=== PATIENT | male | born 1940 | race Caucasian/White ===

== ENCOUNTER 2019-04-12 13:45 | Inpatient (IN) | payer MEDICARE, OTHER ==
[~2019-04-12] VITALS: Ht 167.6 cm; Wt 105.4 kg
[2019-04-12] MEDS ORDERED: NACL 0.9% 3 ML SYG IV SCH (14:00)
[2019-04-12] MEDS ORDERED: ONDANSETRON 4 MG INJ IV PRN (14:00)
[2019-04-12] MEDS ORDERED: ZOLPIDEM 5 MG TAB PO PRN (14:00)
[2019-04-12] MEDS ORDERED: IOHEXOL 14.3 MG(I)/ML (ADULT) BTL PO ONE (14:00)
[2019-04-12] MEDS ORDERED: MAGNESIUM HYDROXIDE 30ML CUP PO PRN (14:00)
[2019-04-12] MEDS ORDERED: ACETAMINOPHEN 325 MG TAB PO PRN (14:00)
[2019-04-12 14:10] VITALS: BP 140/83; PULSE 87; RESP 16
--- NOTE | 2019-04-12 14:55 | HP ---
DATE OF ADMISSION: 04/12/2019 REASON FOR ADMISSION: Abdominal pain, liver lesions, rule out metastatic disease. HISTORY OF PRESENT ILLNESS: The patient is an unfortunate 78-year-old obese male with hist ory of hypertension, dyslipidemia, diabetes mellitus on metformin, ASCVD, atrial fibrillation, CVA 10 years ago with no residual deficits, who has been experiencing abdominal pain for more than a month, progressively worse as an abdominal ultrasound at the outpatient setting showed unfortunately multip le liver lesions suggestive of metastatic disease Because of his ongoing pain and above findings, we decided to admit the patient for further evaluation. The patient states that his abdominal pain is located in the left lower quadrant. He denies constipation. He reports actually frequent bowel move ments 2 to 3 a day, but denies hematochezia or black stools. He denies any weight loss. The patient does have arthritis of the knees and has difficulty ambulating because of it. He denies chest pain or shortness of breath. Denies any headaches. No change in vision. The patient has been admitted f or further care. PAST MEDICAL HISTORY: Includes hypertension, dyslipidemia, polycythemia, diabetes mellitus, ASCVD, A Fib, CVA, obese state. ALLERGIES: NO KNOWN DRUG ALLERGIES. SOCIAL HISTORY: No history of tobacco, IV drug use. Alcohol in the past. He was a heavy drinker, b ut has stopped. No history of hepatitis or HIV. The patient never had a colonoscopy or any EGD. The patient is . He has 1 son who lives in [place]. 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 PAST SURGICAL HISTORY: Left wrist surgery. MEDICATIONS: 1. Amlodipine 5 mg daily. 2. Metformin 500 mg daily. 3. Atorvastatin 20 mg at bedtime. 4. Metoprolol 25 b.i.d. He is supposed to take aspirin, but he is not taking it. FAMILY HISTORY: Both parents are and both unknown. He did not know about cancer in the [facility]. REVIEW OF SYSTEMS: Complaining of mostly left lower quadrant pain ongoing constant for months. PHYSICAL EXAMINATION: GENERAL: The patient is obese. HEENT: Normocephalic, atraumatic. Flushed at the face. No lymphadenopathy. CARDIOVASCULAR: S1, S2, irregular. LUNGS: Clear. ABDOMEN: Soft, distended, slight tenderness on palpation in the left lower quadrant. EXTREMITIES: There is no clubbing, cyanosis or edema. LABORATORY DATA: Pending. DIAGNOSTIC DATA: Ultrasound and CT scan was ordered and is pending. EKG in my office in the past sh owed AFib. We will follow up with current EKG. ASSESSMENT AND PLAN: This is an unfortunate 78-year-old obese male with multiple medical p roblems including hypertension, dyslipidemia, atrial fibrillation, diabetes mellitus, cerebrovascular accident, who presents with ongoing left lower quadrant abdominal pain, was found to have lesions in the liver concerning for metastatic disease. 1. Abdominal pain. This may be due to some intraabdominal process. I am concerned about possible c olon cancer with metastasis to the liver. We will consult GI and proceed with an abdominal ultrasoun d and CT scan of his chest, abdomen and pelvis with outpatient imaging tests to suggest possible live r metastasis. We will check CEA, PSA and CA 19-9. GI consultation was obtained. Pain control will be obtained as well. Check stool for blood and we will follow. 2. The patient will be placed on Protonix for gastrointestinal prophylaxis and Lovenox for deep veno us thrombosis prophylaxis. 3. History of atrial fibrillation. Continue metoprolol. He would definitely benefit from anticoagu lation. Follow up EKG results and consult cardiology. 4. Obese state. Weight loss is advised. 5. Diabetes mellitus. Accu-Chek before every meal will be provided with insulin coverage. We will check hemoglobin A1c. Again, weight loss is a must. 6. Polycythemia. Follow up H and H. May consider oncology and hematology for evaluation. We will follow. Dictated By: NIDHI PEREZ/RUIZ Conf#: [id number] DID#: [id number] CC: LEOPOLDO FORD MD;*End*
[2019-04-12 15:21] VITALS: Ht 167.6 cm; Wt 105.4 kg
[2019-04-12] MEDS ORDERED: GLUCOSE GEL 15 GRAM TUBE BUCCAL PRN (16:00)
[2019-04-12] MEDS ORDERED: GLUCAGON 1 MG INJ IM PRN (16:00)
[2019-04-12] MEDS ORDERED: DEXTROSE 50% 50 ML SYRINGE IV PRN ×2 (16:00)
[2019-04-12] MEDS ORDERED: GLUCOSE GEL 15 GRAM TUBE PO PRN ×2 (16:00)
[2019-04-12] MEDS: SOD CHLORIDE 0.9% 1,000 ML IV SCH (16:03)
[2019-04-12] MEDS ORDERED: IOHEXOL 300MG/ML 150 ML BTL ONE (17:06)
[2019-04-12] MEDS ORDERED: SOD CHLORIDE 0.9% 100 ML ONE (17:06)
[2019-04-12] MEDS: INSULIN ASPART [NOVOLOG] 3 ML PEN SC SCH ×2 (17:43→20:40)
[2019-04-12] MEDS ORDERED: ATOR40TA68 PO (18:27)
[2019-04-12] MEDS ORDERED: METF500T24 PO (18:28)
[2019-04-12] MEDS ORDERED: AMLO2.5T78 PO (18:29)
[2019-04-12] MEDS ORDERED: METO-448 PO (18:30)
--- NOTE | 2019-04-12 19:50 | CONS ---
DATE OF ADMISSION: 04/12/2019 DATE OF CONSULTATION: 04/12/2019 HISTORY OF PRESENT ILLNESS: An 78-year-old male with history of hypertension, dyslipidemia , diabetes mellitus on metformin, atrial fibrillation, CVA 10 years ago, comes to the hospital compla ining of abdominal pain for more than 1 month. The patient had ultrasound done which showed multiple mets in the liver. He never had a colonoscopy, no weight loss and is gaining weight. No chest pain , no shortness of breath, no or [employer] problem. PAST MEDICAL HISTORY: As described. PAST SURGICAL HISTORY: History of left wrist surgery. MEDICATIONS: 1. Amlodipine. 2. Metformin. 3. Statin 4. Metoprolol. ALLERGIES: NONE. FAMILY HISTORY: Both parents are . REVIEW OF SYSTEMS: Left lower quadrant pain. PHYSICAL EXAMINATION: GENERAL: Alert, awake, not in distress. VITAL SIGNS: Stable. HEENT: Unremarkable. NECK: Supple, no thyromegaly, no lymphadenopathy. CARDIOVASCULAR: No murmur, gallop, or click. LUNGS: Clear. ABDOMEN: Benign. EXTREMITIES: No edema. CENTRAL NERVOUS SYSTEM: Grossly within normal limits. IMPRESSION: 1. Multiple mets in the liver with elevated CA 19-9 and CEA, more in favor of a pancreatic lesion. 2. Diabetes mellitus. 3. Atrial fibrillation. 4. Obesity. 5. Polycythemia. PLAN: At this point is to get a CAT scan of the abdomen and pelvis to look for the pancreatic mass. If there are multiple mets in the liver, we will straight proceed with a biopsy of the liver to clin ch the diagnosis. In the interim, continue present care. Dictated By: LEOPOLDO WELCH/NTS Conf#: [id number] DID#: [id number] CC: NIDHI VILLEDA MD;*EndCC*
[2019-04-12] MEDS: METOPROLOL 25 MG TAB PO SCH (20:40)
[2019-04-12 20:42] VITALS: BP 129/80; PULSE 81; RESP 18
[2019-04-13] MEDS: ACCU-CHEK XX SCH (01:54)
[2019-04-13 02:00] VITALS: BP 166/93; PULSE 80; RESP 18
[2019-04-13] MEDS: SOD CHLORIDE 0.9% 1,000 ML IV SCH ×2 (03:58→17:02)
[2019-04-13] MEDS: PANTOPRAZOLE (EC) 40 MG TAB PO SCH (05:24)
--- NOTE | 2019-04-13 06:57 | CONS ---
Assessment/Plan Assessment/Plan Hospital Course (Demo Recall) 78 yo male 1. Multiple mets in the liver with elevated CA 19-9 and CEA, more in favor of a pancreatic lesion. -CT scan will show if pancreatic mass or liver masses alone, may need liver mass biopsies 2. Diabetes mellitus. 3. Atrial fibrillation. 4. Obesity. 5. Polycythemia. 6. Dyspnea on exertion -CXR shows low lung volume secondary to compression 7. Wall thickening with surrounding fat stranding in sigmoid colon seen in CT -Colitis vs diverticulitis (does c/o LLQ/L groin pain, wbc wnl, afebrile, no abx so less likely diverticulitis) vs neoplasm 8. Elevated CEA and CA 19-9 9. Fatty liver 10. Cardiomyopathy noted on CT 11. Enlarged prostate gland CT abd 04/12: 1. Approximately 7 cm loop of sigmoid colon demonstrates wall thickening with surrounding fat stranding. While this is suspicious for infectious/inflammatory process such as colitis versus less likely diverticulitis, neoplasm not entirely excluded. Please consider follow-up sigmoidoscopy/colonoscopy for further e valuation. 2. Diffuse fatty changes of the liver, with prominence of the caudate lobe and left lateral segments and apparent mild atrophy of hepatic segment 4, correlate for potential steatohepatitis/early changes of cirrhosis. 3. Previously noted hepatic lesions on recent ultrasound are not clearly visualized on the single run contrast examination. Please consider a dedicated CT or MRI abdomen liver protocol with multiple postcontrast phases of enhancement for further evaluation of lesion seen on recent ultrasound. 4. The heart is enlarged, including particularly the right atrium. 5. Ascending thoracic aorta measures 4.9 cm in diameter. 6. Mildly enlarged prostate gland. Please consider correlation with PSA. PLAN: STAT cbc and cmp Colonoscopy tomorrow if patient agrees. WBC wnl. Afebrile. Bowel prep to start at 1700. NPO p MN. Hold anti coagulants for procedure. Pt examined and plan of care discussed with Dr. Decker Consultation Date/Type/Reason Admit Date/Time April 12, 2019 at 13:45 Initial Consult Date Date/Time of Note DATE: 04/13/19 TIME: 06:57 24 HR Interval Summary Free Text/Dictation C/O SOB with exertion. Left groin pain. Exam/Review of Systems Exam Vitals Vital Signs Date Temp Pulse Resp B/P (MAP) Pulse Ox O2 O2 Flow FiO2 Time Delivery Rate 04/13/19 98.0 80 18 166/93 98 02:00 (117) 04/12/19 21 17:34 04/12/19 Room Air 14:10 Intake and Output 04/12/19 04/12/19 04/13/19 1515:00 23:00 07:00 IntakeIntake Total 100 ml 1180 ml BalanceBalance 100 ml 1180 ml Constitutional: alert, oriented Psych: no complaints Head: normocephalic Eyes: PERRL Respiratory: diminished breath sounds (diminished breath sounds at bases) Cardiovascular: regular rate and rhythm Gastrointestinal: soft, non-tender, other (obese) Neurological: nl mental status Results Result Diagram: 04/12/19 1526 04/12/19 1526 Results 24hrs Laboratory Tests Test 04/12/19 15:26 04/12/19 17:41 04/12/19 20:37 White Blood Count 6.0 Red Blood Count 6.23 H Hemoglobin 18.4 H Hematocrit 55.4 H Mean Corpuscular Volume 88.9 Mean Corpuscular Hemoglobin 29.5 Mean Corpuscular Hemoglobin Concent 33.2 Red Cell Distribution Width 13.3 Platelet Count 186 Mean Platelet Volume 10.5 H Immature Granulocytes % 0.200 Neutrophils % 53.2 Lymphocytes % 32.4 Monocytes % 11.0 Eosinophils % 2.5 Basophils % 0.7 Nucleated Red Blood Cells % 0.0 Immature Granulocytes # 0.010 Neutrophils # 3.2 Lymphocytes # 2.0 Monocytes # 0.7 Eosinophils # 0.2 Basophils # 0.0 Nucleated Red Blood Cells # 0.0 Prothrombin Time 13.2 Prothrombin Time Ratio 1.0 INR International Normalized Ratio 0.99 Sodium Level 143 Potassium Level 4.7 Chloride Level 105 Carbon Dioxide Level 32 H Anion Gap 6 Blood Urea Nitrogen 16 Creatinine 0.98 Est Glomerular Filtrat Rate mL/min Glucose Level 126 Hemoglobin A1c 7.0 H Uric Acid 7.5 Calcium Level 9.1 Ferritin 69.4 Total Bilirubin 1.0 Direct Bilirubin 0.00 Indirect Bilirubin 1.0 Aspartate Amino Transf (AST/SGOT) 33 Alanine Aminotransferase (ALT/SGPT) 28 Alkaline Phosphatase 69 Total Protein 7.2 Albumin 4.0 Globulin 3.20 Albumin/Globulin Ratio 1.25 Carcinoembryonic Antigen 19.7 H CA 19-9 Antigen 369.0 H Prostate Specific Antigen 1.1 Thyroid Stimulating Hormone (TSH) 1.490 Bedside Glucose 109 151 Medications Medication Current Medications IV Flush (NS 3 ml) 3 ml PER PROTOCOL IV ; Start 04/12/19 at 14:00 Acetaminophen (Tylenol Tab) 650 mg Q6H PRN PO .PAIN 1-3 OR TEMP; Start 04/12/19 at 14:00 Acetaminophen/ Hydrocodone Bitart ([place] (5/325)) 1 tab Q6H PRN PO .MOD PAIN 4- 6; Start 04/12/19 at 14:00 Docusate Sodium (Colace) 100 mg Q12H PRN PO .CONSTIPATION; Start 04/12/19 at 14:00 Magnesium Hydroxide (Milk Of Mag) 30 ml DAILY PRN PO .CONSTIPATION; Start 04/12/19 at 14:00 Zolpidem Tartrate (Ambien) 5 mg QHS PRN PO .INSOMNIA; Start 04/12/19 at 14:00 Pantoprazole (Protonix Tab) 40 mg DAILY@06 PO Last administered on 04/13/19at 05:24; Admin Dose 40 MG; Start 04/13/19 at 06:00 Diagnostic Test (Pha) (Accu-Chek) 1 ea 02 XX ; Start 04/13/19 at 02:00 Insulin Aspart (Novolog Insulin Pen) NOVOLOG *MODERATE* ALGORITHM WITH MEALS BEDTIME SC ; Start 04/12/19 at 18:05 Sodium Chloride 1,000 ml @ 80 mls/hr [id number] IV Last administered on 04/13/19at 03:58; Admin Dose 80 MLS/HR; Start 04/12/19 at 14:30 Metoprolol Tartrate (Lopressor) 25 mg BID PO Last administered on 04/12/19at 20:40; Admin Dose 25 MG; Start 04/12/19 at 21:00 Amlodipine Besylate (Norvasc) 5 mg DAILY PO ; Start 04/13/19 at 09:00 Enoxaparin Sodium (Lovenox) 40 mg DAILY SC ; Start 04/13/19 at 09:00 Ondansetron HCl (Zofran Inj) 4 mg Q6H PRN IV NAUSEA AND/OR VOMITING; Start 04/12/19 at 14:30 Miscellaneous Information 1 ea NOTE XX ; Start 04/12/19 at 16:00 Glucose (Glutose) 15 gm Q15M PRN PO DECREASED GLUCOSE; Start 04/12/19 at 16:00 Glucose (Glutose) 22.5 gm Q15M PRN PO DECREASED GLUCOSE; Start 04/12/19 at 16:00 Dextrose (D50w Syringe) 25 ml Q15M PRN IV DECREASED GLUCOSE; Start 04/12/19 at 16:00 Dextrose (D50w Syringe) 50 ml Q15M PRN IV DECREASED GLUCOSE; Start 04/12/19 at 16:00 Glucagon (Glucagen) 1 mg Q15M PRN IM DECREASED GLUCOSE; Start 04/12/19 at 16:00 Glucose (Glutose) 15 gm Q15M PRN BUCCAL DECREASED GLUCOSE; Start 04/12/19 at 16:00 SEEMA MENDOZA April 13, 2019 06:57
[2019-04-13 07:50] VITALS: BP 186/114; PULSE 69; RESP 18
[2019-04-13] MEDS: METOPROLOL 25 MG TAB PO SCH (08:08)
[2019-04-13] MEDS: INSULIN ASPART [NOVOLOG] 3 ML PEN SC SCH ×4 (08:12→21:00)
[2019-04-13] MEDS ORDERED: ENOXAPARIN 40 MG/0.4 ML SYG SC SCH (09:00)
[2019-04-13] MEDS ORDERED: AMLODIPINE 5 MG TAB PO SCH (09:00)
--- NOTE | 2019-04-13 09:49 | RADRPT ---
Echocardiogram Report Patient Name: JORDANA PEREZPatient ID: [id number] : 8 (78y 5m)Study Date: 04/13/2019 7:26:01 AM Gender: MAccession #: [id number] Tech: Linette Sorto [facility] Location: 223 Ref.Physician: RODRICK HAQ Height(Cm): BSA: Weight(Kg): Quality: AdequateAccount #: Procedures: Echocardiographic Report: Transthoracic echocardiogram with complete 2D, M-Mode, and doppler examination. Indications: Atrial Fibrillation. Measurements: 2D/M Mode Doppler Measurement Value Normal Range Measurement Value Normal Range LVIDd 2D 4.3 [ 4.2 - 5.8 ] cm AV Peak Uri 1.1 [ 100.0 - 170.0 ] cm/sec LVIDs 2D 2.4 [ 2.5 - 4.0 ] cm AV Peak PG 5.0 [ 2.0 - 9.0 ] mmHg LVPWd 2D 1.4 [ 0.6 - 1.0 ] cm LVOT Peak Uri 0.9 [ 70.0 - 110.0 ] cm/sec IVSd 2D 1.5 [ 0.6 - 1.0 ] cm LVOT Peak PG 4.0 [ 2.0 - 6.0 ] mmHg AoR Diam 2D 3.2 [ 2.6 - 3.4 ] cm MV E Peak Uri 0.9 [ 60.0 - 130.0 ] cm/sec EDV 2D 81.3 [ 62.0 - 150.0 ] ml MV Decel Time 222 [ 104 - 258 ] msec ESV 2D 19.7 [ 21.0 - 61.0 ] ml Lat E` Uri 0.1 [ 10.0 - 15.0 ] cm/sec EF 2D 75.8 [ 52.0 - 72.0 ] percent Lateral E/E` 7.6 [ 1.0 - 2.0 ] ratio LA Dimen 2D 4.4 [ 3.0 - 4.0 ] cm Findings: Left Ventricle: Normal left ventricular systolic function. Normal left ventricular cavity size. Moderate concentric left ventricular hypertrophy. Ejection fraction is visually estimated at 65 %. Tissue Doppler/Mitral Doppler indices are indeterminate in this study due to the presence of atrial fibrillation. Right Ventricle: Normal right ventricular size. Normal right ventricular systolic function. Left Atrium: There is mild enlargement of left atrium. Right Atrium: The right atrium is normal in size. Mitral Valve: Normal appearance and function of the mitral valve with trace physiologic regurgitation. Aortic Valve: No hemodynamically significant aortic stenosis by doppler. Aortic cusps appear mildly calcified. Trace to mild aortic valve regurgitation. Tricuspid Valve: Normal appearance of the tricuspid valve. Unable to obtain RVSP due to minimal presence of tricuspid regurgitation. Pulmonic Valve: Pulmonic valve not well visualized. Pericardium: Normal pericardium with no significant pericardial effusion. Aorta: Normal aortic root. IVC: Normal size and normal respiratory collapse consistent with normal right atrial pressure. Conclusions: There is mild enlargement of left atrium. Normal left ventricular systolic function. Normal left ventricular cavity size. Moderate concentric left ventricular hypertrophy. Ejection fraction is visually estimated at 65 %. Tissue Doppler/Mitral Doppler indices are indeterminate in this study due to the presence of atrial fibrillation. Normal appearance and function of the mitral valve with trace physiologic regurgitation. No hemodynamically significant aortic stenosis by doppler. Aortic cusps appear mildly calcified. Trace to mild aortic valve regurgitation. Normal appearance of the tricuspid valve. Unable to obtain RVSP due to minimal presence of tricuspid regurgitation. Normal size and normal respiratory collapse consistent with normal right atrial pressure. Electronically Signed By: Rodrick Haq 2019-04-13 09:48:29 PDT
--- NOTE | 2019-04-13 11:04 | CONS ---
Assessment/Plan Assessment/Plan Hospital Course (Demo Recall) 1. Atrial fibrillation: Appears to be chronically heart rate controlled. Patient would benefit from chronic anticoagulation however currently due to the multiple procedures at this plan is off of anticoagulation 2. Hypertension currently poorly controlled 3. Ascending aortic aneurysm at 4.9 cm: We will continue to monitor and control the blood pressure better 4. Likely metastatic cancer work-up is pending by GI 5. Diabetes 6. History of CVA 7. Dyslipidemia Recommendations: I will switch the metoprolol to carvedilol for better blood pressure control. SHAWNA inhibitor will be added Diabetic management as per Dr. Villeda associated GI work-up is pending. Colonoscopy is planned for tomorrow apparently. Heart is clinically remained stable we will continue to monitor. Thank you for his referral. We will continue to follow along with you RODRICK STEWART MD [facility] Consultation Date/Type/Reason Admit Date/Time April 12, 2019 at 13:45 Date of Consultation: April 13, 2019 Type of Consult Cardiology Reason for Consultation afib. Requesting Provider: NIDHI VILLEDA MD Date/Time of Note DATE: 04/13/19 TIME: 10:57 Hx of Present Illness Interventional cardiology consultation note Chief complaint: Lower abdominal pain Reason for consult: Atrial fibrillation, hypertension, dilated aortic aneurysm History of present illness: Thank you for this referral. History was obtained from the patient discussion with Dr. Villeda discussion with the staff and physicians. Chart was reviewed. This is a pleasant 78-year-old obese male with history of hypertension, dyslipidemia, diabetes mellitus on metformin, atrial fibrillation, CVA 10 years ago with no residual deficits, who was admitted for work-up of his abdominal pain. Patient apparently has had abdominal pain which is limited to become severe left lower quadrant sharp over the past month. He could not explain exacerbating factor to it. Work-up has been concerned about possibility of metastatic cancer has been admitted for further work-up. Patient has a history of atrial fibrillation which appears to be chronic but he is not anticoagulated chronically I am not sure why though. pt Could not explain to me reason has not been anticoagulated limiting anything except aspirin. Patient denies any active bleeding to me. His blood pressure this a.m. has been also severely elevated. CT of the abdomen has also shown 4.9 cm ascending aorta PAST MEDICAL HISTORY: Includes hypertension, dyslipidemia, polycythemia, di abetes mellitus, AFib, CVA, obese state. ALLERGIES: NO KNOWN DRUG ALLERGIES. SOCIAL HISTORY: No history of tobacco, IV drug use. Alcohol in the past. PAST SURGICAL HISTORY: Left wrist surgery. MEDICATIONS at home include 1. Amlodipine 5 mg daily. 2. Metformin 500 mg daily. 3. Atorvastatin 20 mg at bedtime. 4. Metoprolol 25 b.i.d. He is supposed to take aspirin, but he is not taking it. FAMILY HISTORY: Both parents are and both unknown. He did not know about cancer in the family. He is not aware of any history of early coronary artery disease in the family no known drug allergies Allergies: Review of system: Patient denies all others except for above-mentioned Past Medical History Home Meds Reported Medications Metoprolol Tartrate* (Lopressor*) 25 Mg Tab, 25 MG PO BID, #60 TAB 04/12/19 Amlodipine Besylate* (Amlodipine Besylate*) 2.5 Mg Tablet, 2.5 MG PO DAILY, #30 TAB 04/12/19 Metformin Hcl* (Metformin Hcl*) 500 Mg Tablet, 500 MG PO WITH MEALS, #90 TAB 04/12/19 Atorvastatin* (Atorvastatin*) 40 Mg Tablet, 40 MG PO QHS, #30 TAB 04/12/19 Medications Current Medications IV Flush (NS 3 ml) 3 ml PER PROTOCOL IV ; Start 04/12/19 at 14:00 Acetaminophen (Tylenol Tab) 650 mg Q6H PRN PO .PAIN 1-3 OR TEMP; Start 04/12/19 at 14:00 Acetaminophen/ Hydrocodone Bitart ([place] (5/325)) 1 tab Q6H PRN PO .MOD PAIN 4- 6; Start 04/12/19 at 14:00 Docusate Sodium (Colace) 100 mg Q12H PRN PO .CONSTIPATION; Start 04/12/19 at 14 :00 Magnesium Hydroxide (Milk Of Mag) 30 ml DAILY PRN PO .CONSTIPATION; Start 04/12/19 at 14:00 Zolpidem Tartrate (Ambien) 5 mg QHS PRN PO .INSOMNIA; Start 04/12/19 at 14:00 Pantoprazole (Protonix Tab) 40 mg DAILY@06 PO Last administered on 04/13/19at 05:24; Admin Dose 40 MG; Start 04/13/19 at 06:00 Diagnostic Test (Pha) (Accu-Chek) 1 ea 02 XX ; Start 04/13/19 at 02:00 Insulin Aspart (Novolog Insulin Pen) NOVOLOG *MODERATE* ALGORITHM WITH MEALS BEDTIME SC Last administered on 04/13/19at 08:12; Admin Dose 2 UNIT; Start 04/12/19 at 18:05 Sodium Chloride 1,000 ml @ 80 mls/hr [id number] IV Last administered on 04/13/19at 03:58; Admin Dose 80 MLS/HR; Start 04/12/19 at 14:30 Enoxaparin Sodium (Lovenox) 40 mg DAILY SC Last administered on 04/13/19at 08:10; Admin Dose 40 MG; Start 04/13/19 at 09:00; Status Hold Ondansetron HCl (Zofran Inj) 4 mg Q6H PRN IV NAUSEA AND/OR VOMITING; Start 04/12/19 at 14:30 Miscellaneous Information 1 ea NOTE XX ; Start 04/12/19 at 16:00 Glucose (Glutose) 15 gm Q15M PRN PO DECREASED GLUCOSE; Start 04/12/19 at 16:00 Glucose (Glutose) 22.5 gm Q15M PRN PO DECREASED GLUCOSE; Start 04/12/19 at 16:00 Dextrose (D50w Syringe) 25 ml Q15M PRN IV DECREASED GLUCOSE; Start 04/12/19 at 16:00 Dextrose (D50w Syringe) 50 ml Q15M PRN IV DECREASED GLUCOSE; Start 04/12/19 at 16:00 Glucagon (Glucagen) 1 mg Q15M PRN IM DECREASED GLUCOSE; Start 04/12/19 at 16:00 Glucose (Glutose) 15 gm Q15M PRN BUCCAL DECREASED GLUCOSE; Start 04/12/19 at 16:00 Bisacodyl (Dulcolax) 10 mg ONCE ONCE PO ; Start 04/13/19 at 17:00; Stop 04/13/19 at 17:01 Polyethylene Glycol/ Electrolytes (Golytely) 2,000 ml ONCE ONCE PO ; Start 04/13/19 at 17:00; Stop 04/13/19 at 17:01 Polyethylene Glycol/ Electrolytes (Golytely) 2,000 ml 2nd Dose (GI Prep) ONCE PO ; Start 04/13/19 at 20:00; Stop 04/13/19 at 20:01 Bisacodyl (Dulcolax) 10 mg 2nd Dose (GI Prep) ONCE PO ; Start 04/13/19 at 20:00; Stop 04/13/19 at 20:01 Hydralazine HCl (Apresoline) 25 mg TID PO ; Start 04/13/19 at 13:00 Amlodipine Besylate (Norvasc) 10 mg DAILY PO ; Start 04/14/19 at 09:00; Status UNV Metoprolol Tartrate (Lopressor) 50 mg BID PO ; Start 04/13/19 at 21:00; Status UNV Allergies: Coded Allergies: No Known Allergies (Verified Allergy, Unknown, 04/12/19) Social History Smoking Status: Never smoker Exam/Review of Systems Vital Signs Vitals Vital Signs Date Temp Pulse Resp B/P (MAP) Pulse Ox O2 O2 Flow FiO2 Time Delivery Rate 04/13/19 98.1 69 18 186/114 98 Room Air 07:50 (138) 04/12/19 21 17:34 Intake and Output 04/12/19 04/12/19 04/13/19 1515:00 23:00 07:00 IntakeIntake Total 100 ml 1180 ml BalanceBalance 100 ml 1180 ml Exam Exam General: Obese gentleman in no acute distress HEENT: NC/AT. pupils are equal. round. NECK: NO JVD. no stridor. CV: Regular irregular. systolic murmur; no gallop or rubs. PULM: no wheezing or rhonchi. GI: SOFT, NT, ND, no rebound or guarding Extremity: trace B/L LE edema. no clubbing. neuro: awake and alert, OX3. Psych: calm and pleasant rectal: deferred EEG was personally reviewed which showed atrial fibrillation. Cannot rule out anteroseptal infarct. Echocardiogram was personally reviewed which shows: There is mild enlargement of left atrium. Normal left ventricular systolic function. Normal left ventricular cavity size. Moderate concentric left ventricular hypertrophy. Ejection fraction is visually estimated at 65 %. Tissue Doppler/Mitral Doppler indices are indeterminate in this study due to the presence of atrial fibrilla tion. Normal appearance and function of the mitral valve with trace physiologic regurgitation. No hemodynamically significant aortic stenosis by doppler. Aortic cusps appear mildly calcified. Trace to mild aortic valve regurgitation. Normal appearance of the tricuspid valve. Unable to obtain RVSP due to minimal presence of tricuspid regurgitation. Normal size and normal respiratory collapse consistent with normal right atrial pressure. Labs Result Diagram: 04/13/19 1025 04/12/19 1526 Results 24hrs Laboratory Tests Test 04/12/19 15:26 04/12/19 17:41 04/12/19 20:37 04/13/19 08:01 White Blood Count 6.0 Red Blood Count 6.23 H Hemoglobin 18.4 H Hematocrit 55.4 H Mean Corpuscular 88.9 Volume Mean Corpuscular 29.5 Hemoglobin Mean Corpuscular 33.2 Hemoglobin Concent Red Cell 13.3 Distribution Width Platelet Count 186 Mean Platelet Volume 10.5 H Immature 0.200 Granulocytes % Neutrophils % 53.2 Lymphocytes % 32.4 Monocytes % 11.0 Eosinophils % 2.5 Basophils % 0.7 Nucleated Red Blood 0.0 Cells % Immature 0.010 Granulocytes # Neutrophils # 3.2 Lymphocytes # 2.0 Monocytes # 0.7 Eosinophils # 0.2 Basophils # 0.0 Nucleated Red Blood 0.0 Cells # Prothrombin Time 13.2 Prothrombin Time 1.0 Ratio INR International 0.99 Normalized Ratio Sodium Level 143 Potassium Level 4.7 Chloride Level 105 Carbon Dioxide Level 32 H Anion Gap 6 Blood Urea Nitrogen 16 Creatinine 0.98 Est Glomerular Filtrat Rate mL/min Glucose Level 126 Hemoglobin A1c 7.0 H Uric Acid 7.5 Calcium Level 9.1 Ferritin 69.4 Total Bilirubin 1.0 Direct Bilirubin 0.00 Indirect Bilirubin 1.0 Aspartate Amino 33 Transf (AST/SGOT) Alanine 28 Aminotransferase (AL T/SGPT) Alkaline Phosphatase 69 Total Protein 7.2 Albumin 4.0 Globulin 3.20 Albumin/Globulin 1.25 Ratio Carcinoembryonic 19.7 H Antigen CA 19-9 Antigen 369.0 H Prostate Specific 1.1 Antigen Thyroid Stimulating 1.490 Hormone (TSH) Bedside Glucose 109 151 160 Test 04/13/19 10:25 White Blood Count 5.7 Red Blood Count 6.01 Hemoglobin 17.5 Hematocrit 53.8 H Mean Corpuscular 89.5 Volume Mean Corpuscular 29.1 Hemoglobin Mean Corpuscular 32.5 Hemoglobin Concent Red Cell 13.2 Distribution Width Platelet Count 186 Mean Platelet Volume 10.4 Immature 0.400 Granulocytes % Neutrophils % 55.2 Lymphocytes % 31.0 Monocytes % 10.2 Eosinophils % 2.8 Basophils % 0.4 Nucleated Red Blood 0.0 Cells % Immature 0.020 Granulocytes # Neutrophils # 3.1 Lymphocytes # 1.8 Monocytes # 0.6 Eosinophils # 0.2 Basophils # 0.0 Nucleated Red Blood 0.0 Cells # Medications Medications Current Medications IV Flush (NS 3 ml) 3 ml PER PROTOCOL IV ; Start 04/12/19 at 14:00 Acetaminophen (Tylenol Tab) 650 mg Q6H PRN PO .PAIN 1-3 OR TEMP; Start 04/12/19 at 14:00 Acetaminophen/ Hydrocodone Bitart ([place] (5/325)) 1 tab Q6H PRN PO .MOD PAIN 4- 6; Start 04/12/19 at 14:00 Docusate Sodium (Colace) 100 mg Q12H PRN PO .CONSTIPATION; Start 04/12/19 at 14:00 Magnesium Hydroxide (Milk Of Mag) 30 ml DAILY PRN PO .CONSTIPATION; Start 04/12/19 at 14:00 Zolpidem Tartrate (Ambien) 5 mg QHS PRN PO .INSOMNIA; Start 04/12/19 at 14:00 Pantoprazole (Protonix Tab) 40 mg DAILY@06 PO Last administered on 04/13/19at 05 :24; Admin Dose 40 MG; Start 04/13/19 at 06:00 Diagnostic Test (Pha) (Accu-Chek) 1 ea 02 XX ; Start 04/13/19 at 02:00 Insulin Aspart (Novolog Insulin Pen) NOVOLOG *MODERATE* ALGORITHM WITH MEALS BEDTIME SC Last administered on 04/13/19at 08:12; Admin Dose 2 UNIT; Start 04/12/19 at 18:05 Sodium Chloride 1,000 ml @ 80 mls/hr [id number] IV Last administered on 04/13/19at 03:58; Admin Dose 80 MLS/HR; Start 04/12/19 at 14:30 Enoxaparin Sodium (Lovenox) 40 mg DAILY SC Last administered on 04/13/19at 08 :10; Admin Dose 40 MG; Start 04/13/19 at 09:00; Status Hold Ondansetron HCl (Zofran Inj) 4 mg Q6H PRN IV NAUSEA AND/OR VOMITING; Start 04/12/19 at 14:30 Miscellaneous Information 1 ea NOTE XX ; Start 04/12/19 at 16:00 Glucose (Glutose) 15 gm Q15M PRN PO DECREASED GLUCOSE; Start 04/12/19 at 16:00 Glucose (Glutose) 22.5 gm Q15M PRN PO DECREASED GLUCOSE; Start 04/12/19 at 16:00 Dextrose (D50w Syringe) 25 ml Q15M PRN IV DECREASED GLUCOSE; Start 04/12/19 at 16:00 Dextrose (D50w Syringe) 50 ml Q15M PRN IV DECREASED GLUCOSE; Start 04/12/19 at 16:00 Glucagon (Glucagen) 1 mg Q15M PRN IM DECREASED GLUCOSE; Start 04/12/19 at 16:00 Glucose (Glutose) 15 gm Q15M PRN BUCCAL DECREASED GLUCOSE; Start 04/12/19 at 16:00 Bisacodyl (Dulcolax) 10 mg ONCE ONCE PO ; Start 04/13/19 at 17:00; Stop 04/13/19 at 17:01 Polyethylene Glycol/ Electrolytes (Golytely) 2,000 ml ONCE ONCE PO ; Start 04/13/19 at 17:00; Stop 04/13/19 at 17:01 Polyethylene Glycol/ Electrolytes (Golytely) 2,000 ml 2nd Dose (GI Prep) ONCE PO ; Start 04/13/19 at 20:00; Stop 04/13/19 at 20:01 Bisacodyl (Dulcolax) 10 mg 2nd Dose (GI Prep) ONCE PO ; Start 04/13/19 at 20:00; Stop 04/13/19 at 20:01 Hydralazine HCl (Apresoline) 25 mg TID PO ; Start 04/13/19 at 13:00 Amlodipine Besylate (Norvasc) 10 mg DAILY PO ; Start 04/14/19 at 09:00; Status UNV Metoprolol Tartrate (Lopressor) 50 mg BID PO ; Start 04/13/19 at 21:00; Status UNV RODRICK STEWART MD April 13, 2019 11:04
[2019-04-13 13:00] VITALS: BP 144/82; PULSE 68; RESP 18
--- NOTE | 2019-04-13 13:28 | PN ---
DATE: 04/13/2019 SUBJECTIVE: The patient was seen and has intermittent left lower quadrant pain noted. Imaging from the CAT scan and case was discussed with Dr. Decker to proceed with a colonoscopy. Case was discusse d with Dr. Haq. PHYSICAL EXAMINATION: VITAL SIGNS: Temperature 98.1, pulse is 69, respirations 18, blood pressure 186/114, saturation is 9 8%. GENERAL: No acute distress. HEENT: Normocephalic, atraumatic. The patient is obese. CARDIOVASCULAR: S1 and S2. LUNGS: Clear. ABDOMEN: Soft. Palpation of left lower quadrant is not severe, just vague pain. EXTREMITIES: No clubbing, cyanosis or edema. LABORATORY DATA: No new labs today. Labs yesterday were reviewed which showed unfortunately elevate d CEA at 19.7 and CA 19-9 at 369. TSH is 1.49. DIAGNOSTIC DATA: Abdominal ultrasound shows diffuse hepatic steatosis, hypoechoic liver lesions coul d represent focal areas of fat sparing or focal liver lesions. Consider followup contrast and add MR I or CT liver protocol for further evaluation. No evidence of cholelithiasis or biliary ductal dilat ation. No evidence of hydronephrosis, splenomegaly. Bilateral renal cyst are seen. Chest x-ray giovanny ws low lung volume with compressive changes, mild cardiomegaly and aortic atherosclerosis. CT scan o f abdomen and pelvis shows approximately 7 cm loop of sigmoid colon demonstrates wall thickening with surrounding fat stranding. While this is suspicious for infectious inflammatory process such as col itis versus less likely diverticulitis, neoplasm is not entirely excluded. Please continue to follow up sigmoidoscopy, colonoscopy for further evaluation. There are diffuse fatty changes of the liver with prominence of the caudate lobe and left lateral segment and apparent mild atrophy of hepatic seg ment. Correlate for potential steatohepatitis and early changes of cirrhosis. There is previously n oted hepatic lesions on recent ultrasound not clearly visualized on the single noncontrast examinatio n. Please consider dedicated CT or MRI of the abdomen with liver protocol with multiple enhanc ement for further evaluation of lesion seen on recent ultrasound. The arteries are enlarged includin g particularly the right atrium and ascending thoracic aorta measuring 4.9 cm diameter and mildly enl arged prostate gland. Please consider correlation with PSA. Additional findings as detail. MEDICATIONS: 1. GoLYTELY to be given tonight. 2. Dulcolax as directed. 3. Hydralazine 25 t.i.d. 4. Norvasc 5 mg daily. 5. Protonix 40 mg daily. 6. Accu-Cheks as directed. 7. Lopressor 25 b.i.d. 8. Insulin aspart per sliding scale. 9. Tylenol. 10. [place]. 11. Colace. 12. Milk of Magnesia. 13. Ambien p.r.n. ASSESSMENT AND PLAN: This is an unfortunate 78-year-old obese male with multiple medical p roblems including hypertension, dyslipidemia, atrial fibrillation, diabetes mellitus, cerebrovascular accident, who presents with ongoing left lower quadrant abdominal pain, was found to have liver lesi ons. 1. Abdominal pain. CT scan of the abdomen does show sigmoid colon inflammation. The patient is to undergo colonoscopy in the a.m. Elevated CEA and CA 19-9 is quite concerning for either colon cancer or pancreatic cancer. We will proceed with an MRI of the abdomen with contrast see tomorrow's colon oscopy results. 2. Gastrointestinal: The patient is on Protonix for gastrointestinal prophylaxis. 3. Cardiovascular: The patient is with hypertension. Titrate medication up. Hold oral anticoagula tion due to plan of above procedures. Cardiology is following. Echocardiogram shows preserved eject ion fraction. 4. Diabetes mellitus. Continue insulin coverage while in-house. 5. Polycythemia likely due to obstructive sleep apnea. Definitely will benefit from a sleep study, CPAP and weight loss. We will follow. Dictated By: NIDHI PEREZ/RUIZ Conf#: [id number] DID#: [id number] CC: LEOPOLDO DECKER MD;*EndCC*
[2019-04-13 14:00] VITALS: BP 128/73; PULSE 52; RESP 16
[2019-04-13] MEDS ORDERED: BISACODYL (EC) 5 MG TAB PO ONE ×2 (17:00→20:00)
[2019-04-13] MEDS ORDERED: PEG/ELECTROLYTES 4L BTL PO ONE ×2 (17:00→20:00)
[2019-04-13 20:00] VITALS: BP 169/95; PULSE 69; RESP 19
--- NOTE | 2019-04-13 20:28 | RADRPT ---
Vent Rate: 91 bpm RR Interval: 662 msec ME Interval: [id number] msec QRS Duration: 89 msec QT Interval: 387 msec QTC Interval: 476 msec P-R-T [place]: [id number] - -50 - 55 degrees Atrial fibrillation...V-rate 77-106, irreg A-activity Consider left ventricular hypertrophy...(R aVL+S V3) >2.80mV Inferior infarct, old...Q >35mS, II III aVF Anterior Q waves, possibly due to LVH...Q >30mS in V2-V5 & LVH Electronically Signed By: Ever Whitlock
[2019-04-13] MEDS: HYDROCODONE/APAP (5/325) TAB PO PRN (21:03)
[2019-04-13] MEDS: METOPROLOL 50 MG TAB PO SCH (21:03)
[2019-04-13] MEDS ORDERED: IOHEXOL 14.3 MG(I)/ML (ADULT) BTL PO ONE (21:30)
[2019-04-14] VITALS (11 sets, daily range): BP systolic 138–187; BP diastolic 71–104; PULSE 54–77; RESP 16–23
[2019-04-14] MEDS: INSULIN ASPART [NOVOLOG] 3 ML PEN SC SCH ×5 (00:39→20:21)
[2019-04-14] MEDS: ACCU-CHEK XX SCH (01:24)
[2019-04-14] MEDS: SOD CHLORIDE 0.9% 1,000 ML IV SCH ×3 (04:00→20:26)
[2019-04-14] MEDS: PANTOPRAZOLE (EC) 40 MG TAB PO SCH (05:59)
[2019-04-14] MEDS: METOPROLOL 50 MG TAB PO SCH (09:00)
[2019-04-14] MEDS: AMLODIPINE 10 MG TAB PO SCH (09:00)
--- NOTE | 2019-04-14 10:40 | CONS ---
Consult Date/Type/Reason Admit Date/Time April 12, 2019 at 13:45 Initial Consult Date 04/13/19 Type of Consultation: cv Requesting Provider: NIDHI BAUTISTA MD Date/Time of Note DATE: 04/14/19 TIME: 10:38 Subjective Interventional cardiology follow-up progress note Subjective: Discussed with the staff. Patient with no chest pain or pressure. He still complains of abdominal pain which got worse with the prep for the colonoscopy No nausea vomiting Objective: General: Obese gentleman in no acute distress HEENT: NC/AT. pupils are equal. round. NECK: NO JVD. no stridor. CV: Irregularly irregular. systolic murmur; no gallop or rubs. PULM: no wheezing or rhonchi. GI: SOFT, NT, ND, no rebound or guarding Extremity: trace B/L LE edema. no clubbing. neuro: awake and alert, OX3. Psych: calm and pleasant rectal: deferred EEG was personally reviewed which showed atrial fibrillation. Cannot rule out anteroseptal infarct. Echocardiogram was personally reviewed which shows: There is mild enlargement of left atrium. Normal left ventricular systolic function. Normal left ventricular cavity size. Moderate concentric left ventricular hypertrophy. Ejection fraction is visually estimated at 65 %. Tissue Doppler/Mitral Doppler indices are indeterminate in this study due to the presence of atrial fibrillation. Normal appearance and function of the mitral valve with trace physiologic regurgitation. No hemodynamically significant aortic stenosis by doppler. Aortic cusps appear mildly calcified. Trace to mild aortic valve regurgitation. Normal appearance of the tricuspid valve. Unable to obtain RVSP due to minimal presence of tricuspid regurgitation. Normal size and normal respiratory collapse consistent with normal right atrial pressure. Objective Vitals Vital Signs Date Temp Pulse Resp B/P (MAP) Pulse Ox O2 O2 Flow FiO2 Time Delivery Rate 04/14/19 98.1 58 19 150/82 98 09:10 (104) 04/13/19 Room Air 14:00 04/12/19 21 17:34 Intake and Output 04/13/19 04/13/19 04/14/19 1515:00 23:00 07:00 IntakeIntake Total 600 ml 1820 ml 1000 ml BalanceBalance 600 ml 1820 ml 1000 ml Results/Medications Result Diagram: 04/14/19 0513 04/14/19 0513 Results 24 hrs Laboratory Tests Test 04/13/19 12:10 04/13/19 17:32 04/13/19 21:00 04/14/19 00:27 Bedside Glucose 123 125 146 157 Stool Occult Blood NEGATIVE Test 04/14/19 05:13 04/14/19 05:58 White Blood Count 7.6 # Red Blood Count 5.77 Hemoglobin 16.8 Hematocrit 51.4 Mean Corpuscular 89.1 Volume Mean Corpuscular 29.1 Hemoglobin Mean Corpuscular 32.7 Hemoglobin Concent Red Cell 13.1 Distribution Width Platelet Count 179 Mean Platelet Volume 10.8 H Immature 0.300 Granulocytes % Neutrophils % 64.9 Lymphocytes % 24.6 Monocytes % 9.5 Eosinophils % 0.4 Basophils % 0.3 Nucleated Red Blood 0.0 Cells % Immature 0.020 Granulocytes # Neutrophils # 4.9 Lymphocytes # 1.9 Monocytes # 0.7 Eosinophils # 0.0 Basophils # 0.0 Nucleated Red Blood 0.0 Cells # Prothrombin Time 12.9 Prothrombin Time 1.0 Ratio INR International 0.96 Normalized Ratio Activated 32.0 Partial Thromboplast Time Sodium Level 142 Potassium Level 4.1 Chloride Level 107 Carbon Dioxide Level 26 Anion Gap 9 Blood Urea Nitrogen 17 Creatinine 0.85 Est Glomerular Filtrat Rate mL/min Glucose Level 131 # Calcium Level 8.5 Total Bilirubin 0.8 Direct Bilirubin 0.00 Indirect Bilirubin 0.8 Aspartate Amino 40 Transf (AST/SGOT) Alanine 32 Aminotransferase (AL T/SGPT) Alkaline Phosphatase 55 Total Protein 6.3 Albumin 3.4 Globulin 2.90 Albumin/Globulin 1.17 Ratio Bedside Glucose 116 Home Meds Reported Medications Metoprolol Tartrate* (Lopressor*) 25 Mg Tab, 25 MG PO BID, #60 TAB 04/12/19 Amlodipine Besylate* (Amlodipine Besylate*) 2.5 Mg Tablet, 2.5 MG PO DAILY, #30 TAB 04/12/19 Metformin Hcl* (Metformin Hcl*) 500 Mg Tablet, 500 MG PO WITH MEALS, #90 TAB 04/12/19 Atorvastatin* (Atorvastatin*) 40 Mg Tablet, 40 MG PO QHS, #30 TAB 04/12/19 Medications Current Medications IV Flush (NS 3 ml) 3 ml PER PROTOCOL IV ; Start 04/12/19 at 14:00 Acetaminophen (Tylenol Tab) 650 mg Q6H PRN PO .PAIN 1-3 OR TEMP; Start 04/12/19 at 14:00 Acetaminophen/ Hydrocodone Bitart ([place] (5/325)) 1 tab Q6H PRN PO .MOD PAIN 4- 6 Last administered on 04/13/19at 21:03; Admin Dose 1 TAB; Start 04/12/19 at 14:00 Docusate Sodium (Colace) 100 mg Q12H PRN PO .CONSTIPATION; Start 04/12/19 at 14:00 Magnesium Hydroxide (Milk Of Mag) 30 ml DAILY PRN PO .CONSTIPATION; Start 04/12/19 at 14:00 Zolpidem Tartrate (Ambien) 5 mg QHS PRN PO .INSOMNIA; Start 04/12/19 at 14:00 Pantoprazole (Protonix Tab) 40 mg DAILY@06 PO Last administered on 04/13/19at 05:24; Admin Dose 40 MG; Start 04/13/19 at 06:00 Diagnostic Test (Pha) (Accu-Chek) 1 ea 02 XX ; Start 04/13/19 at 02:00 Sodium Chloride 1,000 ml @ 80 mls/hr [id number] IV Last administered on 04/14/19at 05:11; Admin Dose 80 MLS/HR; Start 04/12/19 at 14:30 Enoxaparin Sodium (Lovenox) 40 mg DAILY SC Last administered on 04/13/19at 08:10; Admin Dose 40 MG; Start 04/13/19 at 09:00; Status Hold Ondansetron HCl (Zofran Inj) 4 mg Q6H PRN IV NAUSEA AND/OR VOMITING; Start 04/12/19 at 14:30 Miscellaneous Information 1 ea NOTE XX ; Start 04/12/19 at 16:00 Glucose (Glutose) 15 gm Q15M PRN PO DECREASED GLUCOSE; Start 04/12/19 at 16:00 Glucose (Glutose) 22.5 gm Q15M PRN PO DECREASED GLUCOSE; Start 04/12/19 at 16:00 Dextrose (D50w Syringe) 25 ml Q15M PRN IV DECREASED GLUCOSE; Start 04/12/19 at 16:00 Dextrose (D50w Syringe) 50 ml Q15M PRN IV DECREASED GLUCOSE; Start 04/12/19 at 16:00 Glucagon (Glucagen) 1 mg Q15M PRN IM DECREASED GLUCOSE; Start 04/12/19 at 16:00 Glucose (Glutose) 15 gm Q15M PRN BUCCAL DECREASED GLUCOSE; Start 04/12/19 at 16:00 Hydralazine HCl (Apresoline) 25 mg TID PO Last administered on 04/13/19at 21:05; Admin Dose 25 MG; Start 04/13/19 at 13:00 Amlodipine Besylate (Norvasc) 10 mg DAILY PO ; Start 04/14/19 at 09:00 Metoprolol Tartrate (Lopressor) 50 mg BID PO Last administered on 04/13/19at 21:03; Admin Dose 50 MG; Start 04/13/19 at 21:00 Carvedilol (Coreg) 6.25 mg BID PO Last administered on 04/13/19at 21:05; Admin Dose 6.25 MG; Start 04/13/19 at 11:00 Captopril (Capoten) 25 mg TID PO Last administered on 04/13/19at 21:05; Admin Dose 25 MG; Start 04/13/19 at 13:00 Clonidine (Catapres) 0.1 mg Q4H PRN GTB SBP > 170; Start 04/13/19 at 11:00 Insulin Aspart (Novolog Insulin Pen) NOVOLOG *MODERATE* ALGORI... Q6 SC Last administered on 04/14/19at 00:39; Admin Dose 2 UNIT; Start 04/14/19 at 00:30 Assessment/Plan Hospital Course (Demo Recall) 1. Atrial fibrillation: Appears to be chronically heart rate controlled. Patient would benefit from chronic anticoagulation however currently due to the multiple procedures at this plan is off of anticoagulation 2. Hypertension currently poorly controlled 3. Ascending aortic aneurysm at 4.9 cm: We will continue to monitor and control the blood pressure better 4. Likely metastatic cancer work-up is pending by GI 5. Diabetes 6. History of CVA 7. Dyslipidemia Recommendations: I will stop the metoprolol . continue with carvedilol for better blood pressure control. SHAWNA inhibitor was already added Continue Norvasc as needed Diabetic management as per Dr. Bautista associated GI work-up is pending. Colonoscopy is planned for today Heart is clinically remained stable we will continue to monitor. Thank you for his referral. We will continue to follow along with you RODRICK STEWART MD [facility] RODRICK STEWART MD April 14, 2019 10:40
--- NOTE | 2019-04-14 12:25 | PREAC ---
Date/Time of Note Date/Time of Note DATE: 04/14/19 TIME: 12:23 Anesthesia Eval and Record Evaluation Time Pre-Procedure Interview DATE: 04/14/19 TIME: 12:23 Age 78 Sex male NPO: 8 hrs (COLON INFLAMMATION) Preoperative diagnosis COLON INFLAMMATION Planned procedure COLONOSCOPY Past Medical History Past Medical History: Includes Cardio: HTN, Dyslipidemia, Arrythmia Endo: Diabetes Neuro: CVA GI: Obesity Surgery & Anesthesia Issues No known issue Meds Anticoagulation: No Beta [place] within 24 hr: Yes Reported Medications Metoprolol Tartrate* (Lopressor*) 25 Mg Tab, 25 MG PO BID, #60 TAB 04/12/19 Amlodipine Besylate* (Amlodipine Besylate*) 2.5 Mg Tablet, 2.5 MG PO DAILY, #30 TAB 04/12/19 Metformin Hcl* (Metformin Hcl*) 500 Mg Tablet, 500 MG PO WITH MEALS, #90 TAB 04/12/19 Atorvastatin* (Atorvastatin*) 40 Mg Tablet, 40 MG PO QHS, #30 TAB 04/12/19 Current Medications IV Flush (NS 3 ml) 3 ml PER PROTOCOL IV ; Start 04/12/19 at 14:00 Acetaminophen (Tylenol Tab) 650 mg Q6H PRN PO .PAIN 1-3 OR TEMP; Start 04/12/19 at 14:00 Acetaminophen/ Hydrocodone Bitart ([place] (5/325)) 1 tab Q6H PRN PO .MOD PAIN 4- 6 Last administered on 04/13/19at 21:03; Admin Dose 1 TAB; Start 04/12/19 at 14:00 Docusate Sodium (Colace) 100 mg Q12H PRN PO .CONSTIPATION; Start 04/12/19 at 14:00 Magnesium Hydroxide (Milk Of Mag) 30 ml DAILY PRN PO .CONSTIPATION; Start 04/12/19 at 14:00 Zolpidem Tartrate (Ambien) 5 mg QHS PRN PO .INSOMNIA; Start 04/12/19 at 14:00 Pantoprazole (Protonix Tab) 40 mg DAILY@06 PO Last administered on 04/13/19at 05:24; Admin Dose 40 MG; Start 04/13/19 at 06:00 Diagnostic Test (Pha) (Accu-Chek) 1 ea 02 XX ; Start 04/13/19 at 02:00 Sodium Chloride 1,000 ml @ 80 mls/hr [id number] IV Last administered on 04/14/19at 05:11; Admin Dose 80 MLS/HR; Start 04/12/19 at 14:30 Enoxaparin Sodium (Lovenox) 40 mg DAILY SC Last administered on 04/13/19at 08:10; Admin Dose 40 MG; Start 04/13/19 at 09:00; Status Hold Ondansetron HCl (Zofran Inj) 4 mg Q6H PRN IV NAUSEA AND/OR VOMITING; Start 04/12/19 at 14:30 Miscellaneous Information 1 ea NOTE XX ; Start 04/12/19 at 16:00 Glucose (Glutose) 15 gm Q15M PRN PO DECREASED GLUCOSE; Start 04/12/19 at 16:00 Glucose (Glutose) 22.5 gm Q15M PRN PO DECREASED GLUCOSE; Start 04/12/19 at 16:00 Dextrose (D50w Syringe) 25 ml Q15M PRN IV DECREASED GLUCOSE; Start 04/12/19 at 16:00 Dextrose (D50w Syringe) 50 ml Q15M PRN IV DECREASED GLUCOSE; Start 04/12/19 at 16:00 Glucagon (Glucagen) 1 mg Q15M PRN IM DECREASED GLUCOSE; Start 04/12/19 at 16:00 Glucose (Glutose) 15 gm Q15M PRN BUCCAL DECREASED GLUCOSE; Start 04/12/19 at 16:00 Hydralazine HCl (Apresoline) 25 mg TID PO Last administered on 04/13/19at 21:05; Admin Dose 25 MG; Start 04/13/19 at 13:00 Amlodipine Besylate (Norvasc) 10 mg DAILY PO ; Start 04/14/19 at 09:00 Carvedilol (Coreg) 6.25 mg BID PO Last administered on 04/13/19at 21:05; Admin Dose 6.25 MG; Start 04/13/19 at 11:00 Captopril (Capoten) 25 mg TID PO Last administered on 04/13/19at 21:05; Admin Dose 25 MG; Start 04/13/19 at 13:00 Clonidine (Catapres) 0.1 mg Q4H PRN GTB SBP > 170; Start 04/13/19 at 11:00 Insulin Aspart (Novolog Insulin Pen) NOVOLOG *MODERATE* ALGORI... Q6 SC Last administered on 04/14/19at 00:39; Admin Dose 2 UNIT; Start 04/14/19 at 00:30 Meds reviewed: Yes Allergies Coded Allergies: No Known Allergies (Verified Allergy, Unknown, 04/12/19) Allergies Reviewed: Yes Labs/Studies Labs Reviewed: Reviewed by anesthesiologist Result Diagram: 04/14/19 0513 04/14/19 0513 Laboratory Tests 04/14/19 05:13 test: N/A Studies: ECG Pre-procedure Exam Last vitals Vital Signs Date Temp Pulse Resp B/P (MAP) Pulse Ox O2 O2 Flow FiO2 Time Delivery Rate 04/14/19 98.1 58 19 150/82 98 09:10 (104) 04/13/19 Room Air 14:00 04/12/19 21 17:34 Airway: Adequate mouth opening, Adequate thyromental dist Mallampati: Mallampati II Teeth: Normal Lung: Normal Heart: Normal ASA Physical Status ASA physical status: 3 Emergency: None Planned Anesthetic General/MAC: MAC Planned Pain Management Parenteral pain med Pre-operative Attestations Prior to commencing anesthesia and surgery, the patient was re-evaluated, there was verification of: *The patient's identity *The results of appropriate recent lab work and preoperative vital signs *The above evaluation not changing prior to induction *Anesthetic plan, risk benefits, alternative and complications discussed with patient/family; questions answered; patient/family understands, accepts and wishes to proceed. ABBEY MORALES April 14, 2019 12:25
[2019-04-14] MEDS ORDERED: PROPOFOL 60 ML ONE (12:26)
[2019-04-14] MEDS ORDERED: LIDOCAINE 2% (SDV) 5 ML INJ ONE (12:26)
[2019-04-14] MEDS ORDERED: MEPERIDINE 25 MG INJ IV PRN (12:30)
[2019-04-14] MEDS ORDERED: ONDANSETRON 4 MG INJ IV PRN (12:30)
[2019-04-14] MEDS ORDERED: EPHEDrine 25 MG/5 ML SYG IV PRN (12:30)
[2019-04-14] MEDS ORDERED: ALBUTEROL 0.083% (NEB) 2.5 MG/3 ML AMP HHN PRN (12:30)
[2019-04-14] MEDS ORDERED: DIPHENHYDRAMINE 50 MG INJ IV PRN (12:30)
[2019-04-14] MEDS ORDERED: hydrALAzine 20 MG INJ IV PRN (12:30)
[2019-04-14] MEDS ORDERED: LABETALOL HCL 20MG INJ IV PRN (12:30)
[2019-04-14] MEDS ORDERED: LABETALOL HCL 20MG INJ ONE (12:44)
--- NOTE | 2019-04-14 12:53 | PAC ---
Date/Time of Note Date/Time of Note DATE: 04/14/19 TIME: 12:53 Post-Anesthesia Notes Post-Anesthesia Note Last documented vital signs Vital Signs Date Temp Pulse Resp B/P (MAP) Pulse Ox O2 O2 Flow FiO2 Time Delivery Rate 04/14/19 98.1 58 19 150/82 98 12:10 (104) 04/13/19 Room Air 14:00 04/12/19 21 17:34 Activity: WNL Respiratory function: WNL Cardiovascular function: WNL Mental status: Baseline Pain reasonably controlled: Yes Hydration appropriate: Yes Nausea/Vomiting absent: Yes ABBEY MORALES April 14, 2019 12:53
[2019-04-14] MEDS: HYDROCODONE/APAP (5/325) TAB PO PRN (13:11)
[2019-04-14] MEDS: HYDROmorphONE 1 MG/ML SYG IV PRN ×2 (14:57→20:23)
[2019-04-14] MEDS ORDERED: HYDROmorphONE 0.5 MG/0.5 ML SYG IV PRN (15:00)
--- NOTE | 2019-04-14 15:20 | CONS ---
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 Pt may be a candidate for microwave ablation to the liver lesions. This can be done at [facility]. -This would then be followed by at least 6 months of 5fu based chemotherapy with a potential transition to maintenance Xeloda -continue management of HTN, HL, DM and Afib per primary team - Consultation Date/Type/Reason Admit Date/Time April 12, 2019 at 13:45 Date of Consultation: April 14, 2019 Type of Consult oncology Reason for Consultation colon cancer Requesting Provider: NIDHI VILLEDA MD Date/Time of Note DATE: 04/14/19 TIME: 15:10 Hx of Present Illness Mr Bazan is a pleasant 78-year-old male with multiple medical problems including hypertension, dyslipidemia, diabetes mellitus on metformin, ASCVD, atrial fibrillation, CVA 10 years ago with no residual deficits, who presented to [facility] on 04/12/19 with progressive abdominal pain. History reveal frequent bowel movements but no evidence of hematochezia or black stools. He denies any weight loss. 04/13/19 CT A/P revealed 1. 7 cm loop of sigmoid colon demonstrates wall t hickening with surrounding fat stranding. 2. Diffuse fatty changes of the liver, with prominence of the caudate lobe and left lateral segments and apparent mild atrophy of hepatic segment 04/13/19 MRI abdomen reveals 2.0 cm cyst at the junction of the right and left lobes, near the hepatic dome. There is a 1.8 cm lesion in the hepatic segment 5, with mild T2 hyperintensity and possible peripheral nodular enhancement. There is a 0.9 cm lesion in the hepatic segment 8, with mild T2 hyperintensity and possible hyperenhancement. There is a 1.3 cm intermediate T2 hyperintense lesion in the hepatic segment 4B, with possible delayed enhancement. Pt has since undergone a colonoscopy which revealed a colon mass. Biopsy is currently pending. Constitutional: no complaints, poor po Eyes: no complaints ENT: no complaints Respiratory: no complaints Cardiovascular: lightheadedness Gastrointestinal: pain, constipation, decreased appetite, nausea Genitourinary: no complaints Musculoskeletal: bone/joint pain Skin: no complaints Neurologic: no complaints Endocrine: no complaints Past Medical History hypertension, dyslipidemia, diabetes mellitus on metformin, ASCVD, atrial fibrillation, CVA 10 years ago with no residual deficits, Home Meds Reported Medications Metoprolol Tartrate* (Lopressor*) 25 Mg Tab, 25 MG PO BID, #60 TAB 04/12/19 Amlodipine Besylate* (Amlodipine Besylate*) 2.5 Mg Tablet, 2.5 MG PO DAILY, #30 TAB 04/12/19 Metformin Hcl* (Metformin Hcl*) 500 Mg Tablet, 500 MG PO WITH MEALS, #90 TAB 04/12/19 Atorvastatin* (Atorvastatin*) 40 Mg Tablet, 40 MG PO QHS, #30 TAB 04/12/19 Medications Current Medications IV Flush (NS 3 ml) 3 ml PER PROTOCOL IV ; Start 04/12/19 at 14:00 Acetaminophen (Tylenol Tab) 650 mg Q6H PRN PO .PAIN 1-3 OR TEMP; Start 04/12/19 at 14:00 Acetaminophen/ Hydrocodone Bitart ([place] (5/325)) 1 tab Q6H PRN PO .MOD PAIN 4- 6 Last administered on 04/14/19at 13:11; Admin Dose 1 TAB; Start 04/12/19 at 14:00 Docusate Sodium (Colace) 100 mg Q12H PRN PO .CONSTIPATION; Start 04/12/19 at 14:00 Magnesium Hydroxide (Milk Of Mag) 30 ml DAILY PRN PO .CONSTIPATION; Start 04/12/19 at 14:00 Zolpidem Tartrate (Ambien) 5 mg QHS PRN PO .INSOMNIA; Start 04/12/19 at 14:00 Pantoprazole (Protonix Tab) 40 mg DAILY@06 PO Last administered on 04/13/19at 05:24; Admin Dose 40 MG; Start 04/13/19 at 06:00 Diagnostic Test (Pha) (Accu-Chek) 1 ea 02 XX ; Start 04/13/19 at 02:00 Sodium Chloride 1,000 ml @ 80 mls/hr [id number] IV Last administered on 04/14/19at 05:11; Admin Dose 80 MLS/HR; Start 04/12/19 at 14:30 Enoxaparin Sodium (Lovenox) 40 mg DAILY SC Last administered on 04/13/19at 08: 10; Admin Dose 40 MG; Start 04/13/19 at 09:00; Status Hold Ondansetron HCl (Zofran Inj) 4 mg Q6H PRN IV NAUSEA AND/OR VOMITING; Start 04/12/19 at 14:30 Miscellaneous Information 1 ea NOTE XX ; Start 04/12/19 at 16:00 Glucose (Glutose) 15 gm Q15M PRN PO DECREASED GLUCOSE; Start 04/12/19 at 16:00 Glucose (Glutose) 22.5 gm Q15M PRN PO DECREASED GLUCOSE; Start 04/12/19 at 16:00 Dextrose (D50w Syringe) 25 ml Q15M PRN IV DECREASED GLUCOSE; Start 04/12/19 at 16:00 Dextrose (D50w Syringe) 50 ml Q15M PRN IV DECREASED GLUCOSE; Start 04/12/19 at 16:00 Glucagon (Glucagen) 1 mg Q15M PRN IM DECREASED GLUCOSE; Start 04/12/19 at 16:00 Glucose (Glutose) 15 gm Q15M PRN BUCCAL DECREASED GLUCOSE; Start 04/12/19 at 16:00 Hydralazine HCl (Apresoline) 25 mg TID PO Last administered on 04/13/19at 21:05; Admin Dose 25 MG; Start 04/13/19 at 13:00 Amlodipine Besylate (Norvasc) 10 mg DAILY PO ; Start 04/14/19 at 09:00 Carvedilol (Coreg) 6.25 mg BID PO Last administered on 04/13/19at 21:05; Admin Dose 6.25 MG; Start 04/13/19 at 11:00 Captopril (Capoten) 25 mg TID PO Last administered on 04/13/19at 21:05; Admin Dose 25 MG; Start 04/13/19 at 13:00 Clonidine (Catapres) 0.1 mg Q4H PRN GTB SBP > 170; Start 04/13/19 at 11:00 Insulin Aspart (Novolog Insulin Pen) NOVOLOG *MODERATE* ALGORI... Q6 SC Last administered on 04/14/19at 00:39; Admin Dose 2 UNIT; Start 04/14/19 at 00:30 Ondansetron HCl (Zofran Inj) 4 mg PACU ORDER PRN IV NAUSEA/VOMITING; Start 04/14/19 at 12:30; Stop 04/14/19 at 19:00 Labetalol HCl (Labetalol) 5 mg PACU ORDER PRN IV HIGH BLOOD PRESSURE; Start 04/14/19 at 12:30; Stop 04/14/19 at 19:00 Hydralazine HCl (Apresoline) 5 mg PACU ORDER PRN IV HIGH BLOOD PRESSURE Last administered on 04/14/19at 13:11; Admin Dose 5 MG; Start 04/14/19 at 12:30; Stop 04/14/19 at 19:00 Ephedrine Sulfate 5 mg PACU ORDER PRN IV BLOOD PRESSURE SUPPORT; Start 04/14/19 at 12:30; Stop 04/14/19 at 19:00 Albuterol (Proventil 0.083% (Neb)) 2.5 mg PACU ORDER PRN HHN .WHEEZING; Start 04/14/19 at 12:30; Stop 04/14/19 at 19:00 Meperidine HCl (Demerol) 25 mg PACU ORDER PRN IV .RIGORS Last administered on 04/14/19at 13:11; Admin Dose 25 MG; Start 04/14/19 at 12:30; Stop 04/14/19 at 19:00 Diphenhydramine HCl (Benadryl) 25 mg PACU ORDER PRN IV .PRURITUS; Start 04/14/19 at 12:30; Stop 04/14/19 at 19:00 Hydromorphone HCl (Dilaudid) 0.5 mg Q3H PRN IV MODERATE PAIN LEVEL 4-6; Start 04/14/19 at 15:00 Hydromorphone HCl (Dilaudid) 1 mg Q3H PRN IV SEVERE PAIN LEVEL 7-10 Last administered on 04/14/19at 14:57; Admin Dose 1 MG; Start 04/14/19 at 15:00 Allergies: Coded Allergies: No Known Allergies (Verified Allergy, Unknown, 04/12/19) Past Surgical History Past Surgical Hx: no surgical history Family History Significant Family History: no pertinent family hx Social History Alcohol Use: none Smoking Status: Never smoker Drug Use: none Exam/Review of Systems Exam Vitals Vital Signs Date Temp Pulse Resp B/P (MAP) Pulse Ox O2 O2 Flow FiO2 Time Delivery Rate 04/14/19 98.4 77 19 138/84 94 14:20 (102) 04/14/19 Nasal 2.0 13:50 Cannula 04/12/19 21 17:34 Intake and Output 04/13/19 04/13/19 04/14/19 1515:00 23:00 07:00 IntakeIntake Total 600 ml 1820 ml 1000 ml BalanceBalance 600 ml 1820 ml 1000 ml Constitutional: alert, oriented Psych: no complaints, anxiety, depression Head: normocephalic Eyes: nl conjunctiva ENMT: nl external ears & nose Neck: supple Respiratory: clear to auscultation Cardiovascular: regular rate and rhythm Gastrointestinal: soft Musculoskeletal: nl extremities to inspection Extremities: normal pulses 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 Results Result Diagram: 04/14/19 0513 04/14/19 0513 Results 24hrs Laboratory Tests Test 04/13/19 17:32 04/13/19 21:00 04/14/19 00:27 04/14/19 05:13 Bedside Glucose 125 146 157 Stool Occult Blood NEGATIVE White Blood Count 7.6 # Red Blood Count 5.77 Hemoglobin 16.8 Hematocrit 51.4 Mean Corpuscular 89.1 Volume Mean Corpuscular 29.1 Hemoglobin Mean Corpuscular 32.7 Hemoglobin Concent Red Cell 13.1 Distribution Width Platelet Count 179 Mean Platelet Volume 10.8 H Immature 0.300 Granulocytes % Neutrophils % 64.9 Lymphocytes % 24.6 Monocytes % 9.5 Eosinophils % 0.4 Basophils % 0.3 Nucleated Red Blood 0.0 Cells % Immature 0.020 Granulocytes # Neutrophils # 4.9 Lymphocytes # 1.9 Monocytes # 0.7 Eosinophils # 0.0 Basophils # 0.0 Nucleated Red Blood 0.0 Cells # Prothrombin Time 12.9 Prothrombin Time 1.0 Ratio INR International 0.96 Normalized Ratio Activated 32.0 Partial Thromboplast Time Sodium Level 142 Potassium Level 4.1 Chloride Level 107 Carbon Dioxide Level 26 Anion Gap 9 Blood Urea Nitrogen 17 Creatinine 0.85 Est Glomerular Filtrat Rate mL/min Glucose Level 131 # Calcium Level 8.5 Total Bilirubin 0.8 Direct Bilirubin 0.00 Indirect Bilirubin 0.8 Aspartate Amino 40 Transf (AST/SGOT) Alanine 32 Aminotransferase (AL T/SGPT) Alkaline Phosphatase 55 Total Protein 6.3 Albumin 3.4 Globulin 2.90 Albumin/Globulin 1.17 Ratio Test 04/14/19 05:58 04/14/19 11:27 Bedside Glucose 116 106 Medications Medication Current Medications IV Flush (NS 3 ml) 3 ml PER PROTOCOL IV ; Start 04/12/19 at 14:00 Acetaminophen (Tylenol Tab) 650 mg Q6H PRN PO .PAIN 1-3 OR TEMP; Start 04/12/19 at 14:00 Acetaminophen/ Hydrocodone Bitart ([place] (5/325)) 1 tab Q6H PRN PO .MOD PAIN 4- 6 Last administered on 04/14/19at 13:11; Admin Dose 1 TAB; Start 04/12/19 at 14:00 Docusate Sodium (Colace) 100 mg Q12H PRN PO .CONSTIPATION; Start 04/12/19 at 14:00 Magnesium Hydroxide (Milk Of Mag) 30 ml DAILY PRN PO .CONSTIPATION; Start 04/12/19 at 14:00 Zolpidem Tartrate (Ambien) 5 mg QHS PRN PO .INSOMNIA; Start 04/12/19 at 14:00 Pantoprazole (Protonix Tab) 40 mg DAILY@06 PO Last administered on 04/13/19at 05:24; Admin Dose 40 MG; Start 04/13/19 at 06:00 Diagnostic Test (Pha) (Accu-Chek) 1 ea 02 XX ; Start 04/13/19 at 02:00 Sodium Chloride 1,000 ml @ 80 mls/hr [id number] IV Last administered on 04/14/19at 05:11; Admin Dose 80 MLS/HR; Start 04/12/19 at 14:30 Enoxaparin Sodium (Lovenox) 40 mg DAILY SC Last administered on 04/13/19at 08:10; Admin Dose 40 MG; Start 04/13/19 at 09:00; Status Hold Ondansetron HCl (Zofran Inj) 4 mg Q6H PRN IV NAUSEA AND/OR VOMITING; Start 04/12/19 at 14:30 Miscellaneous Information 1 ea NOTE XX ; Start 04/12/19 at 16:00 Glucose (Glutose) 15 gm Q15M PRN PO DECREASED GLUCOSE; Start 04/12/19 at 16:00 Glucose (Glutose) 22.5 gm Q15M PRN PO DECREASED GLUCOSE; Start 04/12/19 at 16 :00 Dextrose (D50w Syringe) 25 ml Q15M PRN IV DECREASED GLUCOSE; Start 04/12/19 at 16:00 Dextrose (D50w Syringe) 50 ml Q15M PRN IV DECREASED GLUCOSE; Start 04/12/19 at 16:00 Glucagon (Glucagen) 1 mg Q15M PRN IM DECREASED GLUCOSE; Start 04/12/19 at 16:00 Glucose (Glutose) 15 gm Q15M PRN BUCCAL DECREASED GLUCOSE; Start 04/12/19 at 16:00 Hydralazine HCl (Apresoline) 25 mg TID PO Last administered on 04/13/19at 21:05; Admin Dose 25 MG; Start 04/13/19 at 13:00 Amlodipine Besylate (Norvasc) 10 mg DAILY PO ; Start 04/14/19 at 09:00 Carvedilol (Coreg) 6.25 mg BID PO Last administered on 04/13/19at 21:05; Admin Dose 6.25 MG; Start 04/13/19 at 11:00 Captopril (Capoten) 25 mg TID PO Last administered on 04/13/19at 21:05; Admin Dose 25 MG; Start 04/13/19 at 13:00 Clonidine (Catapres) 0.1 mg Q4H PRN GTB SBP > 170; Start 04/13/19 at 11:00 Insulin Aspart (Novolog Insulin Pen) NOVOLOG *MODERATE* ALGORI... Q6 SC Last administered on 04/14/19at 00:39; Admin Dose 2 UNIT; Start 04/14/19 at 00:30 Ondansetron HCl (Zofran Inj) 4 mg PACU ORDER PRN IV NAUSEA/VOMITING; Start 04/14/19 at 12:30; Stop 04/14/19 at 19:00 Labetalol HCl (Labetalol) 5 mg PACU ORDER PRN IV HIGH BLOOD PRESSURE; Start 04/14/19 at 12:30; Stop 04/14/19 at 19:00 Hydralazine HCl (Apresoline) 5 mg PACU ORDER PRN IV HIGH BLOOD PRESSURE Last administered on 04/14/19at 13:11; Admin Dose 5 MG; Start 04/14/19 at 12:30; Stop 04/14/19 at 19:00 Ephedrine Sulfate 5 mg PACU ORDER PRN IV BLOOD PRESSURE SUPPORT; Start 04/14/19 at 12:30; Stop 04/14/19 at 19:00 Albuterol (Proventil 0.083% (Neb)) 2.5 mg PACU ORDER PRN HHN .WHEEZING; Start 04/14/19 at 12:30; Stop 04/14/19 at 19:00 Meperidine HCl (Demerol) 25 mg PACU ORDER PRN IV .RIGORS Last administered on 04/14/19at 13:11; Admin Dose 25 MG; Start 04/14/19 at 12:30; Stop 04/14/19 at 19:00 Diphenhydramine HCl (Benadryl) 25 mg PACU ORDER PRN IV .PRURITUS; Start 04/14/19 at 12:30; Stop 04/14/19 at 19:00 Hydromorphone HCl (Dilaudid) 0.5 mg Q3H PRN IV MODERATE PAIN LEVEL 4-6; Start 04/14/19 at 15:00 Hydromorphone HCl (Dilaudid) 1 mg Q3H PRN IV SEVERE PAIN LEVEL 7-10 Last administered on 04/14/19at 14:57; Admin Dose 1 MG; Start 04/14/19 at 15:00 SHADI FUENTES M.D. April 14, 2019 15:20
--- NOTE | 2019-04-14 15:20 | PN ---
DATE: 04/14/2019 SUBJECTIVE: The patient was seen. I came to the GI suite and found the patient. The patient was un fortunately found to have a descending colon mass measuring up to 7 cm. Case was discussed with Dr. Decker. The patient was seen otherwise stable. PHYSICAL EXAMINATION: VITAL SIGNS: Temperature 98.1, pulse 68, respiration 19, blood pressure 150/82, saturation 98%. GENERAL: No acute distress. HEENT: Normocephalic, atraumatic. CARDIOVASCULAR: S1, S2. ABDOMEN: Soft, obese, distended. EXTREMITIES: No clubbing, cyanosis or edema. LABORATORY DATA: Today, white count 7.6, hemoglobin 16.8, hematocrit 51, platelets 179, normal diffe rential. Chemistry: Sodium 142, potassium 4.1, chloride , bicarbonate 26, BUN is 17, creatinin e of 0.85, glucose 131. DIAGNOSTIC DATA: Abdominal MRI was reviewed. MEDICATIONS: Include: 1. Zofran p.r.n. 2. Labetalol p.r.n. 3. Hydralazine p.r.n. 4. Albuterol p.r.n. 5. Demerol p.r.n. this is for the colonoscopy. 6. Norvasc 10 mg daily. 7. Insulin aspart per sliding scale. 8. Hydralazine 25 daily. 9. Captopril 25 t.i.d. 10. Coreg 6.25 b.i.d. 11. Clonidine p.r.n. 12. Protonix 20 mg daily. 13. Hypoglycemia protocol as directed. 14. Normal saline at 80 mL an hour. ASSESSMENT AND PLAN: This is an 78-year-old male with history of hypertension, dyslipidemi a, atrial fibrillation, diabetes mellitus, cerebrovascular accident, presented with left lower quadra nt pain, was found to have liver lesions concerning for metastases. Colonoscopy now confirms colon m ass consistent with colon cancer. 1. Colon mass likely metastasis to the liver. Area was marked. We will consult general surgery for possible resection. It is concerning this will cause an obstruction. 2. Diabetes mellitus. Continue diabetes treatment with insulin. 3. Continue Protonix for gastrointestinal prophylaxis. 4. Cardiovascular: The patient with atrial fibrillation, rate controlled. Continue above meds. Ca rdiology is following. 5. Polycythemia, likely due to obstructive sleep apnea. Weight loss and CPAP will be beneficial. We discussed about plan of care with the patient. We will follow. Consider oncology consultation. Dictated By: NIDHI PEREZ/RUIZ Conf#: [id number] DID#: [id number] CC: LEOPOLDO DECKER MD;*EndCC*
--- NOTE | 2019-04-14 21:34 | CONS ---
Assessment/Plan Assessment/Plan Hospital Course (Demo Recall) 1. Sigmoid mass on colonoscopy 2. Multiple liver lesions (insufficient MRI due to motion artifact however demonstrates1.8 cm lesion in the hepatic segment 5, 0.9 cm lesion in the hepatic segment 8, 1.3 cm intermediate T2 hyperintense lesion in the hepatic segment 4B) 3. Occasional abdominal pain -Concern is metastatic colon cancer. He does not have any active bleeding, obstruction, evidence of perforation. Options are to start chemotherapy due to stage IV cancer and then proceed with colon resection with possible liver met resections versus ablation. Other possible he is to proceed with colon resection and then adjuvant chemotherapy. My concern is delaying his chemotherapy at this time. I will discuss this with oncology. 4. BMI 37 with comorbidities, morbid obesity -Encourage nutritional optimization -Encourage exercise optimization 5. Hypertension, diabetes mellitus, dyslipidemia -Encourage nutrition and medication optimization -Encourage weight loss 6. Atrial fibrillation, rate controlled -Cardiac optimization -Electrolyte optimization 7. 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 -Medical and cardiac optimization and clearance Thank you very much for consulting me in this patient's care, Consultation Date/Type/Reason Admit Date/Time April 12, 2019 at 13:45 Date of Consultation: April 14, 2019 Type of Consult General surgical Reason for Consultation Sigmoid mass, possible adenocarcinoma Liver masses, possible metastasis BMI 37 Requesting Provider: NIDHI VILLEDA MD Date/Time of Note DATE: 04/14/19 TIME: 21:34 Hx of Present Illness Mr Bazan is a pleasant 78-year-old male with multiple medical problems who presented to [facility] on 04/12/19 with intermittent left lower quadrant abdominal p ain, crampy in nature without associated nausea, vomiting, fever, chills, change in bowel habits, dysuria, change in weight, new headache bone pain or lumps. No blood per mouth, stool, urine. Patient had multiple imaging as below. He had colonoscopy and biopsy identifying the lesion in the sigmoid colon. Surgical consult was obtained for further evaluation and treatment. 04/13/19 CT A/P revealed 1. 7 cm loop of sigmoid colon demonstrates wall thickening with surrounding fat stranding. 2. Diffuse fatty changes of the liver, with prominence of the caudate lobe and left lateral segments and apparent mild atrophy of hepatic segment 04/13/19 MRI abdomen reveals 2.0 cm cyst at the junction of the right and left lobes, near the hepatic dome. There is a 1.8 cm lesion in the hepatic segment 5, with mild T2 hyperintensity and possible peripheral nodular enhancement. There is a 0.9 cm lesion in the hepatic segment 8, with mild T2 hyperintensity and possible hyperenhancement. There is a 1.3 cm intermediate T2 hyperintense lesion in the hepatic segment 4B, with possible delayed enhancement. 12 point review of systems negative unless otherwise addressed in chart Past Medical History Hypertension Dyslipidemia Diabetes mellitus ASCVD Atrial fibrillation CVA 10 years ago with no residual deficits BMI 37 Colonic mass Liver masses Depression Hepatic steatosis Home Meds Reported Medications Metoprolol Tartrate* (Lopressor*) 25 Mg Tab, 25 MG PO BID, #60 TAB 04/12/19 Amlodipine Besylate* (Amlodipine Besylate*) 2.5 Mg Tablet, 2.5 MG PO DAILY, #30 TAB 04/12/19 Metformin Hcl* (Metformin Hcl*) 500 Mg Tablet, 500 MG PO WITH MEALS, #90 TAB 04/12/19 Atorvastatin* (Atorvastatin*) 40 Mg Tablet, 40 MG PO QHS, #30 TAB 04/12/19 Medications Current Medications IV Flush (NS 3 ml) 3 ml PER PROTOCOL IV ; Start 04/12/19 at 14:00 Acetaminophen (Tylenol Tab) 650 mg Q6H PRN PO .PAIN 1-3 OR TEMP; Start 04/12/19 at 14:00 Acetaminophen/ Hydrocodone Bitart ([place] (5/325)) 1 tab Q6H PRN PO .MOD PAIN 4- 6 Last administered on 04/14/19at 13:11; Admin Dose 1 TAB; Start 04/12/19 at 14:00 Docusate Sodium (Colace) 100 mg Q12H PRN PO .CONSTIPATION; Start 04/12/19 at 14:00 Magnesium Hydroxide (Milk Of Mag) 30 ml DAILY PRN PO .CONSTIPATION; Start 04/12/19 at 14:00 Zolpidem Tartrate (Ambien) 5 mg QHS PRN PO .INSOMNIA; Start 04/12/19 at 14:00 Pantoprazole (Protonix Tab) 40 mg DAILY@06 PO Last administered on 04/13/19at 05:24; Admin Dose 40 MG; Start 04/13/19 at 06:00 Diagnostic Test (Pha) (Accu-Chek) 1 ea 02 XX ; Start 04/13/19 at 02:00 Sodium Chloride 1,000 ml @ 80 mls/hr [id number] IV Last administered on 04/14/19at 20:26; Admin Dose 80 MLS/HR; Start 04/12/19 at 14:30 Enoxaparin Sodium (Lovenox) 40 mg DAILY SC Last administered on 04/13/19at 08:10; Admin Dose 40 MG; Start 04/13/19 at 09:00; Status Hold Ondansetron HCl (Zofran Inj) 4 mg Q6H PRN IV NAUSEA AND/OR VOMITING; Start 04/12/19 at 14:30 Miscellaneous Information 1 ea NOTE XX ; Start 04/12/19 at 16:00 Glucose (Glutose) 15 gm Q15M PRN PO DECREASED GLUCOSE; Start 04/12/19 at 16:00 Glucose (Glutose) 22.5 gm Q15M PRN PO DECREASED GLUCOSE; Start 04/12/19 at 16:00 Dextrose (D50w Syringe) 25 ml Q15M PRN IV DECREASED GLUCOSE; Start 04/12/19 at 16:00 Dextrose (D50w Syringe) 50 ml Q15M PRN IV DECREASED GLUCOSE; Start 04/12/19 at 16:00 Glucagon (Glucagen) 1 mg Q15M PRN IM DECREASED GLUCOSE; Start 04/12/19 at 16:00 Glucose (Glutose) 15 gm Q15M PRN BUCCAL DECREASED GLUCOSE; Start 04/12/19 at 16:00 Hydralazine HCl (Apresoline) 25 mg TID PO Last administered on 04/14/19at 20:18; Admin Dose 25 MG; Start 04/13/19 at 13:00 Amlodipine Besylate (Norvasc) 10 mg DAILY PO ; Start 04/14/19 at 09:00 Carvedilol (Coreg) 6.25 mg BID PO Last administered on 04/14/19at 20:18; Admin Dose 6.25 MG; Start 04/13/19 at 11:00 Captopril (Capoten) 25 mg TID PO Last administered on 04/14/19at 20:18; Admin Dose 25 MG; Start 04/13/19 at 13:00 Clonidine (Catapres) 0.1 mg Q4H PRN GTB SBP > 170; Start 04/13/19 at 11:00 Hydromorphone HCl (Dilaudid) 0.5 mg Q3H PRN IV MODERATE PAIN LEVEL 4-6; Start 04/14/19 at 15:00 Hydromorphone HCl (Dilaudid) 1 mg Q3H PRN IV SEVERE PAIN LEVEL 7-10 Last administered on 04/14/19at 20:23; Admin Dose 1 MG; Start 04/14/19 at 15:00 Insulin Aspart (Novolog Insulin Pen) NOVOLOG *MODERATE* ALGORITHM WITH MEALS BEDTIME SC ; Start 04/14/19 at 21:00 Allergies: Coded Allergies: No Known Allergies (Verified Allergy, Unknown, 04/12/19) Past Surgical History Left wrist surgery Family History Significant Family History: diabetes, hypertension Social History Alcohol Use: none Smoking Status: Never smoker Drug Use: none Exam/Review of Systems Exam Vitals Vital Signs Date Temp Pulse Resp B/P (MAP) Pulse Ox O2 O2 Flow FiO2 Time Delivery Rate 04/14/19 97.9 70 18 169/88 97 20:00 (115) 04/14/19 Nasal 2.0 13:50 Cannula 04/12/19 21 17:34 Intake and Output 04/13/19 04/13/19 04/14/19 1515:00 23:00 07:00 IntakeIntake Total 600 ml 1820 ml 1000 ml BalanceBalance 600 ml 1820 ml 1000 ml Constitutional: alert, oriented, obese; No distress Psych: nl mood/affect; No anxiety, No confusion Head: normocephalic, atraumatic Eyes: nl conjunctiva, EOMI, PERRL; No icteric ENMT: nl external ears & nose, mucosa pink and moist Neck: supple; No jvd Respiratory: normal air movement; No congested cough, No labored breathing, No wheezing Cardiovascular: edema; No regular rate and rhythm Gastrointestinal: soft, non-tender, other (Obese); No rebound or guarding Genitourinary - Male: nl penis, nl scrotum Musculoskeletal: nl extremities to inspection; No joint tenderness Extremities: normal pulses, edema; No calf tenderness Neurological: nl mental status, nl speech, nl strength Skin: nl turgor; No rash or lesions, No diaphoresis Lymph: nl lymph nodes Results Result Diagram: 04/14/19 0513 04/14/19 0513 Results 24hrs Laboratory Tests Test 04/14/19 00:27 04/14/19 05:13 04/14/19 05:58 04/14/19 11:27 Bedside Glucose 157 116 106 White Blood Count 7.6 # Red Blood Count 5.77 Hemoglobin 16.8 Hematocrit 51.4 Mean Corpuscular 89.1 Volume Mean Corpuscular 29.1 Hemoglobin Mean Corpuscular 32.7 Hemoglobin Concent Red Cell 13.1 Distribution Width Platelet Count 179 Mean Platelet Volume 10.8 H Immature 0.300 Granulocytes % Neutrophils % 64.9 Lymphocytes % 24.6 Monocytes % 9.5 Eosinophils % 0.4 Basophils % 0.3 Nucleated Red Blood 0.0 Cells % Immature 0.020 Granulocytes # Neutrophils # 4.9 Lymphocytes # 1.9 Monocytes # 0.7 Eosinophils # 0.0 Basophils # 0.0 Nucleated Red Blood 0.0 Cells # Prothrombin Time 12.9 Prothrombin Time 1.0 Ratio INR International 0.96 Normalized Ratio Activated 32.0 Partial Thromboplast Time Sodium Level 142 Potassium Level 4.1 Chloride Level 107 Carbon Dioxide Level 26 Anion Gap 9 Blood Urea Nitrogen 17 Creatinine 0.85 Est Glomerular Filtrat Rate mL/min Glucose Level 131 # Calcium Level 8.5 Total Bilirubin 0.8 Direct Bilirubin 0.00 Indirect Bilirubin 0.8 Aspartate Amino 40 Transf (AST/SGOT) Alanine 32 Aminotransferase (AL T/SGPT) Alkaline Phosphatase 55 Total Protein 6.3 Albumin 3.4 Globulin 2.90 Albumin/Globulin 1.17 Ratio Test 04/14/19 18:34 04/14/19 20:20 Bedside Glucose 138 117 Medications Medication Current Medications IV Flush (NS 3 ml) 3 ml PER PROTOCOL IV ; Start 04/12/19 at 14:00 Acetaminophen (Tylenol Tab) 650 mg Q6H PRN PO .PAIN 1-3 OR TEMP; Start 04/12/19 at 14:00 Acetaminophen/ Hydrocodone Bitart ([place] (5/325)) 1 tab Q6H PRN PO .MOD PAIN 4- 6 Last administered on 04/14/19at 13:11; Admin Dose 1 TAB; Start 04/12/19 at 14:00 Docusate Sodium (Colace) 100 mg Q12H PRN PO .CONSTIPATION; Start 04/12/19 at 14:00 Magnesium Hydroxide (Milk Of Mag) 30 ml DAILY PRN PO .CONSTIPATION; Start 04/12/19 at 14:00 Zolpidem Tartrate (Ambien) 5 mg QHS PRN PO .INSOMNIA; Start 04/12/19 at 14:00 Pantoprazole (Protonix Tab) 40 mg DAILY@06 PO Last administered on 04/13/19at 05:24; Admin Dose 40 MG; Start 04/13/19 at 06:00 Diagnostic Test (Pha) (Accu-Chek) 1 ea 02 XX ; Start 04/13/19 at 02:00 Sodium Chloride 1,000 ml @ 80 mls/hr [id number] IV Last administered on 04/14/19at 20:26; Admin Dose 80 MLS/HR; Start 04/12/19 at 14:30 Enoxaparin Sodium (Lovenox) 40 mg DAILY SC Last administered on 04/13/19at 08:10; Admin Dose 40 MG; Start 04/13/19 at 09:00; Status Hold Ondansetron HCl (Zofran Inj) 4 mg Q6H PRN IV NAUSEA AND/OR VOMITING; Start 04/12/19 at 14:30 Miscellaneous Information 1 ea NOTE XX ; Start 04/12/19 at 16:00 Glucose (Glutose) 15 gm Q15M PRN PO DECREASED GLUCOSE; Start 04/12/19 at 16:00 Glucose (Glutose) 22.5 gm Q15M PRN PO DECREASED GLUCOSE; Start 04/12/19 at 16:00 Dextrose (D50w Syringe) 25 ml Q15M PRN IV DECREASED GLUCOSE; Start 04/12/19 at 16:00 Dextrose (D50w Syringe) 50 ml Q15M PRN IV DECREASED GLUCOSE; Start 04/12/19 at 16:00 Glucagon (Glucagen) 1 mg Q15M PRN IM DECREASED GLUCOSE; Start 04/12/19 at 16:00 Glucose (Glutose) 15 gm Q15M PRN BUCCAL DECREASED GLUCOSE; Start 04/12/19 at 16:00 Hydralazine HCl (Apresoline) 25 mg TID PO Last administered on 04/14/19at 20:18; Admin Dose 25 MG; Start 04/13/19 at 13:00 Amlodipine Besylate (Norvasc) 10 mg DAILY PO ; Start 04/14/19 at 09:00 Carvedilol (Coreg) 6.25 mg BID PO Last administered on 04/14/19at 20:18; Admin Dose 6.25 MG; Start 04/13/19 at 11:00 Captopril (Capoten) 25 mg TID PO Last administered on 04/14/19at 20:18; Admin Dose 25 MG; Start 04/13/19 at 13:00 Clonidine (Catapres) 0.1 mg Q4H PRN GTB SBP > 170; Start 04/13/19 at 11:00 Hydromorphone HCl (Dilaudid) 0.5 mg Q3H PRN IV MODERATE PAIN LEVEL 4-6; Start 04/14/19 at 15:00 Hydromorphone HCl (Dilaudid) 1 mg Q3H PRN IV SEVERE PAIN LEVEL 7-10 Last administered on 04/14/19at 20:23; Admin Dose 1 MG; Start 04/14/19 at 15:00 Insulin Aspart (Novolog Insulin Pen) NOVOLOG *MODERATE* ALGORITHM WITH MEALS BEDTIME SC ; Start 04/14/19 at 21:00 VIRGINIE GUO MD April 14, 2019 21:34
[2019-04-15] MEDS: ACCU-CHEK XX SCH (01:36)
[2019-04-15 02:24] VITALS: BP 144/79; PULSE 72; RESP 18
[2019-04-15] MEDS: PANTOPRAZOLE (EC) 40 MG TAB PO SCH (05:25)
[2019-04-15 08:00] VITALS: BP 157/78; PULSE 100; RESP 18
[2019-04-15] MEDS: INSULIN ASPART [NOVOLOG] 3 ML PEN SC SCH ×4 (08:00→20:27)
[2019-04-15] MEDS: SOD CHLORIDE 0.9% 1,000 ML IV SCH (08:56)
[2019-04-15] MEDS: AMLODIPINE 10 MG TAB PO SCH (08:57)
--- NOTE | 2019-04-15 09:56 | CONS ---
Consult Date/Type/Reason Admit Date/Time April 12, 2019 at 13:45 Initial Consult Date 04/13/19 Type of Consultation: cv Requesting Provider: NIDHI BAUTISTA MD Date/Time of Note DATE: 04/15/19 TIME: 09:55 Subjective Interventional cardiology follow-up progress note Subjective: Discussed with the staff. Patient with no chest pain or pressure. s/p colo 04/14/19 No nausea vomiting No chest pain or pressure. No palpitation. Patient is asking to go home Objective: General: Obese gentleman in no acute distress HEENT: NC/AT. pupils are equal. round. NECK: NO JVD. no stridor. CV: Irregularly irregular. systolic murmur; no gallop or rubs. PULM: no wheezing or rhonchi. GI: SOFT, NT, ND, no rebound or guarding Extremity: trace B/L LE edema. no clubbing. neuro: awake and alert, OX3. Psych: calm and pleasant rectal: deferred EEG was personally reviewed which showed atrial fibrillation. Cannot rule out anteroseptal infarct. Echocardiogram was personally reviewed which shows: There is mild enlargement of left atrium. Normal left ventricular systolic function. Normal left ventricular cavity size. Moderate concentric left ventricular hypertrophy. Ejection fraction is visually estimated at 65 %. Tissue Doppler/Mitral Doppler indices are indeterminate in this study due to the presence of atrial fibrillation. Normal appearance and function of the mitral valve with trace physiologic regurgitation. No hemodynamically significant aortic stenosis by doppler. Aortic cusps appear mildly calcified. Trace to mild aortic valve regurgitation. Normal appearance of the tricuspid valve. Unable to obtain RVSP due to minimal presence of tricuspid regurgitation. Normal size and normal respiratory collapse consistent with normal right atrial pressure. Objective Vitals Vital Signs Date Temp Pulse Resp B/P (MAP) Pulse Ox O2 O2 Flow FiO2 Time Delivery Rate 04/15/19 98.3 100 18 157/78 99 08:00 (104) 04/14/19 Nasal 2.0 13:50 Cannula 04/12/19 21 17:34 Intake and Output 04/14/19 04/14/19 04/15/19 1515:00 23:00 07:00 IntakeIntake Total 1240 ml 910 ml BalanceBalance 1240 ml 910 ml Results/Medications Result Diagram: 04/14/19 0513 04/14/19 0513 Results 24 hrs Laboratory Tests Test 04/14/19 11:27 04/14/19 18:34 04/14/19 20:20 04/15/19 08:24 Bedside Glucose 106 138 117 104 Home Meds Reported Medications Metoprolol Tartrate* (Lopressor*) 25 Mg Tab, 25 MG PO BID, #60 TAB 04/12/19 Amlodipine Besylate* (Amlodipine Besylate*) 2.5 Mg Tablet, 2.5 MG PO DAILY, #30 TAB 04/12/19 Metformin Hcl* (Metformin Hcl*) 500 Mg Tablet, 500 MG PO WITH MEALS, #90 TAB 04/12/19 Atorvastatin* (Atorvastatin*) 40 Mg Tablet, 40 MG PO QHS, #30 TAB 04/12/19 Medications Current Medications IV Flush (NS 3 ml) 3 ml PER PROTOCOL IV ; Start 04/12/19 at 14:00 Acetaminophen (Tylenol Tab) 650 mg Q6H PRN PO .PAIN 1-3 OR TEMP; Start 04/12/19 at 14:00 Acetaminophen/ Hydrocodone Bitart ([place] (5/325)) 1 tab Q6H PRN PO .MOD PAIN 4- 6 Last administered on 04/14/19at 13:11; Admin Dose 1 TAB; Start 04/12/19 at 14:00 Docusate Sodium (Colace) 100 mg Q12H PRN PO .CONSTIPATION; Start 04/12/19 at 14:00 Magnesium Hydroxide (Milk Of Mag) 30 ml DAILY PRN PO .CONSTIPATION; Start 04/12/19 at 14:00 Zolpidem Tartrate (Ambien) 5 mg QHS PRN PO .INSOMNIA; Start 04/12/19 at 14:00 Pantoprazole (Protonix Tab) 40 mg DAILY@06 PO Last administered on 04/15/19at 05:25; Admin Dose 40 MG; Start 04/13/19 at 06:00 Diagnostic Test (Pha) (Accu-Chek) 1 ea 02 XX ; Start 04/13/19 at 02:00 Sodium Chloride 1,000 ml @ 80 mls/hr [id number] IV Last administered on 04/15/19at 08:56; Admin Dose 80 MLS/HR; Start 04/12/19 at 14:30 Enoxaparin Sodium (Lovenox) 40 mg DAILY SC Last administered on 04/13/19at 08:10; Admin Dose 40 MG; Start 04/13/19 at 09:00; Status Hold Ondansetron HCl (Zofran Inj) 4 mg Q6H PRN IV NAUSEA AND/OR VOMITING; Start 04/12/19 at 14:30 Miscellaneous Information 1 ea NOTE XX ; Start 04/12/19 at 16:00 Glucose (Glutose) 15 gm Q15M PRN PO DECREASED GLUCOSE; Start 04/12/19 at 16:00 Glucose (Glutose) 22.5 gm Q15M PRN PO DECREASED GLUCOSE; Start 04/12/19 at 16 :00 Dextrose (D50w Syringe) 25 ml Q15M PRN IV DECREASED GLUCOSE; Start 04/12/19 at 16:00 Dextrose (D50w Syringe) 50 ml Q15M PRN IV DECREASED GLUCOSE; Start 04/12/19 at 16:00 Glucagon (Glucagen) 1 mg Q15M PRN IM DECREASED GLUCOSE; Start 04/12/19 at 16:00 Glucose (Glutose) 15 gm Q15M PRN BUCCAL DECREASED GLUCOSE; Start 04/12/19 at 16:00 Hydralazine HCl (Apresoline) 25 mg TID PO Last administered on 04/15/19at 08:58; Admin Dose 25 MG; Start 04/13/19 at 13:00 Amlodipine Besylate (Norvasc) 10 mg DAILY PO Last administered on 04/15/19at 08:57; Admin Dose 10 MG; Start 04/14/19 at 09:00 Carvedilol (Coreg) 6.25 mg BID PO Last administered on 04/15/19at 08:57; Admin Dose 6.25 MG; Start 04/13/19 at 11:00 Captopril (Capoten) 25 mg TID PO Last administered on 04/15/19at 08:58; Admin Dose 25 MG; Start 04/13/19 at 13:00 Clonidine (Catapres) 0.1 mg Q4H PRN GTB SBP > 170; Start 04/13/19 at 11:00 Hydromorphone HCl (Dilaudid) 0.5 mg Q3H PRN IV MODERATE PAIN LEVEL 4-6; Start 04/14/19 at 15:00 Hydromorphone HCl (Dilaudid) 1 mg Q3H PRN IV SEVERE PAIN LEVEL 7-10 Last administered on 04/14/19at 20:23; Admin Dose 1 MG; Start 04/14/19 at 15:00 Insulin Aspart (Novolog Insulin Pen) NOVOLOG *MODERATE* ALGORITHM WITH MEALS BEDTIME SC ; Start 04/14/19 at 21:00 Assessment/Plan Hospital Course (Demo Recall) 1. Atrial fibrillation: Appears to be chronically heart rate controlled. Patient would benefit from chronic anticoagulation however currently due to the multiple procedures at this plan is off of anticoagulation 2. Hypertension currently poorly controlled 3. Ascending aortic aneurysm at 4.9 cm: We will continue to monitor and control the blood pressure better 4. Likely metastatic colon cancer: work-up and treatment as per oncology and surgical team 5. Diabetes 6. History of CVA 7. Dyslipidemia Recommendations: continue with carvedilol for better blood pressure control. SHAWNA inhibitor was already added Continue Norvasc as well Diabetic management as per Dr. Bautista Heart rate is clinically remained stable we will continue to monitor. Thank you for his referral. We will continue to follow along with you RODRICK STEWART MD [facility] RODRICK STEWART MD April 15, 2019 09:56
--- NOTE | 2019-04-15 13:29 | CONS ---
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 Pt may be a candidate for microwave ablation to the liver lesions. This can be done at [facility]. -This would then be followed by at least 6 months of 5fu based chemotherapy with a potential transition to maintenance Xeloda -continue management of HTN, HL, DM and Afib per primary team - Consultation Date/Type/Reason Admit Date/Time April 12, 2019 at 13:45 Initial Consult Date 04/14/19 Type of Consult oncology Reason for Consultation colon cancer Requesting Provider: NIDHI VILLEDA MD Date/Time of Note DATE: 04/15/19 TIME: 13:27 24 HR Interval Summary Free Text/Dictation no acute overnight events Exam/Review of Systems Exam Vitals Vital Signs Date Temp Pulse Resp B/P (MAP) Pulse Ox O2 O2 Flow FiO2 Time Delivery Rate 04/15/19 98.3 100 18 157/78 99 08:00 (104) 04/14/19 Nasal 2.0 13:50 Cannula 04/12/19 21 17:34 Intake and Output 04/14/19 04/14/19 04/15/19 1515:00 23:00 07:00 IntakeIntake Total 1240 ml 910 ml BalanceBalance 1240 ml 910 ml Constitutional: alert, oriented Psych: no complaints Head: normocephalic Eyes: nl conjunctiva ENMT: nl external ears & nose Neck: supple Respiratory: clear to auscultation Cardiovascular: regular rate and rhythm Gastrointestinal: soft Musculoskeletal: nl extremities to inspection Results Result Diagram: 04/14/19 0513 04/14/19 0513 Results 24hrs Laboratory Tests Test 04/14/19 18:34 04/14/19 20:20 04/15/19 08:24 04/15/19 12:03 Bedside Glucose 138 117 104 180 Medications Medication Current Medications IV Flush (NS 3 ml) 3 ml PER PROTOCOL IV ; Start 04/12/19 at 14:00 Acetaminophen (Tylenol Tab) 650 mg Q6H PRN PO .PAIN 1-3 OR TEMP; Start 04/12/19 at 14:00 Acetaminophen/ Hydrocodone Bitart ([place] (5/325)) 1 tab Q6H PRN PO .MOD PAIN 4- 6 Last administered on 04/14/19at 13:11; Admin Dose 1 TAB; Start 04/12/19 at 14:00 Docusate Sodium (Colace) 100 mg Q12H PRN PO .CONSTIPATION; Start 04/12/19 at 14:00 Magnesium Hydroxide (Milk Of Mag) 30 ml DAILY PRN PO .CONSTIPATION; Start 04/12/19 at 14:00 Zolpidem Tartrate (Ambien) 5 mg QHS PRN PO .INSOMNIA; Start 04/12/19 at 14:00 Pantoprazole (Protonix Tab) 40 mg DAILY@06 PO Last administered on 04/15/19at 05:25; Admin Dose 40 MG; Start 04/13/19 at 06:00 Diagnostic Test (Pha) (Accu-Chek) 1 ea 02 XX ; Start 04/13/19 at 02:00 Sodium Chloride 1,000 ml @ 80 mls/hr [id number] IV Last administered on 04/15/19at 08:56; Admin Dose 80 MLS/HR; Start 04/12/19 at 14:30 Enoxaparin Sodium (Lovenox) 40 mg DAILY SC Last administered on 04/13/19at 08:10; Admin Dose 40 MG; Start 04/13/19 at 09:00; Status Hold Ondansetron HCl (Zofran Inj) 4 mg Q6H PRN IV NAUSEA AND/OR VOMITING; Start 04/12/19 at 14:30 Miscellaneous Information 1 ea NOTE XX ; Start 04/12/19 at 16:00 Glucose (Glutose) 15 gm Q15M PRN PO DECREASED GLUCOSE; Start 04/12/19 at 16:00 Glucose (Glutose) 22.5 gm Q15M PRN PO DECREASED GLUCOSE; Start 04/12/19 at 16:00 Dextrose (D50w Syringe) 25 ml Q15M PRN IV DECREASED GLUCOSE; Start 04/12/19 at 16:00 Dextrose (D50w Syringe) 50 ml Q15M PRN IV DECREASED GLUCOSE; Start 04/12/19 at 16:00 Glucagon (Glucagen) 1 mg Q15M PRN IM DECREASED GLUCOSE; Start 04/12/19 at 16:00 Glucose (Glutose) 15 gm Q15M PRN BUCCAL DECREASED GLUCOSE; Start 04/12/19 at 16:00 Hydralazine HCl (Apresoline) 25 mg TID PO Last administered on 04/15/19at 08:58; Admin Dose 25 MG; Start 04/13/19 at 13:00 Amlodipine Besylate (Norvasc) 10 mg DAILY PO Last administered on 04/15/19 08:57; Admin Dose 10 MG; Start 04/14/19 at 09:00 Carvedilol (Coreg) 6.25 mg BID PO Last administered on 04/15/19 08:57; Admin Dose 6.25 MG; Start 04/13/19 at 11:00 Captopril (Capoten) 25 mg TID PO Last administered on 04/15/19at 08:58; Admin Dose 25 MG; Start 04/13/19 at 13:00 Clonidine (Catapres) 0.1 mg Q4H PRN GTB SBP > 170; Start 04/13/19 at 11:00 Hydromorphone HCl (Dilaudid) 0.5 mg Q3H PRN IV MODERATE PAIN LEVEL 4-6; Start 04/14/19 at 15:00 Hydromorphone HCl (Dilaudid) 1 mg Q3H PRN IV SEVERE PAIN LEVEL 7-10 Last administered on 04/14/19at 20:23; Admin Dose 1 MG; Start 04/14/19 at 15:00 Insulin Aspart (Novolog Insulin Pen) NOVOLOG *MODERATE* ALGORITHM WITH MEALS BEDTIME SC Last administered on 04/15/19 12:06; Admin Dose 2 UNIT; Start 04/14/19 at 21:00 SHADI FUENTES M.D. April 15, 2019 13:29
[2019-04-15 14:00] VITALS: BP 141/78; PULSE 76; RESP 18
--- NOTE | 2019-04-15 14:14 | PREAC ---
Date/Time of Note Date/Time of Note DATE: 04/15/19 TIME: 14:13 Anesthesia Eval and Record Evaluation Time Pre-Procedure Interview DATE: 04/15/19 TIME: 14:13 Age 78 Sex male NPO: 8 hrs Preoperative diagnosis colon cancer Planned procedure LAPAROSCOPIC VS OPEN LEFT COLECTOMY Past Medical History Past Medical History: Includes Cardio: HTN, Dyslipidemia, Arrythmia (a-fib) Endo: Diabetes Neuro: CVA GI: Morbid obesity Surgery & Anesthesia Issues No known issue Meds Anticoagulation: No Beta [place] within 24 hr: Yes Reported Medications Metoprolol Tartrate* (Lopressor*) 25 Mg Tab, 25 MG PO BID, #60 TAB 04/12/19 Amlodipine Besylate* (Amlodipine Besylate*) 2.5 Mg Tablet, 2.5 MG PO DAILY, #30 TAB 04/12/19 Metformin Hcl* (Metformin Hcl*) 500 Mg Tablet, 500 MG PO WITH MEALS, #90 TAB 04/12/19 Atorvastatin* (Atorvastatin*) 40 Mg Tablet, 40 MG PO QHS, #30 TAB 04/12/19 Current Medications IV Flush (NS 3 ml) 3 ml PER PROTOCOL IV ; Start 04/12/19 at 14:00 Acetaminophen (Tylenol Tab) 650 mg Q6H PRN PO .PAIN 1-3 OR TEMP; Start 04/12/19 at 14:00 Acetaminophen/ Hydrocodone Bitart ([place] (5/325)) 1 tab Q6H PRN PO .MOD PAIN 4- 6 Last administered on 04/14/19at 13:11; Admin Dose 1 TAB; Start 04/12/19 at 14:00 Docusate Sodium (Colace) 100 mg Q12H PRN PO .CONSTIPATION; Start 04/12/19 at 14:00 Magnesium Hydroxide (Milk Of Mag) 30 ml DAILY PRN PO .CONSTIPATION; Start 04/12/19 at 14:00 Zolpidem Tartrate (Ambien) 5 mg QHS PRN PO .INSOMNIA; Start 04/12/19 at 14:00 Pantoprazole (Protonix Tab) 40 mg DAILY@06 PO Last administered on 04/15/19at 05:25; Admin Dose 40 MG; Start 04/13/19 at 06:00 Diagnostic Test (Pha) (Accu-Chek) 1 ea 02 XX ; Start 04/13/19 at 02:00 Sodium Chloride 1,000 ml @ 80 mls/hr [id number] IV Last administered on 04/15/19at 08:56; Admin Dose 80 MLS/HR; Start 04/12/19 at 14:30 Enoxaparin Sodium (Lovenox) 40 mg DAILY SC Last administered on 04/13/19at 08:10; Admin Dose 40 MG; Start 04/13/19 at 09:00; Status Hold Ondansetron HCl (Zofran Inj) 4 mg Q6H PRN IV NAUSEA AND/OR VOMITING; Start 04/12/19 at 14:30 Miscellaneous Information 1 ea NOTE XX ; Start 04/12/19 at 16:00 Glucose (Glutose) 15 gm Q15M PRN PO DECREASED GLUCOSE; Start 04/12/19 at 16:00 Glucose (Glutose) 22.5 gm Q15M PRN PO DECREASED GLUCOSE; Start 04/12/19 at 16:00 Dextrose (D50w Syringe) 25 ml Q15M PRN IV DECREASED GLUCOSE; Start 04/12/19 at 16:00 Dextrose (D50w Syringe) 50 ml Q15M PRN IV DECREASED GLUCOSE; Start 04/12/19 at 16:00 Glucagon (Glucagen) 1 mg Q15M PRN IM DECREASED GLUCOSE; Start 04/12/19 at 16:00 Glucose (Glutose) 15 gm Q15M PRN BUCCAL DECREASED GLUCOSE; Start 04/12/19 at 16:00 Hydralazine HCl (Apresoline) 25 mg TID PO Last administered on 04/15/19at 08:58; Admin Dose 25 MG; Start 04/13/19 at 13:00 Amlodipine Besylate (Norvasc) 10 mg DAILY PO Last administered on 04/15/19at 08:57; Admin Dose 10 MG; Start 04/14/19 at 09:00 Carvedilol (Coreg) 6.25 mg BID PO Last administered on 04/15/19at 08:57; Admin Dose 6.25 MG; Start 04/13/19 at 11:00 Captopril (Capoten) 25 mg TID PO Last administered on 04/15/19at 08:58; Admin Dose 25 MG; Start 04/13/19 at 13:00 Clonidine (Catapres) 0.1 mg Q4H PRN GTB SBP > 170; Start 04/13/19 at 11:00 Hydromorphone HCl (Dilaudid) 0.5 mg Q3H PRN IV MODERATE PAIN LEVEL 4-6; Start 04/14/19 at 15:00 Hydromorphone HCl (Dilaudid) 1 mg Q3H PRN IV SEVERE PAIN LEVEL 7-10 Last administered on 04/14/19at 20:23; Admin Dose 1 MG; Start 04/14/19 at 15:00 Insulin Aspart (Novolog Insulin Pen) NOVOLOG *MODERATE* ALGORITHM WITH MEALS BEDTIME SC Last administered on 04/15/19at 12:06; Admin Dose 2 UNIT; Start 04/14/19 at 21:00 Meds reviewed: Yes Allergies Coded Allergies: No Known Allergies (Verified Allergy, Unknown, 04/12/19) Allergies Reviewed: Yes Labs/Studies Labs Reviewed: Reviewed by anesthesiologist Result Diagram: 04/14/1951204/14/19512 test: N/A Studies: ECG (A-FIB), CXR (Lung volumes are low with compressive changes. No focal airspace opacity, pleural effusion or pneumothorax is seen. The cardiomediastinal silhouette is mildly enlarged. Calcifications are seen within the aortic arch. The osseous structures are unremarkable. ), 2D Echo (EF 65%) Pre-procedure Exam Last vitals Vital Signs Date Temp Pulse Resp B/P (MAP) Pulse Ox O2 O2 Flow FiO2 Time Delivery Rate 04/15/19 98.3 100 18 157/78 99 08:00 (104) 04/14/19 Nasal 2.0 13:50 Cannula 04/12/19 21 17:34 Airway: Adequate mouth opening Mallampati: Mallampati II Teeth: Normal Lung: Normal Heart: Normal ASA Physical Status ASA physical status: 3 Emergency: None Pre-operative Attestations Prior to commencing anesthesia and surgery, the patient was re-evaluated, there was verification of: *The patient's identity *The results of appropriate recent lab work and preoperative vital signs *The above evaluation not changing prior to induction *Anesthetic plan, risk benefits, alternative and complications discussed with patient/family; questions answered; patient/family understands, accepts and wishes to proceed. DANISH BEAVER April 15, 2019 14:14
--- NOTE | 2019-04-15 15:16 | PN ---
Date/Time of Note Date/Time of Note DATE: 04/15/19 TIME: 14:57 Assessment/Plan Lines/Catheters IV C[facility]ter Type (from [facility]): Peripheral IV Assessment/Plan Chief Complaint/Hosp Course 1. Sigmoid mass on colonoscopy 2. Multiple liver lesions (insufficient MRI due to motion artifact however demonstrates1.8 cm lesion in the hepatic segment 5, 0.9 cm lesion in the hepatic segment 8, 1.3 cm intermediate T2 hyperintense lesion in the hepatic segment 4B) 3. Occasional abdominal pain -Concern is metastatic colon cancer. He does not have any active bleeding, obstruction, evidence of perforation. Options are to start chemotherapy due to stage IV cancer and then proceed with colon resection with possible liver met resections versus ablation. Other possible he is to proceed with colon resection and then adjuvant chemotherapy. concern is delaying his chemotherapy at this time> discussed with oncology who recommends surgical intervention with chemotherapy following -Bowel prep -OR tomorrow 4. BMI 37 with comorbidities, morbid obesity -Encourage nutritional optimization -Encourage exercise optimization 5. Hypertension, diabetes mellitus, dyslipidemia -Encourage nutrition and medication optimization -Encourage weight loss 6. Atrial fibrillation, rate controlled -Cardiac optimization -Electrolyte optimization 7. 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 -Medical and cardiac optimization and clearance Thank you. Patient seen and examined in collaboration with Dr. Francisco House. Subjective 24 Hr Interval Summary No fevers, chills, sob, congested cough, cp, palpitations, sullivan, dizziness, nausea, vomiting, diarrhea, dysuria. + Bowel function Exam/Review of Systems Vital Signs Vitals Vital Signs Date Temp Pulse Resp B/P (MAP) Pulse Ox O2 O2 Flow FiO2 Time Delivery Rate 04/15/19 98.3 100 18 157/78 99 08:00 (104) 04/14/19 Nasal 2.0 13:50 Cannula 04/12/19 21 17:34 Intake and Output 04/14/19 04/14/19 04/15/19 1414:59 22:59 06:59 IntakeIntake Total 1000 ml 1150 ml BalanceBalance 1000 ml 1150 ml Exam Free Text/Dictation Constitutional: alert, oriented, obese; No distress Psych: nl mood/affect; No anxiety, No confusion Head: normocephalic, atraumatic Eyes: nl conjunctiva, EOMI, PERRL; No icteric ENMT: nl external ears & nose, mucosa pink and moist Neck: supple; No jvd Respiratory: normal air movement; No congested cough, No labored breathing, No wheezing Cardiovascular: edema; No regular rate and rhythm Gastrointestinal: soft, non-tender, other (Obese); moderate distended No rebound or guarding Genitourinary - Male: nl penis, nl scrotum Musculoskeletal: nl extremities to inspection; No joint tenderness Extremities: normal pulses, edema; No calf tenderness Neurological: nl mental status, nl speech, nl strength Skin: nl turgor; No rash or lesions, No diaphoresis Lymph: nl lymph nodes Results Result Diagram: 04/14/19 0513 04/14/19 0513 YUMIKO ALBRIGHT NP April 15, 2019 15:07
[2019-04-15] MEDS ORDERED: PEG/ELECTROLYTES 4L BTL PO ONE (16:00)
--- NOTE | 2019-04-15 17:33 | CONS ---
Assessment/Plan Assessment/Plan Assessment/Plan (Daily) IMPRESSION: 1. Multiple mets in the liver with elevated CA 19-9 and CEA, colonoscopy biopsy was consistent with a diagnosis of adenocarcinoma 2. Diabetes mellitus. 3. Atrial fibrillation. 4. Obesity. 5. Polycythemia. Plan Patient is going for colonic resection Once he recovers from the surgery patient will need chemo or radiofrequency ablation of the tumor in the liver Consultation Date/Type/Reason Admit Date/Time April 12, 2019 at 13:45 Initial Consult Date 04/14/19 Requesting Provider: NIDHI VILLEDA MD Date/Time of Note DATE: 04/15/19 TIME: 17:32 24 HR Interval Summary Constitutional: no complaints Exam/Review of Systems Exam Vitals Vital Signs Date Temp Pulse Resp B/P (MAP) Pulse Ox O2 O2 Flow FiO2 Time Delivery Rate 04/15/19 98.6 76 18 141/78 96 14:00 (99) 04/14/19 Nasal 2.0 13:50 Cannula 04/12/19 21 17:34 Intake and Output 04/14/19 04/14/19 04/15/19 1515:00 23:00 07:00 IntakeIntake Total 1240 ml 910 ml BalanceBalance 1240 ml 910 ml Constitutional: alert, oriented, well developed Psych: no complaints, nl mood/affect Head: normocephalic, atraumatic Eyes: nl conjunctiva, EOMI, nl lids, nl sclera, PERRL ENMT: nl external ears & nose, nl lips & teeth, nl nasal mucosa & septum Neck: supple, non-tender Respiratory: clear to auscultation, normal air movement Cardiovascular: regular rate and rhythm, nl pulses Gastrointestinal: soft, nl liver, spleen, non-tender Musculoskeletal: nl extremities to inspection, nl gait and stance Extremities: normal pulses Neurological: MATZO FORMING MACHINE OPERATOR II-XII intact, nl mental status, nl speech, nl strength Skin: nl turgor; No rash or lesions Lymph: nl lymph nodes Results Result Diagram: 04/14/19 0513 04/14/19 0513 Results 24hrs Laboratory Tests Test 04/14/19 18:34 04/14/19 20:20 04/15/19 08:24 04/15/19 12:03 Bedside Glucose 138 117 104 180 Test 04/15/19 17:24 Bedside Glucose 123 Medications Medication Current Medications IV Flush (NS 3 ml) 3 ml PER PROTOCOL IV ; Start 04/12/19 at 14:00 Acetaminophen (Tylenol Tab) 650 mg Q6H PRN PO .PAIN 1-3 OR TEMP; Start 04/12/19 at 14:00 Acetaminophen/ Hydrocodone Bitart ([place] (5/325)) 1 tab Q6H PRN PO .MOD PAIN 4- 6 Last administered on 04/14/19at 13:11; Admin Dose 1 TAB; Start 04/12/19 at 14:00 Docusate Sodium (Colace) 100 mg Q12H PRN PO .CONSTIPATION; Start 04/12/19 at 14:00 Magnesium Hydroxide (Milk Of Mag) 30 ml DAILY PRN PO .CONSTIPATION; Start 04/12/19 at 14:00 Zolpidem Tartrate (Ambien) 5 mg QHS PRN PO .INSOMNIA; Start 04/12/19 at 14:00 Pantoprazole (Protonix Tab) 40 mg DAILY@06 PO Last administered on 04/15/19at 05:25; Admin Dose 40 MG; Start 04/13/19 at 06:00 Diagnostic Test (Pha) (Accu-Chek) 1 ea 02 XX ; Start 04/13/19 at 02:00 Enoxaparin Sodium (Lovenox) 40 mg DAILY SC Last administered on 04/13/19at 08:10; Admin Dose 40 MG; Start 04/13/19 at 09:00; Status Hold Ondansetron HCl (Zofran Inj) 4 mg Q6H PRN IV NAUSEA AND/OR VOMITING; Start 04/12/19 at 14:30 Miscellaneous Information 1 ea NOTE XX ; Start 04/12/19 at 16:00 Glucose (Glutose) 15 gm Q15M PRN PO DECREASED GLUCOSE; Start 04/12/19 at 16:00 Glucose (Glutose) 22.5 gm Q15M PRN PO DECREASED GLUCOSE; Start 04/12/19 at 16:00 Dextrose (D50w Syringe) 25 ml Q15M PRN IV DECREASED GLUCOSE; Start 04/12/19 at 16:00 Dextrose (D50w Syringe) 50 ml Q15M PRN IV DECREASED GLUCOSE; Start 04/12/19 at 16:00 Glucagon (Glucagen) 1 mg Q15M PRN IM DECREASED GLUCOSE; Start 04/12/19 at 16:00 Glucose (Glutose) 15 gm Q15M PRN BUCCAL DECREASED GLUCOSE; Start 04/12/19 at 16:00 Hydralazine HCl (Apresoline) 25 mg TID PO Last administered on 04/15/19 08:58; Admin Dose 25 MG; Start 04/13/19 at 13:00 Amlodipine Besylate (Norvasc) 10 mg DAILY PO Last administered on 04/15/19 08:57; Admin Dose 10 MG; Start 04/14/19 at 09:00 Carvedilol (Coreg) 6.25 mg BID PO Last administered on 04/15/19 08:57; Admin Dose 6.25 MG; Start 04/13/19 at 11:00 Captopril (Capoten) 25 mg TID PO Last administered on 04/15/19 08:58; Admin Dose 25 MG; Start 04/13/19 at 13:00 Clonidine (Catapres) 0.1 mg Q4H PRN GTB SBP > 170; Start 04/13/19 at 11:00 Hydromorphone HCl (Dilaudid) 0.5 mg Q3H PRN IV MODERATE PAIN LEVEL 4-6; Start 04/14/19 at 15:00 Hydromorphone HCl (Dilaudid) 1 mg Q3H PRN IV SEVERE PAIN LEVEL 7-10 Last administered on 04/14/19at 20:23; Admin Dose 1 MG; Start 04/14/19 at 15:00 Insulin Aspart (Novolog Insulin Pen) NOVOLOG *MODERATE* ALGORITHM WITH MEALS BEDTIME SC Last administered on 04/15/19at 12:06; Admin Dose 2 UNIT; Start 04/14/19 at 21:00 Sodium Chloride 1,000 ml @ 80 mls/hr [id number] IV ; Start 04/16/19 at 00:00 LEOPOLDO FORD MD April 15, 2019 17:33
[2019-04-15 20:00] VITALS: BP 172/102; PULSE 59; RESP 20
--- NOTE | 2019-04-15 20:13 | PN ---
DATE: 04/15/2019 SUBJECTIVE: The patient is seen. Case discussed extensively with the surgical team, marty Marcos d the oncologist, Dr. Homa Jones. Ultimately, we decided to proceed with surgical resection of col on mass, and hopefully patient can recover within a few weeks and undergo chemotherapy. The patient was informed of the above and is willing to proceed with surgery. Dr. Haq, one of the cardiologis ts, is following. PHYSICAL EXAMINATION: VITAL SIGNS: Temperature 98.3, pulse 72 to 100, respirations 18, blood pressure 157/78, saturation 9 9% on room air. GENERAL: No acute distress. The patient is morbidly obese. CARDIOVASCULAR: S1 and S2. Regular rate. LUNGS: Clear. ABDOMEN: Soft. Slight discomfort in the left lower quadrant. EXTREMITIES: No clubbing, cyanosis or edema. LABORATORY DATA: White count 7.6, hemoglobin 16.8, hematocrit 51, platelet count is 179 with normal differential. Chemistry: Sodium 142, potassium 4.2, chloride 107, bicarbonate 26, BUN of 17, creati nine 0.5, glucose of 131. LFTs were all normal. Alpha fetoprotein was normal at 2.76, CEA 19.7 but CA 19-9 was high at 369. The patient's last glucose levels 180, 104, 117. Stool occult blood was ac tually negative. Pathology report came back as following: Adenocarcinoma, moderately differentiated . MEDICATIONS: Include: 1. GoLYTELY to be given today in preparation for surgery tomorrow. 2. Insulin aspart per sliding scale. 3. Dilaudid p.r.n. 4. Norvasc 10 mg daily. 5. Hydralazine 25 daily. 6. Captopril 25 t.i.d. 7. Coreg 6.25 b.i.d. 8. Clonidine p.r.n. 9. Protonix 40 mg daily. 10. Accu-Cheks as directed. 11. Hyperglycemia protocol as directed. 12. Zofran p.r.n. 13. Tylenol p.r.n. 14. [place] p.r.n. 15. Colace p.r.n. 16. Milk of Magnesia p.r.n. 17. Ambien p.r.n. ASSESSMENT AND PLAN: This is an 78-year-old male with a history of hypertension, dyslipide [place], atrial fibrillation, diabetes mellitus, cerebrovascular accident, who presented with left lower quadrant pain and was found to have liver lesions and, on colonoscopy, was found to have colon cancer consistent with adenocarcinoma. 1. Metastatic colon cancer with a quite narrow colon area. The patient to undergo resection instead of stent placement. Surgery planned for tomorrow. Cardiology to follow. The patient in general do es not have any chest pain, has good exercise capacity. 2. Diabetes mellitus. Continue insulin regimen. 3. Continue Protonix for gastrointestinal prophylaxis. 4. Postop, we will arrange treatment for possible chemo for his liver mets. 5. Atrial fibrillation, rate controlled. 6. Polycythemia, likely due to obstructive sleep apnea. 7. We will monitor patient closely in the perioperative state. Dr. Haq was informed about plan o f surgery tomorrow, and we will follow also his recommendations. Dictated By: NIDHI PEREZ/RUIZ Conf#: [id number] DID#: [id number]
[2019-04-15 21:00] VITALS: BP 148/85; PULSE 71
[2019-04-16] VITALS (14 sets, daily range): BP systolic 113–186; BP diastolic 60–99; PULSE 58–80; RESP 13–20
[2019-04-16] MEDS: SOD CHLORIDE 0.9% 1,000 ML IV SCH ×2 (00:38→12:30)
[2019-04-16] MEDS: INSULIN ASPART [NOVOLOG] 3 ML PEN SC SCH ×5 (00:45→21:00)
[2019-04-16] MEDS: ACCU-CHEK XX SCH (01:11)
[2019-04-16] MEDS: HYDROmorphONE 1 MG/ML SYG IV PRN ×3 (02:30→11:13)
[2019-04-16] MEDS: PANTOPRAZOLE (EC) 40 MG TAB PO SCH (05:19)
[2019-04-16] MEDS ORDERED: SUCCINYLCHOLINE CHLORIDE 100 MG/5 ML SYG IV ONE ×2 (07:00→16:29)
[2019-04-16] MEDS ORDERED: SUGAMMADEX SODIUM 200 MG/2 ML VIAL IV ONE (07:00)
[2019-04-16] MEDS: AMLODIPINE 10 MG TAB PO SCH ×2 (09:00→11:09)
--- NOTE | 2019-04-16 12:10 | CONS ---
Assessment/Plan Assessment/Plan Assessment/Plan (Daily) Assessment/Plan Assessment/Plan (Daily) IMPRESSION: 1. Multiple mets in the liver with elevated CA 19-9 and CEA, colonoscopy biopsy was consistent with a diagnosis of adenocarcinoma 2. Diabetes mellitus. 3. Atrial fibrillation. 4. Obesity. 5. Polycythemia. Plan Patient is going for colonic resection today Consultation Date/Type/Reason Admit Date/Time April 12, 2019 at 13:45 Initial Consult Date 04/14/19 Requesting Provider: NIDHI VILLEDA MD Date/Time of Note DATE: 04/16/19 TIME: 12:09 24 HR Interval Summary Constitutional: no complaints, improved Exam/Review of Systems Exam Vitals Vital Signs Date Temp Pulse Resp B/P (MAP) Pulse Ox O2 O2 Flow FiO2 Time Delivery Rate 04/16/19 98.1 60 19 168/99 92 Room Air 08:05 (122) 04/14/19 2.0 13:50 04/12/19 21 17:34 Intake and Output 04/15/19 04/15/19 04/16/19 1515:00 23:00 07:00 IntakeIntake Total 680 ml 1810 ml 1320 ml BalanceBalance 680 ml 1810 ml 1320 ml Constitutional: alert, oriented, well developed Psych: no complaints, nl mood/affect Head: normocephalic, atraumatic Eyes: nl conjunctiva, EOMI, nl lids, nl sclera, PERRL ENMT: nl external ears & nose, nl lips & teeth, nl nasal mucosa & septum Neck: supple, non-tender Respiratory: clear to auscultation, normal air movement Cardiovascular: regular rate and rhythm, nl pulses Gastrointestinal: soft, nl liver, spleen, non-tender Musculoskeletal: nl extremities to inspection, nl gait and stance Extremities: normal pulses Neurological: FAMILY PRACTICE MD II-XII intact, nl mental status, nl speech, nl strength Skin: nl turgor; No rash or lesions Lymph: nl lymph nodes Results Result Diagram: 04/14/1951204/14/19512 Results 24hrs Laboratory Tests Test 04/15/19 17:24 04/15/19 20:25 04/16/19 00:37 04/16/19 05:25 Bedside Glucose 123 111 139 95 Test 04/16/19 09:03 Bedside Glucose 100 Medications Medication Current Medications IV Flush (NS 3 ml) 3 ml PER PROTOCOL IV ; Start 04/12/19 at 14:00 Acetaminophen (Tylenol Tab) 650 mg Q6H PRN PO .PAIN 1-3 OR TEMP; Start 04/12/19 at 14:00 Acetaminophen/ Hydrocodone Bitart ([place] (5/325)) 1 tab Q6H PRN PO .MOD PAIN 4- 6 Last administered on 04/14/19at 13:11; Admin Dose 1 TAB; Start 04/12/19 at 14:00 Docusate Sodium (Colace) 100 mg Q12H PRN PO .CONSTIPATION; Start 04/12/19 at 14:00 Magnesium Hydroxide (Milk Of Mag) 30 ml DAILY PRN PO .CONSTIPATION; Start 04/12/19 at 14:00 Zolpidem Tartrate (Ambien) 5 mg QHS PRN PO .INSOMNIA; Start 04/12/19 at 14:00 Pantoprazole (Protonix Tab) 40 mg DAILY@06 PO Last administered on 04/15/19at 05 :25; Admin Dose 40 MG; Start 04/13/19 at 06:00 Diagnostic Test (Pha) (Accu-Chek) 1 ea 02 XX ; Start 04/13/19 at 02:00 Enoxaparin Sodium (Lovenox) 40 mg DAILY SC Last administered on 04/13/19at 08:10; Admin Dose 40 MG; Start 04/13/19 at 09:00; Status Hold Ondansetron HCl (Zofran Inj) 4 mg Q6H PRN IV NAUSEA AND/OR VOMITING; Start 04/12/19 at 14:30 Miscellaneous Information 1 ea NOTE XX ; Start 04/12/19 at 16:00 Glucose (Glutose) 15 gm Q15M PRN PO DECREASED GLUCOSE; Start 04/12/19 at 16:00 Glucose (Glutose) 22.5 gm Q15M PRN PO DECREASED GLUCOSE; Start 04/12/19 at 16:00 Dextrose (D50w Syringe) 25 ml Q15M PRN IV DECREASED GLUCOSE; Start 04/12/19 at 16:00 Dextrose (D50w Syringe) 50 ml Q15M PRN IV DECREASED GLUCOSE; Start 04/12/19 at 16:00 Glucagon (Glucagen) 1 mg Q15M PRN IM DECREASED GLUCOSE; Start 04/12/19 at 16:00 Glucose (Glutose) 15 gm Q15M PRN BUCCAL DECREASED GLUCOSE; Start 04/12/19 at 16:00 Hydralazine HCl (Apresoline) 25 mg TID PO Last administered on 04/16/19at 11:07; Admin Dose 25 MG; Start 04/13/19 at 13:00 Amlodipine Besylate (Norvasc) 10 mg DAILY PO Last administered on 04/16/19at 11:09; Admin Dose 10 MG; Start 04/14/19 at 09:00 Carvedilol (Coreg) 6.25 mg BID PO Last administered on 04/16/19 11:08; Admin Dose 6.25 MG; Start 04/13/19 at 11:00 Captopril (Capoten) 25 mg TID PO Last administered on 04/16/19at 11:08; Admin Dose 25 MG; Start 04/13/19 at 13:00 Clonidine (Catapres) 0.1 mg Q4H PRN GTB SBP > 170; Start 04/13/19 at 11:00 Hydromorphone HCl (Dilaudid) 0.5 mg Q3H PRN IV MODERATE PAIN LEVEL 4-6; Start 04/14/19 at 15:00 Hydromorphone HCl (Dilaudid) 1 mg Q3H PRN IV SEVERE PAIN LEVEL 7-10 Last administered on 04/16/19at 11:13; Admin Dose 1 MG; Start 04/14/19 at 15:00 Sodium Chloride 1,000 ml @ 80 mls/hr [id number] IV Last administered on 04/16/19at 00:38; Admin Dose 80 MLS/HR; Start 04/16/19 at 00:00 Insulin Aspart (Novolog Insulin Pen) NOVOLOG *MODERATE* ALGORI... Q4 SC ; Start 04/16/19 at 01:00 LEOPOLDO FORD MD April 16, 2019 12:10
[2019-04-16] MEDS ORDERED: EPINEPHRINE 4 MG in D5W 250 ML IV SCH (14:00)
[2019-04-16] MEDS ORDERED: NORepinephrine 8MG/250 ML (PMX 250 ML IV SCH ×2 (14:00)
[2019-04-16] MEDS ORDERED: NORepinephrine 8MG/250 ML (PMX 250 ML IVPB SCH (14:30)
--- NOTE | 2019-04-16 14:41 | CONS ---
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 Pt may be a candidate for microwave ablation to the liver lesions. This can be done at [facility]. -This would then be followed by at least 6 months of 5fu based chemotherapy with a potential transition to maintenance Xeloda -continue management of HTN, HL, DM and Afib per primary team - Consultation Date/Type/Reason Admit Date/Time April 12, 2019 at 13:45 Initial Consult Date 04/14/19 Type of Consult oncology Reason for Consultation colon cancer Requesting Provider: NIDHI VILLEDA MD Date/Time of Note DATE: 04/16/19 TIME: 14:40 24 HR Interval Summary Free Text/Dictation going for colon resection today Exam/Review of Systems Exam Vitals Vital Signs Date Temp Pulse Resp B/P (MAP) Pulse Ox O2 O2 Flow FiO2 Time Delivery Rate 04/16/19 78 150/60 12:00 (90) 04/16/19 98.1 19 92 Room Air 08:05 04/14/19 2.0 13:50 04/12/19 21 17:34 Intake and Output 04/15/19 04/15/19 04/16/19 1515:00 23:00 07:00 IntakeIntake Total 680 ml 1810 ml 1320 ml BalanceBalance 680 ml 1810 ml 1320 ml Constitutional: alert, oriented Psych: no complaints Head: normocephalic Eyes: nl conjunctiva ENMT: nl external ears & nose Neck: supple Respiratory: clear to auscultation Cardiovascular: regular rate and rhythm Gastrointestinal: soft, nl liver, spleen Musculoskeletal: nl extremities to inspection Results Result Diagram: 04/14/19 0513 04/16/19 1234 Results 24hrs Laboratory Tests Test 04/15/19 17:24 04/15/19 20:25 04/16/19 00:37 04/16/19 05:25 Bedside Glucose 123 111 139 95 Test 04/16/19 09:03 04/16/19 12:34 04/16/19 13:13 Bedside Glucose 100 117 Prothrombin Time 13.4 Prothrombin Time 1.0 Ratio INR International 1.01 Normalized Ratio Sodium Level 141 Potassium Level 4.3 Chloride Level 103 Carbon Dioxide Level 29 Anion Gap 9 Blood Urea Nitrogen 14 Creatinine 1.03 Est Glomerular Filtrat Rate mL/min Glucose Level 131 Calcium Level 8.7 Medications Medication Current Medications IV Flush (NS 3 ml) 3 ml PER PROTOCOL IV ; Start 04/12/19 at 14:00 Acetaminophen (Tylenol Tab) 650 mg Q6H PRN PO .PAIN 1-3 OR TEMP; Start 04/12/19 at 14:00 Acetaminophen/ Hydrocodone Bitart ([place] (5/325)) 1 tab Q6H PRN PO .MOD PAIN 4- 6 Last administered on 04/14/19at 13:11; Admin Dose 1 TAB; Start 04/12/19 at 14:00 Docusate Sodium (Colace) 100 mg Q12H PRN PO .CONSTIPATION; Start 04/12/19 at 14:00 Magnesium Hydroxide (Milk Of Mag) 30 ml DAILY PRN PO .CONSTIPATION; Start 04/12 at 14:00 Zolpidem Tartrate (Ambien) 5 mg QHS PRN PO .INSOMNIA; Start 04/12/19 at 14:00 Pantoprazole (Protonix Tab) 40 mg DAILY@06 PO Last administered on 04/15/19at 05:25; Admin Dose 40 MG; Start 04/13/19 at 06:00 Diagnostic Test (Pha) (Accu-Chek) 1 ea 02 XX ; Start 04/13/19 at 02:00 Enoxaparin Sodium (Lovenox) 40 mg DAILY SC Last administered on 04/13/19at 08:10; Admin Dose 40 MG; Start 04/13/19 at 09:00; Status Hold Ondansetron HCl (Zofran Inj) 4 mg Q6H PRN IV NAUSEA AND/OR VOMITING; Start 04/12/19 at 14:30 Miscellaneous Information 1 ea NOTE XX ; Start 04/12/19 at 16:00 Glucose (Glutose) 15 gm Q15M PRN PO DECREASED GLUCOSE; Start 04/12/19 at 16:00 Glucose (Glutose) 22.5 gm Q15M PRN PO DECREASED GLUCOSE; Start 04/12/19 at 16:00 Dextrose (D50w Syringe) 25 ml Q15M PRN IV DECREASED GLUCOSE; Start 04/12/19 at 16:00 Dextrose (D50w Syringe) 50 ml Q15M PRN IV DECREASED GLUCOSE; Start 04/12/19 at 16:00 Glucagon (Glucagen) 1 mg Q15M PRN IM DECREASED GLUCOSE; Start 04/12/19 at 16:00 Glucose (Glutose) 15 gm Q15M PRN BUCCAL DECREASED GLUCOSE; Start 04/12/19 at 16:00 Hydralazine HCl (Apresoline) 25 mg TID PO Last administered on 04/16/19at 11:07; Admin Dose 25 MG; Start 04/13/19 at 13:00 Amlodipine Besylate (Norvasc) 10 mg DAILY PO Last administered on 04/16/19at 11:09; Admin Dose 10 MG; Start 04/14/19 at 09:00 Carvedilol (Coreg) 6.25 mg BID PO Last administered on 04/16/19at 11:08; Admin Dose 6.25 MG; Start 04/13/19 at 11:00 Captopril (Capoten) 25 mg TID PO Last administered on 04/16/19at 11:08; Admin Dose 25 MG; Start 04/13/19 at 13:00 Clonidine (Catapres) 0.1 mg Q4H PRN GTB SBP > 170; Start 04/13/19 at 11:00 Hydromorphone HCl (Dilaudid) 0.5 mg Q3H PRN IV MODERATE PAIN LEVEL 4-6; Start 04/14/19 at 15:00 Hydromorphone HCl (Dilaudid) 1 mg Q3H PRN IV SEVERE PAIN LEVEL 7-10 Last administered on 04/16/19at 11:13; Admin Dose 1 MG; Start 04/14/19 at 15:00 Sodium Chloride 1,000 ml @ 80 mls/hr [id number] IV Last administered on 04/16/19at 00:38; Admin Dose 80 MLS/HR; Start 04/16/19 at 00:00 Insulin Aspart (Novolog Insulin Pen) NOVOLOG *MODERATE* ALGORI... Q4 SC ; Start 04/16/19 at 01:00 Epinephrine 4 mg/ Dextrose 250 ml @ 0 mls/hr TITRATE IV ; Start 04/16/19 at 14:00 Norepinephrine 250 ml @ 0 mls/hr TITRATE IVPB ; Start 04/16/19 at 14:30 HSADI FUENTES M.D. April 16, 2019 14:41
--- NOTE | 2019-04-16 15:11 | PN ---
Date/Time of Note Date/Time of Note DATE: 04/16/19 TIME: 15:08 Assessment/Plan Lines/Catheters IV Catheter Type (from [facility]): Peripheral IV Assessment/Plan Chief Complaint/Hosp Course 1. 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 I had a long discussion with the team members including doctors Lisa Bautista & Brianne. Oncologist recommends to proceed with colon resection since chemotherapy not available for the next 2 to 3 weeks anyways. I had a long discussion with the patient and advised that if I go in and there is significant tumor load throughout the abdomen may not be able to proceed with the surgery at this time. On the other hand depending on what happens instead of doing an anastomosis may proceed with a colostomy. Patient fully understands and is agreeable to proceed with surgery at this time. 2. Multiple liver lesions (insufficient MRI due to motion artifact however demonstrates1.8 cm lesion in the hepatic segment 5, 0.9 cm lesion in the hepatic segment 8, 1.3 cm intermediate T2 hyperintense lesion in the hepatic segment 4B). Per discussion with oncology plan is to proceed with chemo after surgery (adjuvant) and then consider ablation and a resection at a later time as needed. 3. Occasional abdominal pain -As above 4. BMI 37 with comorbidities, morbid obesity -Encourage nutritional optimization -Encourage exercise optimization 5. Hypertension, diabetes mellitus, dyslipidemia -Encourage nutrition and medication optimization -Encourage weight loss 6. Atrial fibrillation, rate controlled -Cardiac optimization -Electrolyte optimization 7. 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 -Medical and cardiac optimization and clearance Thank you Subjective 24 Hr Interval Summary No fevers, chills, sob, congested cough, cp, palpitations, sullivan, dizziness, nausea, vomiting, diarrhea, dysuria. + Bowel function Exam/Review of Systems Vital Signs Vitals Vital Signs Date Temp Pulse Resp B/P (MAP) Pulse Ox O2 O2 Flow FiO2 Time Delivery Rate 04/16/19 78 150/60 12:00 (90) 04/16/19 98.1 19 92 Room Air 08:05 04/14/19 2.0 13:50 04/12/19 21 17:34 Intake and Output 04/15/19 04/15/19 04/16/19 1515:00 23:00 07:00 IntakeIntake Total 680 ml 1810 ml 1320 ml BalanceBalance 680 ml 1810 ml 1320 ml Exam Free Text/Dictation Constitutional: alert, oriented, obese; No distress Psych: nl mood/affect; No anxiety, No confusion Head: normocephalic, atraumatic Eyes: nl conjunctiva, EOMI, PERRL; No icteric ENMT: nl external ears & nose, mucosa pink and moist Neck: supple; No jvd Respiratory: normal air movement; No congested cough, No labored breathing, No wheezing Cardiovascular: edema; No regular rate and rhythm Gastrointestinal: soft, non-tender, other (Obese); moderate distended No rebound or guarding Genitourinary - Male: nl penis, nl scrotum Musculoskeletal: nl extremities to inspection; No joint tenderness Extremities: normal pulses, edema; No calf tenderness Neurological: nl mental status, nl speech, nl strength Skin: nl turgor; No rash or lesions, No diaphoresis Lymph: nl lymph nodes Results Result Diagram: 04/14/19 0513 04/16/19 1234 VIRGINIE GUO MD April 16, 2019 15:11
--- NOTE | 2019-04-16 16:18 | PN ---
DATE: 04/16/2019 SUBJECTIVE: The patient is to undergo laparoscopic resection of colon cancer by Dr. Francisco House. Case was discussed extensively with the surgical team and oncology team. PHYSICAL EXAMINATION: VITAL SIGNS: Temperature 98.1, pulse 78, respiration is 19, blood pressure 150/60, saturation 92%. GENERAL: The patient did receive his blood pressure oral medication this morning as his blood pressu re was high. Case discussed with nursing staff. LABORATORY DATA: Last glucose of 117. Basic metabolic panel: Sodium is 141, potassium 4.3, chlorid e is 103, bicarbonate 29, BUN is 14, creatinine 1.03, glucose 131. MEDICATIONS: Reviewed. They include: 1. Insulin aspart. 2. Normal saline 80 mL an hour. 3. Dilaudid p.r.n. 4. Norvasc 10 mg daily. 5. Hydralazine 25 t.i.d. 6. Captopril 25 t.i.d. 7. Coreg 6.25 b.i.d. 8. Clonidine p.r.n. 9. Protonix 40 mg daily. 10. Hypoglycemia protocol. ASSESSMENT AND PLAN: This is an 78-year-old male with history of hypertension, dyslipidemi a, atrial fibrillation, diabetes mellitus, cerebrovascular accident, presented with left lower quadra nt pain, was found to have colon cancer with what appears to be metastasis to the liver. 1. Metastatic colon cancer. The patient is to undergo a colon cancer resection as there is risk of obstruction. The patient will require chemotherapy thereafter once he recovers from the above surger y. We will monitor the patient in the perioperative state. 2. Diabetes mellitus. Continue insulin regimen. 3. Hypertension. Continue oral medications. 4. Atrial fibrillation, rate control. Blood thinners are on hold in anticipation for surgery. 5. Polycythemia, likely due to obstructive sleep apnea. We will follow. Dictated By: NIDHI PEREZ/RUIZ Conf#: [id number] DID#: [id number] CC: LEOPOLDO FORD MD;*End*
[2019-04-16] MEDS ORDERED: ONDANSETRON 4 MG INJ ONE (16:29)
[2019-04-16] MEDS ORDERED: HYDROmorphONE 2 MG/ML SYG ONE (16:29)
[2019-04-16] MEDS ORDERED: ROCURONIUM 50 MG INJ ONE (16:29)
[2019-04-16] MEDS ORDERED: ETOMIDATE 20 MG INJ ONE (16:29)
[2019-04-16] MEDS ORDERED: NITROGLYCERIN 50 MG in D5W 250 ML IV SCH (17:00)
--- NOTE | 2019-04-16 17:21 | CONS ---
Consult Date/Type/Reason Admit Date/Time April 12, 2019 at 13:45 Initial Consult Date 04/13/19 Type of Consultation: cv Requesting Provider: NIDHI VILLEDA MD Date/Time of Note DATE: 04/16/19 TIME: 17:20 Subjective Interventional cardiology follow-up progress note Subjective: Discussed with the staff. d/w multiple physician. D/W anesthesiologist and DR House Patient became hypotensive and bradycardic during anesthesia. surgery was cancelled. Objective: General: Obese gentleman intubated HEENT: NC/AT. pupils are equal. round. NECK: s/p R IJ central line . no stridor. CV: Irregularly irregular. systolic murmur; no gallop or rubs. PULM: no wheezing or rhonchi. GI: SOFT, NT, ND, no rebound or guarding Extremity: trace B/L LE edema. no clubbing. neuro: sedated Psych: calm rectal: deferred EEG was personally reviewed which showed atrial fibrillation. Cannot rule out anteroseptal infarct. Echocardiogram was personally reviewed which shows: There is mild enlargement of left atrium. Normal left ventricular systolic function. Normal left ventricular cavity size. Moderate concentric left ventricular hypertrophy. Ejection fraction is visually estimated at 65 %. Tissue Doppler/Mitral Doppler indices are indeterminate in this study due to the presence of atrial fibrillation. Normal appearance and function of the mitral valve with trace physiologic regurgitation. No hemodynamically significant aortic stenosis by doppler. Aortic cusps appear mildly calcified. Trace to mild aortic valve regurgitation. Normal appearance of the tricuspid valve. Unable to obtain RVSP due to minimal presence of tricuspid regurgitation. Normal size and normal respiratory collapse consistent with normal right atrial pressure. Objective Vitals Vital Signs Date Temp Pulse Resp B/P (MAP) Pulse Ox O2 O2 Flow FiO2 Time Delivery Rate 04/16/19 78 150/60 12:00 (90) 04/16/19 98.1 19 92 Room Air 08:05 04/14/19 2.0 13:50 04/12/19 21 17:34 Intake and Output 04/15/19 04/15/19 04/16/19 1515:00 23:00 07:00 IntakeIntake Total 680 ml 1810 ml 1320 ml BalanceBalance 680 ml 1810 ml 1320 ml Results/Medications Result Diagram: 04/14/19 0513 04/16/19 1234 Results 24 hrs Laboratory Tests Test 04/15/19 17:24 04/15/19 20:25 04/16/19 00:37 04/16/19 05:25 Bedside Glucose 123 111 139 95 Test 04/16/19 09:03 04/16/19 12:34 04/16/19 13:13 Bedside Glucose 100 117 Prothrombin Time 13.4 Prothrombin Time 1.0 Ratio INR International 1.01 Normalized Ratio Sodium Level 141 Potassium Level 4.3 Chloride Level 103 Carbon Dioxide Level 29 Anion Gap 9 Blood Urea Nitrogen 14 Creatinine 1.03 Est Glomerular Filtrat Rate mL/min Glucose Level 131 Calcium Level 8.7 Home Meds Reported Medications Metoprolol Tartrate* (Lopressor*) 25 Mg Tab, 25 MG PO BID, #60 TAB 04/12/19 Amlodipine Besylate* (Amlodipine Besylate*) 2.5 Mg Tablet, 2.5 MG PO DAILY, #30 TAB 04/12/19 Metformin Hcl* (Metformin Hcl*) 500 Mg Tablet, 500 MG PO WITH MEALS, #90 TAB 04/12/19 Atorvastatin* (Atorvastatin*) 40 Mg Tablet, 40 MG PO QHS, #30 TAB 04/12/19 Medications Current Medications IV Flush (NS 3 ml) 3 ml PER PROTOCOL IV ; Start 04/12/19 at 14:00 Acetaminophen (Tylenol Tab) 650 mg Q6H PRN PO .PAIN 1-3 OR TEMP; Start 04/12/19 at 14:00 Acetaminophen/ Hydrocodone Bitart ([place] (5/325)) 1 tab Q6H PRN PO .MOD PAIN 4- 6 Last administered on 04/14/19at 13:11; Admin Dose 1 TAB; Start 04/12/19 at 14:00 Docusate Sodium (Colace) 100 mg Q12H PRN PO .CONSTIPATION; Start 04/12/19 at 14:00 Magnesium Hydroxide (Milk Of Mag) 30 ml DAILY PRN PO .CONSTIPATION; Start at 14:00 Zolpidem Tartrate (Ambien) 5 mg QHS PRN PO .INSOMNIA; Start 04/12/19 at 14:00 Pantoprazole (Protonix Tab) 40 mg DAILY@06 PO Last administered on 04/15/19at 05:25; Admin Dose 40 MG; Start 04/13/19 at 06:00 Diagnostic Test (Pha) (Accu-Chek) 1 ea 02 XX ; Start 04/13/19 at 02:00 Enoxaparin Sodium (Lovenox) 40 mg DAILY SC Last administered on 04/13/19at 08:10; Admin Dose 40 MG; Start 04/13/19 at 09:00; Status Hold Ondansetron HCl (Zofran Inj) 4 mg Q6H PRN IV NAUSEA AND/OR VOMITING; Start 04/12/19 at 14:30 Miscellaneous Information 1 ea NOTE XX ; Start 04/12/19 at 16:00 Glucose (Glutose) 15 gm Q15M PRN PO DECREASED GLUCOSE; Start 04/12/19 at 16:00 Glucose (Glutose) 22.5 gm Q15M PRN PO DECREASED GLUCOSE; Start 04/12/19 at 16:00 Dextrose (D50w Syringe) 25 ml Q15M PRN IV DECREASED GLUCOSE; Start 04/12/19 at 16:00 Dextrose (D50w Syringe) 50 ml Q15M PRN IV DECREASED GLUCOSE; Start 04/12/19 at 16:00 Glucagon (Glucagen) 1 mg Q15M PRN IM DECREASED GLUCOSE; Start 04/12/19 at 16:00 Glucose (Glutose) 15 gm Q15M PRN BUCCAL DECREASED GLUCOSE; Start 04/12/19 at 16:00 Hydralazine HCl (Apresoline) 25 mg TID PO Last administered on 04/16/19at 11:07; Admin Dose 25 MG; Start 04/13/19 at 13:00 Amlodipine Besylate (Norvasc) 10 mg DAILY PO Last administered on 04/16/19at 11:09; Admin Dose 10 MG; Start 04/14/19 at 09:00 Carvedilol (Coreg) 6.25 mg BID PO Last administered on 04/16/19at 11:08; Admin Dose 6.25 MG; Start 04/13/19 at 11:00 Captopril (Capoten) 25 mg TID PO Last administered on 04/16/19at 11:08; Admin Dose 25 MG; Start 04/13/19 at 13:00 Clonidine (Catapres) 0.1 mg Q4H PRN GTB SBP > 170; Start 04/13/19 at 11:00 Hydromorphone HCl (Dilaudid) 0.5 mg Q3H PRN IV MODERATE PAIN LEVEL 4-6; Start 04/14/19 at 15:00 Hydromorphone HCl (Dilaudid) 1 mg Q3H PRN IV SEVERE PAIN LEVEL 7-10 Last administered on 04/16/19at 11:13; Admin Dose 1 MG; Start 04/14/19 at 15:00 Sodium Chloride 1,000 ml @ 80 mls/hr [id number] IV Last administered on 04/16/19at 00:38; Admin Dose 80 MLS/HR; Start 04/16/19 at 00:00 Insulin Aspart (Novolog Insulin Pen) NOVOLOG *MODERATE* ALGORI... Q4 SC ; Start 04/16/19 at 01:00 Epinephrine 4 mg/ Dextrose 250 ml @ 0 mls/hr TITRATE IV ; Start 04/16/19 at 14: 00 Norepinephrine 250 ml @ 0 mls/hr TITRATE IVPB ; Start 04/16/19 at 14:30 Nitroglycerin/ Dextrose 250 ml @ 0 mls/hr TITRATE IV ; Start 04/16/19 at 17:00; Stop 04/16/19 at 21:00 Assessment/Plan Hospital Course (Demo Recall) 1. Atrial fibrillation: Appears to be chronically heart rate controlled. Patient would benefit from chronic anticoagulation however currently due to the multiple procedures at this plan is off of anticoagulation 2. Hypertension : but hypotensive during aneshesia 3. Ascending aortic aneurysm at 4.9 cm: We will continue to monitor and control the blood pressure better 4. Likely metastatic colon cancer: work-up and treatment as per oncology and surgical team 5. Diabetes 6. History of CVA 7. Dyslipidemia Recommendations: pt to be closley monitored in ICU for now will dec his BP meds and may have to hold hid coreg tele monitoring Thank you for his referral. We will continue to follow along with you RODRICK STEWART MD [facility] RODRICK STEWART MD April 16, 2019 17:21
[2019-04-16] MEDS ORDERED: NALOXONE (0.4 MG/ML) INJ ONE (17:45)
--- NOTE | 2019-04-16 18:17 | QN ---
Documentation Comment Patient with significant hypotension and bradycardia after intubation and sedation. He was on 2 pressors. After discussion with team members decision was made not to proceed with surgery at this time. He will be admitted to ICU. VIRGINIE GUO MD April 16, 2019 18:17
--- NOTE | 2019-04-16 18:43 | PAC ---
Date/Time of Note Date/Time of Note DATE: 04/16/19 TIME: 18:43 Post-Anesthesia Notes Post-Anesthesia Note Last documented vital signs Vital Signs Date Temp Pulse Resp B/P (MAP) Pulse Ox O2 O2 Flow FiO2 Time Delivery Rate 04/16/19 78 150/60 12:00 (90) 04/16/19 98.1 19 92 Room Air 08:05 04/14/19 2.0 13:50 04/12/19 21 17:34 Activity: WNL Respiratory function: WNL Cardiovascular function: WNL Mental status: Baseline Pain reasonably controlled: Yes Hydration appropriate: Yes Nausea/Vomiting absent: Yes MISTY SLAUGHTER MD April 16, 2019 18:43
--- NOTE | 2019-04-16 18:46 | OPPN ---
Date/Time of Note Date/Time of Note DATE: 04/16/19 TIME: 18:43 Event Note post induction intra op as documented in the anesthesia record , patient became bradycardiac and hypotensive , iv epi / nor epui started and patients BP/HR recavered The surgeon and dye stand loader were called in the room and they decided to cancel the case as patient was hemodynamic instability MISTY SLAUGHTER MD April 16, 2019 18:46
[2019-04-16] MEDS ORDERED: NITROGLYCERIN 50 MG/D5W (PMX) 250 ML IV SCH (20:30)
[2019-04-17] VITALS (49 sets, daily range): BP systolic 89–162; BP diastolic 55–126; PULSE 55–83; RESP 0–26
[2019-04-17] MEDS: INSULIN ASPART [NOVOLOG] 3 ML PEN SC SCH ×6 (01:00→21:00)
[2019-04-17] MEDS: SOD CHLORIDE 0.9% 1,000 ML IV SCH (01:11)
[2019-04-17] MEDS: ACCU-CHEK XX SCH (01:13)
[2019-04-17] MEDS: PANTOPRAZOLE (EC) 40 MG TAB PO SCH (06:00)
--- NOTE | 2019-04-17 08:27 | CONS ---
Assessment/Plan Assessment/Plan Assessment/Plan (Daily) Assessment 1. Atrial fibrillation: Appears to be chronically heart rate controlled. Patient would benefit from chronic anticoagulation however currently due to the multiple procedures at this plan is off of anticoagulation 2. Hypertension currently poorly controlled 3. Ascending aortic aneurysm at 4.9 cm: We will continue to monitor and control the blood pressure better 4. Likely metastatic colon cancer: work-up and treatment as per oncology and surgical team 5. Diabetes 6. History of CVA 7. Dyslipidemia 8. Hemodynamic instability with hypotension and bradycardia post induction Plan: 1) wean NTG gtt 2) goal of keeping BP < 130 3) surgery postponed Consultation Date/Type/Reason Admit Date/Time April 12, 2019 at 13:45 Initial Consult Date 04/14/19 Type of Consult Cardiology Requesting Provider: NIDHI VILLEDA MD Date/Time of Note DATE: 04/17/19 TIME: 08:24 24 HR Interval Summary Free Text/Dictation in ICU, no distress, fatigued Subjective hx not possible: pt non-verbal Exam/Review of Systems Vital Signs Vitals Vital Signs Date Temp Pulse Resp B/P (MAP) Pulse Ox O2 O2 Flow FiO2 Time Delivery Rate 04/17/19 70 16 145/126 93 06:30 (132) 04/17/19 Nasal 4.0 06:00 Cannula 04/17/19 98.0 04:00 Intake and Output 04/16/19 04/16/19 04/17/19 1515:00 23:00 07:00 IntakeIntake Total 400 ml 506.425 ml 533.50 ml OutputOutput Total 1 ml 550 ml BalanceBalance 400 ml 505.425 ml -16.50 ml Exam Constitutional: non-verbal Head: normocephalic, atraumatic Neck: supple Respiratory: clear to auscultation Cardiovascular: irregular rhythm Gastrointestinal: soft Musculoskeletal: nl extremities to inspection Extremities: normal pulses Labs Result Diagram: 04/17/19 0435 04/17/19 0435 Results 24hrs Laboratory Tests Test 04/16/19 09:03 04/16/19 12:34 04/16/19 13:13 04/16/19 19:16 Bedside Glucose 100 117 Prothrombin Time 13.4 Prothrombin Time 1.0 Ratio INR International 1.01 Normalized Ratio Sodium Level 141 140 Potassium Level 4.3 4.2 Chloride Level 103 105 Carbon Dioxide Level 29 28 Anion Gap 9 7 Blood Urea Nitrogen 14 14 Creatinine 1.03 0.90 Est Glomerular Filtrat Rate mL/min Glucose Level 131 141 Calcium Level 8.7 8.1 L Magnesium Level 1.9 Troponin I < 0.012 Test 04/16/19 21:10 04/17/19 01:10 04/17/19 04:35 04/17/19 04:49 Bedside Glucose 128 108 100 White Blood Count 8.0 Red Blood Count 5.08 Hemoglobin 15.2 Hematocrit 46.7 Mean Corpuscular 91.9 Volume Mean Corpuscular 29.9 Hemoglobin Mean Corpuscular 32.5 Hemoglobin Concent Red Cell 13.4 Distribution Width Platelet Count 181 Mean Platelet Volume 11.0 H Immature 0.400 Granulocytes % Neutrophils % 72.1 Lymphocytes % 15.5 Monocytes % 10.4 Eosinophils % 1.4 Basophils % 0.2 Nucleated Red Blood 0.0 Cells % Immature 0.030 Granulocytes # Neutrophils # 5.8 Lymphocytes # 1.3 Monocytes # 0.8 Eosinophils # 0.1 Basophils # 0.0 Nucleated Red Blood 0.0 Cells # Sodium Level 138 Potassium Level 4.0 Chloride Level 103 Carbon Dioxide Level 29 Anion Gap 6 Blood Urea Nitrogen 13 Creatinine 0.90 Est Glomerular Filtrat Rate mL/min Glucose Level 103 Calcium Level 8.6 Phosphorus Level 4.3 Magnesium Level 1.9 Medications Medications Current Medications IV Flush (NS 3 ml) 3 ml PER PROTOCOL IV ; Start 04/12/19 at 14:00 Acetaminophen (Tylenol Tab) 650 mg Q6H PRN PO .PAIN 1-3 OR TEMP Last administered on 04/17/19at 04:31; Admin Dose 650 MG; Start 04/12/19 at 14:00 Acetaminophen/ Hydrocodone Bitart ([place] (5/325)) 1 tab Q6H PRN PO .MOD PAIN 4- 6 Last administered on 04/14/19at 13:11; Admin Dose 1 TAB; Start 04/12/19 at 14:00 Docusate Sodium (Colace) 100 mg Q12H PRN PO .CONSTIPATION; Start 04/12/19 at 14:00 Magnesium Hydroxide (Milk Of Mag) 30 ml DAILY PRN PO .CONSTIPATION; Start 04/12/19 at 14:00 Zolpidem Tartrate (Ambien) 5 mg QHS PRN PO .INSOMNIA Last administered on 04/17/19at 04:31; Admin Dose 5 MG; Start 04/12/19 at 14:00 Pantoprazole (Protonix Tab) 40 mg DAILY@06 PO Last administered on 04/17/19at 06:00; Admin Dose 40 MG; Start 04/13/19 at 06:00 Diagnostic Test (Pha) (Accu-Chek) 1 ea 02 XX ; Start 04/13/19 at 02:00 Enoxaparin Sodium (Lovenox) 40 mg DAILY SC Last administered on 04/13/19at 08:10; Admin Dose 40 MG; Start 04/13/19 at 09:00; Status Hold Ondansetron HCl (Zofran Inj) 4 mg Q6H PRN IV NAUSEA AND/OR VOMITING; Start at 14:30 Miscellaneous Information 1 ea NOTE XX ; Start 04/12/19 at 16:00 Glucose (Glutose) 15 gm Q15M PRN PO DECREASED GLUCOSE; Start 04/12/19 at 16:00 Glucose (Glutose) 22.5 gm Q15M PRN PO DECREASED GLUCOSE; Start 04/12/19 at 16:00 Dextrose (D50w Syringe) 25 ml Q15M PRN IV DECREASED GLUCOSE; Start 04/12/19 at 16:00 Dextrose (D50w Syringe) 50 ml Q15M PRN IV DECREASED GLUCOSE; Start 04/12/19 at 16:00 Glucagon (Glucagen) 1 mg Q15M PRN IM DECREASED GLUCOSE; Start 04/12/19 at 16:00 Glucose (Glutose) 15 gm Q15M PRN BUCCAL DECREASED GLUCOSE; Start 04/12/19 at 16:00 Hydralazine HCl (Apresoline) 25 mg TID PO Last administered on 04/16/19at 21:05; Admin Dose 25 MG; Start 04/13/19 at 13:00 Amlodipine Besylate (Norvasc) 10 mg DAILY PO Last administered on 04/16/19at 11:09; Admin Dose 10 MG; Start 04/14/19 at 09:00 Carvedilol (Coreg) 6.25 mg BID PO Last administered on 04/16/19at 21:06; Admin Dose 6.25 MG; Start 04/13/19 at 11:00 Captopril (Capoten) 25 mg TID PO Last administered on 04/16/19at 21:39; Admin Dose 25 MG; Start 04/13/19 at 13:00 Hydromorphone HCl (Dilaudid) 0.5 mg Q3H PRN IV MODERATE PAIN LEVEL 4-6; Start 04/14/19 at 15:00 Hydromorphone HCl (Dilaudid) 1 mg Q3H PRN IV SEVERE PAIN LEVEL 7-10 Last administered on 04/16/19at 11:13; Admin Dose 1 MG; Start 04/14/19 at 15:00 Sodium Chloride 1,000 ml @ 80 mls/hr [id number] IV Last administered on 04/17/19at 01:11; Admin Dose 80 MLS/HR; Start 04/16/19 at 00:00 Insulin Aspart (Novolog Insulin Pen) NOVOLOG *MODERATE* ALGORI... Q4 SC ; Start 04/16/19 at 01:00 Epinephrine 4 mg/ Dextrose 250 ml @ 0 mls/hr TITRATE IV ; Start 04/16/19 at 14:00 Norepinephrine 250 ml @ 0 mls/hr TITRATE IVPB ; Start 04/16/19 at 14:30 Nitroglycerin/ Dextrose 250 ml @ 1.5 mls/hr TITRATE IV Last administered on 04/16/19at 21:38; Admin Dose 9 MLS/HR; Start 04/16/19 at 20:30 Clonidine (Catapres) 0.1 mg Q4H PRN PO SBP > 170; Start 04/17/19 at 07:00 CHIDI SLATER MD April 17, 2019 08:27
--- NOTE | 2019-04-17 08:39 | CONS ---
Assessment/Plan Assessment/Plan Assessment/Plan (Daily) Assessment/Plan (Daily) IMPRESSION: 1. Multiple mets in the liver with elevated CA 19-9 and CEA, colonoscopy biopsy was consistent with a diagnosis of adenocarcinoma 2. Diabetes mellitus. 3. Atrial fibrillation. 4. Obesity. 5. Polycythemia. 6. Hypertension on nitroglycerin drip Plan Optimize patient's blood pressure Reevaluate the patient for possible surgery once his condition is stabilized and cleared by the multimedia engineer. Consultation Date/Type/Reason Admit Date/Time April 12, 2019 at 13:45 Initial Consult Date 04/14/19 Requesting Provider: NIDHI VILLEDA MD Date/Time of Note DATE: 04/17/19 TIME: 08:37 24 HR Interval Summary Free Text/Dictation Patient became hypotensive bradycardic during the induction phase of anesthesia. Patient was started on a pressor support medication and transferred to intensive care unit. Surgery was canceled. Patient is totally asymptomatic now and off all the pressor support Constitutional: no complaints, improved Exam/Review of Systems Exam Vitals Vital Signs Date Temp Pulse Resp B/P (MAP) Pulse Ox O2 O2 Flow FiO2 Time Delivery Rate 04/17/19 70 16 145/126 93 06:30 (132) 04/17/19 Nasal 4.0 06:00 Cannula 04/17/19 98.0 04:00 Intake and Output 04/16/19 04/16/19 04/17/19 1515:00 23:00 07:00 IntakeIntake Total 400 ml 506.425 ml 533.50 ml OutputOutput Total 1 ml 550 ml BalanceBalance 400 ml 505.425 ml -16.50 ml Constitutional: alert, oriented, well developed Psych: no complaints, nl mood/affect Head: normocephalic, atraumatic Eyes: nl conjunctiva, EOMI, nl lids, nl sclera, PERRL ENMT: nl external ears & nose, nl lips & teeth, nl nasal mucosa & septum Neck: supple, non-tender Respiratory: clear to auscultation, normal air movement Cardiovascular: regular rate and rhythm, nl pulses Gastrointestinal: soft, nl liver, spleen, non-tender Musculoskeletal: nl extremities to inspection, nl gait and stance Extremities: normal pulses Neurological: EGG PACKER II-XII intact, nl mental status, nl speech, nl strength Skin: nl turgor; No rash or lesions Lymph: nl lymph nodes Results Result Diagram: 04/17/19 0435 04/17/19 0435 Results 24hrs Laboratory Tests Test 04/16/19 09:03 04/16/19 12:34 04/16/19 13:13 04/16/19 19:16 Bedside Glucose 100 117 Prothrombin Time 13.4 Prothrombin Time 1.0 Ratio INR International 1.01 Normalized Ratio Sodium Level 141 140 Potassium Level 4.3 4.2 Chloride Level 103 105 Carbon Dioxide Level 29 28 Anion Gap 9 7 Blood Urea Nitrogen 14 14 Creatinine 1.03 0.90 Est Glomerular Filtrat Rate mL/min Glucose Level 131 141 Calcium Level 8.7 8.1 L Magnesium Level 1.9 Troponin I < 0.012 Test 04/16/19 21:10 04/17/19 01:10 04/17/19 04:35 04/17/19 04:49 Bedside Glucose 128 108 100 White Blood Count 8.0 Red Blood Count 5.08 Hemoglobin 15.2 Hematocrit 46.7 Mean Corpuscular 91.9 Volume Mean Corpuscular 29.9 Hemoglobin Mean Corpuscular 32.5 Hemoglobin Concent Red Cell 13.4 Distribution Width Platelet Count 181 Mean Platelet Volume 11.0 H Immature 0.400 Granulocytes % Neutrophils % 72.1 Lymphocytes % 15.5 Monocytes % 10.4 Eosinophils % 1.4 Basophils % 0.2 Nucleated Red Blood 0.0 Cells % Immature 0.030 Granulocytes # Neutrophils # 5.8 Lymphocytes # 1.3 Monocytes # 0.8 Eosinophils # 0.1 Basophils # 0.0 Nucleated Red Blood 0.0 Cells # Sodium Level 138 Potassium Level 4.0 Chloride Level 103 Carbon Dioxide Level 29 Anion Gap 6 Blood Urea Nitrogen 13 Creatinine 0.90 Est Glomerular Filtrat Rate mL/min Glucose Level 103 Calcium Level 8.6 Phosphorus Level 4.3 Magnesium Level 1.9 Medications Medication Current Medications IV Flush (NS 3 ml) 3 ml PER PROTOCOL IV ; Start 04/12/19 at 14:00 Acetaminophen (Tylenol Tab) 650 mg Q6H PRN PO .PAIN 1-3 OR TEMP Last administered on 04/17/19at 04:31; Admin Dose 650 MG; Start 04/12/19 at 14:00 Acetaminophen/ Hydrocodone Bitart ([place] (5/325)) 1 tab Q6H PRN PO .MOD PAIN 4- 6 Last administered on 04/14/19at 13:11; Admin Dose 1 TAB; Start 04/12/19 at 14:00 Docusate Sodium (Colace) 100 mg Q12H PRN PO .CONSTIPATION; Start 04/12/19 at 14:00 Magnesium Hydroxide (Milk Of Mag) 30 ml DAILY PRN PO .CONSTIPATION; Start 04/12/19 at 14:00 Zolpidem Tartrate (Ambien) 5 mg QHS PRN PO .INSOMNIA Last administered on 04/17/19at 04:31; Admin Dose 5 MG; Start 04/12/19 at 14:00 Pantoprazole (Protonix Tab) 40 mg DAILY@06 PO Last administered on 04/17/19at 06:00; Admin Dose 40 MG; Start 04/13/19 at 06:00 Diagnostic Test (Pha) (Accu-Chek) 1 ea 02 XX ; Start 04/13/19 at 02:00 Enoxaparin Sodium (Lovenox) 40 mg DAILY SC Last administered on 04/13/19at 08:10; Admin Dose 40 MG; Start 04/13/19 at 09:00; Status Hold Ondansetron HCl (Zofran Inj) 4 mg Q6H PRN IV NAUSEA AND/OR VOMITING; Start 04/12/19 at 14:30 Miscellaneous Information 1 ea NOTE XX ; Start 04/12/19 at 16:00 Glucose (Glutose) 15 gm Q15M PRN PO DECREASED GLUCOSE; Start 04/12/19 at 16:00 Glucose (Glutose) 22.5 gm Q15M PRN PO DECREASED GLUCOSE; Start 04/12/19 at 16:00 Dextrose (D50w Syringe) 25 ml Q15M PRN IV DECREASED GLUCOSE; Start 04/12/19 at 16:00 Dextrose (D50w Syringe) 50 ml Q15M PRN IV DECREASED GLUCOSE; Start 04/12/19 at 16:00 Glucagon (Glucagen) 1 mg Q15M PRN IM DECREASED GLUCOSE; Start 04/12/19 at 16:00 Glucose (Glutose) 15 gm Q15M PRN BUCCAL DECREASED GLUCOSE; Start 04/12/19 at 16:00 Hydralazine HCl (Apresoline) 25 mg TID PO Last administered on 04/16/19at 21:05; Admin Dose 25 MG; Start 04/13/19 at 13:00 Amlodipine Besylate (Norvasc) 10 mg DAILY PO Last administered on 04/16/19 11:09; Admin Dose 10 MG; Start 04/14/19 at 09:00 Carvedilol (Coreg) 6.25 mg BID PO Last administered on 04/16/19at 21:06; Admin Dose 6.25 MG; Start 04/13/19 at 11:00 Captopril (Capoten) 25 mg TID PO Last administered on 04/16/19at 21:39; Admin Dose 25 MG; Start 04/13/19 at 13:00 Hydromorphone HCl (Dilaudid) 0.5 mg Q3H PRN IV MODERATE PAIN LEVEL 4-6; Start 04/14/19 at 15:00 Hydromorphone HCl (Dilaudid) 1 mg Q3H PRN IV SEVERE PAIN LEVEL 7-10 Last administered on 04/16/19at 11:13; Admin Dose 1 MG; Start 04/14/19 at 15:00 Sodium Chloride 1,000 ml @ 80 mls/hr [id number] IV Last administered on 04/17/19at 01:11; Admin Dose 80 MLS/HR; Start 04/16/19 at 00:00 Insulin Aspart (Novolog Insulin Pen) NOVOLOG *MODERATE* ALGORI... Q4 SC ; Start 04/16/19 at 01:00 Epinephrine 4 mg/ Dextrose 250 ml @ 0 mls/hr TITRATE IV ; Start 04/16/19 at 14:00 Norepinephrine 250 ml @ 0 mls/hr TITRATE IVPB ; Start 04/16/19 at 14:30 Nitroglycerin/ Dextrose 250 ml @ 1.5 mls/hr TITRATE IV Last administered on 04/16/19at 21:38; Admin Dose 9 MLS/HR; Start 04/16/19 at 20:30 Clonidine (Catapres) 0.1 mg Q4H PRN PO SBP > 170; Start 04/17/19 at 07:00 LEOPOLDO FORD MD April 17, 2019 08:39
[2019-04-17] MEDS: AMLODIPINE 10 MG TAB PO SCH (09:20)
--- NOTE | 2019-04-17 10:55 | PN ---
DATE: 04/17/2019 The patient, unfortunately during anesthesia as patient was intubated, his blood pressure dropped and he became bradycardic and surgery was placed on hold. The patient was transferred to the intensive c are unit, briefly was placed on nitroglycerin drip due to hypertension. Dr. . Again, olea rgery was postponed. The patient appears to be currently stable. We will transfer him to the teleme try unit. PHYSICAL EXAMINATION: VITAL SIGNS: Temperature 98, pulse 74, respirations 18, blood pressure 94/72, saturation 96%. GENERAL: No acute distress. HEENT: Normocephalic, atraumatic, obese. CARDIOVASCULAR: S1, S2, regular rate. LUNGS: Clear. ABDOMEN: Soft, obese. EXTREMITIES: No clubbing, cyanosis, or edema. LABORATORY DATA: Today, white count is 8, hemoglobin 15.2, hematocrit 47, platelets 181 with normal differential. Chemistry: Sodium 138, potassium 4.0, chloride 103, bicarbonate 29, BUN 14, creatinine 0.9, glucose 103. Chest x-ray postoperatively shows low lung volume with increased basilar atelecta sis, right central line has good distal tip in the proximal right atrium. MEDICATIONS: 1. Clonidine. 2. Nitroglycerin drip. 3. Normal saline 80 mL an hour. 4. Coreg. 5. Hydralazine. 6. Captopril. ASSESSMENT AND PLAN: This is an 78-year-old male with history of hypertension, dyslipidemi a, atrial fibrillation, diabetes mellitus, CVA, who presented with left lower quadrant pain and liver lesions, was found to have metastatic colon cancer, was supposed to undergo colon cancer resection, but post-intubation and anesthesia, patient had hemodynamic instability with hypotension and bradycar godfrey. Surgery was aborted and patient was transferred to the intensive care and now stable. 1. Respiratory. Stable. No evidence of fluid overload state. Patient to continue O2 support as ne eded. 2. Cardiovascular. Seen by cardiology. Vitals are now stable. I would recommend holding his blood pressure medications prior to surgery next time. 3. Metastatic colon cancer. Will discuss with surgical team, oncology regarding decision regarding surgery. Also, we will discuss with cardiology and any recommendations. 4. Polycythemia, likely due to obstructive sleep apnea. 5. Transferred to telemetry unit for further monitoring. Further decision will be discussed with e team. 6. Will advance his diet to clear liquid diet for now. We will follow. Dictated By: NIDHI PEREZ/RUIZ Conf#: [id number] DID#: [id number]
--- NOTE | 2019-04-17 13:57 | PN ---
Date/Time of Note Date/Time of Note DATE: 04/17/19 TIME: 13:54 Assessment/Plan Lines/Catheters IV Catheter Type (from [facility]): Central Line Assessment/Plan Chief Complaint/Hosp Course 1. 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 Dr. House had a long discussion with the team members including doctors Karen Bautista, & Brianne. Oncologist recommends to proceed with colon resection since chemotherapy not available for the next 2 to 3 weeks anyways. Advised patient t hat if I go in and there is significant tumor load throughout the abdomen may not be able to proceed with the surgery at this time. On the other hand depending on what happens instead of doing an anastomosis may proceed with a colostomy. Patient fully understands and was agreeable to proceed with surgery. Patient unfortunately had hypotension and bradycardia after intubation and surgery was canceled. Patient currently wishing to go home. -Okay from surgical standpoint to be discharged as patient is not obstructed. Patient will need follow-up with oncology for chemotherapy and eventual colon resection with our team. Otherwise if team advises patient to have colectomy prior to initiation of chemotherapy, he will need cardiac optimization prior to surgical intervention. -Liquid diet okay 2. Multiple liver lesions (insufficient MRI due to motion artifact however demonstrates1.8 cm lesion in the hepatic segment 5, 0.9 cm lesion in the hepatic segment 8, 1.3 cm intermediate T2 hyperintense lesion in the hepatic segment 4B). Per discussion with oncology plan is to proceed with chemo after surgery (adjuvant) and then consider ablation and a resection at a later time as needed. 3. Occasional abdominal pain -As above 4. BMI 37 with comorbidities, morbid obesity -Encourage nutritional optimization -Encourage exercise optimization 5. Hypertension, diabetes mellitus, dyslipidemia -Encourage nutrition and medication optimization -Encourage weight loss 6. Atrial fibrillation, rate controlled -Cardiac optimization -Electrolyte optimization 7. 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 -Medical and cardiac optimization and clearance Thank you. Patient seen and examined in collaboration with Dr. Francisco House. Subjective 24 Hr Interval Summary Colon resection attempted yesterday however hypotension and bradycardia after intubation-surgery postponed. Status post nitroglycerin drip. No fevers, chills, sob, congested cough, cp, palpitations, sullivan, dizziness, nausea, vomiting, diarrhea, dysuria. + Bowel function Exam/Review of Systems Vital Signs Vitals Vital Signs Date Temp Pulse Resp B/P (MAP) Pulse Ox O2 O2 Flow FiO2 Time Delivery Rate 04/17/19 69 15 115/59 97 13:15 (77) 04/17/19 98.4 Nasal 4.0 12:00 Cannula Intake and Output 04/16/19 04/16/19 04/17/19 1515:00 23:00 07:00 IntakeIntake Total 400 ml 506.425 ml 618.00 ml OutputOutput Total 1 ml 550 ml BalanceBalance 400 ml 505.425 ml 68.00 ml Exam Free Text/Dictation Constitutional: alert, oriented, obese; No distress Psych: nl mood/affect; No anxiety, No confusion Head: normocephalic, atraumatic Eyes: nl conjunctiva, EOMI, PERRL; No icteric ENMT: nl external ears & nose, mucosa pink and moist Neck: supple; No jvd Respiratory: normal air movement; No congested cough, No labored breathing, No wheezing Cardiovascular: edema; No regular rate and rhythm Gastrointestinal: soft, non-tender, other (Obese); moderate distended No rebound or guarding Genitourinary - Male: nl penis, nl scrotum Musculoskeletal: nl extremities to inspection; No joint tenderness Extremities: normal pulses, edema; No calf tenderness Neurological: nl mental status, nl speech, nl strength Skin: nl turgor; No rash or lesions, No diaphoresis Lymph: nl lymph nodes Results Result Diagram: 04/17/19 0435 04/17/19 0435 YUMIKO ALBRIGHT NP April 17, 2019 13:56
--- NOTE | 2019-04-17 15:53 | CONS ---
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 Pt may be a candidate for microwave ablation to the liver lesions. This can be done at [facility]. -This would then be followed by at least 6 months of 5fu based chemotherapy with a potential transition to maintenance Xeloda - continue management of HTN, HL, DM and Afib per primary team Patient seen in collaboration with Dr Jones/ dw staff Consultation Date/Type/Reason Admit Date/Time April 12, 2019 at 13:45 Initial Consult Date 04/14/19 Type of Consult Oncology/ Hematology Reason for Consultation Sigmoid Cancer Requesting Provider: NIDHI VILLEDA MD Date/Time of Note DATE: 04/17/19 TIME: 15:53 24 HR Interval Summary Free Text/Dictation scheduled for Colon resection yesterday but surgery was cancelled 2/2 hypotension and bradycardia after intubation Status post nitroglycerin drip. dw staff Constitutional: requiring O2 Detailed Summary Respiratory: no complaints Cardiovascular: no complaints Gastrointestinal: pain Genitourinary: no complaints Musculoskeletal: no complaints Skin: no complaints Exam/Review of Systems Exam Vitals Vital Signs Date Temp Pulse Resp B/P (MAP) Pulse Ox O2 O2 Flow FiO2 Time Delivery Rate 04/17/19 69 15 115/59 97 13:15 (77) 04/17/19 98.4 Nasal 4.0 12:00 Cannula Intake and Output 04/16/19 04/16/19 04/17/19 1515:00 23:00 07:00 IntakeIntake Total 400 ml 506.425 ml 618.00 ml OutputOutput Total 1 ml 550 ml BalanceBalance 400 ml 505.425 ml 68.00 ml Constitutional: alert, obese Psych: nl mood/affect Eyes: nl lids, nl sclera ENMT: nl external ears & nose Neck: non-tender Cardiovascular: nl pulses, other (s1s2) Gastrointestinal: soft, non-tender Musculoskeletal: nl extremities to inspection Extremities: normal pulses Neurological: other (alert) Lymph: nontender Results Result Diagram: 04/17/19 0435 04/17/19 0435 Results 24hrs Laboratory Tests Test 04/16/19 19:16 04/16/19 21:10 04/17/19 01:10 04/17/19 04:35 Sodium Level 140 138 Potassium Level 4.2 4.0 Chloride Level 105 103 Carbon Dioxide Level 28 29 Anion Gap 7 6 Blood Urea Nitrogen 14 13 Creatinine 0.90 0.90 Est Glomerular Filtrat Rate mL/min Glucose Level 141 103 Calcium Level 8.1 L 8.6 Magnesium Level 1.9 1.9 Troponin I < 0.012 Bedside Glucose 128 108 White Blood Count 8.0 Red Blood Count 5.08 Hemoglobin 15.2 Hematocrit 46.7 Mean Corpuscular 91.9 Volume Mean Corpuscular 29.9 Hemoglobin Mean Corpuscular 32.5 Hemoglobin Concent Red Cell 13.4 Distribution Width Platelet Count 181 Mean Platelet Volume 11.0 H Immature 0.400 Granulocytes % Neutrophils % 72.1 Lymphocytes % 15.5 Monocytes % 10.4 Eosinophils % 1.4 Basophils % 0.2 Nucleated Red Blood 0.0 Cells % Immature 0.030 Granulocytes # Neutrophils # 5.8 Lymphocytes # 1.3 Monocytes # 0.8 Eosinophils # 0.1 Basophils # 0.0 Nucleated Red Blood 0.0 Cells # Phosphorus Level 4.3 Test 04/17/19 04:49 04/17/19 09:13 04/17/19 12:19 Bedside Glucose 100 108 93 Medications Medication Current Medications IV Flush (NS 3 ml) 3 ml PER PROTOCOL IV ; Start 04/12/19 at 14:00 Acetaminophen (Tylenol Tab) 650 mg Q6H PRN PO .PAIN 1-3 OR TEMP Last administered on 04/17/19at 04:31; Admin Dose 650 MG; Start 04/12/19 at 14:00 Acetaminophen/ Hydrocodone Bitart ([place] (5/325)) 1 tab Q6H PRN PO .MOD PAIN 4- 6 Last administered on 04/14/19at 13:11; Admin Dose 1 TAB; Start 04/12/19 at 14:00 Docusate Sodium (Colace) 100 mg Q12H PRN PO .CONSTIPATION; Start 04/12/19 at 14:00 Magnesium Hydroxide (Milk Of Mag) 30 ml DAILY PRN PO .CONSTIPATION; Start 04/12/19 at 14:00 Zolpidem Tartrate (Ambien) 5 mg QHS PRN PO .INSOMNIA Last administered on 04/17/19at 04:31; Admin Dose 5 MG; Start 04/12/19 at 14:00 Pantoprazole (Protonix Tab) 40 mg DAILY@06 PO Last administered on 04/17/19at 06:00; Admin Dose 40 MG; Start 04/13/19 at 06:00 Diagnostic Test (Pha) (Accu-Chek) 1 ea 02 XX ; Start 04/13/19 at 02:00 Enoxaparin Sodium (Lovenox) 40 mg DAILY SC Last administered on 04/13/19at 08:10; Admin Dose 40 MG; Start 04/13/19 at 09:00; Status Hold Ondansetron HCl (Zofran Inj) 4 mg Q6H PRN IV NAUSEA AND/OR VOMITING; Start 04/12/19 at 14:30 Miscellaneous Information 1 ea NOTE XX ; Start 04/12/19 at 16:00 Glucose (Glutose) 15 gm Q15M PRN PO DECREASED GLUCOSE; Start 04/12/19 at 16:00 Glucose (Glutose) 22.5 gm Q15M PRN PO DECREASED GLUCOSE; Start 04/12/19 at 16:00 Dextrose (D50w Syringe) 25 ml Q15M PRN IV DECREASED GLUCOSE; Start 04/12/19 at 16:00 Dextrose (D50w Syringe) 50 ml Q15M PRN IV DECREASED GLUCOSE; Start 04/12/19 at 16:00 Glucagon (Glucagen) 1 mg Q15M PRN IM DECREASED GLUCOSE; Start 04/12/19 at 16:00 Glucose (Glutose) 15 gm Q15M PRN BUCCAL DECREASED GLUCOSE; Start 04/12/19 at 16:00 Hydralazine HCl (Apresoline) 25 mg TID PO Last administered on 04/17/19at 13:23; Admin Dose 25 MG; Start 04/13/19 at 13:00 Amlodipine Besylate (Norvasc) 10 mg DAILY PO Last administered on 04/17/19at 09:20; Admin Dose 10 MG; Start 04/14/19 at 09:00 Carvedilol (Coreg) 6.25 mg BID PO Last administered on 04/17/19at 09:20; Admin Dose 6.25 MG; Start 04/13/19 at 11:00 Captopril (Capoten) 25 mg TID PO Last administered on 04/17/19at 13:23; Admin Dose 25 MG; Start 04/13/19 at 13:00 Hydromorphone HCl (Dilaudid) 0.5 mg Q3H PRN IV MODERATE PAIN LEVEL 4-6; Start 04/14/19 at 15:00 Hydromorphone HCl (Dilaudid) 1 mg Q3H PRN IV SEVERE PAIN LEVEL 7-10 Last administered on 04/16/19at 11:13; Admin Dose 1 MG; Start 04/14/19 at 15:00 Insulin Aspart (Novolog Insulin Pen) NOVOLOG *MODERATE* ALGORI... Q4 SC ; Start 04/16/19 at 01:00 Epinephrine 4 mg/ Dextrose 250 ml @ 0 mls/hr TITRATE IV ; Start 04/16/19 at 14:00 Norepinephrine 250 ml @ 0 mls/hr TITRATE IVPB ; Start 04/16/19 at 14:30 Nitroglycerin/ Dextrose 250 ml @ 1.5 mls/hr TITRATE IV Last administered on 04/16/19at 21:38; Admin Dose 9 MLS/HR; Start 04/16/19 at 20:30 Clonidine (Catapres) 0.1 mg Q4H PRN PO SBP > 170; Start 04/17/19 at 07:00 JULI COREAS April 17, 2019 15:53
[2019-04-18] VITALS (13 sets, daily range): BP systolic 126–156; BP diastolic 71–86; PULSE 38–78; RESP 17–20
[2019-04-18] MEDS: ACCU-CHEK XX SCH (02:00)
[2019-04-18] MEDS: INSULIN ASPART [NOVOLOG] 3 ML PEN SC SCH ×6 (02:00→20:27)
[2019-04-18] MEDS: PANTOPRAZOLE (EC) 40 MG TAB PO SCH (06:03)
[2019-04-18] MEDS: AMLODIPINE 10 MG TAB PO SCH (08:35)
--- NOTE | 2019-04-18 12:50 | PN ---
Date/Time of Note Date/Time of Note DATE: 04/18/19 TIME: 12:45 Assessment/Plan Lines/Catheters IV Catheter Type (from [facility]): Central Line Davis in Place (from [facility]): No Assessment/Plan Chief Complaint/Hosp Course 1. 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 Dr. House had a long discussion with the team members including doctors Karen Bautista, & Brianne. Oncologist recommends to proceed with colon resection since chemotherapy not available for the next 2 to 3 weeks anyways. Advised patient that if I go in and there is significant tumor load throughout the abdomen may not be able to proceed with the surgery at this time. On the other hand depending on what happens instead of doing an anastomosis may proceed with a colostomy. Patient fully understands and was agreeable to proceed with surgery. Patient unfortunately had hypotension and bradycardia after intubation and surgery was canceled. -Per discussion with primary team, will schedule for OR tomorrow. Will need cards optimization -npo p mn 2. Multiple liver lesions (insufficient MRI due to motion artifact however demonstrates1.8 cm lesion in the hepatic segment 5, 0.9 cm lesion in the hepatic segment 8, 1.3 cm intermediate T2 hyperintense lesion in the hepatic segment 4B). Per discussion with oncology plan is to proceed with chemo after surgery (adjuvant) and then consider ablation and a resection at a later time as needed. 3. Occasional abdominal pain -As above 4. BMI 37 with comorbidities, morbid obesity -Encourage nutritional optimization -Encourage exercise optimization 5. Hypertension, diabetes mellitus, dyslipidemia -Encourage nutrition and medication optimization -Encourage weight loss 6. Atrial fibrillation, rate controlled -Cardiac optimization -Electrolyte optimization 7. 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 -Medical and cardiac optimization and clearance Thank you. Patient seen and examined in collaboration with Dr. Francisco House. Subjective 24 Hr Interval Summary No abdominal pain/discomfort. continues to have bowel function. No fevers, chills, sob, congested cough, cp, palpitations, sullivan, dizziness, n/v/d/dysuria. Exam/Review of Systems Vital Signs Vitals Vital Signs Date Temp Pulse Resp B/P (MAP) Pulse Ox O2 O2 Flow FiO2 Time Delivery Rate 04/18/19 98.3 74 20 145/86 92 11:09 (105) 04/18/19 Nasal 2.0 09:54 Cannula Intake and Output 04/17/19 04/17/19 04/18/19 1515:00 23:00 07:00 IntakeIntake Total 529.0 ml 860 ml OutputOutput Total 600 ml 300 ml BalanceBalance -71.0 ml 560 ml Exam Free Text/Dictation Constitutional: alert, oriented, obese; No distress Psych: nl mood/affect; No anxiety, No confusion Head: normocephalic, atraumatic Eyes: nl conjunctiva, EOMI, PERRL; No icteric ENMT: nl external ears & nose, mucosa pink and moist Neck: supple; No jvd Respiratory: normal air movement; No congested cough, No labored breathing, No wheezing Cardiovascular: edema; No regular rate and rhythm Gastrointestinal: soft, non-tender, other (Obese); moderate distended No rebound or guarding Genitourinary - Male: nl penis, nl scrotum Musculoskeletal: nl extremities to inspection; No joint tenderness Extremities: normal pulses, edema; No calf tenderness Neurological: nl mental status, nl speech, nl strength Skin: nl turgor; No rash or lesions, No diaphoresis Lymph: nl lymph nodes Results Result Diagram: 04/18/19 0547 04/18/19 0547 YUMIKO ALBRIGHT NP April 18, 2019 12:50
--- NOTE | 2019-04-18 13:20 | CONS ---
Assessment/Plan Assessment/Plan Hospital Course (Demo Recall) Coverage for Dr Haq HTN Atrial fibrillation Abdominal mass Preserved ejection fraction Ascending aortic aneurysm 4.9cm -BP trend better -add prn norvasc for evening if sbp>140 -would add anticoagulation after procedures if no contraindication given risk factors and AF Consultation Date/Type/Reason Admit Date/Time April 12, 2019 at 13:45 Initial Consult Date 04/14/19 Type of Consult Cardiology Requesting Provider: NIDHI VILLEDA MD Date/Time of Note DATE: 04/18/19 TIME: 13:16 24 HR Interval Summary Free Text/Dictation denies cp,sob,palp Exam/Review of Systems Vital Signs Vitals Vital Signs Date Temp Pulse Resp B/P (MAP) Pulse Ox O2 O2 Flow FiO2 Time Delivery Rate 04/18/19 98.3 74 20 145/86 92 11:09 (105) 04/18/19 Nasal 2.0 09:54 Cannula Intake and Output 04/17/19 04/17/19 04/18/19 1515:00 23:00 07:00 IntakeIntake Total 529.0 ml 860 ml OutputOutput Total 600 ml 300 ml BalanceBalance -71.0 ml 560 ml Exam Constitutional: alert, oriented (nad) Head: normocephalic Respiratory: clear to auscultation, normal air movement Cardiovascular: irregular rhythm (s1s2) Gastrointestinal: soft, non-tender, bowel sounds Extremities: other (no sig edema) Labs Result Diagram: 04/18/19 0547 04/18/19 0547 Results 24hrs Laboratory Tests Test 04/17/19 17:32 04/17/19 21:14 04/18/19 02:24 04/18/19 05:47 Bedside Glucose 114 134 115 White Blood Count 7.0 Red Blood Count 5.26 Hemoglobin 15.5 Hematocrit 48.1 Mean Corpuscular 91.4 Volume Mean Corpuscular 29.5 Hemoglobin Mean Corpuscular 32.2 Hemoglobin Concent Red Cell 13.2 Distribution Width Platelet Count 179 Mean Platelet Volume 10.8 H Immature 0.300 Granulocytes % Neutrophils % 66.8 Lymphocytes % 21.7 Monocytes % 9.4 Eosinophils % 1.7 Basophils % 0.1 Nucleated Red Blood 0.0 Cells % Immature 0.020 Granulocytes # Neutrophils # 4.7 Lymphocytes # 1.5 Monocytes # 0.7 Eosinophils # 0.1 Basophils # 0.0 Nucleated Red Blood 0.0 Cells # Sodium Level 140 Potassium Level 4.0 Chloride Level 102 Carbon Dioxide Level 30 Anion Gap 8 Blood Urea Nitrogen 16 Creatinine 0.87 Est Glomerular Filtrat Rate mL/min Glucose Level 112 Calcium Level 8.5 Phosphorus Level 3.4 Magnesium Level 2.0 Test 04/18/19 06:02 04/18/19 08:28 04/18/19 13:05 Bedside Glucose 120 117 135 Medications Medications Current Medications IV Flush (NS 3 ml) 3 ml PER PROTOCOL IV ; Start 04/12/19 at 14:00 Acetaminophen (Tylenol Tab) 650 mg Q6H PRN PO .PAIN 1-3 OR TEMP Last administered on 04/17/19at 04:31; Admin Dose 650 MG; Start 04/12/19 at 14:00 Acetaminophen/ Hydrocodone Bitart ([place] (5/325)) 1 tab Q6H PRN PO .MOD PAIN 4- 6 Last administered on 04/14/19at 13:11; Admin Dose 1 TAB; Start 04/12/19 at 14:00 Docusate Sodium (Colace) 100 mg Q12H PRN PO .CONSTIPATION; Start 04/12/19 at 14:00 Magnesium Hydroxide (Milk Of Mag) 30 ml DAILY PRN PO .CONSTIPATION; Start 04/12/19 at 14:00 Zolpidem Tartrate (Ambien) 5 mg QHS PRN PO .INSOMNIA Last administered on 04/17/19at 04:31; Admin Dose 5 MG; Start 04/12/19 at 14:00 Pantoprazole (Protonix Tab) 40 mg DAILY@06 PO Last administered on 04/18/19at 06:03; Admin Dose 40 MG; Start 04/13/19 at 06:00 Diagnostic Test (Pha) (Accu-Chek) 1 ea 02 XX ; Start 04/13/19 at 02:00 Enoxaparin Sodium (Lovenox) 40 mg DAILY SC Last administered on 04/13/19at 08:10; Admin Dose 40 MG; Start 04/13/19 at 09:00; Status Hold Ondansetron HCl (Zofran Inj) 4 mg Q6H PRN IV NAUSEA AND/OR VOMITING; Start 04/12/19 at 14:30 Miscellaneous Information 1 ea NOTE XX ; Start 04/12/19 at 16:00 Glucose (Glutose) 15 gm Q15M PRN PO DECREASED GLUCOSE; Start 04/12/19 at 16:00 Glucose (Glutose) 22.5 gm Q15M PRN PO DECREASED GLUCOSE; Start 04/12/19 at 16:00 Dextrose (D50w Syringe) 25 ml Q15M PRN IV DECREASED GLUCOSE; Start 04/12/19 at 16:00 Dextrose (D50w Syringe) 50 ml Q15M PRN IV DECREASED GLUCOSE; Start 04/12/19 at 16:00 Glucagon (Glucagen) 1 mg Q15M PRN IM DECREASED GLUCOSE; Start 04/12/19 at 16:00 Glucose (Glutose) 15 gm Q15M PRN BUCCAL DECREASED GLUCOSE; Start 04/12/19 at 16:00 Hydralazine HCl (Apresoline) 25 mg TID PO Last administered on 04/18/19at 13:14; Admin Dose 25 MG; Start 04/13/19 at 13:00 Carvedilol (Coreg) 6.25 mg BID PO Last administered on 04/18/19at 08:36; Admin Dose 6.25 MG; Start 04/13/19 at 11:00 Captopril (Capoten) 25 mg TID PO Last administered on 04/18/19at 13:14; Admin Dose 25 MG; Start 04/13/19 at 13:00 Hydromorphone HCl (Dilaudid) 0.5 mg Q3H PRN IV MODERATE PAIN LEVEL 4-6; Start 04/14/19 at 15:00 Hydromorphone HCl (Dilaudid) 1 mg Q3H PRN IV SEVERE PAIN LEVEL 7-10 Last administered on 04/16/19at 11:13; Admin Dose 1 MG; Start 04/14/19 at 15:00 Insulin Aspart (Novolog Insulin Pen) NOVOLOG *MODERATE* ALGORI... Q4 SC ; Start 04/16/19 at 01:00 Clonidine (Catapres) 0.1 mg Q4H PRN PO SBP > 170; Start 04/17/19 at 07:00 Amlodipine Besylate (Norvasc) 5 mg DAILY PO ; Start 04/19/19 at 09:00 Tom Armando DO April 18, 2019 13:20
[2019-04-18] MEDS ORDERED: AMLODIPINE 5 MG TAB PO PRN (13:30)
--- NOTE | 2019-04-18 13:38 | CONS ---
Assessment/Plan Assessment/Plan Hospital Course (Demo Recall) 78 yo male Interval hx: no acute changes. 1. Multiple mets in the liver with elevated CA 19-9 and CEA 2. Diabetes mellitus. 3. Atrial fibrillation. 4. Obesity. 5. Polycythemia. 6. Dyspnea on exertion -CXR shows low lung volume secondary to compression 7. Wall thickening with surrounding fat stranding in sigmoid colon seen in CT -Colitis vs diverticulitis (does c/o LLQ/L groin pain, wbc wnl, afebrile, no abx so less likely diverticulitis) vs neoplasm 8. Elevated CEA and CA 19-9 9. Fatty liver 10. Cardiomyopathy noted on CT 11. Enlarged prostate gland 12. Adenocarcinoma in colon -plan for resection, became hypotensive and bradycardia when take to OR on 04/16, now plan for tomorrow evening if stable Plan: Tentative plans for resection of adenocarcinoma tomorrow if pt is stable. Pt examined and plan of care discussed with Dr. Decker Consultation Date/Type/Reason Admit Date/Time April 12, 2019 at 13:45 Initial Consult Date Requesting Provider: NIDHI VILLEDA MD Date/Time of Note DATE: 04/18/19 TIME: 13:35 Exam/Review of Systems Exam Vitals Vital Signs Date Temp Pulse Resp B/P (MAP) Pulse Ox O2 O2 Flow FiO2 Time Delivery Rate 04/18/19 98.3 74 20 145/86 92 11:09 (105) 04/18/19 Nasal 2.0 09:54 Cannula Intake and Output 04/17/19 04/17/19 04/18/19 1414:59 22:59 06:59 IntakeIntake Total 613.5 ml 860 ml OutputOutput Total 600 ml 300 ml BalanceBalance 13.5 ml 560 ml Constitutional: alert, oriented Psych: no complaints Head: normocephalic Eyes: PERRL Respiratory: normal air movement Gastrointestinal: soft, tender (mild TTP in LL quadrant) Musculoskeletal: nl gait and stance Neurological: nl mental status Results Result Diagram: 04/18/19 0547 04/18/19 0547 Results 24hrs Laboratory Tests Test 04/17/19 17:32 04/17/19 21:14 04/18/19 02:24 04/18/19 05:47 Bedside Glucose 114 134 115 White Blood Count 7.0 Red Blood Count 5.26 Hemoglobin 15.5 Hematocrit 48.1 Mean Corpuscular 91.4 Volume Mean Corpuscular 29.5 Hemoglobin Mean Corpuscular 32.2 Hemoglobin Concent Red Cell 13.2 Distribution Width Platelet Count 179 Mean Platelet Volume 10.8 H Immature 0.300 Granulocytes % Neutrophils % 66.8 Lymphocytes % 21.7 Monocytes % 9.4 Eosinophils % 1.7 Basophils % 0.1 Nucleated Red Blood 0.0 Cells % Immature 0.020 Granulocytes # Neutrophils # 4.7 Lymphocytes # 1.5 Monocytes # 0.7 Eosinophils # 0.1 Basophils # 0.0 Nucleated Red Blood 0.0 Cells # Sodium Level 140 Potassium Level 4.0 Chloride Level 102 Carbon Dioxide Level 30 Anion Gap 8 Blood Urea Nitrogen 16 Creatinine 0.87 Est Glomerular Filtrat Rate mL/min Glucose Level 112 Calcium Level 8.5 Phosphorus Level 3.4 Magnesium Level 2.0 Test 04/18/19 06:02 04/18/19 08:28 04/18/19 13:05 Bedside Glucose 120 117 135 Medications Medication Current Medications IV Flush (NS 3 ml) 3 ml PER PROTOCOL IV ; Start 04/12/19 at 14:00 Acetaminophen (Tylenol Tab) 650 mg Q6H PRN PO .PAIN 1-3 OR TEMP Last administered on 04/17/19at 04:31; Admin Dose 650 MG; Start 04/12/19 at 14:00 Acetaminophen/ Hydrocodone Bitart ([place] (5/325)) 1 tab Q6H PRN PO .MOD PAIN 4- 6 Last administered on 04/14/19at 13:11; Admin Dose 1 TAB; Start 04/12/19 at 14:00 Docusate Sodium (Colace) 100 mg Q12H PRN PO .CONSTIPATION; Start 04/12/19 at 14:00 Magnesium Hydroxide (Milk Of Mag) 30 ml DAILY PRN PO .CONSTIPATION; Start 04/12/19 at 14:00 Zolpidem Tartrate (Ambien) 5 mg QHS PRN PO .INSOMNIA Last administered on 04/17/19at 04:31; Admin Dose 5 MG; Start 04/12/19 at 14:00 Pantoprazole (Protonix Tab) 40 mg DAILY@06 PO Last administered on 04/18/19at 06:03; Admin Dose 40 MG; Start 04/13/19 at 06:00 Diagnostic Test (Pha) (Accu-Chek) 1 ea 02 XX ; Start 04/13/19 at 02:00 Enoxaparin Sodium (Lovenox) 40 mg DAILY SC Last administered on 04/13/19at 08:10; Admin Dose 40 MG; Start 04/13/19 at 09:00; Status Hold Ondansetron HCl (Zofran Inj) 4 mg Q6H PRN IV NAUSEA AND/OR VOMITING; Start 04/12/19 at 14:30 Miscellaneous Information 1 ea NOTE XX ; Start 04/12/19 at 16:00 Glucose (Glutose) 15 gm Q15M PRN PO DECREASED GLUCOSE; Start 04/12/19 at 16:00 Glucose (Glutose) 22.5 gm Q15M PRN PO DECREASED GLUCOSE; Start 04/12/19 at 16:00 Dextrose (D50w Syringe) 25 ml Q15M PRN IV DECREASED GLUCOSE; Start 04/12/19 at 16:00 Dextrose (D50w Syringe) 50 ml Q15M PRN IV DECREASED GLUCOSE; Start 04/12/19 at 16:00 Glucagon (Glucagen) 1 mg Q15M PRN IM DECREASED GLUCOSE; Start 04/12/19 at 16:00 Glucose (Glutose) 15 gm Q15M PRN BUCCAL DECREASED GLUCOSE; Start 04/12/19 at 16:00 Hydralazine HCl (Apresoline) 25 mg TID PO Last administered on 04/18/19at 13:14; Admin Dose 25 MG; Start 04/13/19 at 13:00 Carvedilol (Coreg) 6.25 mg BID PO Last administered on 04/18/19at 08:36; Admin Dose 6.25 MG; Start 04/13/19 at 11:00 Captopril (Capoten) 25 mg TID PO Last administered on 04/18/19at 13:14; Admin Dose 25 MG; Start 04/13/19 at 13:00 Hydromorphone HCl (Dilaudid) 0.5 mg Q3H PRN IV MODERATE PAIN LEVEL 4-6; Start 04/14/19 at 15:00 Hydromorphone HCl (Dilaudid) 1 mg Q3H PRN IV SEVERE PAIN LEVEL 7-10 Last administered on 04/16/19at 11:13; Admin Dose 1 MG; Start 04/14/19 at 15:00 Insulin Aspart (Novolog Insulin Pen) NOVOLOG *MODERATE* ALGORI... Q4 SC ; Start 04/16/19 at 01:00 Clonidine (Catapres) 0.1 mg Q4H PRN PO SBP > 170; Start 04/17/19 at 07:00 Amlodipine Besylate (Norvasc) 5 mg DAILY PO ; Start 04/19/19 at 09:00 Amlodipine Besylate (Norvasc) 5 mg QHS PRN PO sbp>140; Start 04/18/19 at 13:30 SEEMA MENDOZA April 18, 2019 13:38
--- NOTE | 2019-04-18 15:52 | PN ---
DATE: 04/18/2019 SUBJECTIVE: The patient was seen lying in bed comfortably, awaiting decision by surgical team and ca rdiology team regarding proceeding with colon cancer resection surgery. Oncology is on board as well . PHYSICAL EXAMINATION: VITAL SIGNS: Temperature 98.3, pulse 75, respirations 20, blood pressure 156/84, saturation 94%. GENERAL: No acute distress. HEENT: Normocephalic, atraumatic. CARDIOVASCULAR: S1, S2. Regular rate. LUNGS: Clear. ABDOMEN: Soft, obese, distended. EXTREMITIES: No clubbing, cyanosis or edema. LABORATORY DATA: White count 7, hemoglobin 15.5, hematocrit 48, platelet count 179, neutrophils 67%, lymphs 22%. Chemistry: Sodium 140, potassium 4.0, chloride 102, bicarbonate 30, BUN is 16, creatin ine 0.87, glucose of 112. CURRENT MEDICATIONS: Include: 1. Clonidine as directed. 2. Insulin aspart per sliding scale. 3. Dilaudid p.r.n. 4. Norvasc 10 mg daily. 5. Hydralazine 25 t.i.d. 6. Captopril 25 t.i.d. 7. Coreg 6.25 b.i.d. 8. Protonix 40 mg daily. ASSESSMENT AND PLAN: This is an 78-year-old male with history of hypertension, dyslipidemi a, atrial fibrillation, diabetes mellitus, severe, presented with left lower quadrant pain and liver lesion was thought to have metastatic colon cancer. Surgery was held due to hemodynamic instability after initiation of anesthesia. 1. Respiratory: Stable. O2 support as needed. The patient possibly has sleep apnea due to his mercy ycythemia. 2. Cardiovascular: The patient with history of atrial fibrillation anticoagulation due to chance n for possible surgery. Cardiology to clear to auscultation for surgery. My recommendation is to ho ld his blood pressure medication prior to anesthesia induction. 3. Metastatic colon cancer. Multiple options were presented including chemo first and then possible surgery versus first surgery and then chemo, but overall after discussion with oncology and the [place] ent, the patient is to proceed with surgery first. We discussed with the above team. 4. Polycythemia. Now H and H is normal. 5. Remains in telemetry and for monitoring. 6. Diet is tolerated. We will follow. Dictated By: NIDHI PEREZ/RUIZ Conf#: [id number] [facility]#: [id number] CC: LEOPOLDO FORD MD;*End*
[2019-04-19] VITALS (12 sets, daily range): BP systolic 132–159; BP diastolic 76–100; PULSE 34–88; RESP 16–20
[2019-04-19] MEDS: INSULIN ASPART [NOVOLOG] 3 ML PEN SC SCH ×6 (01:00→20:55)
[2019-04-19] MEDS: ACCU-CHEK XX SCH (01:07)
--- NOTE | 2019-04-19 01:37 | CONS ---
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 Pt may be a candidate for microwave ablation to the liver lesions. This can be done at [facility]. -This would then be followed by at least 6 months of 5fu based chemotherapy with a potential transition to maintenance Xeloda - continue management of HTN, HL, DM and Afib per primary team Patient seen in collaboration with Dr Jones/ jennifer staff Consultation Date/Type/Reason Admit Date/Time April 12, 2019 at 13:45 Initial Consult Date 04/14/19 Type of Consult Oncology/ Hematology Reason for Consultation Sigmoid colon mass Requesting Provider: NIDHI VILLEDA MD Date/Time of Note DATE: 04/19/19 TIME: 01:31 24 HR Interval Summary Free Text/Dictation 04/18/2019 ENTRY plan for resection of adenocarcinoma tomorrow if pt is stable. dw staff Exam/Review of Systems Exam Vitals Vital Signs Date Temp Pulse Resp B/P (MAP) Pulse Ox O2 O2 Flow FiO2 Time Delivery Rate 04/19/19 98.0 66 20 150/86 95 00:00 (107) 04/18/19 Nasal 2.0 14:00 Cannula Constitutional: alert, obese Psych: nl mood/affect Eyes: nl lids, nl sclera ENMT: nl external ears & nose Respiratory: clear to auscultation Cardiovascular: nl pulses, other Gastrointestinal: soft, tender Musculoskeletal: nl extremities to inspection Extremities: normal pulses Results Result Diagram: 04/18/19 0547 04/18/19 0547 Results 24hrs Laboratory Tests Test 04/18/19 02:24 04/18/19 05:47 04/18/19 06:02 04/18/19 08:28 Bedside Glucose 115 120 117 White Blood Count 7.0 Red Blood Count 5.26 Hemoglobin 15.5 Hematocrit 48.1 Mean Corpuscular 91.4 Volume Mean Corpuscular 29.5 Hemoglobin Mean Corpuscular 32.2 Hemoglobin Concent Red Cell 13.2 Distribution Width Platelet Count 179 Mean Platelet Volume 10.8 H Immature 0.300 Granulocytes % Neutrophils % 66.8 Lymphocytes % 21.7 Monocytes % 9.4 Eosinophils % 1.7 Basophils % 0.1 Nucleated Red Blood 0.0 Cells % Immature 0.020 Granulocytes # Neutrophils # 4.7 Lymphocytes # 1.5 Monocytes # 0.7 Eosinophils # 0.1 Basophils # 0.0 Nucleated Red Blood 0.0 Cells # Sodium Level 140 Potassium Level 4.0 Chloride Level 102 Carbon Dioxide Level 30 Anion Gap 8 Blood Urea Nitrogen 16 Creatinine 0.87 Est Glomerular Filtrat Rate mL/min Glucose Level 112 Calcium Level 8.5 Phosphorus Level 3.4 Magnesium Level 2.0 Test 04/18/19 13:05 04/18/19 16:52 04/18/19 20:27 Bedside Glucose 135 150 108 Medications Medication Current Medications IV Flush (NS 3 ml) 3 ml PER PROTOCOL IV ; Start 04/12/19 at 14:00 Acetaminophen (Tylenol Tab) 650 mg Q6H PRN PO .PAIN 1-3 OR TEMP Last administered on 04/17/19at 04:31; Admin Dose 650 MG; Start 04/12/19 at 14:00 Acetaminophen/ Hydrocodone Bitart ([place] (5/325)) 1 tab Q6H PRN PO .MOD PAIN 4- 6 Last administered on 04/14/19at 13:11; Admin Dose 1 TAB; Start 04/12/19 at 14:00 Docusate Sodium (Colace) 100 mg Q12H PRN PO .CONSTIPATION; Start 04/12/19 at 14:00 Magnesium Hydroxide (Milk Of Mag) 30 ml DAILY PRN PO .CONSTIPATION; Start 04/12/19 at 14:00 Zolpidem Tartrate (Ambien) 5 mg QHS PRN PO .INSOMNIA Last administered on 04/17/19at 04:31; Admin Dose 5 MG; Start 04/12/19 at 14:00 Pantoprazole (Protonix Tab) 40 mg DAILY@06 PO Last administered on 04/18/19at 06:03; Admin Dose 40 MG; Start 04/13/19 at 06:00 Diagnostic Test (Pha) (Accu-Chek) 1 ea 02 XX ; Start 04/13/19 at 02:00 Enoxaparin Sodium (Lovenox) 40 mg DAILY SC Last administered on 04/13/19at 08:10; Admin Dose 40 MG; Start 04/13/19 at 09:00; Status Hold Ondansetron HCl (Zofran Inj) 4 mg Q6H PRN IV NAUSEA AND/OR VOMITING; Start 04/12/19 at 14:30 Miscellaneous Information 1 ea NOTE XX ; Start 04/12/19 at 16:00 Glucose (Glutose) 15 gm Q15M PRN PO DECREASED GLUCOSE; Start 04/12/19 at 16:00 Glucose (Glutose) 22.5 gm Q15M PRN PO DECREASED GLUCOSE; Start 04/12/19 at 16:00 Dextrose (D50w Syringe) 25 ml Q15M PRN IV DECREASED GLUCOSE; Start 04/12/19 at 16:00 Dextrose (D50w Syringe) 50 ml Q15M PRN IV DECREASED GLUCOSE; Start 04/12/19 at 16:00 Glucagon (Glucagen) 1 mg Q15M PRN IM DECREASED GLUCOSE; Start 04/12/19 at 16:00 Glucose (Glutose) 15 gm Q15M PRN BUCCAL DECREASED GLUCOSE; Start 04/12/19 at 16:00 Hydralazine HCl (Apresoline) 25 mg TID PO Last administered on 04/18/19at 20:29; Admin Dose 25 MG; Start 04/13/19 at 13:00 Carvedilol (Coreg) 6.25 mg BID PO Last administered on 04/18/19at 08:36; Admin Dose 6.25 MG; Start 04/13/19 at 11:00 Captopril (Capoten) 25 mg TID PO Last administered on 04/18/19at 20:28; Admin Dose 25 MG; Start 04/13/19 at 13:00 Hydromorphone HCl (Dilaudid) 0.5 mg Q3H PRN IV MODERATE PAIN LEVEL 4-6; Start 04/14/19 at 15:00 Hydromorphone HCl (Dilaudid) 1 mg Q3H PRN IV SEVERE PAIN LEVEL 7-10 Last administered on 04/16/19at 11:13; Admin Dose 1 MG; Start 04/14/19 at 15:00 Insulin Aspart (Novolog Insulin Pen) NOVOLOG *MODERATE* ALGORI... Q4 SC Last administered on 04/18/19at 17:03; Admin Dose 2 UNIT; Start 04/16/19 at 01:00 Clonidine (Catapres) 0.1 mg Q4H PRN PO SBP > 170; Start 04/17/19 at 07:00 Amlodipine Besylate (Norvasc) 5 mg DAILY PO ; Start 04/19/19 at 09:00 Amlodipine Besylate (Norvasc) 5 mg QHS PRN PO sbp>140; Start 04/18/19 at 13:30 JULI COREAS April 19, 2019 01:37
[2019-04-19] MEDS: PANTOPRAZOLE (EC) 40 MG TAB PO SCH (05:27)
[2019-04-19] MEDS: AMLODIPINE 10 MG TAB PO SCH ×2 (09:00→17:38)
--- NOTE | 2019-04-19 09:08 | CONS ---
Assessment/Plan Assessment/Plan Hospital Course (Demo Recall) 78 yo male Interval hx: Pt is NPO for bowel resection today. Denies abd pain or N/V. BM qd. Overnight had two or three episodes of bradycardia in 30s. 1. Multiple mets in the liver with elevated CA 19-9 and CEA 2. Diabetes mellitus. 3. Atrial fibrillation. 4. Obesity. 5. Polycythemia. 6. Dyspnea on exertion -CXR shows low lung volume secondary to compression 7. Wall thickening with surrounding fat stranding in sigmoid colon seen in CT -Colitis vs diverticulitis (does c/o LLQ/L groin pain, wbc wnl, afebrile, no abx so less likely diverticulitis) vs neoplasm 8. Elevated CEA and CA 19-9 9. Fatty liver 10. Cardiomyopathy noted on CT 11. Enlarged prostate gland 12. Adenocarcinoma in colon -plan for resection, became hypotensive and bradycardia when take to OR on 04/16, now plan for tomorrow evening if stable Plan: Tentative plans for resection of adenocarcinoma today if pt is stable. Pt examined and plan of care discussed with Dr. Decker Consultation Date/Type/Reason Admit Date/Time April 12, 2019 at 13:45 Initial Consult Date Requesting Provider: NIDHI VILLEDA MD Date/Time of Note DATE: 04/19/19 TIME: 09:06 Exam/Review of Systems Exam Vitals Vital Signs Date Temp Pulse Resp B/P (MAP) Pulse Ox O2 O2 Flow FiO2 Time Delivery Rate 04/19/19 97.9 69 16 132/76 94 07:08 (94) 04/18/19 Nasal 2.0 14:00 Cannula Intake and Output 04/18/19 04/18/19 04/19/19 1515:00 23:00 07:00 IntakeIntake Total 400 ml BalanceBalance 400 ml Constitutional: alert, oriented Psych: no complaints Head: normocephalic Eyes: nl sclera, PERRL ENMT: mucosa pink and moist Respiratory: normal air movement Cardiovascular: regular rate and rhythm Gastrointestinal: soft, non-tender, bowel sounds Neurological: nl mental status Results Result Diagram: 04/18/19 0547 04/18/19 0547 Results 24hrs Laboratory Tests Test 04/18/19 13:05 04/18/19 16:52 04/18/19 20:27 04/19/19 05:43 Bedside Glucose 135 150 108 107 Test 04/19/19 08:06 Bedside Glucose 100 Medications Medication Current Medications IV Flush (NS 3 ml) 3 ml PER PROTOCOL IV ; Start 04/12/19 at 14:00 Acetaminophen (Tylenol Tab) 650 mg Q6H PRN PO .PAIN 1-3 OR TEMP Last administered on 04/17/19 04:31; Admin Dose 650 MG; Start 04/12/19 at 14:00 Acetaminophen/ Hydrocodone Bitart ([place] (5/325)) 1 tab Q6H PRN PO .MOD PAIN 4- 6 Last administered on 04/14/19at 13:11; Admin Dose 1 TAB; Start 04/12/19 at 14:00 Docusate Sodium (Colace) 100 mg Q12H PRN PO .CONSTIPATION; Start 04/12/19 at 14:00 Magnesium Hydroxide (Milk Of Mag) 30 ml DAILY PRN PO .CONSTIPATION; Start 04/12/19 at 14:00 Zolpidem Tartrate (Ambien) 5 mg QHS PRN PO .INSOMNIA Last administered on 04/17/19at 04:31; Admin Dose 5 MG; Start 04/12/19 at 14:00 Pantoprazole (Protonix Tab) 40 mg DAILY@06 PO Last administered on 04/18/19at 06:03; Admin Dose 40 MG; Start 04/13/19 at 06:00 Diagnostic Test (Pha) (Accu-Chek) 1 ea 02 XX ; Start 04/13/19 at 02:00 Enoxaparin Sodium (Lovenox) 40 mg DAILY SC Last administered on 04/13/19at 08:10; Admin Dose 40 MG; Start 04/13/19 at 09:00; Status Hold Ondansetron HCl (Zofran Inj) 4 mg Q6H PRN IV NAUSEA AND/OR VOMITING; Start 04/12/19 at 14:30 Miscellaneous Information 1 ea NOTE XX ; Start 04/12/19 at 16:00 Glucose (Glutose) 15 gm Q15M PRN PO DECREASED GLUCOSE; Start 04/12/19 at 16:00 Glucose (Glutose) 22.5 gm Q15M PRN PO DECREASED GLUCOSE; Start 04/12/19 at 16:00 Dextrose (D50w Syringe) 25 ml Q15M PRN IV DECREASED GLUCOSE; Start 04/12/19 at 16:00 Dextrose (D50w Syringe) 50 ml Q15M PRN IV DECREASED GLUCOSE; Start 04/12/19 at 16:00 Glucagon (Glucagen) 1 mg Q15M PRN IM DECREASED GLUCOSE; Start 04/12/19 at 16:00 Glucose (Glutose) 15 gm Q15M PRN BUCCAL DECREASED GLUCOSE; Start 04/12/19 at 16:00 Hydralazine HCl (Apresoline) 25 mg TID PO Last administered on 04/18/19at 20:29; Admin Dose 25 MG; Start 04/13/19 at 13:00 Carvedilol (Coreg) 6.25 mg BID PO Last administered on 04/18/19 08:36; Admin Dose 6.25 MG; Start 04/13/19 at 11:00 Captopril (Capoten) 25 mg TID PO Last administered on 04/18/19at 20:28; Admin Dose 25 MG; Start 04/13/19 at 13:00 Hydromorphone HCl (Dilaudid) 0.5 mg Q3H PRN IV MODERATE PAIN LEVEL 4-6; Start 04/14/19 at 15:00 Hydromorphone HCl (Dilaudid) 1 mg Q3H PRN IV SEVERE PAIN LEVEL 7-10 Last administered on 04/16/19at 11:13; Admin Dose 1 MG; Start 04/14/19 at 15:00 Insulin Aspart (Novolog Insulin Pen) NOVOLOG *MODERATE* ALGORI... Q4 SC Last ad ministered on 04/18/19at 17:03; Admin Dose 2 UNIT; Start 04/16/19 at 01:00 Clonidine (Catapres) 0.1 mg Q4H PRN PO SBP > 170; Start 04/17/19 at 07:00 Amlodipine Besylate (Norvasc) 5 mg DAILY PO ; Start 04/19/19 at 09:00 Amlodipine Besylate (Norvasc) 5 mg QHS PRN PO sbp>140; Start 04/18/19 at 13:30 SEEMA MENDOZA April 19, 2019 09:08
--- NOTE | 2019-04-19 10:56 | CONS ---
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 Pt may be a candidate for microwave ablation to the liver lesions. This can be done at [facility]. -This would then be followed by at least 6 months of 5fu based chemotherapy with a potential transition to maintenance Xeloda -appreciate cardiology recs to control patients afib and episodes of bradycardia -continue management of HTN, HL, DM and Afib per primary team - Consultation Date/Type/Reason Admit Date/Time April 12, 2019 at 13:45 Initial Consult Date 04/14/19 Type of Consult oncology Reason for Consultation colon cancer Requesting Provider: NIDHI VILLEDA MD Date/Time of Note DATE: 04/19/19 TIME: 10:52 24 HR Interval Summary Free Text/Dictation pt was unable to have the surgery on Friday due to an episode of bradycardia. HR now ok and BP ok Exam/Review of Systems Exam Vitals Vital Signs Date Temp Pulse Resp B/P (MAP) Pulse Ox O2 O2 Flow FiO2 Time Delivery Rate 04/19/19 76 08:01 04/19/19 97.9 16 132/76 94 07:08 (94) 04/18/19 Nasal 2.0 14:00 Cannula Intake and Output 04/18/19 04/18/19 04/19/19 1515:00 23:00 07:00 IntakeIntake Total 400 ml BalanceBalance 400 ml Constitutional: alert, oriented Psych: no complaints Head: normocephalic Eyes: nl conjunctiva ENMT: nl external ears & nose Neck: supple Respiratory: clear to auscultation Cardiovascular: regular rate and rhythm Gastrointestinal: soft Musculoskeletal: nl extremities to inspection Extremities: normal pulses Results Result Diagram: 04/18/19 0547 04/18/19 0547 Results 24hrs Laboratory Tests Test 04/18/19 13:05 04/18/19 16:52 04/18/19 20:27 04/19/19 05:43 Bedside Glucose 135 150 108 107 Test 04/19/19 08:06 Bedside Glucose 100 Medications Medication Current Medications IV Flush (NS 3 ml) 3 ml PER PROTOCOL IV ; Start 04/12/19 at 14:00 Acetaminophen (Tylenol Tab) 650 mg Q6H PRN PO .PAIN 1-3 OR TEMP Last administered on 04/17/19at 04:31; Admin Dose 650 MG; Start 04/12/19 at 14:00 Acetaminophen/ Hydrocodone Bitart ([place] (5/325)) 1 tab Q6H PRN PO .MOD PAIN 4- 6 Last administered on 04/14/19at 13:11; Admin Dose 1 TAB; Start 04/12/19 at 14:00 Docusate Sodium (Colace) 100 mg Q12H PRN PO .CONSTIPATION; Start 04/12/19 at 14:00 Magnesium Hydroxide (Milk Of Mag) 30 ml DAILY PRN PO .CONSTIPATION; Start 04/12/19 at 14:00 Zolpidem Tartrate (Ambien) 5 mg QHS PRN PO .INSOMNIA Last administered on 04/17/19at 04:31; Admin Dose 5 MG; Start 04/12/19 at 14:00 Pantoprazole (Protonix Tab) 40 mg DAILY@06 PO Last administered on 04/18/19at 06:03; Admin Dose 40 MG; Start 04/13/19 at 06:00 Diagnostic Test (Pha) (Accu-Chek) 1 ea 02 XX ; Start 04/13/19 at 02:00 Enoxaparin Sodium (Lovenox) 40 mg DAILY SC Last administered on 04/13/19at 0 8:10; Admin Dose 40 MG; Start 04/13/19 at 09:00; Status Hold Ondansetron HCl (Zofran Inj) 4 mg Q6H PRN IV NAUSEA AND/OR VOMITING; Start 04/12/19 at 14:30 Miscellaneous Information 1 ea NOTE XX ; Start 04/12/19 at 16:00 Glucose (Glutose) 15 gm Q15M PRN PO DECREASED GLUCOSE; Start 04/12/19 at 16:00 Glucose (Glutose) 22.5 gm Q15M PRN PO DECREASED GLUCOSE; Start 04/12/19 at 16:00 Dextrose (D50w Syringe) 25 ml Q15M PRN IV DECREASED GLUCOSE; Start 04/12/19 at 16:00 Dextrose (D50w Syringe) 50 ml Q15M PRN IV DECREASED GLUCOSE; Start 04/12/19 at 16:00 Glucagon (Glucagen) 1 mg Q15M PRN IM DECREASED GLUCOSE; Start 04/12/19 at 16:00 Glucose (Glutose) 15 gm Q15M PRN BUCCAL DECREASED GLUCOSE; Start 04/12/19 at 16:00 Hydralazine HCl (Apresoline) 25 mg TID PO Last administered on 04/18/19 20:29; Admin Dose 25 MG; Start 04/13/19 at 13:00 Carvedilol (Coreg) 6.25 mg BID PO Last administered on 04/18/19at 08:36; Admin Dose 6.25 MG; Start 04/13/19 at 11:00 Captopril (Capoten) 25 mg TID PO Last administered on 04/18/19at 20:28; Admin Dose 25 MG; Start 04/13/19 at 13:00 Hydromorphone HCl (Dilaudid) 0.5 mg Q3H PRN IV MODERATE PAIN LEVEL 4-6; Start 04/14/19 at 15:00 Hydromorphone HCl (Dilaudid) 1 mg Q3H PRN IV SEVERE PAIN LEVEL 7-10 Last administered on 04/16/19at 11:13; Admin Dose 1 MG; Start 04/14/19 at 15:00 Insulin Aspart (Novolog Insulin Pen) NOVOLOG *MODERATE* ALGORI... Q4 SC Last administered on 04/18/19at 17:03; Admin Dose 2 UNIT; Start 04/16/19 at 01:00 Clonidine (Catapres) 0.1 mg Q4H PRN PO SBP > 170; Start 04/17/19 at 07:00 Amlodipine Besylate (Norvasc) 5 mg DAILY PO ; Start 04/19/19 at 09:00 Amlodipine Besylate (Norvasc) 5 mg QHS PRN PO sbp>140; Start 04/18/19 at 13:30 SHADI FUENTES M.D. April 19, 2019 10:56
--- NOTE | 2019-04-19 11:40 | PN ---
Date/Time of Note Date/Time of Note DATE: 04/19/19 TIME: 11:38 Assessment/Plan Lines/Catheters IV Catheter Type (from [facility]): Central Line Davis in Place (from [facility]): No Assessment/Plan Chief Complaint/Hosp Course 1. 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 Dr. House had a long discussion with the team members including doctors Karen Bautista, & Brianne. Oncologist recommends to proceed with colon resection since chemotherapy not available for the next 2 to 3 weeks anyways. Advised patient that if I go in and there is significant tumor load throughout the abdomen may not be able to proceed with the surgery at this time. On the other hand depending on what happens instead of doing an anastomosis may proceed with a colostomy. Patient fully understands and was agreeable to proceed with surgery. Patient unfortunately had significant hypotension and bradycardia after intubation and surgery was canceled. -Per discussion with primary team, will schedule for OR today. -Cards optimization -NPO 2. Multiple liver lesions (insufficient MRI due to motion artifact however demonstrates1.8 cm lesion in the hepatic segment 5, 0.9 cm lesion in the hepatic segment 8, 1.3 cm intermediate T2 hyperintense lesion in the hepatic segment 4B). Per discussion with oncology plan is to proceed with chemo after surgery (adjuvant) and then consider ablation and a resection at a later time as needed. 3. Occasional abdominal pain -As above 4. BMI 37 with comorbidities, morbid obesity -Encourage nutritional optimization -Encourage exercise optimization 5. Hypertension, diabetes mellitus, dyslipidemia -Encourage nutrition and medication optimization -Encourage weight loss 6. Atrial fibrillation, rate controlled -Cardiac optimization -Electrolyte optimization 7. 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 -Medical and cardiac optimization and clearance Thank you Subjective 24 Hr Interval Summary No abdominal pain/discomfort. Continues to have bowel function. No fevers, chills, sob, congested cough, cp, palpitations, sullivan, dizziness, n/v/d/dysuria. Will re-attempt surgery tonight Exam/Review of Systems Vital Signs Vitals Vital Signs Date Temp Pulse Resp B/P (MAP) Pulse Ox O2 O2 Flow FiO2 Time Delivery Rate 04/19/19 98.9 69 16 149/80 94 11:17 (103) 04/18/19 Nasal 2.0 14:00 Cannula Intake and Output 04/18/19 04/18/19 04/19/19 1515:00 23:00 07:00 IntakeIntake Total 400 ml BalanceBalance 400 ml Exam Free Text/Dictation Constitutional: alert, oriented, obese; No distress Psych: nl mood/affect; No anxiety, No confusion Head: normocephalic, atraumatic Eyes: nl conjunctiva, EOMI, PERRL; No icteric ENMT: nl external ears & nose, mucosa pink and moist Neck: supple; obese Respiratory: normal air movement; No congested cough, No labored breathing, No wheezing Cardiovascular: edema; No regular rate and rhythm Gastrointestinal: soft, non-tender, other (Obese); moderate distended No rebound or guarding Genitourinary - Male: nl penis, nl scrotum Musculoskeletal: nl extremities to inspection; No joint tenderness Extremities: normal pulses, edema; No calf tenderness Neurological: nl mental status, nl speech, nl strength Skin: nl turgor; No rash or lesions, No diaphoresis Lymph: nl lymph nodes Results Result Diagram: 04/18/19 0547 04/18/19 0547 VIRGINIE HOUSE MD April 19, 2019 11:40
[2019-04-19] MEDS ORDERED: SOD CHLORIDE 0.9% 1,000 ML IV SCH (14:30)
--- NOTE | 2019-04-19 15:22 | PN ---
DATE: 04/19/2019 SUBJECTIVE: The patient was seen. The patient is to undergo laparoscopic resection of colon mass. Case was discussed with Dr. House. We will order troponin x1 as discussed and place him on IV hydr ation. Blood pressure medications were to be placed on hold due to recent attempt to initiate an ane sthesia where he became hemodynamically stable. OBJECTIVE: VITAL SIGNS: Temperature 98.9, pulse 62, respirations 16, blood pressure 149/80, saturation 94%. GENERAL: The patient is in no acute distress. HEENT: Normocephalic, atraumatic. CARDIOVASCULAR: S1, S2. Regular rate. LUNGS: Clear. ABDOMEN: Soft, obese. EXTREMITIES: No clubbing, cyanosis or edema. LABORATORY DATA: White count is 7, hemoglobin 15.7, hematocrit 48, platelet count of 179 with normal differential. This was from yesterday. Sodium is 140, potassium 4.0, chloride 102, bicarbonate 30, BUN is 16, creatinine 0.87, glucose of 112. MEDICATIONS:. Currently on hold. I placed him on: 1. Normal saline at 80 mL an hour. 2. Dilaudid p.r.n. 3. Zofran p.r.n. 4. Tylenol p.r.n. 5. Milk of Magnesia p.r.n. 6. Ambien p.r.n. ASSESSMENT AND PLAN: This is an 78-year-old male with history of hypertension, dyslipidemi a, atrial fibrillation, diabetes mellitus, who presented with left lower quadrant pain, was found to have metastatic colon cancer. 1. Metastatic colon cancer involving the left descending colon with evidence of liver metastasis. T he patient is to undergo colon cancer resection. Post-procedure, anticipate recovery and to take at least a couple of weeks and then chemotherapy per Dr. Jones. 2. Cardiovascular: The patient with history of atrial fibrillation, rate controlled. Observe. Hol d blood pressure medications prior to surgery. 3. Polycythemia, likely due to obstructive sleep apnea. 4. Pain control. 5. Protonix for gastrointestinal prophylaxis. 6. Monitor the patient postoperatively. Case was discussed with Dr. House. Dictated By: NIDHI PEREZ/RUIZ Conf#: [id number] DID#: [id number] CC: LEOPOLDO FORD MD;*EndCC*
--- NOTE | 2019-04-19 16:57 | CONS ---
Consult Date/Type/Reason Admit Date/Time April 12, 2019 at 13:45 Initial Consult Date 04/13/19 Type of Consultation: cv Requesting Provider: NIDHI VILLEDA MD Date/Time of Note DATE: 04/19/19 TIME: 16:55 Subjective Interventional cardiology follow-up progress note Subjective: Discussed with the staff. Patient with no chest pain or pressure. tele was reviewed. Patient remains in atrial fibrillation and intermittently with marked bradycardia s/p colo 04/14/19 No nausea vomiting No chest pain or pressure. No palpitation. Objective: General: Obese gentleman in no acute distress HEENT: NC/AT. pupils are equal. round. NECK: NO JVD. no stridor. CV: Irregularly irregular. systolic murmur; no gallop or rubs. PULM: no wheezing or rhonchi. GI: SOFT, NT, ND, no rebound or guarding Extremity: trace B/L LE edema. no clubbing. neuro: awake and alert, OX3. Psych: calm and pleasant rectal: deferred EEG was personally reviewed which showed atrial fibrillation. Cannot rule out anteroseptal infarct. Echocardiogram was personally reviewed which shows: There is mild enlargement of left atrium. Normal left ventricular systolic function. Normal left ventricular cavity size. Moderate concentric left ventricular hypertrophy. Ejection fraction is visually estimated at 65 %. Tissue Doppler/Mitral Doppler indices are indeterminate in this study due to the presence of atrial fibrillation. Normal appearance and function of the mitral valve with trace physiologic regurgitation. No hemodynamically significant aortic stenosis by doppler. Aortic cusps appear mildly calcified. Trace to mild aortic valve regurgitation. Normal appearance of the tricuspid valve. Unable to obtain RVSP due to minimal presence of tricuspid regurgitation. Normal size and normal respiratory collapse consistent with normal right atrial pressure. Objective Vitals Vital Signs Date Temp Pulse Resp B/P (MAP) Pulse Ox O2 O2 Flow FiO2 Time Delivery Rate 04/19/19 70 16:01 04/19/19 97.9 16 159/100 96 15:05 (119) 04/18/19 Nasal 2.0 14:00 Cannula Intake and Output 04/18/19 04/18/19 04/19/19 1515:00 23:00 07:00 IntakeIntake Total 400 ml BalanceBalance 400 ml Results/Medications Result Diagram: 04/18/19 0547 04/18/19 0547 Results 24 hrs Laboratory Tests Test 04/18/19 20:27 04/19/19 05:43 04/19/19 08:06 04/19/19 12:45 Bedside Glucose 108 107 100 115 Home Meds Reported Medications Metoprolol Tartrate* (Lopressor*) 25 Mg Tab, 25 MG PO BID, #60 TAB 04/12/19 Amlodipine Besylate* (Amlodipine Besylate*) 2.5 Mg Tablet, 2.5 MG PO DAILY, #30 TAB 04/12/19 Metformin Hcl* (Metformin Hcl*) 500 Mg Tablet, 500 MG PO WITH MEALS, #90 TAB 04/12/19 Atorvastatin* (Atorvastatin*) 40 Mg Tablet, 40 MG PO QHS, #30 TAB 04/12/19 Medications Current Medications IV Flush (NS 3 ml) 3 ml PER PROTOCOL IV ; Start 04/12/19 at 14:00 Acetaminophen (Tylenol Tab) 650 mg Q6H PRN PO .PAIN 1-3 OR TEMP Last administered on 04/17/19at 04:31; Admin Dose 650 MG; Start 04/12/19 at 14:00 Acetaminophen/ Hydrocodone Bitart ([place] (5/325)) 1 tab Q6H PRN PO .MOD PAIN 4- 6 Last administered on 04/14/19at 13:11; Admin Dose 1 TAB; Start 04/12/19 at 14:00 Docusate Sodium (Colace) 100 mg Q12H PRN PO .CONSTIPATION; Start 04/12/19 at 14:00 Magnesium Hydroxide (Milk Of Mag) 30 ml DAILY PRN PO .CONSTIPATION; Start 04/12/19 at 14:00 Zolpidem Tartrate (Ambien) 5 mg QHS PRN PO .INSOMNIA Last administered on 04/17/19at 04:31; Admin Dose 5 MG; Start 04/12/19 at 14:00 Pantoprazole (Protonix Tab) 40 mg DAILY@06 PO Last administered on 04/18/19at 06:03; Admin Dose 40 MG; Start 04/13/19 at 06:00 Diagnostic Test (Pha) (Accu-Chek) 1 ea 02 XX ; Start 04/13/19 at 02:00 Enoxaparin Sodium (Lovenox) 40 mg DAILY SC Last administered on 04/13/19at 08:10; Admin Dose 40 MG; Start 04/13/19 at 09:00; Status Hold Ondansetron HCl (Zofran Inj) 4 mg Q6H PRN IV NAUSEA AND/OR VOMITING; Start 04/12/19 at 14:30 Miscellaneous Information 1 ea NOTE XX ; Start 04/12/19 at 16:00 Glucose (Glutose) 15 gm Q15M PRN PO DECREASED GLUCOSE; Start 04/12/19 at 16:00 Glucose (Glutose) 22.5 gm Q15M PRN PO DECREASED GLUCOSE; Start 04/12/19 at 16:00 Dextrose (D50w Syringe) 25 ml Q15M PRN IV DECREASED GLUCOSE; Start 04/12/19 at 16:00 Dextrose (D50w Syringe) 50 ml Q15M PRN IV DECREASED GLUCOSE; Start 04/12/19 at 16:00 Glucagon (Glucagen) 1 mg Q15M PRN IM DECREASED GLUCOSE; Start 04/12/19 at 16:00 Glucose (Glutose) 15 gm Q15M PRN BUCCAL DECREASED GLUCOSE; Start 04/12/19 at 16:00 Hydralazine HCl (Apresoline) 25 mg TID PO Last administered on 04/18/19at 20:29; Admin Dose 25 MG; Start 04/13/19 at 13:00 Carvedilol (Coreg) 6.25 mg BID PO Last administered on 04/18/19at 08:36; Admin Dose 6.25 MG; Start 04/13/19 at 11:00 Captopril (Capoten) 25 mg TID PO Last administered on 04/18/19at 20:28; Admin Dose 25 MG; Start 04/13/19 at 13:00 Hydromorphone HCl (Dilaudid) 0.5 mg Q3H PRN IV MODERATE PAIN LEVEL 4-6; Start 04/14/19 at 15:00 Hydromorphone HCl (Dilaudid) 1 mg Q3H PRN IV SEVERE PAIN LEVEL 7-10 Last administered on 04/16/19at 11:13; Admin Dose 1 MG; Start 04/14/19 at 15:00 Insulin Aspart (Novolog Insulin Pen) NOVOLOG *MODERATE* ALGORI... Q4 SC Last administered on 04/18/19at 17:03; Admin Dose 2 UNIT; Start 04/16/19 at 01:00 Clonidine (Catapres) 0.1 mg Q4H PRN PO SBP > 170; Start 04/17/19 at 07:00 Amlodipine Besylate (Norvasc) 5 mg DAILY PO ; Start 04/19/19 at 09:00 Amlodipine Besylate (Norvasc) 5 mg QHS PRN PO sbp>140; Start 04/18/19 at 13:30 Sodium Chloride 1,000 ml @ 80 mls/hr [id number] IV Last administered on 04/19/19at 15:52; Admin Dose 80 MLS/HR; Start 04/19/19 at 14:30 Assessment/Plan Hospital Course (Demo Recall) 1. Atrial fibrillation: Appears to be chronically heart rate controlled. Patient would benefit from chronic anticoagulation however currently due to the multiple procedures at this plan is off of anticoagulation 2. Hypertension : but hypotensive during aneshesia 3. Ascending aortic aneurysm at 4.9 cm: We will continue to monitor and control the blood pressure better 4. Likely metastatic colon cancer: work-up and treatment as per oncology and surgical team 5. Diabetes 6. History of CVA 7. Dyslipidemia 8. Cardiovascular preop evaluation Recommendations: pt to be closley monitored in telemetry for now will dec his BP meds and hold , coreg to avoid hypotension tele monitoring Otherwise patient will be considered optimized from a cardiac standpoint and no further cardiac work-up would be indicated. He has multiple risk factors including CVA and dilated aortic aneurysm and atrial fibrillation with placement moderate risk of cardiovascular event. However no further cardiac work-up would be indicated or beneficial prior to his needed colon surgery in the absence of any chest pain or cardiac symptoms Thank you for his referral. We will continue to follow along with you RODRICK STEWART MD MERGED WITH [facility] RODRICK STEWART MD April 19, 2019 16:57
[2019-04-20] VITALS (47 sets, daily range): BP systolic 131–177; BP diastolic 71–92; PULSE 39–112; RESP 14–28
[2019-04-20] MEDS: SOD CHLORIDE 0.9% 1,000 ML IV SCH ×2 (00:11→12:30)
[2019-04-20] MEDS: INSULIN ASPART [NOVOLOG] 3 ML PEN SC SCH ×6 (01:00→20:32)
[2019-04-20] MEDS: ACCU-CHEK XX SCH (02:00)
[2019-04-20] MEDS: PANTOPRAZOLE (EC) 40 MG TAB PO SCH (05:26)
[2019-04-20] MEDS ORDERED: metroNIDAZOLE 500 MG/100 ML NS IVPB ONE (07:00)
[2019-04-20] MEDS ORDERED: CEFAZOLIN 1 GM INJ ONE (07:00)
[2019-04-20] MEDS ORDERED: DESFLURANE 15 MIN ONE (07:00)
[2019-04-20] MEDS: AMLODIPINE 10 MG TAB PO SCH (08:25)
--- NOTE | 2019-04-20 08:33 | CONS ---
Assessment/Plan Assessment/Plan Hospital Course (Demo Recall) 78 yo male 1. Multiple mets in the liver with elevated CA 19-9 and CEA 2. Diabetes mellitus. 3. Atrial fibrillation. 4. Obesity. 5. Polycythemia. 6. Dyspnea on exertion -CXR shows low lung volume secondary to compression 7. Wall thickening with surrounding fat stranding in sigmoid colon seen in CT -Colitis vs diverticulitis (does c/o LLQ/L groin pain, wbc wnl, afebrile, no abx so less likely diverticulitis) vs neoplasm 8. Elevated CEA and CA 19-9 9. Fatty liver 10. Cardiomyopathy noted on CT 11. Enlarged prostate gland 12. Adenocarcinoma in colon -plan for resection, became hypotensive and bradycardia when take to OR on 04/16, now plan for tomorrow evening if stable Plan: Lap resection of adenocarcinoma today at 09 Post resection, chemo Pt examined and plan of care discussed with Dr. Decker Consultation Date/Type/Reason Admit Date/Time April 12, 2019 at 13:45 Initial Consult Date Requesting Provider: NIDHI VILLEDA MD Date/Time of Note DATE: 04/20/19 TIME: 08:32 24 HR Interval Summary Free Text/Dictation Plan for lap resection today by Dr House. Pt has no complaints. Exam/Review of Systems Exam Vitals Vital Signs Date Temp Pulse Resp B/P (MAP) Pulse Ox O2 O2 Flow FiO2 Time Delivery Rate 04/20/19 98.2 62 16 154/85 93 07:13 (108) 04/20/19 Room Air 03:48 04/18/19 2.0 14:00 Intake and Output 04/19/19 04/19/19 04/20/19 1515:00 23:00 07:00 IntakeIntake Total 500 ml 560 ml BalanceBalance 500 ml 560 ml Constitutional: alert, oriented Psych: no complaints Eyes: nl sclera, PERRL Respiratory: normal air movement Cardiovascular: regular rate and rhythm Gastrointestinal: soft, non-tender, bowel sounds Musculoskeletal: nl gait and stance Extremities: normal pulses Neurological: nl mental status Results Result Diagram: 04/20/1951804/20/19518 Results 24hrs Laboratory Tests Test 04/19/19 12:45 04/19/19 17:27 04/19/19 17:28 04/19/19 20:51 Bedside Glucose 115 100 114 Troponin I < 0.012 Test 04/20/19 00:10 04/20/19 05:19 Bedside Glucose 91 90 White Blood Count 7.7 Red Blood Count 5.48 Hemoglobin 16.2 Hematocrit 48.9 Mean Corpuscular 89.2 Volume Mean Corpuscular 29.6 Hemoglobin Mean Corpuscular 33.1 Hemoglobin Concent Red Cell 13.2 Distribution Width Platelet Count 201 Mean Platelet Volume 10.9 H Immature 0.300 Granulocytes % Neutrophils % 58.3 Lymphocytes % 26.3 Monocytes % 11.7 H Eosinophils % 2.9 Basophils % 0.5 Nucleated Red Blood 0.0 Cells % Immature 0.020 Granulocytes # Neutrophils # 4.5 Lymphocytes # 2.0 Monocytes # 0.9 Eosinophils # 0.2 Basophils # 0.0 Nucleated Red Blood 0.0 Cells # Sodium Level 141 Potassium Level 3.9 Chloride Level 103 Carbon Dioxide Level 29 Anion Gap 9 Blood Urea Nitrogen 14 Creatinine 0.82 Est Glomerular Filtrat Rate mL/min Glucose Level 90 Calcium Level 8.8 Phosphorus Level 3.7 Magnesium Level 2.0 Total Bilirubin 1.2 Direct Bilirubin 0.00 Indirect Bilirubin 1.2 H Aspartate Amino 31 Transf (AST/SGOT) Alanine 32 Aminotransferase (AL T/SGPT) Alkaline Phosphatase 66 Total Protein 6.7 Albumin 3.6 Globulin 3.10 Albumin/Globulin 1.16 Ratio Medications Medication Current Medications IV Flush (NS 3 ml) 3 ml PER PROTOCOL IV ; Start 04/12/19 at 14:00 Acetaminophen (Tylenol Tab) 650 mg Q6H PRN PO .PAIN 1-3 OR TEMP Last administered on 04/17/19at 04:31; Admin Dose 650 MG; Start 04/12/19 at 14:00 Acetaminophen/ Hydrocodone Bitart ([place] (5/325)) 1 tab Q6H PRN PO .MOD PAIN 4- 6 Last administered on 04/14/19at 13:11; Admin Dose 1 TAB; Start 04/12/19 at 14:00 Docusate Sodium (Colace) 100 mg Q12H PRN PO .CONSTIPATION; Start 04/12/19 at 14:00 Magnesium Hydroxide (Milk Of Mag) 30 ml DAILY PRN PO .CONSTIPATION; Start 04/12/19 at 14:00 Zolpidem Tartrate (Ambien) 5 mg QHS PRN PO .INSOMNIA Last administered on 04/17/19at 04:31; Admin Dose 5 MG; Start 04/12/19 at 14:00 Pantoprazole (Protonix Tab) 40 mg DAILY@06 PO Last administered on 04/18/19at 06:03; Admin Dose 40 MG; Start 04/13/19 at 06:00 Diagnostic Test (Pha) (Accu-Chek) 1 ea 02 XX ; Start 04/13/19 at 02:00 Enoxaparin Sodium (Lovenox) 40 mg DAILY SC Last administered on 04/13/19at 08:10; Admin Dose 40 MG; Start 04/13/19 at 09:00; Status Hold Ondansetron HCl (Zofran Inj) 4 mg Q6H PRN IV NAUSEA AND/OR VOMITING; Start 04/12/19 at 14:30 Miscellaneous Information 1 ea NOTE XX ; Start 04/12/19 at 16:00 Glucose (Glutose) 15 gm Q15M PRN PO DECREASED GLUCOSE; Start 04/12/19 at 16:00 Glucose (Glutose) 22.5 gm Q15M PRN PO DECREASED GLUCOSE; Start 04/12/19 at 16:00 Dextrose (D50w Syringe) 25 ml Q15M PRN IV DECREASED GLUCOSE; Start 04/12/19 at 16:00 Dextrose (D50w Syringe) 50 ml Q15M PRN IV DECREASED GLUCOSE; Start 04/12/19 at 16:00 Glucagon (Glucagen) 1 mg Q15M PRN IM DECREASED GLUCOSE; Start 04/12/19 at 16:00 Glucose (Glutose) 15 gm Q15M PRN BUCCAL DECREASED GLUCOSE; Start 04/12/19 at 16:00 Carvedilol (Coreg) 6.25 mg BID PO Last administered on 04/18/19at 08:36; Admin Dose 6.25 MG; Start 04/13/19 at 11:00; Status Hold Captopril (Capoten) 25 mg TID PO Last administered on 04/19/19at 20:53; Admin Dose 25 MG; Start 04/13/19 at 13:00 Hydromorphone HCl (Dilaudid) 0.5 mg Q3H PRN IV MODERATE PAIN LEVEL 4-6; Start 04/14/19 at 15:00 Hydromorphone HCl (Dilaudid) 1 mg Q3H PRN IV SEVERE PAIN LEVEL 7-10 Last administered on 04/16/19 11:13; Admin Dose 1 MG; Start 04/14/19 at 15:00 Insulin Aspart (Novolog Insulin Pen) NOVOLOG *MODERATE* ALGORI... Q4 SC Last administered on 04/18/19 17:03; Admin Dose 2 UNIT; Start 04/16/19 at 01:00 Clonidine (Catapres) 0.1 mg Q4H PRN PO SBP > 170; Start 04/17/19 at 07:00 Amlodipine Besylate (Norvasc) 5 mg DAILY PO Last administered on 04/19/19at 17:38; Admin Dose 5 MG; Start 04/19/19 at 09:00 Hydralazine HCl (Apresoline) 25 mg TID PRN PO SBP > 160 Last administered on 04/19/19at 20:54; Admin Dose 25 MG; Start 04/19/19 at 17:00 Sodium Chloride 1,000 ml @ 80 mls/hr [id number] IV Last administered on 04/20/19at 00:11; Admin Dose 80 MLS/HR; Start 04/20/19 at 00:00 SEEMA MENDOZA April 20, 2019 08:33
[2019-04-20] MEDS ORDERED: BUPIVACAINE 0.5%/EPI (SDV) 30 ML INJ ONE (08:51)
[2019-04-20] MEDS ORDERED: LIDOCAINE 1% (MPF) 30 ML INJ ONE (08:51)
--- NOTE | 2019-04-20 09:40 | PREAC ---
Date/Time of Note Date/Time of Note DATE: 04/20/19 TIME: 09:33 Anesthesia Eval and Record Evaluation Time Pre-Procedure Interview DATE: 04/20/19 TIME: 09:33 Age 78 Sex male NPO: 8 hrs Preoperative diagnosis metastatic colon cancer Planned procedure laparoscopic possible open left colectomy, possible liver biopsy, possible biologic implantation, possible any other procedure Past Medical History Past Medical History: Includes Cardio: HTN, Dyslipidemia, Arrythmia (rate controlled atrial fibrillation ), Other (AAA 4.[address] Haq/ cardiology been holding BP meds, cleared patient for re-attempt surgery today. ) Endo: Diabetes Neuro: CVA (without residual deficits ) Hepatic: Other (multiple liver lesions ) GI: Obesity (bmi 37) Surgery & Anesthesia Issues Other issues (04/16/19 attempted lap colectomy. pt went severe hypotension requiring [address] Barriga anesthesiologist. Team decided to reschedule surgery. ) Meds Anticoagulation: No Beta [place] within 24 hr: No Reason Beta Philly not given: Bradycarida, Hypotension Reported Medications Metoprolol Tartrate* (Lopressor*) 25 Mg Tab, 25 MG PO BID, #60 TAB 04/12/19 Amlodipine Besylate* (Amlodipine Besylate*) 2.5 Mg Tablet, 2.5 MG PO DAILY, #30 TAB 04/12/19 Metformin Hcl* (Metformin Hcl*) 500 Mg Tablet, 500 MG PO WITH MEALS, #90 TAB 04/12/19 Atorvastatin* (Atorvastatin*) 40 Mg Tablet, 40 MG PO QHS, #30 TAB 04/12/19 Current Medications IV Flush (NS 3 ml) 3 ml PER PROTOCOL IV ; Start 04/12/19 at 14:00 Acetaminophen (Tylenol Tab) 650 mg Q6H PRN PO .PAIN 1-3 OR TEMP Last administered on 04/17/19at 04:31; Admin Dose 650 MG; Start 04/12/19 at 14:00 Acetaminophen/ Hydrocodone Bitart ([place] (5/325)) 1 tab Q6H PRN PO .MOD PAIN 4- 6 Last administered on 04/14/19at 13:11; Admin Dose 1 TAB; Start 04/12/19 at 14:00 Docusate Sodium (Colace) 100 mg Q12H PRN PO .CONSTIPATION; Start 04/12/19 at 14 :00 Magnesium Hydroxide (Milk Of Mag) 30 ml DAILY PRN PO .CONSTIPATION; Start 04/12/19 at 14:00 Zolpidem Tartrate (Ambien) 5 mg QHS PRN PO .INSOMNIA Last administered on 04/17/19at 04:31; Admin Dose 5 MG; Start 04/12/19 at 14:00 Pantoprazole (Protonix Tab) 40 mg DAILY@06 PO Last administered on 04/18/19at 06:03; Admin Dose 40 MG; Start 04/13/19 at 06:00 Diagnostic Test (Pha) (Accu-Chek) 1 ea 02 XX ; Start 04/13/19 at 02:00 Enoxaparin Sodium (Lovenox) 40 mg DAILY SC Last administered on 04/13/19at 08:10; Admin Dose 40 MG; Start 04/13/19 at 09:00; Status Hold Ondansetron HCl (Zofran Inj) 4 mg Q6H PRN IV NAUSEA AND/OR VOMITING; Start 04/12/19 at 14:30 Miscellaneous Information 1 ea NOTE XX ; Start 04/12/19 at 16:00 Glucose (Glutose) 15 gm Q15M PRN PO DECREASED GLUCOSE; Start 04/12/19 at 16:00 Glucose (Glutose) 22.5 gm Q15M PRN PO DECREASED GLUCOSE; Start 04/12/19 at 16:00 Dextrose (D50w Syringe) 25 ml Q15M PRN IV DECREASED GLUCOSE; Start 04/12/19 at 16:00 Dextrose (D50w Syringe) 50 ml Q15M PRN IV DECREASED GLUCOSE; Start 04/12/19 at 16:00 Glucagon (Glucagen) 1 mg Q15M PRN IM DECREASED GLUCOSE; Start 04/12/19 at 16:00 Glucose (Glutose) 15 gm Q15M PRN BUCCAL DECREASED GLUCOSE; Start 04/12/19 at 16:00 Carvedilol (Coreg) 6.25 mg BID PO Last administered on 04/18/19at 08:36; Admin Dose 6.25 MG; Start 04/13/19 at 11:00; Status Hold Captopril (Capoten) 25 mg TID PO Last administered on 04/19/19at 20:53; Admin Dose 25 MG; Start 04/13/19 at 13:00 Hydromorphone HCl (Dilaudid) 0.5 mg Q3H PRN IV MODERATE PAIN LEVEL 4-6; Start 04/14/19 at 15:00 Hydromorphone HCl (Dilaudid) 1 mg Q3H PRN IV SEVERE PAIN LEVEL 7-10 Last administered on 04/16/19at 11:13; Admin Dose 1 MG; Start 04/14/19 at 15:00 Insulin Aspart (Novolog Insulin Pen) NOVOLOG *MODERATE* ALGORI... Q4 SC Last administered on 04/18/19at 17:03; Admin Dose 2 UNIT; Start 04/16/19 at 01:00 Clonidine (Catapres) 0.1 mg Q4H PRN PO SBP > 170; Start 04/17/19 at 07:00 Amlodipine Besylate (Norvasc) 5 mg DAILY PO Last administered on 04/19/19at 17:38; Admin Dose 5 MG; Start 04/19/19 at 09:00 Hydralazine HCl (Apresoline) 25 mg TID PRN PO SBP > 160 Last administered on 04/19/19at 20:54; Admin Dose 25 MG; Start 04/19/19 at 17:00 Sodium Chloride 1,000 ml @ 80 mls/hr [id number] IV Last administered on 04/20/19at 00:11; Admin Dose 80 MLS/HR; Start 04/20/19 at 00:00 Meds reviewed: Yes Allergies Coded Allergies: No Known Allergies (Verified Allergy, Unknown, 04/12/19) Allergies Reviewed: Yes Labs/Studies Labs Reviewed: Reviewed by anesthesiologist Result Diagram: 04/20/1951804/20/19518 Laboratory Tests 04/20/19 05:19 test: N/A Studies: ECG (atrial fibrillation ), CXR (1. Low lung volumes with compressive changes. 2. Mild cardiomegaly and aortic atherosclerosis.), 2D Echo (04/12/19: EF 65%, mild left atrium enlargement, trace mitral valve regurgitation ) Pre-procedure Exam Last vitals Vital Signs Date Temp Pulse Resp B/P (MAP) Pulse Ox O2 O2 Flow FiO2 Time Delivery Rate 04/20/19 98.2 62 16 154/85 93 07:13 (108) 04/20/19 Room Air 03:48 04/18/19 2.0 14:00 Airway: Adequate mouth opening, Adequate thyromental dist Mallampati: Mallampati II Teeth: Normal Lung: Normal Heart: Normal ASA Physical Status ASA physical status: 3 Emergency: None Planned Anesthetic General/MAC: ETT, A Line, CVP Nerve block: TAP (bilateral) Planned Pain Management Single shot nerve block, Parenteral pain med, Local by surgeon Pre-operative Attestations Prior to commencing anesthesia and surgery, the patient was re-evaluated, there was verification of: *The patient's identity *The results of appropriate recent lab work and preoperative vital signs *The above evaluation not changing prior to induction *Anesthetic plan, risk benefits, alternative and complications discussed with patient/family; questions answered; patient/family understands, accepts and wishes to proceed. LOVE MARTINEZ April 20, 2019 09:40
--- NOTE | 2019-04-20 09:53 | PN ---
Date/Time of Note Date/Time of Note DATE: 04/20/19 TIME: 09:51 Assessment/Plan Lines/Catheters IV Catheter Type (from [facility]): Central Line Davis in Place (from [facility]): No Assessment/Plan Chief Complaint/Hosp Course 1. 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 Dr. House had a long discussion with the team members including doctors Karen Bautista, & Brianne. Oncologist recommends to proceed with colon resection since chemotherapy not available for the next 2 to 3 weeks anyways. Advised patient that if I go in and there is significant tumor load throughout the abdomen may not be able to proceed with the surgery at this time. On the other hand depending on what happens instead of doing an anastomosis may proceed with a colostomy. Patient fully understands and was agreeable to proceed with surgery. Patient unfortunately had significant hypotension and bradycardia after intubation and surgery was canceled. OR today -Cards management -NPO 2. Multiple liver lesions (insufficient MRI due to motion artifact however demonstrates1.8 cm lesion in the hepatic segment 5, 0.9 cm lesion in the hepatic segment 8, 1.3 cm intermediate T2 hyperintense lesion in the hepatic segment 4B). Per discussion with oncology plan is to proceed with chemo after surgery (adjuvant) and then consider ablation and a resection at a later time as needed. 3. Occasional abdominal pain -As above 4. BMI 37 with comorbidities, morbid obesity -Encourage nutritional optimization -Encourage exercise optimization 5. Hypertension, diabetes mellitus, dyslipidemia -Encourage nutrition and medication optimization -Encourage weight loss 6. Atrial fibrillation, rate controlled -Cardiac optimization -Electrolyte optimization 7. 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 -Medical and cardiac optimization and clearance Thank you Subjective 24 Hr Interval Summary No abdominal pain/discomfort. Continues to have bowel function. No fevers, chills, sob, congested cough, cp, palpitations, sullivan, dizziness, n/v/d/dysuria. OR today. Exam/Review of Systems Vital Signs Vitals Vital Signs Date Temp Pulse Resp B/P (MAP) Pulse Ox O2 O2 Flow FiO2 Time Delivery Rate 04/20/19 66 08:01 04/20/19 98.2 16 154/85 93 07:13 (108) 04/20/19 Room Air 03:48 04/18/19 2.0 14:00 Intake and Output 04/19/19 04/19/19 04/20/19 1515:00 23:00 07:00 IntakeIntake Total 500 ml 560 ml BalanceBalance 500 ml 560 ml Exam Free Text/Dictation Constitutional: alert, oriented, obese; No distress Psych: nl mood/affect; No anxiety, No confusion Head: normocephalic, atraumatic Eyes: nl conjunctiva, EOMI, PERRL; No icteric ENMT: nl external ears & nose, mucosa pink and moist Neck: supple; obese Respiratory: normal air movement; No congested cough, No labored breathing, No wheezing Cardiovascular: edema; s1s2 irregular (baseline) No regular rate and rhythm Gastrointestinal: soft, non-tender, other (Obese); moderate distended No rebound or guarding Genitourinary - Male: nl penis, nl scrotum Musculoskeletal: nl extremities to inspection; No joint tenderness Extremities: normal pulses, edema; No calf tenderness Neurological: nl mental status, nl speech, nl strength Skin: nl turgor; No rash or lesions, No diaphoresis Lymph: nl lymph nodes Results Result Diagram: 04/20/19 0519 04/20/19 0519 VIRGINIE HOUSE MD April 20, 2019 09:53
[2019-04-20] MEDS ORDERED: FENTAnyl 50 MCG/ML VIAL ONE ×2 (10:05→16:18)
[2019-04-20] MEDS ORDERED: ETOMIDATE 20 MG INJ ONE (10:12)
[2019-04-20] MEDS ORDERED: ROCURONIUM 50 MG INJ ONE (10:51)
[2019-04-20] MEDS ORDERED: LIDOCAINE 100 MG SYRINGE ONE (10:51)
[2019-04-20] MEDS ORDERED: PROPOFOL 20 ML ONE (10:51)
[2019-04-20] MEDS ORDERED: SUCCINYLCHOLINE CHLORIDE 100 MG/5 ML SYG IV ONE (10:51)
[2019-04-20] MEDS ORDERED: hydrALAzine 20 MG INJ ONE ×2 (11:23→15:38)
--- NOTE | 2019-04-20 14:11 | CONS ---
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 Pt may be a candidate for microwave ablation to the liver lesions. This can be done at [facility]. -This would then be followed by at least 6 months of 5fu based chemotherapy with a potential transition to maintenance Xeloda -appreciate cardiology recs to control patients afib and episodes of bradycardia -continue management of HTN, HL, DM and Afib per primary team - Consultation Date/Type/Reason Admit Date/Time April 12, 2019 at 13:45 Initial Consult Date 04/14/19 Type of Consult oncology Reason for Consultation colon cancer Requesting Provider: NIDHI VILLEDA MD Date/Time of Note DATE: 04/20/19 TIME: 14:10 24 HR Interval Summary Free Text/Dictation to have colon resection today Exam/Review of Systems Exam Vitals Vital Signs Date Temp Pulse Resp B/P (MAP) Pulse Ox O2 O2 Flow FiO2 Time Delivery Rate 04/20/19 66 08:01 04/20/19 98.2 16 154/85 93 07:13 (108) 04/20/19 Room Air 03:48 04/18/19 2.0 14:00 Intake and Output 04/19/19 04/19/19 04/20/19 1515:00 23:00 07:00 IntakeIntake Total 500 ml 560 ml BalanceBalance 500 ml 560 ml Constitutional: alert, oriented Head: normocephalic Eyes: nl conjunctiva ENMT: nl external ears & nose Neck: supple Respiratory: clear to auscultation Cardiovascular: regular rate and rhythm Gastrointestinal: soft Musculoskeletal: nl extremities to inspection Extremities: normal pulses Results Result Diagram: 04/20/1951804/20/19518 Results 24hrs Laboratory Tests Test 04/19/19 17:27 04/19/19 17:28 04/19/19 20:51 04/20/19 00:10 Troponin I < 0.012 Bedside Glucose 100 114 91 Test 04/20/19 05:19 04/20/19 08:27 White Blood Count 7.7 Red Blood Count 5.48 Hemoglobin 16.2 Hematocrit 48.9 Mean Corpuscular 89.2 Volume Mean Corpuscular 29.6 Hemoglobin Mean Corpuscular 33.1 Hemoglobin Concent Red Cell 13.2 Distribution Width Platelet Count 201 Mean Platelet Volume 10.9 H Immature 0.300 Granulocytes % Neutrophils % 58.3 Lymphocytes % 26.3 Monocytes % 11.7 H Eosinophils % 2.9 Basophils % 0.5 Nucleated Red Blood 0.0 Cells % Immature 0.020 Granulocytes # Neutrophils # 4.5 Lymphocytes # 2.0 Monocytes # 0.9 Eosinophils # 0.2 Basophils # 0.0 Nucleated Red Blood 0.0 Cells # Sodium Level 141 Potassium Level 3.9 Chloride Level 103 Carbon Dioxide Level 29 Anion Gap 9 Blood Urea Nitrogen 14 Creatinine 0.82 Est Glomerular Filtrat Rate mL/min Glucose Level 90 Bedside Glucose 90 98 Calcium Level 8.8 Phosphorus Level 3.7 Magnesium Level 2.0 Total Bilirubin 1.2 Direct Bilirubin 0.00 Indirect Bilirubin 1.2 H Aspartate Amino 31 Transf (AST/SGOT) Alanine 32 Aminotransferase (AL T/SGPT) Alkaline Phosphatase 66 Total Protein 6.7 Albumin 3.6 Globulin 3.10 Albumin/Globulin 1.16 Ratio Medications Medication Current Medications IV Flush (NS 3 ml) 3 ml PER PROTOCOL IV ; Start 04/12/19 at 14:00 Acetaminophen (Tylenol Tab) 650 mg Q6H PRN PO .PAIN 1-3 OR TEMP Last administered on 04/17/19at 04:31; Admin Dose 650 MG; Start 04/12/19 at 14:00 Acetaminophen/ Hydrocodone Bitart ([place] (5/325)) 1 tab Q6H PRN PO .MOD PAIN 4- 6 Last administered on 04/14/19at 13:11; Admin Dose 1 TAB; Start 04/12/19 at 14:00 Docusate Sodium (Colace) 100 mg Q12H PRN PO .CONSTIPATION; Start 04/12/19 at 14:00 Magnesium Hydroxide (Milk Of Mag) 30 ml DAILY PRN PO .CONSTIPATION; Start 04/12/19 at 14:00 Zolpidem Tartrate (Ambien) 5 mg QHS PRN PO .INSOMNIA Last administered on 04/17/19at 04:31; Admin Dose 5 MG; Start 04/12/19 at 14:00 Pantoprazole (Protonix Tab) 40 mg DAILY@06 PO Last administered on 04/18/19at 06:03; Admin Dose 40 MG; Start 04/13/19 at 06:00 Diagnostic Test (Pha) (Accu-Chek) 1 ea 02 XX ; Start 04/13/19 at 02:00 Enoxaparin Sodium (Lovenox) 40 mg DAILY SC Last administered on 04/13/19at 08:10; Admin Dose 40 MG; Start 04/13/19 at 09:00; Status Hold Ondansetron HCl (Zofran Inj) 4 mg Q6H PRN IV NAUSEA AND/OR VOMITING; Start 04/12/19 at 14:30 Miscellaneous Information 1 ea NOTE XX ; Start 04/12/19 at 16:00 Glucose (Glutose) 15 gm Q15M PRN PO DECREASED GLUCOSE; Start 04/12/19 at 16:00 Glucose (Glutose) 22.5 gm Q15M PRN PO DECREASED GLUCOSE; Start 04/12/19 at 16:00 Dextrose (D50w Syringe) 25 ml Q15M PRN IV DECREASED GLUCOSE; Start 04/12/19 at 16:00 Dextrose (D50w Syringe) 50 ml Q15M PRN IV DECREASED GLUCOSE; Start 04/12/19 at 16:00 Glucagon (Glucagen) 1 mg Q15M PRN IM DECREASED GLUCOSE; Start 04/12/19 at 16:00 Glucose (Glutose) 15 gm Q15M PRN BUCCAL DECREASED GLUCOSE; Start 04/12/19 at 16:00 Carvedilol (Coreg) 6.25 mg BID PO Last administered on 04/18/19at 08:36; Admin Dose 6.25 MG; Start 04/13/19 at 11:00; Status Hold Captopril (Capoten) 25 mg TID PO Last administered on 04/19/19at 20:53; Admin Dose 25 MG; Start 04/13/19 at 13:00 Hydromorphone HCl (Dilaudid) 0.5 mg Q3H PRN IV MODERATE PAIN LEVEL 4-6; Start 04/14/19 at 15:00 Hydromorphone HCl (Dilaudid) 1 mg Q3H PRN IV SEVERE PAIN LEVEL 7-10 Last administered on 04/16/19at 11:13; Admin Dose 1 MG; Start 04/14/19 at 15:00 Insulin Aspart (Novolog Insulin Pen) NOVOLOG *MODERATE* ALGORI... Q4 SC Last administered on 04/18/19at 17:03; Admin Dose 2 UNIT; Start 04/16/19 at 01:00 Clonidine (Catapres) 0.1 mg Q4H PRN PO SBP > 170; Start 04/17/19 at 07:00 Amlodipine Besylate (Norvasc) 5 mg DAILY PO Last administered on 04/19/19at 17:38; Admin Dose 5 MG; Start 04/19/19 at 09:00 Hydralazine HCl (Apresoline) 25 mg TID PRN PO SBP > 160 Last administered on 04/19/19at 20:54; Admin Dose 25 MG; Start 04/19/19 at 17:00 Sodium Chloride 1,000 ml @ 80 mls/hr [id number] IV Last administered on 04/20/19at 00:11; Admin Dose 80 MLS/HR; Start 04/20/19 at 00:00 SHADI FEUNTES M.D. April 20, 2019 14:11
--- NOTE | 2019-04-20 14:51 | PN ---
DATE: 04/20/2019 SUBJECTIVE: The patient is undergoing surgery and resection of colon cancer. Anticipate definitive surgery soon. I discussed with the recovery room nursing staff. OBJECTIVE: VITAL SIGNS: Temperature earlier is 98.2, pulse 66, respirations 16, blood pressure 154/85, saturati on 93%. GENERAL: The patient is currently in the OR. MEDICATIONS: All reviewed and all placed on hold due to anticipation of surgery. The patient was on normal saline at 80 mL an hour. LABORATORY DATA: Troponin was negative yesterday, less than 0.012. CMP labs today are all normal. Sodium 141, potassium 3.9, chloride 103, bicarbonate 29, BUN is 14, creatinine of 0.82, glucose of 90 . LFTs are normal. Also, white count 7.7, hemoglobin 16.2, hematocrit 49, platelet count of 201. S tool occult blood was negative. ASSESSMENT AND PLAN: This is an 78-year-old obese male with history of hypertension, dysli pidemia, atrial fibrillation, diabetes mellitus, presents with left lower quadrant pain, was found to have metastatic colon cancer. 1. Metastatic colon cancer involving the descending colon with evidence of liver metastasis. The pa tient is to undergo colon resection. Follow up postoperatively. 2. Cardiovascular: The patient with history of atrial fibrillation, rate controlled. Cardiology is following. 3. Polycythemia, likely due to obstructive apnea. H and H is doing okay. 4. Pain control postoperatively. 5. The patient will be placed on deep vein thrombosis prophylaxis and gastrointestinal prophylaxis p ostoperatively with physical therapy, incentive spirometer and close monitoring and wound care. Diet is likely to be advanced slowly after surgery. We would follow up with Dr. House postoperatively regarding plan of care. We will follow. Dictated By: NIDHI PEREZ/RUIZ Conf#: [id number] DID#: [id number] CC: LEOPOLOD FORD MD;*End*
[2019-04-20] MEDS ORDERED: ROPIVACAINE 0.5 % 30 ML VIAL ONE (15:04)
[2019-04-20] MEDS ORDERED: ROPIVACAINE 0.2% 20 ML VIAL ONE (15:26)
[2019-04-20] MEDS ORDERED: HYDROCODONE/APAP (5/325) TAB PO PRN (15:30)
[2019-04-20] MEDS ORDERED: SUGAMMADEX SODIUM 200 MG/2 ML VIAL IV ONE ×2 (15:31→15:40)
[2019-04-20] MEDS ORDERED: nitroGLYCerin 50 MG INJ ONE (15:34)
--- NOTE | 2019-04-20 15:51 | OPR ---
Date/Time of Note Date/Time of Note DATE: 04/20/19 TIME: 15:39 Operative Report Free Text/Dictation Preoperative Diagnosis 1. Sigmoid adenocarcinoma, metastatic to liver 2. BMI 37 with significant central obesity 3. Significant comorbid conditions and previously canceled due to significant hypotension and bradycardia Postoperative Diagnosis 1. Sigmoid adenocarcinoma, metastatic to liver 2. BMI 37 with significant central obesity 3. Significant comorbid conditions and previously canceled due to significant hypotension and bradycardia 4. Difficult operation Operation/Procedure Performed 1. Laparoscopic sigmoid colectomy 2. Laparoscopic splenic normalization 3. Rigid sigmoidoscopy 4. Indigocarmine green fluorescence angiography 5. Difficult operation, modifier 22 6. Local [place], [id number] Surgeon: Virginie House MD Production Support Consultant: Elvie Bellamy NP Anesthesia Type: general + local + regional Anesthesiologist: Rolando Harrington MD Estimated Blood Loss: <100 ml's Transfusion: None Specimen: 1. Colon with suture proximal Grafts/Implants: FloSeal Tubes/Drains: 19 F Jordan Complications: none Pt Condition Post Procedure: stable Disposition: PACU Indications 78-year-old male with sigmoid adenocarcinoma that is metastatic to liver. Discussion was had regarding neoadjuvant therapy however based on chemo and available at this time decision was made to proceed with colon resection. First attempt at the operation patient was significantly hypotensive and bradycardic unstable therefore patient consult. He has been optimized further and is here for resection. Risks include but are not limited to bleeding, infection, abscess, seroma, leak, damage to intestines or any intra-abdominal/intrapelvic structures, hernia formation, fistula, Chronic pain, need for re-operations or further surgeries, MO, stroke, PE, DVT, pneumonia, organ failures, or even . Procedure Description: Patient was brought into the operating room, placed supine on the operating table, SCDs were placed, right arm was tucked, all pressure points were well- padded, preoperative antibiotics administered, and after induction of anesthesia, patient was placed in the lithotomy. Davis was inserted. Patient was then prepped and draped in usual sterile fashion, and timeout was performed. Incision was made in the right upper quadrant, and using an Optiview port and 5 mm 0 scope abdomen was safely entered and insufflated to 15 mmHg with CO2. Laparoscopy was performed and no injuries were identified. Mass identified in the sigmoid colon. There is redundant sigmoid:. Under direct visualization another 5 mm port was placed in the right lower quadrant a 12 mm port was placed in the right lower lateral quadrant. Eventually a 5 mm port was placed in the left upper quadrant. Patient was placed in Trendelenburg and left side up. Using LigaSure and scissor colon was mobilized off of the left lateral wall in the avascular plane fully mobilizing the left colon, the sigmoid and the upper rectum. The medial mesentery was opened and the left colon, sigmoid and the upper rectum beyond the peritoneal reflection going beyond the mass in the avascular plane posteriorly with total mesorectal excision. At least 5 cm of c olon proximal and distal to the mass were marked. The mesentery was sequentially taken using LigaSure with complete hemostasis. Indigocarmine green fluorescence angiography was performed to identify the areas of ischemic colon. Based on this the transection sites were marked. The colon > 5 cm proximal to the mass was transected with Endo NOEMY echelon 60 mm blue staplers. The ureters bilaterally were fully identified and preserved throughout the operation. I was able to go distal to the mass and transect the rectum using the same [place] distal to the mass. After full resection of the diseased segment of the sigmoid and the upper rectum, suture was placed on the proximal colon. Transverse colon left colon were gently and meticulously dissected off to the spleen and splenic flexure was mobilized down using scissor and Voyant. [id number] sutures were placed between the rectum and left colon with 2-0 silk sutures to align them. Colotomies were created. Using [place] 60 blue x2 [id number] staple anastomosis was created. There is no active bleeding inside the colon. The mucosa on both sides were healthy and pink. Interrupted 2-0 silk sutures were placed on the outside of the colotomy and using [place] 60 blue the colotomy was closed completely. All the diane were well formed. Staple line was reinforced with 2-0 Prolene Lembert in running fashion. The 12 mm port site was switched to GelPort with an Bartolome medium. The resected colon was exteriorized and sent to pathology. Proximal colon was clamped, rigid sigmoidoscopy was performed identifying intact staple line and leak test was performed with saline in the pelvis with distention of the colon without any bubbles identified. Rigid sigmoidoscopy did not identify any active bleeding from the staple line. The staple line was intact. No other lesions were identified. The omentum was eventually pulled over the anastomosis to further secure it as well. The colon was not twisted. There was complete hemostasis. FloSeal was placed into the deep pelvis. 19 [place] Jordan was placed through the family reported on the right side of the abdomen into the pelvis and secured with 2-0 nylon. Bartolome retractor was removed wound was irrigated and the fascial defect was closed with interrupted oh Vicryls in a [id number] manner. Ports and CO2 were removed under direct visualization, wounds were fully irrigated, and skin was closed in subcuticular fashion using 4-0 Monocryl. The right lower quadrant incision was closed in multiple layers. After the fascial closer there was an interrupted subcutaneous 2-0 Vicryl closures followed by 4-0 Monocryl subcuticular. Dermabond was applied. All counts were correct and the end of the operation 2. Patient was extubated and transferred to recovery room in stable condition. VIRGINIE HOUSE MD April 20, 2019 15:50
[2019-04-20] MEDS ORDERED: HYDROmorphONE 1 MG/5 ML IV SYRINGE IV ONE (15:59)
[2019-04-20] MEDS ORDERED: METOCLOPRAMIDE 10 MG INJ IV PRN (16:30)
[2019-04-20] MEDS ORDERED: ALBUTEROL 0.083% (NEB) 2.5 MG/3 ML AMP HHN PRN (16:30)
[2019-04-20] MEDS ORDERED: HYDROmorphONE 1 MG/5 ML IV SYRINGE IV PRN ×3 (16:30)
[2019-04-20] MEDS ORDERED: LABETALOL HCL 20MG INJ IV PRN (16:30)
[2019-04-20] MEDS ORDERED: LEVALBUTEROL (NEB) 0.63 MG/3 ML AMP HHN PRN (16:30)
[2019-04-20] MEDS ORDERED: ONDANSETRON 4 MG INJ IV PRN (16:30)
[2019-04-20] MEDS ORDERED: MEPERIDINE 25 MG INJ IV PRN (16:30)
[2019-04-20] MEDS ORDERED: DIPHENHYDRAMINE 50 MG INJ IV PRN (16:30)
[2019-04-20] MEDS ORDERED: FENTAnyl 50 MCG/ML VIAL IV PRN ×2 (16:30)
[2019-04-20] MEDS ORDERED: hydrALAzine 20 MG INJ IV PRN (16:30)
[2019-04-20] MEDS: FENTAnyl 50 MCG/ML VIAL IV PRN ×2 (16:33→17:09)
--- NOTE | 2019-04-20 16:59 | CONS ---
Consult Date/Type/Reason Admit Date/Time April 12, 2019 at 13:45 Initial Consult Date 04/13/19 Type of Consultation: cv Requesting Provider: NIDHI VILLEDA MD Date/Time of Note DATE: 04/20/19 TIME: 16:56 Subjective Interventional cardiology follow-up progress note Subjective: Discussed with the staff and physicians s/p lap colon surgery 04/20/19 and in recovery. he had post op pain which has resolved with pain medication . Patient with no chest pain or pressure. tele was reviewed. Patient remains in atrial fibrillation and intermittently with marked bradycardia but no long pauses. no syncope or presyncope s/p colo 04/14/19 No palpitation. Objective: General: Obese gentleman in no acute distress HEENT: NC/AT. pupils are equal. round. NECK: NO JVD. no stridor. CV: Irregularly irregular. systolic murmur; no gallop or rubs. PULM: no wheezing or rhonchi. GI: s/p lap surgery with INEZ drainage in place. + tenderness Extremity: trace B/L LE edema. no clubbing. neuro: awake and alert, OX3. Psych: calm and pleasant rectal: deferred EEG was personally reviewed which showed atrial fibrillation. Cannot rule out anteroseptal infarct. Echocardiogram was personally reviewed which shows: There is mild enlargement of left atrium. Normal left ventricular systolic function. Normal left ventricular cavity size. Moderate concentric left ventricular hypertrophy. Ejection fraction is visually estimated at 65 %. Tissue Doppler/Mitral Doppler indices are indeterminate in this study due to the presence of atrial fibrilla tion. Normal appearance and function of the mitral valve with trace physiologic regurgitation. No hemodynamically significant aortic stenosis by doppler. Aortic cusps appear mildly calcified. Trace to mild aortic valve regurgitation. Normal appearance of the tricuspid valve. Unable to obtain RVSP due to minimal presence of tricuspid regurgitation. Normal size and normal respiratory collapse consistent with normal right atrial pressure. Objective Vitals Vital Signs Date Temp Pulse Resp B/P (MAP) Pulse Ox O2 O2 Flow FiO2 Time Delivery Rate 04/20/19 66 08:01 04/20/19 98.2 16 154/85 93 07:13 (108) 04/20/19 Room Air 03:48 04/18/19 2.0 14:00 Intake and Output 04/19/19 04/19/19 04/20/19 1515:00 23:00 07:00 IntakeIntake Total 500 ml 560 ml BalanceBalance 500 ml 560 ml Results/Medications Result Diagram: 04/20/1951804/20/19518 Results 24 hrs Laboratory Tests Test 04/19/19 17:27 04/19/19 17:28 04/19/19 20:51 04/20/19 00:10 Troponin I < 0.012 Bedside Glucose 100 114 91 Test 04/20/19 05:19 04/20/19 08:27 White Blood Count 7.7 Red Blood Count 5.48 Hemoglobin 16.2 Hematocrit 48.9 Mean Corpuscular 89.2 Volume Mean Corpuscular 29.6 Hemoglobin Mean Corpuscular 33.1 Hemoglobin Concent Red Cell 13.2 Distribution Width Platelet Count 201 Mean Platelet Volume 10.9 H Immature 0.300 Granulocytes % Neutrophils % 58.3 Lymphocytes % 26.3 Monocytes % 11.7 H Eosinophils % 2.9 Basophils % 0.5 Nucleated Red Blood 0.0 Cells % Immature 0.020 Granulocytes # Neutrophils # 4.5 Lymphocytes # 2.0 Monocytes # 0.9 Eosinophils # 0.2 Basophils # 0.0 Nucleated Red Blood 0.0 Cells # Sodium Level 141 Potassium Level 3.9 Chloride Level 103 Carbon Dioxide Level 29 Anion Gap 9 Blood Urea Nitrogen 14 Creatinine 0.82 Est Glomerular Filtrat Rate mL/min Glucose Level 90 Bedside Glucose 90 98 Calcium Level 8.8 Phosphorus Level 3.7 Magnesium Level 2.0 Total Bilirubin 1.2 Direct Bilirubin 0.00 Indirect Bilirubin 1.2 H Aspartate Amino 31 Transf (AST/SGOT) Alanine 32 Aminotransferase (AL T/SGPT) Alkaline Phosphatase 66 Total Protein 6.7 Albumin 3.6 Globulin 3.10 Albumin/Globulin 1.16 Ratio Home Meds Reported Medications Metoprolol Tartrate* (Lopressor*) 25 Mg Tab, 25 MG PO BID, #60 TAB 04/12/19 Amlodipine Besylate* (Amlodipine Besylate*) 2.5 Mg Tablet, 2.5 MG PO DAILY, #30 TAB 04/12/19 Metformin Hcl* (Metformin Hcl*) 500 Mg Tablet, 500 MG PO WITH MEALS, #90 TAB 04/12/19 Atorvastatin* (Atorvastatin*) 40 Mg Tablet, 40 MG PO QHS, #30 TAB 04/12/19 Medications Current Medications IV Flush (NS 3 ml) 3 ml PER PROTOCOL IV ; Start 04/12/19 at 14:00 Acetaminophen (Tylenol Tab) 650 mg Q6H PRN PO ELEVATED TEMPERATURE Last administered on 04/17/19at 04:31; Admin Dose 650 MG; Start 04/12/19 at 14:00 Docusate Sodium (Colace) 100 mg Q12H PRN PO .CONSTIPATION; Start 04/12/19 at 14:00 Magnesium Hydroxide (Milk Of Mag) 30 ml DAILY PRN PO .CONSTIPATION; Start 04/12/19 at 14:00 Zolpidem Tartrate (Ambien) 5 mg QHS PRN PO .INSOMNIA Last administered on 04/17/19at 04:31; Admin Dose 5 MG; Start 04/12/19 at 14:00 Pantoprazole (Protonix Tab) 40 mg DAILY@06 PO Last administered on 04/18/19at 06:03; Admin Dose 40 MG; Start 04/13/19 at 06:00 Diagnostic Test (Pha) (Accu-Chek) 1 ea 02 XX ; Start 04/13/19 at 02:00 Enoxaparin Sodium (Lovenox) 40 mg DAILY SC Last administered on 04/13/19at 08:10; Admin Dose 40 MG; Start 04/13/19 at 09:00; Status Hold Ondansetron HCl (Zofran Inj) 4 mg Q6H PRN IV NAUSEA AND/OR VOMITING; Start 04/12/19 at 14:30 Miscellaneous Information 1 ea NOTE XX ; Start 04/12/19 at 16:00 Glucose (Glutose) 15 gm Q15M PRN PO DECREASED GLUCOSE; Start 04/12/19 at 16:00 Glucose (Glutose) 22.5 gm Q15M PRN PO DECREASED GLUCOSE; Start 04/12/19 at 16:00 Dextrose (D50w Syringe) 25 ml Q15M PRN IV DECREASED GLUCOSE; Start 04/12/19 at 16:00 Dextrose (D50w Syringe) 50 ml Q15M PRN IV DECREASED GLUCOSE; Start 04/12/19 at 16:00 Glucagon (Glucagen) 1 mg Q15M PRN IM DECREASED GLUCOSE; Start 04/12/19 at 16:00 Glucose (Glutose) 15 gm Q15M PRN BUCCAL DECREASED GLUCOSE; Start 04/12/19 at 16:00 Carvedilol (Coreg) 6.25 mg BID PO Last administered on 04/18/19 08:36; Admin Dose 6.25 MG; Start 04/13/19 at 11:00; Status Hold Captopril (Capoten) 25 mg TID PO Last administered on 04/19/19 20:53; Admin Dose 25 MG; Start 04/13/19 at 13:00 Insulin Aspart (Novolog Insulin Pen) NOVOLOG *MODERATE* ALGORI... Q4 SC Last administered on 04/18/19 17:03; Admin Dose 2 UNIT; Start 04/16/19 at 01:00 Clonidine (Catapres) 0.1 mg Q4H PRN PO SBP > 170; Start 04/17/19 at 07:00 Amlodipine Besylate (Norvasc) 5 mg DAILY PO Last administered on 04/19/19at 17:38; Admin Dose 5 MG; Start 04/19/19 at 09:00 Hydralazine HCl (Apresoline) 25 mg TID PRN PO SBP > 160 Last administered on 04/19/19 20:54; Admin Dose 25 MG; Start 04/19/19 at 17:00 Sodium Chloride 1,000 ml @ 80 mls/hr [id number] IV Last administered on 04/20/19 00:11; Admin Dose 80 MLS/HR; Start 04/20/19 at 00:00 Acetaminophen/ Hydrocodone Bitart ([place] (5/325)) 2 tab Q4H PRN PO Pain 6-10; Start 04/20/19 at 15:30 Acetaminophen/ Hydrocodone Bitart ([place] (5/325)) 1 tab Q4H PRN PO Pain 1-5; Start 04/20/19 at 15:30 Morphine Sulfate (morphine) 2 mg Q2H PRN IV Breakthrough PAIN; Start 04/20/19 at 15:30 Hydromorphone HCl (Dilaudid) 0.2 mg PACU PRN IV MILD PAIN 1-3; Start 04/20/19 at 16:30; Stop 04/20/19 at 23:30 Hydromorphone HCl (Dilaudid) 0.4 mg PACU PRN IV MOD PAIN 4-6 Last administered on 04/20/19at 16:28; Admin Dose 0.4 MG; Start 04/20/19 at 16:30; Stop 04/20/19 at 23:30 Hydromorphone HCl (Dilaudid) 0.6 mg PACU PRN IV SEVERE PAIN 7-10 Last administered on 04/20/19at 16:21; Admin Dose 0.6 MG; Start 04/20/19 at 16:30; Stop 04/20/19 at 23:30 Fentanyl (Sublimaze) 25 mcg PACU ORDER PRN IV MILD PAIN 1-3; Start 04/20/19 at 16:30; Stop 04/20/19 at 23:30 Fentanyl (Sublimaze) 50 mcg PACU ORDER PRN IV MOD PAIN 4-6 Last administered on 04/20/19at 16:33; Admin Dose 50 MCG; Start 04/20/19 at 16:30; Stop 04/20/19 at 23:30 Fentanyl (Sublimaze) 75 mcg PACU ORDER PRN IV SEVERE PAIN 7-10; Start 04/20/19 at 16:30; Stop 04/20/19 at 23:30 Ondansetron HCl (Zofran Inj) 4 mg PACU ORDER PRN IV NAUSEA/VOMITING Last administered on 04/20/19at 16:36; Admin Dose 4 MG; Start 04/20/19 at 16:30; Stop 04/20/19 at 23:30 Metoclopramide HCl (Reglan) 10 mg PACU ORDER PRN IV NAUSEA/VOMITING; Start 04/20/19 at 16:30; Stop 04/20/19 at 23:30 Labetalol HCl (Labetalol) 5 mg PACU ORDER PRN IV HIGH BLOOD PRESSURE; Start 04/20/19 at 16:30; Stop 04/20/19 at 23:30 Hydralazine HCl (Apresoline) 5 mg PACU ORDER PRN IV HIGH BLOOD PRESSURE; Start 04/20/19 at 16:30; Stop 04/20/19 at 23:30 Albuterol (Proventil 0.083% (Neb)) 2.5 mg PACU ORDER PRN HHN .WHEEZING; Start 04/20/19 at 16:30; Stop 04/20/19 at 23:30 Levalbuterol (Xopenex Neb) 0.63 mg PACU ORDER PRN HHN .WHEEZING; Start 04/20/19 at 16:30; Stop 04/20/19 at 23:30 Meperidine HCl (Demerol) 25 mg PACU ORDER PRN IV .RIGORS Last administered on 04/20/19at 16:36; Admin Dose 25 MG; Start 04/20/19 at 16:30; Stop 04/20/19 at 23:30 Diphenhydramine HCl (Benadryl) 25 mg PACU ORDER PRN IV .PRURITUS; Start 04/20/19 at 16:30; Stop 04/20/19 at 23:30 Assessment/Plan Hospital Course (Demo Recall) 1. Atrial fibrillation: Appears to be chronically heart rate controlled. Patient would benefit from chronic anticoagulation however currently due to the multiple procedures at this plan is off of anticoagulation 2. Hypertension : but hypotensive during aneshesia 3. Ascending aortic aneurysm at 4.9 cm: We will continue to monitor and control the blood pressure better 4. Likely metastatic colon cancer: work-up and treatment as per oncology and surgical team 5. Diabetes 6. History of CVA 7. Dyslipidemia 8. Cardiovascular preop evaluation: now s./p surgery Recommendations: cont tele monitoring vasotec iv prn IV cardizem prn until able to take po meds post op care. Thank you for his referral. We will continue to follow along with you RODRICK STEWART MD [facility] RODRICK STEWART MD April 20, 2019 16:59
[2019-04-20] MEDS ORDERED: DILTIAZEM 25 MG INJ IV PRN (17:00)
[2019-04-20] MEDS: morphine 2 MG INJ IV PRN (20:28)
[2019-04-21] VITALS (11 sets, daily range): BP systolic 137–182; BP diastolic 80–95; PULSE 92–117; RESP 16–20
[2019-04-21] MEDS: morphine 2 MG INJ IV PRN ×6 (00:29→21:52)
[2019-04-21] MEDS: SOD CHLORIDE 0.9% 1,000 ML IV SCH ×2 (01:00→07:31)
[2019-04-21] MEDS: INSULIN ASPART [NOVOLOG] 3 ML PEN SC SCH ×6 (01:00→21:00)
[2019-04-21] MEDS: ACCU-CHEK XX SCH (02:00)
[2019-04-21] MEDS: PANTOPRAZOLE (EC) 40 MG TAB PO SCH (05:28)
[2019-04-21] MEDS: AMLODIPINE 10 MG TAB PO SCH (08:24)
--- NOTE | 2019-04-21 08:35 | CONS ---
Consult Date/Type/Reason Admit Date/Time April 12, 2019 at 13:45 Initial Consult Date 04/13/19 Type of Consultation: cv Requesting Provider: NIDHI VILLEDA MD Date/Time of Note DATE: 04/21/19 TIME: 08:34 Subjective Interventional cardiology follow-up progress note Subjective: Discussed with the staff and physicians s/p lap colon surgery 04/20/19 still c/o severe abd pain Patient with no chest pain or pressure. tele was reviewed. Patient remains in atrial fibrillation and HR IS stable/ high no syncope or presyncope s/p colo 04/14/19 No palpitation. Objective: General: Obese gentleman in no acute distress HEENT: NC/AT. pupils are equal. round. NECK: NO JVD. no stridor. CV: Irregularly irregular. systolic murmur; no gallop or rubs. PULM: no wheezing or rhonchi. GI: s/p lap surgery with INEZ drainage in place. + tenderness Extremity: trace B/L LE edema. no clubbing. neuro: awake and alert, OX3. Psych: calm and pleasant rectal: deferred EEG was personally reviewed which showed atrial fibrillation. Cannot rule out anteroseptal infarct. Echocardiogram was personally reviewed which shows: There is mild enlargement of left atrium. Normal left ventricular systolic function. Normal left ventricular cavity size. Moderate concentric left ventricular hypertrophy. Ejection fraction is visually estimated at 65 %. Tissue Doppler/Mitral Doppler indices are indeterminate in this study due to the presence of atrial fi brillation. Normal appearance and function of the mitral valve with trace physiologic regurgitation. No hemodynamically significant aortic stenosis by doppler. Aortic cusps appear mildly calcified. Trace to mild aortic valve regurgitation. Normal appearance of the tricuspid valve. Unable to obtain RVSP due to minimal presence of tricuspid regurgitation. Normal size and normal respiratory collapse consistent with normal right atrial pressure. Objective Vitals Vital Signs Date Temp Pulse Resp B/P (MAP) Pulse Ox O2 O2 Flow FiO2 Time Delivery Rate 04/21/19 97.4 95 17 169/80 95 07:32 (109) 04/21/19 Nasal 4.0 03:44 Cannula Intake and Output 04/20/19 04/20/19 04/21/19 1515:00 23:00 07:00 IntakeIntake Total 3200 ml 780 ml OutputOutput Total 1025 ml 1350 ml BalanceBalance 2175 ml -570 ml Results/Medications Result Diagram: 04/21/19 0556 04/21/19 0556 Results 24 hrs Laboratory Tests Test 04/20/19 20:32 04/21/19 01:48 04/21/19 05:32 04/21/19 05:56 Bedside Glucose 117 134 117 White Blood Count 11.3 #H Red Blood Count 5.54 Hemoglobin 16.3 Hematocrit 50.6 Mean Corpuscular 91.3 Volume Mean Corpuscular 29.4 Hemoglobin Mean Corpuscular 32.2 Hemoglobin Concent Red Cell 13.5 Distribution Width Platelet Count 209 Mean Platelet Volume 10.7 H Immature 0.500 H Granulocytes % Neutrophils % 81.5 H Lymphocytes % 9.1 L Monocytes % 8.6 Eosinophils % 0.0 Basophils % 0.3 Nucleated Red Blood 0.0 Cells % Immature 0.060 H Granulocytes # Neutrophils # 9.2 H Lymphocytes # 1.0 Monocytes # 1.0 H Eosinophils # 0.0 Basophils # 0.0 Nucleated Red Blood 0.0 Cells # Sodium Level 141 Potassium Level 4.2 Chloride Level 106 Carbon Dioxide Level 24 Anion Gap 11 Blood Urea Nitrogen 12 Creatinine 0.82 Est Glomerular Filtrat Rate mL/min Glucose Level 134 # Calcium Level 8.6 Total Bilirubin 1.1 Direct Bilirubin 0.00 Indirect Bilirubin 1.1 Aspartate Amino 29 Transf (AST/SGOT) Alanine 27 Aminotransferase (AL T/SGPT) Alkaline Phosphatase 60 Total Protein 6.5 Albumin 3.5 Globulin 3.00 Albumin/Globulin 1.16 Ratio Home Meds Reported Medications Metoprolol Tartrate* (Lopressor*) 25 Mg Tab, 25 MG PO BID, #60 TAB 04/12/19 Amlodipine Besylate* (Amlodipine Besylate*) 2.5 Mg Tablet, 2.5 MG PO DAILY, #30 TAB 04/12/19 Metformin Hcl* (Metformin Hcl*) 500 Mg Tablet, 500 MG PO WITH MEALS, #90 TAB 04/12/19 Atorvastatin* (Atorvastatin*) 40 Mg Tablet, 40 MG PO QHS, #30 TAB 04/12/19 Medications Current Medications IV Flush (NS 3 ml) 3 ml PER PROTOCOL IV ; Start 04/12/19 at 14:00 Acetaminophen (Tylenol Tab) 650 mg Q6H PRN PO ELEVATED TEMPERATURE Last administered on 04/17/19at 04:31; Admin Dose 650 MG; Start 04/12/19 at 14:00 Docusate Sodium (Colace) 100 mg Q12H PRN PO .CONSTIPATION; Start 04/12/19 at 14:00 Magnesium Hydroxide (Milk Of Mag) 30 ml DAILY PRN PO .CONSTIPATION; Start 04/12/19 at 14:00 Zolpidem Tartrate (Ambien) 5 mg QHS PRN PO .INSOMNIA Last administered on 04/17/19at 04:31; Admin Dose 5 MG; Start 04/12/19 at 14:00 Pantoprazole (Protonix Tab) 40 mg DAILY@06 PO Last administered on 04/21/19at 05:28; Admin Dose 40 MG; Start 04/13/19 at 06:00 Diagnostic Test (Pha) (Accu-Chek) 1 ea 02 XX ; Start 04/13/19 at 02:00 Enoxaparin Sodium (Lovenox) 40 mg DAILY SC Last administered on 04/13/19at 08:10 ; Admin Dose 40 MG; Start 04/13/19 at 09:00; Status Hold Ondansetron HCl (Zofran Inj) 4 mg Q6H PRN IV NAUSEA AND/OR VOMITING; Start 04/12/19 at 14:30 Miscellaneous Information 1 ea NOTE XX ; Start 04/12/19 at 16:00 Glucose (Glutose) 15 gm Q15M PRN PO DECREASED GLUCOSE; Start 04/12/19 at 16:00 Glucose (Glutose) 22.5 gm Q15M PRN PO DECREASED GLUCOSE; Start 04/12/19 at 16:00 Dextrose (D50w Syringe) 25 ml Q15M PRN IV DECREASED GLUCOSE; Start 04/12/19 at 16:00 Dextrose (D50w Syringe) 50 ml Q15M PRN IV DECREASED GLUCOSE; Start 04/12/19 at 16:00 Glucagon (Glucagen) 1 mg Q15M PRN IM DECREASED GLUCOSE; Start 04/12/19 at 16:00 Glucose (Glutose) 15 gm Q15M PRN BUCCAL DECREASED GLUCOSE; Start 04/12/19 at 16:00 Carvedilol (Coreg) 6.25 mg BID PO Last administered on 04/18/19at 08:36; Admin Dose 6.25 MG; Start 04/13/19 at 11:00; Status Hold Captopril (Capoten) 25 mg TID PO Last administered on 04/21/19 08:23; Admin Dose 25 MG; Start 04/13/19 at 13:00 Insulin Aspart (Novolog Insulin Pen) NOVOLOG *MODERATE* ALGORI... Q4 SC Last administered on 04/18/19at 17:03; Admin Dose 2 UNIT; Start 04/16/19 at 01:00 Clonidine (Catapres) 0.1 mg Q4H PRN PO SBP > 170; Start 04/17/19 at 07:00 Amlodipine Besylate (Norvasc) 5 mg DAILY PO Last administered on 04/21/19at 08:24; Admin Dose 5 MG; Start 04/19/19 at 09:00 Hydralazine HCl (Apresoline) 25 mg TID PRN PO SBP > 160 Last administered on 04/19/19at 20:54; Admin Dose 25 MG; Start 04/19/19 at 17:00 Sodium Chloride 1,000 ml @ 80 mls/hr [id number] IV Last administered on 04/21/19at 07:31; Admin Dose 80 MLS/HR; Start 04/20/19 at 00:00 Acetaminophen/ Hydrocodone Bitart ([place] (5/325)) 2 tab Q4H PRN PO Pain 6-10; Start 04/20/19 at 15:30 Acetaminophen/ Hydrocodone Bitart ([place] (5/325)) 1 tab Q4H PRN PO Pain 1-5; Start 04/20/19 at 15:30 Morphine Sulfate (morphine) 2 mg Q2H PRN IV Breakthrough PAIN Last administered on 04/21/19at 08:21; Admin Dose 2 MG; Start 04/20/19 at 15:30 Diltiazem HCl (Cardizem Iv) 5 mg Q1H PRN IV HR > 110 OR SBP; > 170; Start 04/20/19 at 17:00 Enalaprilat (Vasotec Iv) 1.25 mg Q4H PRN IV SBP > 180; Start 04/20/19 at 17:00 Assessment/Plan Hospital Course (Demo Recall) 1. Atrial fibrillation: Appears to be chronically heart rate controlled. Patient would benefit from chronic anticoagulation however currently due to the multiple procedures at this plan is off of anticoagulation 2. Hypertension : but hypotensive during aneshesia 3. Ascending aortic aneurysm at 4.9 cm: We will continue to monitor and control the blood pressure better 4. Likely metastatic colon cancer: work-up and treatment as per oncology and surgical team 5. Diabetes 6. History of CVA 7. Dyslipidemia 8. Cardiovascular preop evaluation: now s./p surgery Recommendations: cont tele monitoring add coreg again cont other cardiac care post op care. DVT prophylaxis and GI prophylaxis Thank you for his referral. We will continue to follow along with you RODRICK STEWART MD [facility] RODRICK STEWART MD April 21, 2019 08:35
--- NOTE | 2019-04-21 09:32 | CONS ---
Assessment/Plan Assessment/Plan Hospital Course (Demo Recall) #Sigmoid colon mass #Liver lesions - Abdominal MRI demonstrates a 1.8 cm lesion in the hepatic segment 5, 0.9 cm lesion in the hepatic segment 8, 1.3 cm intermediate T2 hyperintense lesion in the hepatic segment 4B, #Luis cardia #Atrial fibrillation #hypertension #dyslipidemia #diabetes mellitus #CVA 10 years ago with no residual deficits, -s/p surgery. will follow up path report -pt most likely has STAGE IV colon cancer with oligometastatic disease to the liver -This would then be followed by at least 6 months of 5fu based chemotherapy with a potential transition to maintenance Xeloda -will refer to Dr. Grigsby for consideration of y-90 liver directed therapy to his metastatic liver lesions -appreciate cardiology recs to control patients afib and episodes of bradycardia -continue management of HTN, HL, DM and Afib per primary team - Consultation Date/Type/Reason Admit Date/Time April 12, 2019 at 13:45 Initial Consult Date 04/14/19 Type of Consult oncology Reason for Consultation colon cancer Requesting Provider: NIDHI VILLEDA MD Date/Time of Note DATE: 04/21/19 TIME: 09:30 24 HR Interval Summary Free Text/Dictation s/p sigmoid colon resection . HR controlled. still not eating Exam/Review of Systems Exam Vitals Vital Signs Date Temp Pulse Resp B/P (MAP) Pulse Ox O2 O2 Flow FiO2 Time Delivery Rate 04/21/19 97.4 95 17 169/80 95 07:32 (109) 04/21/19 Nasal 4.0 03:44 Cannula Intake and Output 04/20/19 04/20/19 04/21/19 1515:00 23:00 07:00 IntakeIntake Total 3200 ml 780 ml OutputOutput Total 1025 ml 1350 ml BalanceBalance 2175 ml -570 ml Constitutional: alert, oriented Head: normocephalic Eyes: nl conjunctiva ENMT: nl external ears & nose Neck: supple Respiratory: clear to auscultation Cardiovascular: regular rate and rhythm Gastrointestinal: soft, surgical scars Musculoskeletal: nl extremities to inspection Results Result Diagram: 04/21/19 0556 04/21/19 0556 Results 24hrs Laboratory Tests Test 04/20/19 20:32 04/21/19 01:48 04/21/19 05:32 04/21/19 05:56 Bedside Glucose 117 134 117 White Blood Count 11.3 #H Red Blood Count 5.54 Hemoglobin 16.3 Hematocrit 50.6 Mean Corpuscular 91.3 Volume Mean Corpuscular 29.4 Hemoglobin Mean Corpuscular 32.2 Hemoglobin Concent Red Cell 13.5 Distribution Width Platelet Count 209 Mean Platelet Volume 10.7 H Immature 0.500 H Granulocytes % Neutrophils % 81.5 H Lymphocytes % 9.1 L Monocytes % 8.6 Eosinophils % 0.0 Basophils % 0.3 Nucleated Red Blood 0.0 Cells % Immature 0.060 H Granulocytes # Neutrophils # 9.2 H Lymphocytes # 1.0 Monocytes # 1.0 H Eosinophils # 0.0 Basophils # 0.0 Nucleated Red Blood 0.0 Cells # Sodium Level 141 Potassium Level 4.2 Chloride Level 106 Carbon Dioxide Level 24 Anion Gap 11 Blood Urea Nitrogen 12 Creatinine 0.82 Est Glomerular Filtrat Rate mL/min Glucose Level 134 # Calcium Level 8.6 Total Bilirubin 1.1 Direct Bilirubin 0.00 Indirect Bilirubin 1.1 Aspartate Amino 29 Transf (AST/SGOT) Alanine 27 Aminotransferase (AL T/SGPT) Alkaline Phosphatase 60 Total Protein 6.5 Albumin 3.5 Globulin 3.00 Albumin/Globulin 1.16 Ratio Test 04/21/19 08:27 Bedside Glucose 132 Medications Medication Current Medications IV Flush (NS 3 ml) 3 ml PER PROTOCOL IV ; Start 04/12/19 at 14:00 Acetaminophen (Tylenol Tab) 650 mg Q6H PRN PO ELEVATED TEMPERATURE Last administered on 04/17/19at 04:31; Admin Dose 650 MG; Start 04/12/19 at 14:00 Docusate Sodium (Colace) 100 mg Q12H PRN PO .CONSTIPATION; Start 04/12/19 at 14:00 Magnesium Hydroxide (Milk Of Mag) 30 ml DAILY PRN PO .CONSTIPATION; Start 04/12/19 at 14:00 Zolpidem Tartrate (Ambien) 5 mg QHS PRN PO .INSOMNIA Last administered on 04/17/19at 04:31; Admin Dose 5 MG; Start 04/12/19 at 14:00 Pantoprazole (Protonix Tab) 40 mg DAILY@06 PO Last administered on 04/21/19at 05:28; Admin Dose 40 MG; Start 04/13/19 at 06:00 Diagnostic Test (Pha) (Accu-Chek) 1 ea 02 XX ; Start 04/13/19 at 02:00 Enoxaparin Sodium (Lovenox) 40 mg DAILY SC Last administered on 04/13/19at 08:10; Admin Dose 40 MG; Start 04/13/19 at 09:00; Status Hold Ondansetron HCl (Zofran Inj) 4 mg Q6H PRN IV NAUSEA AND/OR VOMITING; Start 04/12/19 at 14:30 Miscellaneous Information 1 ea NOTE XX ; Start 04/12/19 at 16:00 Glucose (Glutose) 15 gm Q15M PRN PO DECREASED GLUCOSE; Start 04/12/19 at 16:00 Glucose (Glutose) 22.5 gm Q15M PRN PO DECREASED GLUCOSE; Start 04/12/19 at 16:00 Dextrose (D50w Syringe) 25 ml Q15M PRN IV DECREASED GLUCOSE; Start 04/12/19 at 16:00 Dextrose (D50w Syringe) 50 ml Q15M PRN IV DECREASED GLUCOSE; Start 04/12/19 at 16:00 Glucagon (Glucagen) 1 mg Q15M PRN IM DECREASED GLUCOSE; Start 04/12/19 at 16:00 Glucose (Glutose) 15 gm Q15M PRN BUCCAL DECREASED GLUCOSE; Start 04/12/19 at 16:00 Captopril (Capoten) 25 mg TID PO Last administered on 04/21/19at 08:23; Admin Dose 25 MG; Start 04/13/19 at 13:00 Insulin Aspart (Novolog Insulin Pen) NOVOLOG *MODERATE* ALGORI... Q4 SC Last administered on 04/18/19at 17:03; Admin Dose 2 UNIT; Start 04/16/19 at 01:00 Clonidine (Catapres) 0.1 mg Q4H PRN PO SBP > 170; Start 04/17/19 at 07:00 Amlodipine Besylate (Norvasc) 5 mg DAILY PO Last administered on 04/21/19at 08:24; Admin Dose 5 MG; Start 04/19/19 at 09:00 Hydralazine HCl (Apresoline) 25 mg TID PRN PO SBP > 160 Last administered on 04/19/19at 20:54; Admin Dose 25 MG; Start 04/19/19 at 17:00 Sodium Chloride 1,000 ml @ 80 mls/hr [id number] IV Last administered on 04/21/19at 07:31; Admin Dose 80 MLS/HR; Start 04/20/19 at 00:00 Acetaminophen/ Hydrocodone Bitart ([place] (5/325)) 2 tab Q4H PRN PO Pain 6-10; Start 04/20/19 at 15:30 Acetaminophen/ Hydrocodone Bitart ([place] (5/325)) 1 tab Q4H PRN PO Pain 1-5; Start 04/20/19 at 15:30 Morphine Sulfate (morphine) 2 mg Q2H PRN IV Breakthrough PAIN Last administered on 04/21/19at 08:21; Admin Dose 2 MG; Start 04/20/19 at 15:30 Diltiazem HCl (Cardizem Iv) 5 mg Q1H PRN IV HR > 110 OR SBP; > 170; Start 04/20/19 at 17:00 Enalaprilat (Vasotec Iv) 1.25 mg Q4H PRN IV SBP > 180; Start 04/20/19 at 17:00 Carvedilol (Coreg) 3.125 mg BID PO Last administered on 04/21/19at 09:15; Admin Dose 3.125 MG; Start 04/21/19 at 09:00 SHADI FUENTES M.D. April 21, 2019 09:32
--- NOTE | 2019-04-21 16:18 | RADRPT ---
Vent Rate: 67 bpm RR Interval: 890 msec PA Interval: [id number] msec QRS Duration: 87 msec QT Interval: 423 msec QTC Interval: 448 msec P-R-T [place]: [id number] - -46 - 42 degrees Atrial fibrillation...? atrial activity Inferior infarct, old...Q >35mS, II III aVF Anterior infarct, old...Q >40mS, abnormal ST-T, V2-V5 Electronically Signed By: Luis Hudson
--- NOTE | 2019-04-21 17:46 | CONS ---
Assessment/Plan Assessment/Plan Assessment/Plan (Daily) Assessment/Plan Hospital Course (Demo Recall) 78 yo male 1. Multiple mets in the liver with elevated CA 19-9 and CEA 2. Diabetes mellitus. 3. Atrial fibrillation. 4. Obesity. 5. Polycythemia. 6. Dyspnea on exertion -CXR shows low lung volume secondary to compression 7. Wall thickening with surrounding fat stranding in sigmoid colon seen in CT -Colitis vs diverticulitis (does c/o LLQ/L groin pain, wbc wnl, afebrile, no abx so less likely diverticulitis) vs neoplasm 8. Elevated CEA and CA 19-9 9. Fatty liver 10. Cardiomyopathy noted on CT 11. Enlarged prostate gland 12. Adenocarcinoma in colon 13. Status post laparoscopy sigmoid colon resection Plan Continue postoperative care Continue with pain management Consultation Date/Type/Reason Admit Date/Time April 12, 2019 at 13:45 Initial Consult Date 04/14/19 Requesting Provider: NIDHI VILLEDA MD Date/Time of Note DATE: 04/21/19 TIME: 17:45 24 HR Interval Summary Free Text/Dictation Postoperative abdominal pain Patient did not pass any flatus Exam/Review of Systems Exam Vitals Vital Signs Date Temp Pulse Resp B/P (MAP) Pulse Ox O2 O2 Flow FiO2 Time Delivery Rate 04/21/19 97 16:00 04/21/19 98.8 16 182/91 92 15:32 (121) 04/21/19 4.0 13:19 04/21/19 Nasal 03:44 Cannula Intake and Output 04/20/19 04/20/19 04/21/19 1515:00 23:00 07:00 IntakeIntake Total 3200 ml 780 ml OutputOutput Total 1025 ml 1350 ml BalanceBalance 2175 ml -570 ml Constitutional: alert, oriented Head: normocephalic ENMT: nl external ears & nose, nl lips & teeth, nl nasal mucosa & septum Neck: non-tender Respiratory: diminished breath sounds Gastrointestinal: soft, surgical scars Musculoskeletal: nl extremities to inspection, nl gait and stance Extremities: normal pulses Results Result Diagram: 04/21/19 0556 04/21/19 0556 Results 24hrs Laboratory Tests Test 04/20/19 20:32 04/21/19 01:48 04/21/19 05:32 04/21/19 05:56 Bedside Glucose 117 134 117 White Blood Count 11.3 #H Red Blood Count 5.54 Hemoglobin 16.3 Hematocrit 50.6 Mean Corpuscular 91.3 Volume Mean Corpuscular 29.4 Hemoglobin Mean Corpuscular 32.2 Hemoglobin Concent Red Cell 13.5 Distribution Width Platelet Count 209 Mean Platelet Volume 10.7 H Immature 0.500 H Granulocytes % Neutrophils % 81.5 H Lymphocytes % 9.1 L Monocytes % 8.6 Eosinophils % 0.0 Basophils % 0.3 Nucleated Red Blood 0.0 Cells % Immature 0.060 H Granulocytes # Neutrophils # 9.2 H Lymphocytes # 1.0 Monocytes # 1.0 H Eosinophils # 0.0 Basophils # 0.0 Nucleated Red Blood 0.0 Cells # Sodium Level 141 Potassium Level 4.2 Chloride Level 106 Carbon Dioxide Level 24 Anion Gap 11 Blood Urea Nitrogen 12 Creatinine 0.82 Est Glomerular Filtrat Rate mL/min Glucose Level 134 # Calcium Level 8.6 Total Bilirubin 1.1 Direct Bilirubin 0.00 Indirect Bilirubin 1.1 Aspartate Amino 29 Transf (AST/SGOT) Alanine 27 Aminotransferase (AL T/SGPT) Alkaline Phosphatase 60 Total Protein 6.5 Albumin 3.5 Globulin 3.00 Albumin/Globulin 1.16 Ratio Test 04/21/19 08:27 04/21/19 13:43 04/21/19 16:58 Bedside Glucose 132 126 136 Medications Medication Current Medications IV Flush (NS 3 ml) 3 ml PER PROTOCOL IV ; Start 04/12/19 at 14:00 Acetaminophen (Tylenol Tab) 650 mg Q6H PRN PO ELEVATED TEMPERATURE Last administered on 04/17/19at 04:31; Admin Dose 650 MG; Start 04/12/19 at 14:00 Docusate Sodium (Colace) 100 mg Q12H PRN PO .CONSTIPATION; Start 04/12/19 at 14:00 Magnesium Hydroxide (Milk Of Mag) 30 ml DAILY PRN PO .CONSTIPATION; Start 04/12/19 at 14:00 Zolpidem Tartrate (Ambien) 5 mg QHS PRN PO .INSOMNIA Last administered on at 04:31; Admin Dose 5 MG; Start 04/12/19 at 14:00 Pantoprazole (Protonix Tab) 40 mg DAILY@06 PO Last administered on 04/21/19at 05:28; Admin Dose 40 MG; Start 04/13/19 at 06:00 Diagnostic Test (Pha) (Accu-Chek) 1 ea 02 XX ; Start 04/13/19 at 02:00 Enoxaparin Sodium (Lovenox) 40 mg DAILY SC Last administered on 04/13/19at 08:10; Admin Dose 40 MG; Start 04/13/19 at 09:00; Status Hold Ondansetron HCl (Zofran Inj) 4 mg Q6H PRN IV NAUSEA AND/OR VOMITING; Start 04/12/19 at 14:30 Miscellaneous Information 1 ea NOTE XX ; Start 04/12/19 at 16:00 Glucose (Glutose) 15 gm Q15M PRN PO DECREASED GLUCOSE; Start 04/12/19 at 16:00 Glucose (Glutose) 22.5 gm Q15M PRN PO DECREASED GLUCOSE; Start 04/12/19 at 16:00 Dextrose (D50w Syringe) 25 ml Q15M PRN IV DECREASED GLUCOSE; Start 04/12/19 at 16:00 Dextrose (D50w Syringe) 50 ml Q15M PRN IV DECREASED GLUCOSE; Start 04/12/19 at 16:00 Glucagon (Glucagen) 1 mg Q15M PRN IM DECREASED GLUCOSE; Start 04/12/19 at 16:00 Glucose (Glutose) 15 gm Q15M PRN BUCCAL DECREASED GLUCOSE; Start 04/12/19 at 16:00 Captopril (Capoten) 25 mg TID PO Last administered on 04/21/19at 13:48; Admin Dose 25 MG; Start 04/13/19 at 13:00 Insulin Aspart (Novolog Insulin Pen) NOVOLOG *MODERATE* ALGORI... Q4 SC Last administered on 04/18/19at 17:03; Admin Dose 2 UNIT; Start 04/16/19 at 01:00 Clonidine (Catapres) 0.1 mg Q4H PRN PO SBP > 170; Start 04/17/19 at 07:00 Amlodipine Besylate (Norvasc) 5 mg DAILY PO Last administered on 04/21/19at 08:24; Admin Dose 5 MG; Start 04/19/19 at 09:00 Hydralazine HCl (Apresoline) 25 mg TID PRN PO SBP > 160 Last administered on 04/19/19at 20:54; Admin Dose 25 MG; Start 04/19/19 at 17:00 Sodium Chloride 1,000 ml @ 70 mls/hr [id number] IV Last administered on 04/21/19at 07:31; Admin Dose 80 MLS/HR; Start 04/20/19 at 00:00 Acetaminophen/ Hydrocodone Bitart ([place] (5/325)) 2 tab Q4H PRN PO Pain 6-10; Start 04/20/19 at 15:30 Acetaminophen/ Hydrocodone Bitart ([place] (5/325)) 1 tab Q4H PRN PO Pain 1-5; Start 04/20/19 at 15:30 Morphine Sulfate (morphine) 2 mg Q2H PRN IV Breakthrough PAIN Last administered on 04/21/19at 15:26; Admin Dose 2 MG; Start 04/20/19 at 15:30 Diltiazem HCl (Cardizem Iv) 5 mg Q1H PRN IV HR > 110 OR SBP; > 170; Start 04/20/19 at 17:00 Enalaprilat (Vasotec Iv) 1.25 mg Q4H PRN IV SBP > 180; Start 04/20/19 at 17:00 Carvedilol (Coreg) 3.125 mg BID PO Last administered on 04/21/19at 09:15; Admin Dose 3.125 MG; Start 04/21/19 at 09:00 Enoxaparin Sodium (Lovenox) 40 mg DAILY SC ; Start 04/22/19 at 09:00 LEOPOLDO FORD MD April 21, 2019 17:46
--- NOTE | 2019-04-21 19:29 | PN ---
DATE: 04/21/2019 SUBJECTIVE: The patient was seen. The patient is postop day #1, laparoscopic sigmoid colectomy. Th e patient tolerated overall the procedure well. Vitals have been overall stable, slightly hypertensi ve and complaining of abdominal pain, but otherwise the patient is nontoxic-looking. OBJECTIVE: VITAL SIGNS: Temperature 98.6, pulse 92, respirations 17, blood pressure 160/88, saturation 92% on s upplemental oxygen. GENERAL: No acute distress. HEENT: Normocephalic, atraumatic. CARDIOVASCULAR: S1, S2. LUNGS: Clear. ABDOMEN: Soft, obese, distended, slightly tender to palpation throughout. EXTREMITIES: No clubbing, cyanosis or edema. LABORATORY DATA: White count 11.3, hemoglobin 16.3, hematocrit 51, platelet count 209, neutrophils 8 2%, lymphs 9%. Chemistry: Sodium 141, potassium 4.2, chloride 106, bicarbonate 24, BUN is 12, creat inine 0.82 and glucose of 134. MEDICATIONS: Reviewed, they include: 1. Coreg 3.125 b.i.d. 2. Cardizem p.r.n. 3. [place] p.r.n. 4. Morphine 2 mg IV q.2 p.r.n. 5. Normal saline at 80 mL an hour. 6. Hydralazine 25 t.i.d. p.r.n. 7. Norvasc 5 mg daily. 8. Catapres 0.1 q.4 p.r.n. 9. Insulin aspart per sliding scale. 10. Captopril 25 t.i.d. 11. Protonix 40 mg daily. 12. Hypoglycemia protocol. 13. Colace as directed. 14. Milk of Magnesia. 15. Ambien p.r.n. ASSESSMENT AND PLAN: This is an 78-year-old obese male with history of hypertension, dysli pidemia, atrial fibrillation, diabetes mellitus, who presented with left lower quadrant pain, was fou nd to have metastasis in the liver, was diagnosed with metastatic colon cancer. 1. Metastatic colon cancer with left descending colon mass, status post resection. Follow up pathol ogy report. Outpatient to plan for chemotherapy. Incentive spirometer is in place including SCDs. 2. The patient will be placed on deep venous thrombosis prophylaxis as well with Lovenox. May soon start him on Eliquis possibly because of his history of atrial fibrillation. Cardiology is following . 3. Polycythemia, likely due to obstructive apnea. Weight loss is advised. H and H postop have been stable. Transfuse p.r.n. 4. Physical therapy. Out of bed activity as tolerated. 5. Discontinue Davis catheter. Monitor for urinary retention. Awaiting the patient to pass gas and diet to be advanced appropriately. 6. Postop mild leukocytosis, likely reactive in nature. Monitor for fevers. Monitor WBC. Continue supportive care. We will follow. Dictated By: NIDHI PEREZ/NTS Conf#: [id number] DID#: [id number] CC: LEOPOLDO FORD MD;*EndCC*
[2019-04-21] MEDS: HYDROCODONE/APAP (5/325) TAB PO PRN (20:17)
--- NOTE | 2019-04-21 20:21 | PN ---
Date/Time of Note Date/Time of Note DATE: 04/21/19 TIME: 20:18 Assessment/Plan Lines/Catheters IV Catheter Type (from Nrs): A Line Davis in Place (from Nrs): No (with orders to dc) Assessment/Plan Chief Complaint/Hosp Course 1. 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 Dr. House had a long discussion with the team members including doctors Karen Bautista, & Brianne. Oncologist recommends to proceed with colon resection since chemotherapy not available for the next 2 to 3 weeks anyways. Advised patient that if I go in and there is significant tumor load throughout the abdomen may not be able to proceed with the surgery at this time. On the other hand depending on what happens instead of doing an anastomosis may proceed with a colostomy. Patient fully understands and was agreeable to proceed with surgery. Patient unfortunately had significant hypotension and bradycardia after intubation and surgery was canceled. s/p Lap sigmoid colectomy, splenic mobilization 04/20. -clears -oob/ambulate -IS -ice pack prn -pain meds prn -path pending 2. Multiple liver lesions (insufficient MRI due to motion artifact however demonstrates1.8 cm lesion in the hepatic segment 5, 0.9 cm lesion in the hepatic segment 8, 1.3 cm intermediate T2 hyperintense lesion in the hepatic segment 4B). Adjuvant tx pending 3. BMI 37 with comorbidities, morbid obesity -Encourage nutritional optimization -Encourage exercise optimization 4. Hypertension, diabetes mellitus, dyslipidemia -Encourage nutrition and medication optimization -Encourage weight loss 5. Atrial fibrillation, rate controlled -Cardiac optimization -Electrolyte optimization 6. 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 -Medical and cardiac optimization Thank you Subjective 24 Hr Interval Summary s/p Lap sigmoid colectomy 04/20. Abdominal pain. No flatus or bm. No fevers, chills, sob, congested cough, cp, palpitations, sullivan, dizziness, nausea, vomiting, dysuria. No visual or neuro changes. Exam/Review of Systems Vital Signs Vitals Vital Signs Date Temp Pulse Resp B/P (MAP) Pulse Ox O2 O2 Flow FiO2 Time Delivery Rate 04/21/19 97.9 101 20 137/95 93 20:01 (109) 04/21/19 4.0 13:19 04/21/19 Nasal 03:44 Cannula Intake and Output 04/20/19 04/20/19 04/21/19 1515:00 23:00 07:00 IntakeIntake Total 3200 ml 780 ml OutputOutput Total 1025 ml 1350 ml BalanceBalance 2175 ml -570 ml Exam Free Text/Dictation Constitutional: alert, oriented, obese; No distress Psych: nl mood/affect; No anxiety, No confusion Head: normocephalic, atraumatic Eyes: nl conjunctiva, EOMI, PERRL; No icteric ENMT: nl external ears & nose, mucosa pink and moist Neck: supple; obese Respiratory: normal air movement; No congested cough, No labored breathing, No wheezing Cardiovascular: edema; s1s2 irregular (baseline) No regular rate and rhythm Gastrointestinal: soft, min tender, Obese; moderate distended; kamille serosang No rebound or guarding Genitourinary - Male: nl penis, nl scrotum Musculoskeletal: nl extremities to inspection; No joint tenderness Extremities: normal pulses, edema; No calf tenderness Neurological: nl mental status, nl speech, nl strength Skin: nl turgor; No rash or lesions, No diaphoresis Lymph: nl lymph nodes Results Result Diagram: 04/21/19 0556 04/21/19 0556 VIRGINIE HOUSE MD April 21, 2019 20:21
[2019-04-21] MEDS: ONDANSETRON 4 MG INJ IV PRN (21:52)
[2019-04-22] VITALS (14 sets, daily range): BP systolic 121–190; BP diastolic 79–112; PULSE 82–106; RESP 17–21
[2019-04-22] MEDS: ENALAPRILAT 1.25 MG INJ IV PRN ×2 (00:23→07:31)
[2019-04-22] MEDS: INSULIN ASPART [NOVOLOG] 3 ML PEN SC SCH ×6 (00:34→20:41)
[2019-04-22] MEDS: ACCU-CHEK XX SCH (01:36)
[2019-04-22] MEDS: SOD CHLORIDE 0.9% 1,000 ML IV SCH ×2 (04:26→08:46)
[2019-04-22] MEDS: PANTOPRAZOLE (EC) 40 MG TAB PO SCH (06:52)
--- NOTE | 2019-04-22 07:26 | PAC ---
Date/Time of Note Date/Time of Note DATE: 04/22/19 TIME: 07:25 Post-Anesthesia Notes Post-Anesthesia Note Last documented vital signs Vital Signs Date Temp Pulse Resp B/P (MAP) Pulse Ox O2 O2 Flow FiO2 Time Delivery Rate 04/22/19 98.2 101 19 190/112 92 Room Air 07:12 (138) 04/21/19 4.0 13:19 Activity: WNL Respiratory function: WNL Cardiovascular function: WNL Mental status: Baseline Pain reasonably controlled: Yes Hydration appropriate: Yes Nausea/Vomiting absent: Yes VICTORINA PEDROZA April 22, 2019 07:26
[2019-04-22] MEDS: HYDROCODONE/APAP (5/325) TAB PO PRN ×3 (07:30→21:45)
--- NOTE | 2019-04-22 08:42 | CONS ---
Consult Date/Type/Reason Admit Date/Time April 12, 2019 at 13:45 Initial Consult Date 04/13/19 Type of Consultation: cv Requesting Provider: NIDHI VILLEDA MD Date/Time of Note DATE: 04/22/19 TIME: 08:41 Subjective Interventional cardiology follow-up progress note Subjective: Discussed with the staff and physicians s/p lap colon surgery 04/20/19 still c/o abd pain but less . he has N/V with food though. Patient with no chest pain or pressure. tele was reviewed. Patient remains in atrial fibrillation and HR IS stable/ high no syncope or presyncope s/p colo 04/14/19 No palpitation. Objective: General: Obese gentleman in no acute distress HEENT: NC/AT. pupils are equal. round. NECK: NO JVD. no stridor. CV: Irregularly irregular. systolic murmur; no gallop or rubs. PULM: no wheezing or rhonchi. GI: s/p lap surgery with INEZ drainage in place. + tenderness . + distended. Extremity: trace B/L LE edema. no clubbing. neuro: awake and alert, OX3. Psych: calm and pleasant rectal: deferred EEG was personally reviewed which showed atrial fibrillation. Cannot rule out anteroseptal infarct. Echocardiogram was personally reviewed which shows: There is mild enlargement of left atrium. Normal left ventricular systolic function. Normal left ventricular cavity size. Moderate concentric left ventricular hypertrophy. Ejection fraction is visually estimated at 65 %. Tissue Doppler/Mitral Doppler indices are indeterminate in this study due to the presence of atrial fibrillation. Normal appearance and function of the mitral valve with trace physiologic regurgitation. No hemodynamically significant aortic stenosis by doppler. Aortic cusps appear mildly calcified. Trace to mild aortic valve regurgitation. Normal appearance of the tricuspid valve. Unable to obtain RVSP due to minimal presence of tricuspid regurgitation. Normal size and normal respiratory collapse consistent with normal right atrial pressure. Objective Vitals Vital Signs Date Temp Pulse Resp B/P (MAP) Pulse Ox O2 O2 Flow FiO2 Time Delivery Rate 04/22/19 98.2 101 19 190/112 92 Room Air 07:12 (138) 04/21/19 4.0 13:19 Intake and Output 04/21/19 04/21/19 04/22/19 1515:00 23:00 07:00 IntakeIntake Total 150 ml 720 ml 1200 ml OutputOutput Total 1000 ml 1100 ml BalanceBalance 150 ml -280 ml 100 ml Results/Medications Result Diagram: 04/22/19 0550 04/22/19 0552 Results 24 hrs Laboratory Tests Test 04/21/19 13:43 04/21/19 16:58 04/21/19 21:09 04/22/19 00:30 Bedside Glucose 126 136 149 159 Test 04/22/19 04:26 04/22/19 05:46 04/22/19 05:50 04/22/19 05:52 Bedside Glucose 137 Phosphorus Level 2.6 Magnesium Level 2.0 White Blood Count 11.2 H Red Blood Count 5.75 Hemoglobin 16.8 Hematocrit 51.9 Mean Corpuscular 90.3 Volume Mean Corpuscular 29.2 Hemoglobin Mean Corpuscular 32.4 Hemoglobin Concent Red Cell 13.7 Distribution Width Platelet Count 187 Mean Platelet Volume 11.1 H Immature 0.300 Granulocytes % Neutrophils % 77.7 H Lymphocytes % 9.8 L Monocytes % 11.9 H Eosinophils % 0.1 Basophils % 0.2 Nucleated Red Blood 0.0 Cells % Immature 0.030 Granulocytes # Neutrophils # 8.7 H Lymphocytes # 1.1 Monocytes # 1.3 H Eosinophils # 0.0 Basophils # 0.0 Nucleated Red Blood 0.0 Cells # Sodium Level 140 Potassium Level 4.3 Chloride Level 104 Carbon Dioxide Level 28 Anion Gap 8 Blood Urea Nitrogen 17 Creatinine 0.72 Est Glomerular Filtrat Rate mL/min Glucose Level 138 Calcium Level 9.0 Total Bilirubin 1.1 Direct Bilirubin 0.00 Indirect Bilirubin 1.1 Aspartate Amino 22 Transf (AST/SGOT) Alanine 24 Aminotransferase (AL T/SGPT) Alkaline Phosphatase 54 Total Protein 5.8 L Albumin 3.2 L Globulin 2.60 Albumin/Globulin 1.23 Ratio Test 04/22/19 08:05 Bedside Glucose 140 Home Meds Reported Medications Metoprolol Tartrate* (Lopressor*) 25 Mg Tab, 25 MG PO BID, #60 TAB 04/12/19 Amlodipine Besylate* (Amlodipine Besylate*) 2.5 Mg Tablet, 2.5 MG PO DAILY, #30 TAB 04/12/19 Metformin Hcl* (Metformin Hcl*) 500 Mg Tablet, 500 MG PO WITH MEALS, #90 TAB 04/12/19 Atorvastatin* (Atorvastatin*) 40 Mg Tablet, 40 MG PO QHS, #30 TAB 04/12/19 Medications Current Medications IV Flush (NS 3 ml) 3 ml PER PROTOCOL IV ; Start 04/12/19 at 14:00 Acetaminophen (Tylenol Tab) 650 mg Q6H PRN PO ELEVATED TEMPERATURE Last adm inistered on 04/17/19at 04:31; Admin Dose 650 MG; Start 04/12/19 at 14:00 Docusate Sodium (Colace) 100 mg Q12H PRN PO .CONSTIPATION; Start 04/12/19 at 14:00 Magnesium Hydroxide (Milk Of Mag) 30 ml DAILY PRN PO .CONSTIPATION; Start 04/12/19 at 14:00 Zolpidem Tartrate (Ambien) 5 mg QHS PRN PO .INSOMNIA Last administered on 04/17/19at 04:31; Admin Dose 5 MG; Start 04/12/19 at 14:00 Pantoprazole (Protonix Tab) 40 mg DAILY@06 PO Last administered on 04/22/19at 06:52; Admin Dose 40 MG; Start 04/13/19 at 06:00 Diagnostic Test (Pha) (Accu-Chek) 1 ea 02 XX ; Start 04/13/19 at 02:00 Enoxaparin Sodium (Lovenox) 40 mg DAILY SC Last administered on 04/13/19at 08:10; Admin Dose 40 MG; Start 04/13/19 at 09:00; Status Hold Ondansetron HCl (Zofran Inj) 4 mg Q6H PRN IV NAUSEA AND/OR VOMITING Last administered on 04/21/19at 21:52; Admin Dose 4 MG; Start 04/12/19 at 14:30 Miscellaneous Information 1 ea NOTE XX ; Start 04/12/19 at 16:00 Glucose (Glutose) 15 gm Q15M PRN PO DECREASED GLUCOSE; Start 04/12/19 at 16:00 Glucose (Glutose) 22.5 gm Q15M PRN PO DECREASED GLUCOSE; Start 04/12/19 at 16:00 Dextrose (D50w Syringe) 25 ml Q15M PRN IV DECREASED GLUCOSE; Start 04/12/19 at 16:00 Dextrose (D50w Syringe) 50 ml Q15M PRN IV DECREASED GLUCOSE; Start 04/12/19 at 16:00 Glucagon (Glucagen) 1 mg Q15M PRN IM DECREASED GLUCOSE; Start 04/12/19 at 16:00 Glucose (Glutose) 15 gm Q15M PRN BUCCAL DECREASED GLUCOSE; Start 04/12/19 at 16:00 Captopril (Capoten) 25 mg TID PO Last administered on 04/21/19 13:48; Admin Dose 25 MG; Start 04/13/19 at 13:00 Insulin Aspart (Novolog Insulin Pen) NOVOLOG *MODERATE* ALGORI... Q4 SC Last administered on 04/22/19 00:34; Admin Dose 2 UNIT; Start 04/16/19 at 01:00 Clonidine (Catapres) 0.1 mg Q4H PRN PO SBP > 170 Last administered on 04/22/19 04:22; Admin Dose 0.1 MG; Start 04/17/19 at 07:00 Amlodipine Besylate (Norvasc) 5 mg DAILY PO Last administered on 04/21/19 08:24; Admin Dose 5 MG; Start 04/19/19 at 09:00 Hydralazine HCl (Apresoline) 25 mg TID PRN PO SBP > 160 Last administered on 04/19/19 20:54; Admin Dose 25 MG; Start 04/19/19 at 17:00 Sodium Chloride 1,000 ml @ 70 mls/hr [id number] IV Last administered on 04/22/19 04:26; Admin Dose 70 MLS/HR; Start 04/20/19 at 00:00 Acetaminophen/ Hydrocodone Bitart ([place] (5/325)) 2 tab Q4H PRN PO Pain 6-10 Last administered on 04/22/19 07:30; Admin Dose 2 TAB; Start 04/20/19 at 15:30 Acetaminophen/ Hydrocodone Bitart ([place] (5/325)) 1 tab Q4H PRN PO Pain 1-5; Start 04/20/19 at 15:30 Morphine Sulfate (morphine) 2 mg Q2H PRN IV Breakthrough PAIN Last administered on 04/21/19 21:52; Admin Dose 2 MG; Start 04/20/19 at 15:30 Diltiazem HCl (Cardizem Iv) 5 mg Q1H PRN IV HR > 110 OR SBP; > 170; Start 04/20/19 at 17:00 Enalaprilat (Vasotec Iv) 1.25 mg Q4H PRN IV SBP > 180 Last administered on 04/22at 07:31; Admin Dose 1.25 MG; Start 04/20/19 at 17:00 Carvedilol (Coreg) 3.125 mg BID PO Last administered on 04/21/19at 09:15; Admin Dose 3.125 MG; Start 04/21/19 at 09:00 Enoxaparin Sodium (Lovenox) 40 mg DAILY SC ; Start 04/22/19 at 09:00 Assessment/Plan Hospital Course (Demo Recall) 1. Atrial fibrillation: Appears to be chronically heart rate controlled. P atient would benefit from chronic anticoagulation however currently due to the multiple procedures at this plan is off of anticoagulation 2. Hypertension : but hypotensive during aneshesia 3. Ascending aortic aneurysm at 4.9 cm: We will continue to monitor and control the blood pressure better 4. Likely metastatic colon cancer: work-up and treatment as per oncology and surgical team 5. Diabetes 6. History of CVA 7. Dyslipidemia 8. Cardiovascular preop evaluation: now s./p surgery Recommendations: cont tele monitoring cont coreg as tolerated. cont other cardiac care post op care. cont DVT prophylaxis and GI prophylaxis Thank you for his referral. We will continue to follow along with you RODRICK STEWART MD [facility] RODRICK STEWART MD April 22, 2019 08:42
[2019-04-22] MEDS: ONDANSETRON 4 MG INJ IV PRN ×2 (08:46→14:27)
[2019-04-22] MEDS: DOCUSATE SODIUM 100 MG CAP PO PRN (08:46)
[2019-04-22] MEDS: morphine 2 MG INJ IV PRN ×2 (08:46→22:47)
[2019-04-22] MEDS: AMLODIPINE 10 MG TAB PO SCH (08:47)
[2019-04-22] MEDS: ENOXAPARIN 40 MG/0.4 ML SYG SC SCH (09:11)
--- NOTE | 2019-04-22 11:58 | PN ---
Date/Time of Note Date/Time of Note DATE: 04/22/19 TIME: 11:55 Assessment/Plan Lines/Catheters IV Catheter Type (from Nrs): Central Line Davis in Place (from Nrs): No Assessment/Plan Chief Complaint/Hosp Course 1. 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 Dr. House had a long discussion with the team members including doctors Karen Bautista, & Brianne. Oncologist recommends to proceed with colon resection since chemotherapy not available for the next 2 to 3 weeks anyways. Advised patient that if I go in and there is significant tumor load throughout the abdomen may not be able to proceed with the surgery at this time. On the other hand depending on what happens instead of doing an anastomosis may proceed with a colostomy. Patient fully understands and was agreeable to proceed with surgery. Patient unfortunately had significant hypotension and bradycardia after intubation and surgery was canceled. s/p Lap sigmoid colectomy, splenic mobilization 04/20. -clears> keep on clears for now until bowel function -oob/ambulate> discussed with nursing -IS -ice pack prn -pain meds prn> attempt nonnarcotics initially, limit narcotics if possible -path pending 2. Multiple liver lesions (insufficient MRI due to motion artifact however demonstrates1.8 cm lesion in the hepatic segment 5, 0.9 cm lesion in the hepatic segment 8, 1.3 cm intermediate T2 hyperintense lesion in the hepatic segment 4B). Adjuvant tx pending 3. BMI 37 with comorbidities, morbid obesity -Encourage nutritional optimization -Encourage exercise optimization 4. Hypertension, diabetes mellitus, dyslipidemia -Encourage nutrition and medication optimization -Encourage weight loss 5. Atrial fibrillation, rate controlled -Cardiac optimization -Electrolyte optimization 6. 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 -Medical and cardiac optimization Thank you. Patient seen and examined in collaboration with Dr. Francisco House. Subjective 24 Hr Interval Summary Abdominal pain much improved. Episode of vomiting yesterday, none today. No flatus as of yet. No fevers, chills, sob, congested cough, cp, palpitations, sullivan, dizziness, nausea, vomiting, diarrhea, dysuria. Exam/Review of Systems Vital Signs Vitals Vital Signs Date Temp Pulse Resp B/P (MAP) Pulse Ox O2 O2 Flow FiO2 Time Delivery Rate 04/22/19 97.9 96 18 121/79 91 Room Air 11:35 (93) 04/21/19 4.0 13:19 Intake and Output 04/21/19 04/21/19 04/22/19 1515:00 23:00 07:00 IntakeIntake Total 150 ml 720 ml 1200 ml OutputOutput Total 1000 ml 1100 ml BalanceBalance 150 ml -280 ml 100 ml Exam Free Text/Dictation Constitutional: alert, oriented, obese; No distress Psych: nl mood/affect; No anxiety, No confusion Head: normocephalic, atraumatic Eyes: nl conjunctiva, EOMI, PERRL; No icteric ENMT: nl external ears & nose, mucosa pink and moist Neck: supple; obese Respiratory: normal air movement; No congested cough, No labored breathing, No wheezing Cardiovascular: edema; s1s2 irregular (baseline) No regular rate and rhythm Gastrointestinal: soft, min tender, Obese; moderate distended; kamille serosang No rebound or guarding Genitourinary - Male: nl penis, nl scrotum Musculoskeletal: nl extremities to inspection; No joint tenderness Extremities: normal pulses, edema; No calf tenderness Neurological: nl mental status, nl speech, nl strength Skin: nl turgor; No rash or lesions, No diaphoresis Lymph: nl lymph nodes Results Result Diagram: 04/22/19 0550 04/22/19 0552 YUMIKO ALBRIGHT NP April 22, 2019 11:58
--- NOTE | 2019-04-22 12:11 | CONS ---
Assessment/Plan Assessment/Plan Assessment/Plan (Daily) Assessment/Plan (Daily) Assessment/Plan Hospital Course (Demo Recall) 78 yo male 1. Multiple mets in the liver with elevated CA 19-9 and CEA 2. Diabetes mellitus. 3. Atrial fibrillation. 4. Obesity. 5. Polycythemia. 6. Dyspnea on exertion -CXR shows low lung volume secondary to compression 7. Wall thickening with surrounding fat stranding in sigmoid colon seen in CT -Colitis vs diverticulitis (does c/o LLQ/L groin pain, wbc wnl, afebrile, no abx so less likely diverticulitis) vs neoplasm 8. Elevated CEA and CA 19-9 9. Fatty liver 10. Cardiomyopathy noted on CT 11. Enlarged prostate gland 12. Adenocarcinoma in colon 13. Status post laparoscopy sigmoid colon resection, awaiting for the patient to pass flatus or moved bowel Plan Continue postoperative care Continue with pain management the pain is now under control. Consultation Date/Type/Reason Admit Date/Time April 12, 2019 at 13:45 Initial Consult Date 04/14/19 Requesting Provider: NIDHI VILLEDA MD Date/Time of Note DATE: 04/22/19 TIME: 12:10 24 HR Interval Summary Free Text/Dictation Did not pass flatus Constitutional: improved Exam/Review of Systems Exam Vitals Vital Signs Date Temp Pulse Resp B/P (MAP) Pulse Ox O2 O2 Flow FiO2 Time Delivery Rate 04/22/19 Room Air 12:06 04/22/19 97.9 96 18 121/79 91 11:35 (93) 04/21/19 4.0 13:19 Intake and Output 04/21/19 04/21/19 04/22/19 1515:00 23:00 07:00 IntakeIntake Total 150 ml 720 ml 1200 ml OutputOutput Total 1000 ml 1100 ml BalanceBalance 150 ml -280 ml 100 ml Constitutional: alert, oriented, well developed Psych: no complaints, nl mood/affect Head: normocephalic, atraumatic Eyes: nl conjunctiva, EOMI, nl lids, nl sclera, PERRL ENMT: nl external ears & nose, nl lips & teeth, nl nasal mucosa & septum Neck: supple, non-tender Respiratory: clear to auscultation, normal air movement Cardiovascular: regular rate and rhythm, nl pulses Gastrointestinal: soft, nl liver, spleen, non-tender Musculoskeletal: nl extremities to inspection, nl gait and stance Extremities: normal pulses Neurological: NON [employer] II-XII intact, nl mental status, nl speech, nl strength Skin: nl turgor; No rash or lesions Lymph: nl lymph nodes Results Result Diagram: 04/22/19 0550 04/22/19 0552 Results 24hrs Laboratory Tests Test 04/21/19 13:43 04/21/19 16:58 04/21/19 21:09 04/22/19 00:30 Bedside Glucose 126 136 149 159 Test 04/22/19 04:26 04/22/19 05:46 04/22/19 05:50 04/22/19 05:52 Bedside Glucose 137 Phosphorus Level 2.6 Magnesium Level 2.0 White Blood Count 11.2 H Red Blood Count 5.75 Hemoglobin 16.8 Hematocrit 51.9 Mean Corpuscular 90.3 Volume Mean Corpuscular 29.2 Hemoglobin Mean Corpuscular 32.4 Hemoglobin Concent Red Cell 13.7 Distribution Width Platelet Count 187 Mean Platelet Volume 11.1 H Immature 0.300 Granulocytes % Neutrophils % 77.7 H Lymphocytes % 9.8 L Monocytes % 11.9 H Eosinophils % 0.1 Basophils % 0.2 Nucleated Red Blood 0.0 Cells % Immature 0.030 Granulocytes # Neutrophils # 8.7 H Lymphocytes # 1.1 Monocytes # 1.3 H Eosinophils # 0.0 Basophils # 0.0 Nucleated Red Blood 0.0 Cells # Sodium Level 140 Potassium Level 4.3 Chloride Level 104 Carbon Dioxide Level 28 Anion Gap 8 Blood Urea Nitrogen 17 Creatinine 0.72 Est Glomerular Filtrat Rate mL/min Glucose Level 138 Calcium Level 9.0 Total Bilirubin 1.1 Direct Bilirubin 0.00 Indirect Bilirubin 1.1 Aspartate Amino 22 Transf (AST/SGOT) Alanine 24 Aminotransferase (AL T/SGPT) Alkaline Phosphatase 54 Total Protein 5.8 L Albumin 3.2 L Globulin 2.60 Albumin/Globulin 1.23 Ratio Test 04/22/19 08:05 Bedside Glucose 140 Medications Medication Current Medications IV Flush (NS 3 ml) 3 ml PER PROTOCOL IV ; Start 04/12/19 at 14:00 Acetaminophen (Tylenol Tab) 650 mg Q6H PRN PO ELEVATED TEMPERATURE Last administered on 04/17/19at 04:31; Admin Dose 650 MG; Start 04/12/19 at 14:00 Docusate Sodium (Colace) 100 mg Q12H PRN PO .CONSTIPATION Last administered on 04/22/19at 08:46; Admin Dose 100 MG; Start 04/12/19 at 14:00 Magnesium Hydroxide (Milk Of Mag) 30 ml DAILY PRN PO .CONSTIPATION; Start 04/12/19 at 14:00 Zolpidem Tartrate (Ambien) 5 mg QHS PRN PO .INSOMNIA Last administered on 04/17/19 04:31; Admin Dose 5 MG; Start 04/12/19 at 14:00 Pantoprazole (Protonix Tab) 40 mg DAILY@06 PO Last administered on 04/22/19 06:52; Admin Dose 40 MG; Start 04/13/19 at 06:00 Diagnostic Test (Pha) (Accu-Chek) 1 ea 02 XX ; Start 04/13/19 at 02:00 Ondansetron HCl (Zofran Inj) 4 mg Q6H PRN IV NAUSEA AND/OR VOMITING Last administered on 04/22/19 08:46; Admin Dose 4 MG; Start 04/12/19 at 14:30 Miscellaneous Information 1 ea NOTE XX ; Start 04/12/19 at 16:00 Glucose (Glutose) 15 gm Q15M PRN PO DECREASED GLUCOSE; Start 04/12/19 at 16:00 Glucose (Glutose) 22.5 gm Q15M PRN PO DECREASED GLUCOSE; Start 04/12/19 at 16:00 Dextrose (D50w Syringe) 25 ml Q15M PRN IV DECREASED GLUCOSE; Start 04/12/19 at 16:00 Dextrose (D50w Syringe) 50 ml Q15M PRN IV DECREASED GLUCOSE; Start 04/12/19 at 16:00 Glucagon (Glucagen) 1 mg Q15M PRN IM DECREASED GLUCOSE; Start 04/12/19 at 16:00 Glucose (Glutose) 15 gm Q15M PRN BUCCAL DECREASED GLUCOSE; Start 04/12/19 at 16:00 Captopril (Capoten) 25 mg TID PO Last administered on 04/22/19at 08:47; Admin Dose 25 MG; Start 04/13/19 at 13:00 Insulin Aspart (Novolog Insulin Pen) NOVOLOG *MODERATE* ALGORI... Q4 SC Last administered on 04/22/19at 00:34; Admin Dose 2 UNIT; Start 04/16/19 at 01:00 Clonidine (Catapres) 0.1 mg Q4H PRN PO SBP > 170 Last administered on 04/22/19 04:22; Admin Dose 0.1 MG; Start 04/17/19 at 07:00 Amlodipine Besylate (Norvasc) 5 mg DAILY PO Last administered on 04/22/19 08:47; Admin Dose 5 MG; Start 04/19/19 at 09:00 Hydralazine HCl (Apresoline) 25 mg TID PRN PO SBP > 160 Last administered on 04/19/19 20:54; Admin Dose 25 MG; Start 04/19/19 at 17:00 Sodium Chloride 1,000 ml @ 70 mls/hr [id number] IV Last administered on 04/22/19 08:46; Admin Dose 70 MLS/HR; Start 04/20/19 at 00:00 Acetaminophen/ Hydrocodone Bitart ([place] (5/325)) 2 tab Q4H PRN PO Pain 6-10 Last administered on 04/22/19 07:30; Admin Dose 2 TAB; Start 04/20/19 at 15:30 Acetaminophen/ Hydrocodone Bitart ([place] (5/325)) 1 tab Q4H PRN PO Pain 1-5; Start 04/20/19 at 15:30 Morphine Sulfate (morphine) 2 mg Q2H PRN IV Breakthrough PAIN Last administered on 04/22/19 08:46; Admin Dose 2 MG; Start 04/20/19 at 15:30 Diltiazem HCl (Cardizem Iv) 5 mg Q1H PRN IV HR > 110 OR SBP; > 170; Start 04/20/19 at 17:00 Enalaprilat (Vasotec Iv) 1.25 mg Q4H PRN IV SBP > 180 Last administered on 04/22/19 07:31; Admin Dose 1.25 MG; Start 04/20/19 at 17:00 Carvedilol (Coreg) 3.125 mg BID PO Last administered on 04/22/19 08:47; Admin Dose 3.125 MG; Start 04/21/19 at 09:00 Enoxaparin Sodium (Lovenox) 40 mg DAILY SC Last administered on 04/22/19 09:11; Admin Dose 40 MG; Start 04/22/19 at 09:00 LEOPOLDO FORD MD April 22, 2019 12:11
--- NOTE | 2019-04-22 13:10 | CONS ---
Assessment/Plan Assessment/Plan Hospital Course (Demo Recall) #Sigmoid colon mass #Liver lesions - Abdominal MRI demonstrates a 1.8 cm lesion in the hepatic segment 5, 0.9 cm lesion in the hepatic segment 8, 1.3 cm intermediate T2 hyperintense lesion in the hepatic segment 4B, #Luis cardia #Atrial fibrillation #hypertension #dyslipidemia #diabetes mellitus #CVA 10 years ago with no residual deficits, -s/p surgery. will follow up path report -pt most likely has STAGE IV colon cancer with oligometastatic disease to the liver -This would then be followed by at least 6 months of 5fu based chemotherapy with a potential transition to maintenance Xeloda -will refer to Dr. Grigsby for consideration of y-90 liver directed therapy to his metastatic liver lesions -appreciate cardiology recs to control patients afib and episodes of bradycardia -continue management of HTN, HL, DM and Afib per primary team - Consultation Date/Type/Reason Admit Date/Time April 12, 2019 at 13:45 Initial Consult Date 04/14/19 Type of Consult oncology Reason for Consultation colon cancer Requesting Provider: NIDHI VILLEDA MD Date/Time of Note DATE: 04/22/19 TIME: 13:09 24 HR Interval Summary Free Text/Dictation recovering well from surgery Exam/Review of Systems Exam Vitals Vital Signs Date Temp Pulse Resp B/P (MAP) Pulse Ox O2 O2 Flow FiO2 Time Delivery Rate 04/22/19 Room Air 12:06 04/22/19 90 12:00 04/22/19 97.9 18 121/79 91 11:35 (93) 04/21/19 4.0 13:19 Intake and Output 04/21/19 04/21/19 04/22/19 1515:00 23:00 07:00 IntakeIntake Total 150 ml 720 ml 1200 ml OutputOutput Total 1000 ml 1100 ml BalanceBalance 150 ml -280 ml 100 ml Constitutional: alert, oriented Psych: no complaints Head: normocephalic Eyes: nl conjunctiva ENMT: nl external ears & nose Neck: supple Respiratory: clear to auscultation Cardiovascular: regular rate and rhythm Gastrointestinal: distended, firm, other Musculoskeletal: nl extremities to inspection Results Result Diagram: 04/22/19 0550 04/22/19 0552 Results 24hrs Laboratory Tests Test 04/21/19 13:43 04/21/19 16:58 04/21/19 21:09 04/22/19 00:30 Bedside Glucose 126 136 149 159 Test 04/22/19 04:26 04/22/19 05:46 04/22/19 05:50 04/22/19 05:52 Bedside Glucose 137 Phosphorus Level 2.6 Magnesium Level 2.0 White Blood Count 11.2 H Red Blood Count 5.75 Hemoglobin 16.8 Hematocrit 51.9 Mean Corpuscular 90.3 Volume Mean Corpuscular 29.2 Hemoglobin Mean Corpuscular 32.4 Hemoglobin Concent Red Cell 13.7 Distribution Width Platelet Count 187 Mean Platelet Volume 11.1 H Immature 0.300 Granulocytes % Neutrophils % 77.7 H Lymphocytes % 9.8 L Monocytes % 11.9 H Eosinophils % 0.1 Basophils % 0.2 Nucleated Red Blood 0.0 Cells % Immature 0.030 Granulocytes # Neutrophils # 8.7 H Lymphocytes # 1.1 Monocytes # 1.3 H Eosinophils # 0.0 Basophils # 0.0 Nucleated Red Blood 0.0 Cells # Sodium Level 140 Potassium Level 4.3 Chloride Level 104 Carbon Dioxide Level 28 Anion Gap 8 Blood Urea Nitrogen 17 Creatinine 0.72 Est Glomerular Filtrat Rate mL/min Glucose Level 138 Calcium Level 9.0 Total Bilirubin 1.1 Direct Bilirubin 0.00 Indirect Bilirubin 1.1 Aspartate Amino 22 Transf (AST/SGOT) Alanine 24 Aminotransferase (AL T/SGPT) Alkaline Phosphatase 54 Total Protein 5.8 L Albumin 3.2 L Globulin 2.60 Albumin/Globulin 1.23 Ratio Test 04/22/19 08:05 Bedside Glucose 140 Medications Medication Current Medications IV Flush (NS 3 ml) 3 ml PER PROTOCOL IV ; Start 04/12/19 at 14:00 Acetaminophen (Tylenol Tab) 650 mg Q6H PRN PO ELEVATED TEMPERATURE Last administered on 04/17/19at 04:31; Admin Dose 650 MG; Start 04/12/19 at 14:00 Docusate Sodium (Colace) 100 mg Q12H PRN PO .CONSTIPATION Last administered on 04/22/19at 08:46; Admin Dose 100 MG; Start 04/12/19 at 14:00 Magnesium Hydroxide (Milk Of Mag) 30 ml DAILY PRN PO .CONSTIPATION; Start at 14:00 Zolpidem Tartrate (Ambien) 5 mg QHS PRN PO .INSOMNIA Last administered on 04/17/19 04:31; Admin Dose 5 MG; Start 04/12/19 at 14:00 Pantoprazole (Protonix Tab) 40 mg DAILY@06 PO Last administered on 04/22/19 06:52; Admin Dose 40 MG; Start 04/13/19 at 06:00 Diagnostic Test (Pha) (Accu-Chek) 1 ea 02 XX ; Start 04/13/19 at 02:00 Ondansetron HCl (Zofran Inj) 4 mg Q6H PRN IV NAUSEA AND/OR VOMITING Last administered on 04/22/19 08:46; Admin Dose 4 MG; Start 04/12/19 at 14:30 Miscellaneous Information 1 ea NOTE XX ; Start 04/12/19 at 16:00 Glucose (Glutose) 15 gm Q15M PRN PO DECREASED GLUCOSE; Start 04/12/19 at 16:00 Glucose (Glutose) 22.5 gm Q15M PRN PO DECREASED GLUCOSE; Start 04/12/19 at 16:00 Dextrose (D50w Syringe) 25 ml Q15M PRN IV DECREASED GLUCOSE; Start 04/12/19 at 16:00 Dextrose (D50w Syringe) 50 ml Q15M PRN IV DECREASED GLUCOSE; Start 04/12/19 at 16:00 Glucagon (Glucagen) 1 mg Q15M PRN IM DECREASED GLUCOSE; Start 04/12/19 at 16:00 Glucose (Glutose) 15 gm Q15M PRN BUCCAL DECREASED GLUCOSE; Start 04/12/19 at 16:00 Captopril (Capoten) 25 mg TID PO Last administered on 04/22/19 08:47; Admin Dose 25 MG; Start 04/13/19 at 13:00 Insulin Aspart (Novolog Insulin Pen) NOVOLOG *MODERATE* ALGORI... Q4 SC Last administered on 04/22/19 00:34; Admin Dose 2 UNIT; Start 04/16/19 at 01:00 Clonidine (Catapres) 0.1 mg Q4H PRN PO SBP > 170 Last administered on 04/22/19 04:22; Admin Dose 0.1 MG; Start 04/17/19 at 07:00 Amlodipine Besylate (Norvasc) 5 mg DAILY PO Last administered on 04/22/19 08:47; Admin Dose 5 MG; Start 04/19/19 at 09:00 Hydralazine HCl (Apresoline) 25 mg TID PRN PO SBP > 160 Last administered on 04/19/19 20:54; Admin Dose 25 MG; Start 04/19/19 at 17:00 Sodium Chloride 1,000 ml @ 70 mls/hr [id number] IV Last administered on 04/22/19 08:46; Admin Dose 70 MLS/HR; Start 04/20/19 at 00:00 Acetaminophen/ Hydrocodone Bitart ([place] (5/325)) 2 tab Q4H PRN PO Pain 6-10 Last administered on 04/22/19 07:30; Admin Dose 2 TAB; Start 04/20/19 at 15:30 Acetaminophen/ Hydrocodone Bitart ([place] (5/325)) 1 tab Q4H PRN PO Pain 1-5; Start 04/20/19 at 15:30 Morphine Sulfate (morphine) 2 mg Q2H PRN IV Breakthrough PAIN Last administered on 04/22/19 08:46; Admin Dose 2 MG; Start 04/20/19 at 15:30 Diltiazem HCl (Cardizem Iv) 5 mg Q1H PRN IV HR > 110 OR SBP; > 170; Start 04/20/19 at 17:00 Enalaprilat (Vasotec Iv) 1.25 mg Q4H PRN IV SBP > 180 Last administered on 04/22/19 07:31; Admin Dose 1.25 MG; Start 04/20/19 at 17:00 Carvedilol (Coreg) 3.125 mg BID PO Last administered on 04/22/19 08:47; Admin Dose 3.125 MG; Start 04/21/19 at 09:00 Enoxaparin Sodium (Lovenox) 40 mg DAILY SC Last administered on 04/22/19 09:11; Admin Dose 40 MG; Start 04/22/19 at 09:00 SHADI FUENTES M.D. April 22, 2019 13:10
--- NOTE | 2019-04-22 17:15 | PN ---
DATE: 04/22/2019 SUBJECTIVE: The patient was seen, appears to be comfortable, participated with physical therapy, not ed slight lower extremity edema. The patient states his abdominal pain has improved. PHYSICAL EXAMINATION: VITAL SIGNS: Temperature 97.9, pulse 98, respirations 18, blood pressure 121/79, saturation 91% to 9 2% on room air. GENERAL: In no acute distress. HEENT: Normocephalic, atraumatic. Pale. CARDIOVASCULAR: S1, S2. Regular rate. LUNGS: Clear. ABDOMEN: Soft, distended. EXTREMITIES: Trace to +1 edema bilateral lower extremities. LABORATORY DATA: White count 11.2, hemoglobin 15.8, hematocrit 46.2, platelets 187, neutrophils 78%, lymphs 10%. Chemistry: Sodium 140, potassium 4.3, chloride 104, bicarbonate 28, BUN is 17, creatin ine 0.82, glucose 138. Last glucose of 151 and 140. CURRENT MEDICATIONS: Include: 1. Lovenox 40 mg subcutaneous daily. 2. Coreg 3.125 b.i.d. 3. Cardizem p.r.n. 4. Vasotec p.r.n. 5. [place] p.r.n. 6. Morphine p.r.n. 7. The patient is on normal saline at 70 mL an hour with Hep-Lock. 8. Hydralazine 25 t.i.d. p.r.n. 9. Norvasc 5 mg daily. 10. Catapres p.r.n. 11. Insulin per sliding scale. 12. Captopril 25 t.i.d. 13. Potassium daily. 14. Hypoglycemia protocol as directed. 15. Colace. 16. Hydralazine. 17. Ambien p.r.n. ASSESSMENT AND PLAN: This is an 78-year-old obese male with history of hypertension, dysli pidemia, atrial fibrillation, diabetes mellitus, presents with left lower left lower quadrant pain, w as found to have metastatic colon cancer to the liver. 1. Metastatic colon cancer, status post colon cancer resection, postop day #2. Continue physical th erapy, incentive spirometer, pain control, deep venous thrombosis prophylaxis and gastrointestinal pr ophylaxis are being provided. Follow up pathology report and discussed outpatient plan of care as th e patient will require chemotherapy and liver targeted therapy possibly as an outpatient basis. 2. Polycythemia. H and H is stable. 3. Physical therapy as tolerated. 4. Encourage out of bed activity. 5. Hep-Lock IV fluids in the setting of lower extremity edema. Continue clear liquids as tolerated. Diet to be advanced in the left later time when passing gas per surgical team. Again, the patient is on deep vein thrombosis prophylaxis and gastrointestinal prophylaxis. Encourage ambulation. 6. Hypertension, controlled with above meds. We will follow. Dictated By: NIDHI PEREZ/RUIZ Conf#: [id number] DID#: [id number] CC: LEOPOLDO FORD MD;*EndCC*
[2019-04-23] VITALS (11 sets, daily range): BP systolic 129–163; BP diastolic 82–109; PULSE 76–99; RESP 18–20
[2019-04-23] MEDS: INSULIN ASPART [NOVOLOG] 3 ML PEN SC SCH ×6 (00:19→20:32)
[2019-04-23] MEDS: ACCU-CHEK XX SCH (02:00)
[2019-04-23] MEDS: HYDROCODONE/APAP (5/325) TAB PO PRN ×4 (04:02→21:42)
[2019-04-23] MEDS: PANTOPRAZOLE (EC) 40 MG TAB PO SCH (05:00)
[2019-04-23] MEDS: DOCUSATE SODIUM 100 MG CAP PO PRN (09:40)
[2019-04-23] MEDS: AMLODIPINE 10 MG TAB PO SCH (09:41)
[2019-04-23] MEDS: ONDANSETRON 4 MG INJ IV PRN (09:41)
[2019-04-23] MEDS: ENOXAPARIN 40 MG/0.4 ML SYG SC SCH (09:57)
--- NOTE | 2019-04-23 14:59 | CONS ---
Assessment/Plan Assessment/Plan Assessment/Plan (Daily) Assessment/Plan Hospital Course (Demo Recall) 78 yo male 1. Multiple mets in the liver with elevated CA 19-9 and CEA 2. Diabetes mellitus. 3. Atrial fibrillation. 4. Obesity. 5. Polycythemia. 6. Dyspnea on exertion -CXR shows low lung volume secondary to compression 7. Wall thickening with surrounding fat stranding in sigmoid colon seen in CT -Colitis vs diverticulitis (does c/o LLQ/L groin pain, wbc wnl, afebrile, no abx so less likely diverticulitis) vs neoplasm 8. Elevated CEA and CA 19-9 9. Fatty liver 10. Cardiomyopathy noted on CT 11. Enlarged prostate gland 12. Adenocarcinoma in colon 13. Status post laparoscopy sigmoid colon resection, awaiting for the patient to pass flatus or moved bowel Plan Continue postoperative care Continue with pain management Clear liquid diet Consultation Date/Type/Reason Admit Date/Time April 12, 2019 at 13:45 Initial Consult Date 04/14/19 Requesting Provider: NIDHI VILLEDA MD Date/Time of Note DATE: 04/23/19 TIME: 14:58 24 HR Interval Summary Free Text/Dictation Able to move his bowels, passed flatus Constitutional: improved Exam/Review of Systems Exam Vitals Vital Signs Date Temp Pulse Resp B/P (MAP) Pulse Ox O2 O2 Flow FiO2 Time Delivery Rate 04/23/19 Room Air 13:42 04/23/19 92 12:09 04/23/19 98.2 19 153/82 93 10:53 (105) 04/21/19 4.0 13:19 Intake and Output 04/22/19 04/22/19 04/23/19 1515:00 23:00 07:00 IntakeIntake Total 490 ml 1000 ml 700 ml OutputOutput Total 180 ml 1590 ml 170 ml BalanceBalance 310 ml -590 ml 530 ml Constitutional: alert, oriented, well developed Psych: no complaints, nl mood/affect Head: normocephalic, atraumatic Eyes: nl conjunctiva, EOMI, nl lids, nl sclera, PERRL ENMT: nl external ears & nose, nl lips & teeth, nl nasal mucosa & septum Neck: supple, non-tender Respiratory: clear to auscultation, normal air movement Cardiovascular: regular rate and rhythm, nl pulses Gastrointestinal: soft, nl liver, spleen, non-tender Musculoskeletal: nl extremities to inspection, nl gait and stance Extremities: normal pulses Neurological: MAKE [employer]OR II-XII intact, nl mental status, nl speech, nl strength Skin: nl turgor; No rash or lesions Lymph: nl lymph nodes Results Result Diagram: 04/22/19 0550 04/22/19 0552 Results 24hrs Laboratory Tests Test 04/22/19 17:24 04/22/19 20:40 04/23/19 00:19 04/23/19 04:06 Bedside Glucose 160 114 109 130 Test 04/23/19 07:26 04/23/19 12:51 Bedside Glucose 118 143 Medications Medication Current Medications IV Flush (NS 3 ml) 3 ml PER PROTOCOL IV ; Start 04/12/19 at 14:00 Acetaminophen (Tylenol Tab) 650 mg Q6H PRN PO ELEVATED TEMPERATURE Last administered on 04/17/19 04:31; Admin Dose 650 MG; Start 04/12/19 at 14:00 Docusate Sodium (Colace) 100 mg Q12H PRN PO .CONSTIPATION Last administered on 04/23/19 09:40; Admin Dose 100 MG; Start 04/12/19 at 14:00 Magnesium Hydroxide (Milk Of Mag) 30 ml DAILY PRN PO .CONSTIPATION Last administered on 04/23/19 00:22; Admin Dose 30 ML; Start 04/12/19 at 14:00 Zolpidem Tartrate (Ambien) 5 mg QHS PRN PO .INSOMNIA Last administered on 04/17/19 04:31; Admin Dose 5 MG; Start 04/12/19 at 14:00 Pantoprazole (Protonix Tab) 40 mg DAILY@06 PO Last administered on 04/23/19 05:00; Admin Dose 40 MG; Start 04/13/19 at 06:00 Diagnostic Test (Pha) (Accu-Chek) 1 ea 02 XX ; Start 04/13/19 at 02:00 Ondansetron HCl (Zofran Inj) 4 mg Q6H PRN IV NAUSEA AND/OR VOMITING Last administered on 04/23/19 09:41; Admin Dose 4 MG; Start 04/12/19 at 14:30 Miscellaneous Information 1 ea NOTE XX ; Start 04/12/19 at 16:00 Glucose (Glutose) 15 gm Q15M PRN PO DECREASED GLUCOSE; Start 04/12/19 at 16:00 Glucose (Glutose) 22.5 gm Q15M PRN PO DECREASED GLUCOSE; Start 04/12/19 at 16:00 Dextrose (D50w Syringe) 25 ml Q15M PRN IV DECREASED GLUCOSE; Start 04/12/19 at 16:00 Dextrose (D50w Syringe) 50 ml Q15M PRN IV DECREASED GLUCOSE; Start 04/12/19 at 16:00 Glucagon (Glucagen) 1 mg Q15M PRN IM DECREASED GLUCOSE; Start 04/12/19 at 16:00 Glucose (Glutose) 15 gm Q15M PRN BUCCAL DECREASED GLUCOSE; Start 04/12/19 at 16:00 Captopril (Capoten) 25 mg TID PO Last administered on 04/23/19 12:58; Admin Dose 25 MG; Start 04/13/19 at 13:00 Insulin Aspart (Novolog Insulin Pen) NOVOLOG *MODERATE* ALGORI... Q4 SC Last administered on 04/22/19 17:30; Admin Dose 2 UNIT; Start 04/16/19 at 01:00 Clonidine (Catapres) 0.1 mg Q4H PRN PO SBP > 170 Last administered on 04/22/19 04:22; Admin Dose 0.1 MG; Start 04/17/19 at 07:00 Amlodipine Besylate (Norvasc) 5 mg DAILY PO Last administered on 04/23/19 09: 41; Admin Dose 5 MG; Start 04/19/19 at 09:00 Hydralazine HCl (Apresoline) 25 mg TID PRN PO SBP > 160 Last administered on 04/23/19 00:21; Admin Dose 25 MG; Start 04/19/19 at 17:00 Acetaminophen/ Hydrocodone Bitart ([place] (5/325)) 2 tab Q4H PRN PO Pain 6-10 Last administered on 04/23/19 09:41; Admin Dose 2 TAB; Start 04/20/19 at 15:30 Acetaminophen/ Hydrocodone Bitart ([place] (5/325)) 1 tab Q4H PRN PO Pain 1-5; Start 04/20/19 at 15:30 Morphine Sulfate (morphine) 2 mg Q2H PRN IV Breakthrough PAIN Last administered on 04/22/19 22:47; Admin Dose 2 MG; Start 04/20/19 at 15:30 Diltiazem HCl (Cardizem Iv) 5 mg Q1H PRN IV HR > 110 OR SBP; > 170; Start 04/20/19 at 17:00 Enalaprilat (Vasotec Iv) 1.25 mg Q4H PRN IV SBP > 180 Last administered on 04/22/19at 07:31; Admin Dose 1.25 MG; Start 04/20/19 at 17:00 Carvedilol (Coreg) 3.125 mg BID PO Last administered on 04/23/19at 09:41; Admin Dose 3.125 MG; Start 04/21/19 at 09:00 Enoxaparin Sodium (Lovenox) 40 mg DAILY SC Last administered on 04/23/19at 09:57; Admin Dose 40 MG; Start 04/22/19 at 09:00 Miscellaneous Information Patients own medicat... BID@10,16 XX ; Start 04/23/19 at 16:00 LEOPOLDO FORD MD April 23, 2019 14:59
--- NOTE | 2019-04-23 15:17 | PN ---
DATE: 04/23/2019 SUBJECTIVE: The patient was seen. The patient was noted to be ambulating, very weak, complaining of poor appetite and nauseated, episodes of vomiting. The patient does report passing gas. PHYSICAL EXAMINATION: VITAL SIGNS: Temperature 98.2, pulse 72, respirations 19, blood pressure 153/82, saturation 93%. GENERAL: The patient in no acute distress, obese. HEENT: Pale. CARDIOVASCULAR: S1, S2. Regular rate. LUNGS: Clear. ABDOMEN: Soft, distended. Does have a INEZ drainage. EXTREMITIES: No clubbing, cyanosis. The patient does have 1+ nonpitting edema bilateral lower extre mities. LABORATORY DATA: White count 11.2, hemoglobin 16.8, hematocrit 52, platelet count 187, neutrophils 7 7%, lymphocytes 10%, monocytes 12%. Chemistry: Sodium 140, potassium 4.3. This was yesterday not t [place]. The other lab also was from yesterday so no new labs today. Last glucose of 143, 118 and 130. Urine culture on admission is negative. MRSA screening is negative. PATHOLOGY REPORT: Showed the following: Infiltrating moderately differentiated adenocarcinoma, tumo r invades through the muscularis propria into pericolorectal tissue. There is metastatic adenocarcin nazia to 2/8 mesenteric lymph nodes. There is tubular adenoma. MEDICATIONS: 1. Lovenox 40 mg subcutaneously daily. 2. Coreg 3.125 b.i.d. 3. Diltiazem p.r.n. 4. Vasotec p.r.n. 5. [place] p.r.n. 6. Morphine sulfate p.r.n. 7. Hydralazine p.r.n. 8. Norvasc 5 mg daily. 9. Catapres p.r.n. 10. Insulin aspart per sliding scale. 11. Catapres 25 daily. 12. Potassium daily. 13. Accu-Chek as directed. 14. Tylenol p.r.n. 15. Milk of Magnesia. 16. Ambien p.r.n. ASSESSMENT AND PLAN: This is an unfortunate 78-year-old obese male with history of hyperte nsion, dyslipidemia, atrial fibrillation, diabetes mellitus, presents with left lower abdominal pain, was found to have colon mass, most consistent with metastatic colon cancer to the liver. 1. Metastatic colon cancer to the liver postop day #3. Continue physical therapy, incentive spirome ter, pain control, deep vein thrombosis prophylaxis and gastrointestinal prophylaxis. Physical thera py to follow. We will make sure he has a front-wheel walker. 2. We will advance diet to full liquid diet as the patient is passing gas. 3. Continue deep vein thrombosis prophylaxis and gastrointestinal prophylaxis. 4. INEZ drainage and postop care per surgical team. 5. Diabetes mellitus, controlled with above insulin regimen. 6. Follow up with oncology for chemotherapy as an outpatient basis. [facility] 7. Follow up labs tomorrow. 8. If the patient clinically improves, disposition soon. We will follow. Dictated By: NIDHI PEREZ/RUIZ Conf#: [id number] DID#: [id number] CC: LEOPOLDO FORD MD;*EndCC*
--- NOTE | 2019-04-23 17:50 | CONS ---
Consult Date/Type/Reason Admit Date/Time April 12, 2019 at 13:45 Initial Consult Date 04/13/19 Type of Consultation: cv Requesting Provider: NIDHI VILLEDA MD Date/Time of Note DATE: 04/23/19 TIME: 17:48 Subjective Interventional cardiology follow-up progress note Subjective: Discussed with the staff and tele was reviewed. Patient remains in atrial fibrillation and HR IS stable he has less abd pain Patient with no chest pain or pressure. no syncope or presyncope s/p colo 04/14/19 s/p lap colon surgery 04/20/19 No palpitation. Objective: General: Obese gentleman in no acute distress HEENT: NC/AT. pupils are equal. round. NECK: NO JVD. no stridor. CV: Irregularly irregular. systolic murmur; no gallop or rubs. PULM: no wheezing or rhonchi. GI: s/p lap surgery with INEZ drainage in place. + tenderness . . Extremity: trace B/L LE edema. no clubbing. neuro: awake and alert, OX3. Psych: calm and pleasant rectal: deferred EEG was personally reviewed which showed atrial fibrillation. Cannot rule out anteroseptal infarct. Echocardiogram was personally reviewed which shows: There is mild enlargement of left atrium. Normal left ventricular systolic function. Normal left ventricular cavity size. Moderate concentric left ventricular hypertrophy. Ejection fraction is visually estimated at 65 %. Tissue Doppler/Mitral Doppler indices are indeterminate in this study due to the presence of atrial fibrillation. Normal appearance and function of the mitral valve with trace physiologic regurgitation. No hemodynamically significant aortic stenosis by doppler. Aortic cusps appear mildly calcified. Trace to mild aortic valve regurgitation. Normal appearance of the tricuspid valve. Unable to obtain RVSP due to minimal presence of tricuspid regurgitation. Normal size and normal respiratory collapse consistent with normal right atrial pressure. Objective Vitals Vital Signs Date Temp Pulse Resp B/P (MAP) Pulse Ox O2 O2 Flow FiO2 Time Delivery Rate 04/23/19 97 16:24 04/23/19 Room Air 16:11 04/23/19 98.2 19 129/90 93 15:38 (103) 04/21/19 4.0 13:19 Intake and Output 04/22/19 04/22/19 04/23/19 1515:00 23:00 07:00 IntakeIntake Total 490 ml 1000 ml 700 ml OutputOutput Total 180 ml 1590 ml 170 ml BalanceBalance 310 ml -590 ml 530 ml Results/Medications Result Diagram: 04/22/19 0550 04/22/19 0552 Results 24 hrs Laboratory Tests Test 04/22/19 20:40 04/23/19 00:19 04/23/19 04:06 04/23/19 07:26 Bedside Glucose 114 109 130 118 Test 04/23/19 12:51 04/23/19 16:59 Bedside Glucose 143 144 Home Meds Reported Medications Metoprolol Tartrate* (Lopressor*) 25 Mg Tab, 25 MG PO BID, #60 TAB 04/12/19 Amlodipine Besylate* (Amlodipine Besylate*) 2.5 Mg Tablet, 2.5 MG PO DAILY, #30 TAB 04/12/19 Metformin Hcl* (Metformin Hcl*) 500 Mg Tablet, 500 MG PO WITH MEALS, #90 TAB 04/12/19 Atorvastatin* (Atorvastatin*) 40 Mg Tablet, 40 MG PO QHS, #30 TAB 04/12/19 Medications Current Medications IV Flush (NS 3 ml) 3 ml PER PROTOCOL IV ; Start 04/12/19 at 14:00 Acetaminophen (Tylenol Tab) 650 mg Q6H PRN PO ELEVATED TEMPERATURE Last administered on 04/17/19 04:31; Admin Dose 650 MG; Start 04/12/19 at 14:00 Docusate Sodium (Colace) 100 mg Q12H PRN PO .CONSTIPATION Last administered on 04/23/19 09:40; Admin Dose 100 MG; Start 04/12/19 at 14:00 Magnesium Hydroxide (Milk Of Mag) 30 ml DAILY PRN PO .CONSTIPATION Last administered on 04/23/19at 00:22; Admin Dose 30 ML; Start 04/12/19 at 14:00 Zolpidem Tartrate (Ambien) 5 mg QHS PRN PO .INSOMNIA Last administered on 04/17/19 04:31; Admin Dose 5 MG; Start 04/12/19 at 14:00 Pantoprazole (Protonix Tab) 40 mg DAILY@06 PO Last administered on 04/23/19 05 :00; Admin Dose 40 MG; Start 04/13/19 at 06:00 Diagnostic Test (Pha) (Accu-Chek) 1 ea 02 XX ; Start 04/13/19 at 02:00 Ondansetron HCl (Zofran Inj) 4 mg Q6H PRN IV NAUSEA AND/OR VOMITING Last administered on 04/23/19 09:41; Admin Dose 4 MG; Start 04/12/19 at 14:30 Miscellaneous Information 1 ea NOTE XX ; Start 04/12/19 at 16:00 Glucose (Glutose) 15 gm Q15M PRN PO DECREASED GLUCOSE; Start 04/12/19 at 16:00 Glucose (Glutose) 22.5 gm Q15M PRN PO DECREASED GLUCOSE; Start 04/12/19 at 16:00 Dextrose (D50w Syringe) 25 ml Q15M PRN IV DECREASED GLUCOSE; Start 04/12/19 at 16:00 Dextrose (D50w Syringe) 50 ml Q15M PRN IV DECREASED GLUCOSE; Start 04/12/19 at 16:00 Glucagon (Glucagen) 1 mg Q15M PRN IM DECREASED GLUCOSE; Start 04/12/19 at 16:00 Glucose (Glutose) 15 gm Q15M PRN BUCCAL DECREASED GLUCOSE; Start 04/12/19 at 16:00 Captopril (Capoten) 25 mg TID PO Last administered on 04/23/19at 12:58; Admin Dose 25 MG; Start 04/13/19 at 13:00 Insulin Aspart (Novolog Insulin Pen) NOVOLOG *MODERATE* ALGORI... Q4 SC Last administered on 04/23/19 17:03; Admin Dose 2 UNIT; Start 04/16/19 at 01:00 Clonidine (Catapres) 0.1 mg Q4H PRN PO SBP > 170 Last administered on 04/22/19 04:22; Admin Dose 0.1 MG; Start 04/17/19 at 07:00 Amlodipine Besylate (Norvasc) 5 mg DAILY PO Last administered on 04/23/19 09:41; Admin Dose 5 MG; Start 04/19/19 at 09:00 Hydralazine HCl (Apresoline) 25 mg TID PRN PO SBP > 160 Last administered on 04/23/19 00:21; Admin Dose 25 MG; Start 04/19/19 at 17:00 Acetaminophen/ Hydrocodone Bitart ([place] (5/325)) 2 tab Q4H PRN PO Pain 6-10 Last administered on 04/23/19 17:04; Admin Dose 2 TAB; Start 04/20/19 at 15:30 Acetaminophen/ Hydrocodone Bitart ([place] (5/325)) 1 tab Q4H PRN PO Pain 1-5; Start 04/20/19 at 15:30 Morphine Sulfate (morphine) 2 mg Q2H PRN IV Breakthrough PAIN Last administered on 04/22/19at 22:47; Admin Dose 2 MG; Start 04/20/19 at 15:30 Diltiazem HCl (Cardizem Iv) 5 mg Q1H PRN IV HR > 110 OR SBP; > 170; Start 04/20/19 at 17:00 Enalaprilat (Vasotec Iv) 1.25 mg Q4H PRN IV SBP > 180 Last administered on 04/22/19at 07:31; Admin Dose 1.25 MG; Start 04/20/19 at 17:00 Carvedilol (Coreg) 3.125 mg BID PO Last administered on 04/23/19at 09:41; Admin Dose 3.125 MG; Start 04/21/19 at 09:00 Enoxaparin Sodium (Lovenox) 40 mg DAILY SC Last administered on 04/23/19at 09:57; Admin Dose 40 MG; Start 04/22/19 at 09:00 Miscellaneous Information Patients own medicat... BID@10,16 XX ; Start 04/23/19 at 16:00 Assessment/Plan Hospital Course (Demo Recall) 1. Atrial fibrillation: Appears to be chronically heart rate controlled. Patient would benefit from chronic anticoagulation however currently due to the multiple procedures at this plan is off of anticoagulation 2. Hypertension : but hypotensive during aneshesia 3. Ascending aortic aneurysm at 4.9 cm: We will continue to monitor and control the blood pressure better 4. Likely metastatic colon cancer: work-up and treatment as per oncology and surgical team 5. Diabetes 6. History of CVA 7. Dyslipidemia 8. Cardiovascular preop evaluation: now s./p surgery Recommendations: cont tele monitoring cont coreg and adjust as needed. cont other cardiac care post op care. cont DVT prophylaxis and GI prophylaxis Thank you for his referral. Dr. Stanley will be covering me on the weekend RODRICK STEWART MD [facility] RODRICK STEWART MD April 23, 2019 17:50
--- NOTE | 2019-04-23 18:32 | PN ---
Date/Time of Note Date/Time of Note DATE: 04/23/19 TIME: 18:26 Assessment/Plan Lines/Catheters IV Catheter Type (from Nrs): Central Line Davis in Place (from Nrs): No Assessment/Plan Chief Complaint/Hosp Course 1. 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 Dr. House had a long discussion with the team members including doctors Karen Bautista, & Brianne. Oncologist recommends to proceed with colon resection since chemotherapy not available for the next 2 to 3 weeks anyways. Advised patient that if I go in and there is significant tumor load throughout the abdomen may not be able to proceed with the surgery at this time. On the other hand depending on what happens instead of doing an anastomosis may proceed with a colostomy. Patient fully understands and was agreeable to proceed with surgery. Patient unfortunately had significant hypotension and bradycardia after intubation and surgery was canceled. s/p Lap sigmoid colectomy, splenic mobilization 04/20. -path : Sigmoid colon and upper rectum, resection: -- Infiltrating moderately-differentiated adenocarcinoma; tumor invades through the muscularis propria into the pericolorectal tissue. -- Metastatic adenocarcinoma to two of eight mesenteric lymph nodes (2/8). -- Separate tubular adenoma. -Full liquids, advance to soft -oob/ambulate> discussed with nursing -IS -ice pack prn -pain meds prn> attempt nonnarcotics initially, limit narcotics if possible 2. Multiple liver lesions (insufficient MRI due to motion artifact however dem onstrates1.8 cm lesion in the hepatic segment 5, 0.9 cm lesion in the hepatic segment 8, 1.3 cm intermediate T2 hyperintense lesion in the hepatic segment 4B). Adjuvant tx pending 3. BMI 37 with comorbidities, morbid obesity -Encourage nutritional optimization -Encourage exercise optimization 4. Hypertension, diabetes mellitus, dyslipidemia -Encourage nutrition and medication optimization -Encourage weight loss 5. Atrial fibrillation, rate controlled -Cardiac optimization -Electrolyte optimization 6. 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 -Medical and cardiac optimization Thank you. Patient seen and examined in collaboration with Dr. Francisco House. Subjective 24 Hr Interval Summary Feels well. + Bowel function. No fevers, chills, sob, congested cough, cp, palpitations, sullivan, dizziness, nausea, vomiting, diarrhea, dysuria. Exam/Review of Systems Vital Signs Vitals Vital Signs Date Temp Pulse Resp B/P (MAP) Pulse Ox O2 O2 Flow FiO2 Time Delivery Rate 04/23/19 97 16:24 04/23/19 Room Air 16:11 04/23/19 98.2 19 129/90 93 15:38 (103) 04/21/19 4.0 13:19 Intake and Output 04/22/19 04/22/19 04/23/19 1515:00 23:00 07:00 IntakeIntake Total 490 ml 1000 ml 700 ml OutputOutput Total 180 ml 1590 ml 170 ml BalanceBalance 310 ml -590 ml 530 ml Results Result Diagram: 04/22/19 0550 04/22/19 0552 YUMIKO ALBRIGHT NP April 23, 2019 18:32
[2019-04-24] VITALS (11 sets, daily range): BP systolic 132–169; BP diastolic 83–101; PULSE 67–88; RESP 18–20
[2019-04-24] MEDS: INSULIN ASPART [NOVOLOG] 3 ML PEN SC SCH ×5 (01:00→16:58)
[2019-04-24] MEDS: ACCU-CHEK XX SCH (01:26)
[2019-04-24] MEDS: PANTOPRAZOLE (EC) 40 MG TAB PO SCH (06:03)
[2019-04-24] MEDS: AMLODIPINE 10 MG TAB PO SCH (08:25)
[2019-04-24] MEDS: ENOXAPARIN 40 MG/0.4 ML SYG SC SCH (08:26)
--- NOTE | 2019-04-24 10:01 | CONS ---
Assessment/Plan Assessment/Plan Assessment/Plan (Daily) Impression: 1. Multiple mets in the liver with elevated CA 19-9 and CEA 2. Diabetes mellitus. 3. Atrial fibrillation. 4. Obesity. 5. Polycythemia. 6. Dyspnea on exertion -CXR shows low lung volume secondary to compression 7. Wall thickening with surrounding fat stranding in sigmoid colon seen in CT -Colitis vs diverticulitis (does c/o LLQ/L groin pain, wbc wnl, afebrile, no abx so less likely diverticulitis) vs neoplasm 8. Elevated CEA and CA 19-9 9. Fatty liver 10. Cardiomyopathy noted on CT 11. Enlarged prostate gland 12. Adenocarcinoma in colon 13. Status post laparoscopy sigmoid colon resection, awaiting for the patient to pass flatus or moved bowel Plan Continue postoperative care Continue with pain management advance diet as tolerated per surgery Consultation Date/Type/Reason Admit Date/Time April 12, 2019 at 13:45 Initial Consult Date 04/14/19 Type of Consult GI Requesting Provider: NIDHI VILLEDA MD Date/Time of Note DATE: 04/24/19 TIME: 09:59 24 HR Interval Summary Free Text/Dictation complains of incisional pain Exam/Review of Systems Exam Vitals Vital Signs Date Temp Pulse Resp B/P (MAP) Pulse Ox O2 O2 Flow FiO2 Time Delivery Rate 04/24/19 74 08:13 04/24/19 98.7 20 169/101 96 07:16 (123) 04/23/19 Room Air 16:11 04/21/19 4.0 13:19 Intake and Output 04/23/19 04/23/19 04/24/19 1515:00 23:00 07:00 IntakeIntake Total 1000 ml 350 ml OutputOutput Total 40 ml 810 ml BalanceBalance -40 ml 190 ml 350 ml Constitutional: alert, oriented, well developed Psych: no complaints, nl mood/affect Head: normocephalic, atraumatic Eyes: nl conjunctiva, EOMI, nl lids ENMT: nl external ears & nose, nl lips & teeth, nl nasal mucosa & septum Neck: supple, non-tender Respiratory: clear to auscultation, normal air movement Cardiovascular: regular rate and rhythm, nl pulses Gastrointestinal: soft, bowel sounds, tender (at incision site) Results Result Diagram: 04/24/1951204/24/19512 Results 24hrs Laboratory Tests Test 04/23/19 12:51 04/23/19 16:59 04/23/19 20:31 04/24/19 05:13 Bedside Glucose 143 144 125 White Blood Count 9.4 Red Blood Count 5.68 Hemoglobin 16.9 Hematocrit 51.1 Mean Corpuscular 90.0 Volume Mean Corpuscular 29.8 Hemoglobin Mean Corpuscular 33.1 Hemoglobin Concent Red Cell 13.5 Distribution Width Platelet Count 270 # Mean Platelet Volume 10.7 H Immature 0.300 Granulocytes % Neutrophils % 69.4 Lymphocytes % 18.8 Monocytes % 9.4 Eosinophils % 1.8 Basophils % 0.3 Nucleated Red Blood 0.0 Cells % Immature 0.030 Granulocytes # Neutrophils # 6.5 Lymphocytes # 1.8 Monocytes # 0.9 Eosinophils # 0.2 Basophils # 0.0 Nucleated Red Blood 0.0 Cells # Sodium Level 140 Potassium Level 4.0 Chloride Level 100 Carbon Dioxide Level 33 H Anion Gap 7 Blood Urea Nitrogen 26 H Creatinine 0.82 Est Glomerular Filtrat Rate mL/min Glucose Level 134 Calcium Level 8.8 Phosphorus Level 3.3 Magnesium Level 2.2 Test 04/24/19 06:01 04/24/19 08:24 Bedside Glucose 128 118 Medications Medication Current Medications IV Flush (NS 3 ml) 3 ml PER PROTOCOL IV ; Start 04/12/19 at 14:00 Acetaminophen (Tylenol Tab) 650 mg Q6H PRN PO ELEVATED TEMPERATURE Last administered on 04/17/19 04:31; Admin Dose 650 MG; Start 04/12/19 at 14:00 Docusate Sodium (Colace) 100 mg Q12H PRN PO .CONSTIPATION Last administered on 04/23/19 09:40; Admin Dose 100 MG; Start 04/12/19 at 14:00 Magnesium Hydroxide (Milk Of Mag) 30 ml DAILY PRN PO .CONSTIPATION Last administered on 04/23/19 00:22; Admin Dose 30 ML; Start 04/12/19 at 14:00 Zolpidem Tartrate (Ambien) 5 mg QHS PRN PO .INSOMNIA Last administered on 04/17/19 04:31; Admin Dose 5 MG; Start 04/12/19 at 14:00 Pantoprazole (Protonix Tab) 40 mg DAILY@06 PO Last administered on 5/25/19at 06:03; Admin Dose 40 MG; Start 04/13/19 at 06:00 Diagnostic Test (Pha) (Accu-Chek) 1 ea 02 XX ; Start 04/13/19 at 02:00 Ondansetron HCl (Zofran Inj) 4 mg Q6H PRN IV NAUSEA AND/OR VOMITING Last administered on 04/23/19 09:41; Admin Dose 4 MG; Start 04/12/19 at 14:30 Miscellaneous Information 1 ea NOTE XX ; Start 04/12/19 at 16:00 Glucose (Glutose) 15 gm Q15M PRN PO DECREASED GLUCOSE; Start 04/12/19 at 16:00 Glucose (Glutose) 22.5 gm Q15M PRN PO DECREASED GLUCOSE; Start 04/12/19 at 16:00 Dextrose (D50w Syringe) 25 ml Q15M PRN IV DECREASED GLUCOSE; Start 04/12/19 at 16:00 Dextrose (D50w Syringe) 50 ml Q15M PRN IV DECREASED GLUCOSE; Start 04/12/19 at 16:00 Glucagon (Glucagen) 1 mg Q15M PRN IM DECREASED GLUCOSE; Start 04/12/19 at 16:00 Glucose (Glutose) 15 gm Q15M PRN BUCCAL DECREASED GLUCOSE; Start 04/12/19 at 16:00 Captopril (Capoten) 25 mg TID PO Last administered on 04/24/19at 08:25; Admin Dose 25 MG; Start 04/13/19 at 13:00 Insulin Aspart (Novolog Insulin Pen) NOVOLOG *MODERATE* ALGORI... Q4 SC Last administered on 04/23/19at 17:03; Admin Dose 2 UNIT; Start 04/16/19 at 01:00 Clonidine (Catapres) 0.1 mg Q4H PRN PO SBP > 170 Last administered on 04/22/19at 04:22; Admin Dose 0.1 MG; Start 04/17/19 at 07:00 Amlodipine Besylate (Norvasc) 5 mg DAILY PO Last administered on 04/24/19at 08:25; Admin Dose 5 MG; Start 04/19/19 at 09:00 Hydralazine HCl (Apresoline) 25 mg TID PRN PO SBP > 160 Last administered on 04/23/19at 00:21; Admin Dose 25 MG; Start 04/19/19 at 17:00 Acetaminophen/ Hydrocodone Bitart ([place] (5/325)) 2 tab Q4H PRN PO Pain 6-10 Last administered on 04/23/19at 21:42; Admin Dose 2 TAB; Start 04/20/19 at 15:30 Acetaminophen/ Hydrocodone Bitart ([place] (5/325)) 1 tab Q4H PRN PO Pain 1-5; Start 04/20/19 at 15:30 Morphine Sulfate (morphine) 2 mg Q2H PRN IV Breakthrough PAIN Last administered on 04/22/19at 22:47; Admin Dose 2 MG; Start 04/20/19 at 15:30 Diltiazem HCl (Cardizem Iv) 5 mg Q1H PRN IV HR > 110 OR SBP; > 170; Start 04/20/19 at 17:00 Enalaprilat (Vasotec Iv) 1.25 mg Q4H PRN IV SBP > 180 Last administered on 04/22/19at 07:31; Admin Dose 1.25 MG; Start 04/20/19 at 17:00 Carvedilol (Coreg) 3.125 mg BID PO Last administered on 04/24/19 08:25; Admin Dose 3.125 MG; Start 04/21/19 at 09:00 Enoxaparin Sodium (Lovenox) 40 mg DAILY SC Last administered on 04/24/19at 08:26; Admin Dose 40 MG; Start 04/22/19 at 09:00 Miscellaneous Information Patients own medicat... BID@, XX ; Start 04/23/19 at 16:00 OSCAR ARANGO MD April 24, 2019 10:01
[2019-04-24] MEDS: HYDROCODONE/APAP (5/325) TAB PO PRN (10:28)
[2019-04-24] MEDS ORDERED: ONDANSETRON 4 MG INJ IV STA (15:09)
[2019-04-24] MEDS: METOCLOPRAMIDE 10 MG INJ IV SCH (16:57)
[2019-04-24] MEDS: morphine 2 MG INJ IV PRN (17:36)
[2019-04-24] MEDS: Insulin NOVOLOG SS MODERATE Algorithm (SS with meals and bedtime) SC SCH (20:45)
--- NOTE | 2019-04-24 20:56 | CONS ---
Assessment/Plan Assessment/Plan Assessment/Plan (Daily) #Sigmoid colon mass - sp surgery - 04/20/2109- per pathology report showed Adenocarcinoma - pt most likely has STAGE IV colon cancer with oligometastatic disease to the liver #Liver lesions - Abdominal MRI demonstrates a 1.8 cm lesion in the hepatic segment 5, 0.9 cm lesion in the hepatic segment 8, 1.3 cm intermediate T2 hyperintense lesion in the hepatic segment 4B, - pt most likely has STAGE IV colon cancer with oligometastatic disease to the liver - This would then be followed by at least 6 months of 5fu based chemotherapy with a potential transition to maintenance Xeloda - will refer to Dr. Grigsby for consideration of y-90 liver directed therapy to his metastatic liver lesions # Bradycardia - cont monitoring on tele unit - -appreciate cardiology recs to control patients episodes of bradycardia - # Atrial fibrillation --appreciate cardiology recs to control patients afib - continue management of Afib per primary team # hypertension -continue management of HTN per primary team # dyslipidemia -continue management per primary team # diabetes mellitus - glycemic control per primary MD # CVA 10 years ago with no residual deficits Patient seen in collaboration with Dr Jones Consultation Date/Type/Reason Admit Date/Time April 12, 2019 at 13:45 Initial Consult Date 04/14/19 Type of Consult Oncology/ Hematology Reason for Consultation Sigmoid cancer Live lesions Requesting Provider: NIDHI VILLEDA MD Date/Time of Note DATE: 04/24/19 TIME: 20:55 24 HR Interval Summary Free Text/Dictation Resting in bed denies any pain/nausea effective pain control no new events reported last night dw staff Exam/Review of Systems Exam Vitals Vital Signs Date Temp Pulse Resp B/P (MAP) Pulse Ox O2 O2 Flow FiO2 Time Delivery Rate 04/24/19 67 20:40 04/24/19 98.3 19 132/86 96 20:00 (101) 04/23/19 Room Air 16:11 04/21/19 4.0 13:19 Intake and Output 04/23/19 04/23/19 04/24/19 1515:00 23:00 07:00 IntakeIntake Total 1000 ml 350 ml OutputOutput Total 40 ml 810 ml BalanceBalance -40 ml 190 ml 350 ml Constitutional: alert, well developed Psych: nl mood/affect Head: normocephalic Eyes: nl lids, nl sclera ENMT: nl external ears & nose Neck: supple Respiratory: clear to auscultation Cardiovascular: nl pulses, other (s1s2) Gastrointestinal: soft, tender Extremities: normal pulses Neurological: nl mental status, nl speech Skin: nl turgor Lymph: nontender Results Result Diagram: 04/24/1913 04/24/1913 Results 24hrs Laboratory Tests Test 04/24/19 05:13 04/24/19 06:01 04/24/19 08:24 04/24/19 12:02 White Blood Count 9.4 Red Blood Count 5.68 Hemoglobin 16.9 Hematocrit 51.1 Mean Corpuscular 90.0 Volume Mean Corpuscular 29.8 Hemoglobin Mean Corpuscular 33.1 Hemoglobin Concent Red Cell 13.5 Distribution Width Platelet Count 270 # Mean Platelet Volume 10.7 H Immature 0.300 Granulocytes % Neutrophils % 69.4 Lymphocytes % 18.8 Monocytes % 9.4 Eosinophils % 1.8 Basophils % 0.3 Nucleated Red Blood 0.0 Cells % Immature 0.030 Granulocytes # Neutrophils # 6.5 Lymphocytes # 1.8 Monocytes # 0.9 Eosinophils # 0.2 Basophils # 0.0 Nucleated Red Blood 0.0 Cells # Sodium Level 140 Potassium Level 4.0 Chloride Level 100 Carbon Dioxide Level 33 H Anion Gap 7 Blood Urea Nitrogen 26 H Creatinine 0.82 Est Glomerular Filtrat Rate mL/min Glucose Level 134 Calcium Level 8.8 Phosphorus Level 3.3 Magnesium Level 2.2 Bedside Glucose 128 118 129 Test 04/24/19 16:57 04/24/19 20:45 Bedside Glucose 139 140 Medications Medication Current Medications IV Flush (NS 3 ml) 3 ml PER PROTOCOL IV ; Start 04/12/19 at 14:00 Acetaminophen (Tylenol Tab) 650 mg Q6H PRN PO ELEVATED TEMPERATURE Last administered on 04/17/19at 04:31; Admin Dose 650 MG; Start 04/12/19 at 14:00 Docusate Sodium (Colace) 100 mg Q12H PRN PO .CONSTIPATION Last administered on 04/23/19at 09:40; Admin Dose 100 MG; Start 04/12/19 at 14:00 Magnesium Hydroxide (Milk Of Mag) 30 ml DAILY PRN PO .CONSTIPATION Last administered on 04/23/19at 00:22; Admin Dose 30 ML; Start 04/12/19 at 14:00 Zolpidem Tartrate (Ambien) 5 mg QHS PRN PO .INSOMNIA Last administered on 04/17/19 04:31; Admin Dose 5 MG; Start 04/12/19 at 14:00 Pantoprazole (Protonix Tab) 40 mg DAILY@06 PO Last administered on 04/24/19 06:03; Admin Dose 40 MG; Start 04/13/19 at 06:00 Diagnostic Test (Pha) (Accu-Chek) 1 ea 02 XX ; Start 04/13/19 at 02:00 Ondansetron HCl (Zofran Inj) 4 mg Q6H PRN IV NAUSEA AND/OR VOMITING Last administered on 04/23/19 09:41; Admin Dose 4 MG; Start 04/12/19 at 14:30 Miscellaneous Information 1 ea NOTE XX ; Start 04/12/19 at 16:00 Glucose (Glutose) 15 gm Q15M PRN PO DECREASED GLUCOSE; Start 04/12/19 at 16:00 Glucose (Glutose) 22.5 gm Q15M PRN PO DECREASED GLUCOSE; Start 04/12/19 at 16:00 Dextrose (D50w Syringe) 25 ml Q15M PRN IV DECREASED GLUCOSE; Start 04/12/19 at 16:00 Dextrose (D50w Syringe) 50 ml Q15M PRN IV DECREASED GLUCOSE; Start 04/12/19 at 16:00 Glucagon (Glucagen) 1 mg Q15M PRN IM DECREASED GLUCOSE; Start 04/12/19 at 16:00 Glucose (Glutose) 15 gm Q15M PRN BUCCAL DECREASED GLUCOSE; Start 04/12/19 at 16:00 Captopril (Capoten) 25 mg TID PO Last administered on 04/24/19at 20:41; Admin Dose 25 MG; Start 04/13/19 at 13:00 Clonidine (Catapres) 0.1 mg Q4H PRN PO SBP > 170 Last administered on 04/22/19 04:22; Admin Dose 0.1 MG; Start 04/17/19 at 07:00 Amlodipine Besylate (Norvasc) 5 mg DAILY PO Last administered on 04/24/19 08:25; Admin Dose 5 MG; Start 04/19/19 at 09:00 Hydralazine HCl (Apresoline) 25 mg TID PRN PO SBP > 160 Last administered on 04/23/19 00:21; Admin Dose 25 MG; Start 04/19/19 at 17:00 Acetaminophen/ Hydrocodone Bitart ([place] (5/325)) 2 tab Q4H PRN PO Pain 6-10 Last administered on 04/24/19at 10:28; Admin Dose 2 TAB; Start 04/20/19 at 15:30 Acetaminophen/ Hydrocodone Bitart ([place] (5/325)) 1 tab Q4H PRN PO Pain 1-5; Start 04/20/19 at 15:30 Morphine Sulfate (morphine) 2 mg Q2H PRN IV Breakthrough PAIN Last administered on 04/24/19at 17:36; Admin Dose 2 MG; Start 04/20/19 at 15:30 Diltiazem HCl (Cardizem Iv) 5 mg Q1H PRN IV HR > 110 OR SBP; > 170; Start 04/20/19 at 17:00 Enalaprilat (Vasotec Iv) 1.25 mg Q4H PRN IV SBP > 180 Last administered on 04/22/19at 07:31; Admin Dose 1.25 MG; Start 04/20/19 at 17:00 Carvedilol (Coreg) 3.125 mg BID PO Last administered on 04/24/19at 20:42; Admin Dose 3.125 MG; Start 04/21/19 at 09:00 Enoxaparin Sodium (Lovenox) 40 mg DAILY SC Last administered on 04/24/19 08:26; Admin Dose 40 MG; Start 04/22/19 at 09:00 Miscellaneous Information Patients own medicat... BID@10,16 XX ; Start 04/23/19 at 16:00 Metoclopramide HCl (Reglan) 10 mg AC MEALS IV Last administered on 04/24/19at 16:57; Admin Dose 10 MG; Start 04/24/19 at 17:30 Insulin Aspart (Novolog Insulin Pen) (Adult SC Insulin - Moder... WITH MEALS BEDTIME SC ; Start 04/24/19 at 21:00 JULI COREAS April 24, 2019 20:56
[2019-04-24] MEDS ORDERED: INSULIN ASPART [NOVOLOG] 3 ML PEN SC SCH (21:00)
[2019-04-25] VITALS (11 sets, daily range): BP systolic 119–154; BP diastolic 73–94; PULSE 62–77; RESP 19
[2019-04-25] MEDS: ACCU-CHEK XX SCH (02:00)
[2019-04-25] MEDS: PANTOPRAZOLE (EC) 40 MG TAB PO SCH (05:24)
[2019-04-25] MEDS: METOCLOPRAMIDE 10 MG INJ IV SCH ×3 (05:24→17:25)
[2019-04-25] MEDS: HYDROCODONE/APAP (5/325) TAB PO PRN ×2 (05:34→17:25)
[2019-04-25] MEDS: Insulin NOVOLOG SS MODERATE Algorithm (SS with meals and bedtime) SC SCH ×4 (07:43→20:18)
[2019-04-25] MEDS: AMLODIPINE 10 MG TAB PO SCH (09:00)
[2019-04-25] MEDS: ENOXAPARIN 40 MG/0.4 ML SYG SC SCH (09:26)
--- NOTE | 2019-04-25 10:05 | CONS ---
Assessment/Plan Assessment/Plan Assessment/Plan (Daily) #Sigmoid colon mass - sp surgery - 04/20/2109- per pathology report showed Adenocarcinoma - pt most likely has STAGE IV colon cancer with oligometastatic disease to the liver #Liver lesions - Abdominal MRI demonstrates a 1.8 cm lesion in the hepatic segment 5, 0.9 cm lesion in the hepatic segment 8, 1.3 cm intermediate T2 hyperintense lesion in the hepatic segment 4B, - pt most likely has STAGE IV colon cancer with oligometastatic disease to the liver - This would then be followed by at least 6 months of 5fu based chemotherapy with a potential transition to maintenance Xeloda - will refer to Dr. Grigsby for consideration of y-90 liver directed therapy to his metastatic liver lesions # Bradycardia - cont monitoring on tele unit - -appreciate cardiology recs to control patients episodes of bradycardia - # Atrial fibrillation --appreciate cardiology recs to control patients afib - continue management of Afib per primary team # hypertension -continue management of HTN per primary team # dyslipidemia -continue management per primary team # diabetes mellitus - glycemic control per primary MD # CVA 10 years ago with no residual deficits Patient seen in collaboration with Dr Jones. dw staff Consultation Date/Type/Reason Admit Date/Time April 12, 2019 at 13:45 Initial Consult Date 04/14/19 Type of Consult Oncology/ Hematology Reason for Consultation Sigmoid cancer Liver lesions Requesting Provider: NIDHI VILLEDA MD Date/Time of Note DATE: 04/25/19 TIME: 10:04 24 HR Interval Summary Free Text/Dictation Resting in bed denies any pain/nausea effective pain control no new events reported last night dw staff Detailed Summary Eyes: no complaints ENT: no complaints Respiratory: no complaints Cardiovascular: no complaints Gastrointestinal: no complaints Genitourinary: no complaints Musculoskeletal: no complaints Skin: no complaints Endocrine: no complaints Psychological: nl mood/affect Exam/Review of Systems Exam Vitals Vital Signs Date Temp Pulse Resp B/P (MAP) Pulse Ox O2 O2 Flow FiO2 Time Delivery Rate 04/25/19 72 08:16 04/25/19 97.5 19 119/73 94 07:34 (88) 04/23/19 Room Air 16:11 04/21/19 4.0 13:19 Intake and Output 04/24/19 04/24/19 04/25/19 1515:00 23:00 07:00 IntakeIntake Total 500 ml OutputOutput Total 75 ml 30 ml 55 ml BalanceBalance -75 ml -30 ml 445 ml Constitutional: alert, well developed, obese Psych: nl mood/affect Head: normocephalic Eyes: nl lids, nl sclera ENMT: nl external ears & nose Neck: non-tender Respiratory: clear to auscultation Gastrointestinal: soft, tender (diffuse tenderness) Musculoskeletal: nl extremities to inspection Extremities: normal pulses Neurological: nl speech Skin: nl turgor Lymph: nontender Results Result Diagram: 04/24/1951204/24/19512 Results 24hrs Laboratory Tests Test 04/24/19 12:02 04/24/19 16:57 04/24/19 20:45 04/25/19 07:43 Bedside Glucose 129 139 140 119 Medications Medication Current Medications IV Flush (NS 3 ml) 3 ml PER PROTOCOL IV ; Start 04/12/19 at 14:00 Acetaminophen (Tylenol Tab) 650 mg Q6H PRN PO ELEVATED TEMPERATURE Last admin istered on 04/17/19 04:31; Admin Dose 650 MG; Start 04/12/19 at 14:00 Docusate Sodium (Colace) 100 mg Q12H PRN PO .CONSTIPATION Last administered on 04/23/19 09:40; Admin Dose 100 MG; Start 04/12/19 at 14:00 Magnesium Hydroxide (Milk Of Mag) 30 ml DAILY PRN PO .CONSTIPATION Last administered on 04/23/19 00:22; Admin Dose 30 ML; Start 04/12/19 at 14:00 Zolpidem Tartrate (Ambien) 5 mg QHS PRN PO .INSOMNIA Last administered on 04/17/19 04:31; Admin Dose 5 MG; Start 04/12/19 at 14:00 Pantoprazole (Protonix Tab) 40 mg DAILY@06 PO Last administered on 04/25/19 05:24; Admin Dose 40 MG; Start 04/13/19 at 06:00 Diagnostic Test (Pha) (Accu-Chek) 1 ea 02 XX ; Start 04/13/19 at 02:00 Ondansetron HCl (Zofran Inj) 4 mg Q6H PRN IV NAUSEA AND/OR VOMITING Last administered on 04/23/19 09:41; Admin Dose 4 MG; Start 04/12/19 at 14:30 Miscellaneous Information 1 ea NOTE XX ; Start 04/12/19 at 16:00 Glucose (Glutose) 15 gm Q15M PRN PO DECREASED GLUCOSE; Start 04/12/19 at 16:00 Glucose (Glutose) 22.5 gm Q15M PRN PO DECREASED GLUCOSE; Start 04/12/19 at 16:00 Dextrose (D50w Syringe) 25 ml Q15M PRN IV DECREASED GLUCOSE; Start 04/12/19 at 16:00 Dextrose (D50w Syringe) 50 ml Q15M PRN IV DECREASED GLUCOSE; Start 04/12/19 at 16:00 Glucagon (Glucagen) 1 mg Q15M PRN IM DECREASED GLUCOSE; Start 04/12/19 at 16:00 Glucose (Glutose) 15 gm Q15M PRN BUCCAL DECREASED GLUCOSE; Start 04/12/19 at 16:00 Captopril (Capoten) 25 mg TID PO Last administered on 04/24/19at 20:41; Admin Dose 25 MG; Start 04/13/19 at 13:00 Clonidine (Catapres) 0.1 mg Q4H PRN PO SBP > 170 Last administered on 04/22/19at 04:22; Admin Dose 0.1 MG; Start 04/17/19 at 07:00 Amlodipine Besylate (Norvasc) 5 mg DAILY PO Last administered on 04/24/19at 08:25; Admin Dose 5 MG; Start 04/19/19 at 09:00 Hydralazine HCl (Apresoline) 25 mg TID PRN PO SBP > 160 Last administered on 04/23/19at 00:21; Admin Dose 25 MG; Start 04/19/19 at 17:00 Acetaminophen/ Hydrocodone Bitart ([place] (5/325)) 2 tab Q4H PRN PO Pain 6-10 Last administered on 04/25/19at 05:34; Admin Dose 2 TAB; Start 04/20/19 at 15:30 Acetaminophen/ Hydrocodone Bitart ([place] (5/325)) 1 tab Q4H PRN PO Pain 1-5; Start 04/20/19 at 15:30 Morphine Sulfate (morphine) 2 mg Q2H PRN IV Breakthrough PAIN Last administered on 04/24/19at 17:36; Admin Dose 2 MG; Start 04/20/19 at 15:30 Diltiazem HCl (Cardizem Iv) 5 mg Q1H PRN IV HR > 110 OR SBP; > 170; Start 04/20/19 at 17:00 Enalaprilat (Vasotec Iv) 1.25 mg Q4H PRN IV SBP > 180 Last administered on 04/22/19at 07:31; Admin Dose 1.25 MG; Start 04/20/19 at 17:00 Carvedilol (Coreg) 3.125 mg BID PO Last administered on 04/25/19at 09:19; Admin Dose 3.125 MG; Start 04/21/19 at 09:00 Enoxaparin Sodium (Lovenox) 40 mg DAILY SC Last administered on 04/25/19at 09:26; Admin Dose 40 MG; Start 04/22/19 at 09:00 Miscellaneous Information Patients own medicat... BID@10,16 XX ; Start 04/23/19 at 16:00 Metoclopramide HCl (Reglan) 10 mg AC MEALS IV Last administered on 04/25/19at 05:24; Admin Dose 10 MG; Start 04/24/19 at 17:30 Insulin Aspart (Novolog Insulin Pen) (Adult SC Insulin - Moder... WITH MEALS BEDTIME SC ; Start 04/24/19 at 21:00 JULI COREAS April 25, 2019 10:05
--- NOTE | 2019-04-25 11:03 | CONS ---
Assessment/Plan Assessment/Plan Assessment/Plan (Daily) Impression: 1. Multiple mets in the liver with elevated CA 19-9 and CEA 2. Diabetes mellitus. 3. Atrial fibrillation. 4. Obesity. 5. Polycythemia. 6. Dyspnea on exertion -CXR shows low lung volume secondary to compression 7. Sigmoid colon mass s/p resection with path showing: -- Infiltrating moderately-differentiated adenocarcinoma; tumor invades through the muscularis propria into the pericolorectal tissue. -- Metastatic adenocarcinoma to two of eight mesenteric lymph nodes (2/8). -- Separate tubular adenoma. Plan Continue postoperative care Continue with pain management oncology management of stage 4 colon cancer with metastasis advance diet as tolerated Consultation Date/Type/Reason Admit Date/Time April 12, 2019 at 13:45 Initial Consult Date 04/14/19 Type of Consult GI Requesting Provider: NIDHI VILLEDA MD Date/Time of Note DATE: 04/25/19 TIME: 10:59 24 HR Interval Summary Free Text/Dictation resting peacefully, has incisional site pain but improved Exam/Review of Systems Exam Vitals Vital Signs Date Temp Pulse Resp B/P (MAP) Pulse Ox O2 O2 Flow FiO2 Time Delivery Rate 04/25/19 72 08:16 04/25/19 97.5 19 119/73 94 07:34 (88) 04/23/19 Room Air 16:11 04/21/19 4.0 13:19 Intake and Output 04/24/19 04/24/19 04/25/19 1515:00 23:00 07:00 IntakeIntake Total 500 ml OutputOutput Total 75 ml 30 ml 55 ml BalanceBalance -75 ml -30 ml 445 ml Constitutional: alert, oriented, well developed Psych: no complaints, nl mood/affect Head: normocephalic, atraumatic Eyes: nl conjunctiva, EOMI, nl lids ENMT: nl external ears & nose, nl lips & teeth, nl nasal mucosa & septum Neck: supple, non-tender Respiratory: clear to auscultation, normal air movement Cardiovascular: regular rate and rhythm, nl pulses Gastrointestinal: soft, non-tender, bowel sounds Results Result Diagram: 04/24/19 0513 04/24/19 0513 Results 24hrs Laboratory Tests Test 04/24/19 12:02 04/24/19 16:57 04/24/19 20:45 04/25/19 07:43 Bedside Glucose 129 139 140 119 Medications Medication Current Medications IV Flush (NS 3 ml) 3 ml PER PROTOCOL IV ; Start 04/12/19 at 14:00 Acetaminophen (Tylenol Tab) 650 mg Q6H PRN PO ELEVATED TEMPERATURE Last administered on 04/17/19 04:31; Admin Dose 650 MG; Start 04/12/19 at 14:00 Docusate Sodium (Colace) 100 mg Q12H PRN PO .CONSTIPATION Last administered on 04/23/19 09:40; Admin Dose 100 MG; Start 04/12/19 at 14:00 Magnesium Hydroxide (Milk Of Mag) 30 ml DAILY PRN PO .CONSTIPATION Last administered on 04/23/19 00:22; Admin Dose 30 ML; Start 04/12/19 at 14:00 Zolpidem Tartrate (Ambien) 5 mg QHS PRN PO .INSOMNIA Last administered on 04/17/19 04:31; Admin Dose 5 MG; Start 04/12/19 at 14:00 Pantoprazole (Protonix Tab) 40 mg DAILY@06 PO Last administered on 04/25/19 05:24; Admin Dose 40 MG; Start 04/13/19 at 06:00 Diagnostic Test (Pha) (Accu-Chek) 1 ea 02 XX ; Start 04/13/19 at 02:00 Ondansetron HCl (Zofran Inj) 4 mg Q6H PRN IV NAUSEA AND/OR VOMITING Last administered on 04/23/19 09:41; Admin Dose 4 MG; Start 04/12/19 at 14:30 Miscellaneous Information 1 ea NOTE XX ; Start 04/12/19 at 16:00 Glucose (Glutose) 15 gm Q15M PRN PO DECREASED GLUCOSE; Start 04/12/19 at 16:00 Glucose (Glutose) 22.5 gm Q15M PRN PO DECREASED GLUCOSE; Start 04/12/19 at 16:00 Dextrose (D50w Syringe) 25 ml Q15M PRN IV DECREASED GLUCOSE; Start 04/12/19 at 16:00 Dextrose (D50w Syringe) 50 ml Q15M PRN IV DECREASED GLUCOSE; Start 04/12/19 at 16:00 Glucagon (Glucagen) 1 mg Q15M PRN IM DECREASED GLUCOSE; Start 04/12/19 at 16:00 Glucose (Glutose) 15 gm Q15M PRN BUCCAL DECREASED GLUCOSE; Start 04/12/19 at 16:00 Captopril (Capoten) 25 mg TID PO Last administered on 04/24/19 20:41; Admin Dose 25 MG; Start 04/13/19 at 13:00 Clonidine (Catapres) 0.1 mg Q4H PRN PO SBP > 170 Last administered on 04/22/19 04:22; Admin Dose 0.1 MG; Start 04/17/19 at 07:00 Amlodipine Besylate (Norvasc) 5 mg DAILY PO Last administered on 04/24/19 08:25; Admin Dose 5 MG; Start 04/19/19 at 09:00 Hydralazine HCl (Apresoline) 25 mg TID PRN PO SBP > 160 Last administered on 04/23/19 00:21; Admin Dose 25 MG; Start 04/19/19 at 17:00 Acetaminophen/ Hydrocodone Bitart ([place] (5/325)) 2 tab Q4H PRN PO Pain 6-10 Last administered on 04/25/19 05:34; Admin Dose 2 TAB; Start 04/20/19 at 15:30 Acetaminophen/ Hydrocodone Bitart ([place] (5/325)) 1 tab Q4H PRN PO Pain 1-5; Start 04/20/19 at 15:30 Morphine Sulfate (morphine) 2 mg Q2H PRN IV Breakthrough PAIN Last administered on 04/24/19at 17:36; Admin Dose 2 MG; Start 04/20/19 at 15:30 Diltiazem HCl (Cardizem Iv) 5 mg Q1H PRN IV HR > 110 OR SBP; > 170; Start 04/20/19 at 17:00 Enalaprilat (Vasotec Iv) 1.25 mg Q4H PRN IV SBP > 180 Last administered on 04/22/19 07:31; Admin Dose 1.25 MG; Start 04/20/19 at 17:00 Carvedilol (Coreg) 3.125 mg BID PO Last administered on 04/25/19 09:19; Admin Dose 3.125 MG; Start 04/21/19 at 09:00 Enoxaparin Sodium (Lovenox) 40 mg DAILY SC Last administered on 04/25/19 09:26; Admin Dose 40 MG; Start 04/22/19 at 09:00 Miscellaneous Information Patients own medicat... BID@,16 XX ; Start 04/23/19 at 16:00 Metoclopramide HCl (Reglan) 10 mg AC MEALS IV Last administered on 04/25/19at 05:24; Admin Dose 10 MG; Start 04/24/19 at 17:30 Insulin Aspart (Novolog Insulin Pen) (Adult SC Insulin - Moder... WITH MEALS BEDTIME SC ; Start 04/24/19 at 21:00 OSCAR ARANGO MD April 25, 2019 11:03
--- NOTE | 2019-04-25 17:28 | PN ---
DATE: 04/25/2019 SUBJECTIVE: The patient was seen. He continues to have episodes of nausea and vomiting. Overall, [place] is feeling better though. PHYSICAL EXAMINATION: VITAL SIGNS: Temperature is 98.4, pulse 82, respirations 18, blood pressure 141/83, saturation 96% o n room air. GENERAL: In no acute distress, morbidly obese. CARDIOVASCULAR: S1, S2. Regular rate. LUNGS: Clear. ABDOMEN: Soft, distended. INEZ drainage in place and still has good amount of drainage every day. EXTREMITIES: The patient moving all extremities. LABORATORY DATA: No new labs today. Last glucose of 145, 119 and 140. CURRENT MEDICATIONS: 1. Insulin aspart per sliding scale. 2. Reglan 10 mg IV before meals. 3. Lovenox 40 mg subcutaneously daily. 4. Coreg 3.125 b.i.d. 5. Diltiazem p.r.n. 6. Vasotec p.r.n. 7. [place] p.r.n. 8. Morphine p.r.n. 9. Hydralazine p.r.n. 10. Norvasc 5 mg daily. 11. Clonidine 0.1 q.4 p.r.n. for systolic greater than 170. 12. Captopril 25 t.i.d. 13. Protonix 40 mg daily. 14. Hypoglycemia protocol. 15. Hydralazine. 16. Norvasc. 17. Catapres p.r.n. ASSESSMENT AND PLAN: This is an 78-year-old male with history of hypertension, dyslipidemi a, atrial fibrillation, diabetes mellitus, who presented with left lower extremity pain, overall was diagnosed with metastatic colon cancer now status post colon mass resection. 1. Metastatic colon cancer, status post colon mass resection, postop day #5. Continue incentive spi rometer. Physical therapy. Out of bed activity as tolerated. Pain control and INEZ drainage care. 2. Nausea, vomiting postop. Continue antiemetics. Observe. Follow up labs tomorrow. 4. Continue deep vein thrombosis prophylaxis and gastrointestinal prophylaxis. 5. Diabetes mellitus, controlled with above insulin regimen. 6. Metastatic colon cancer. Outpatient treatment plan per Dr. Jones. 7. Disposition: Once overall better, follow up labs periodically. Check labs tomorrow. We will fo llow. Dictated By: NIDHI PEREZ/RUIZ Conf#: [id number] DID#: [id number] CC: LEOPOLDO FORD MD;*End*
[2019-04-26] VITALS (7 sets, daily range): BP systolic 117–139; BP diastolic 67–78; PULSE 67–88; RESP 16–18
[2019-04-26] MEDS: ACCU-CHEK XX SCH (01:56)
[2019-04-26] MEDS: METOCLOPRAMIDE 10 MG INJ IV SCH ×3 (06:29→18:09)
[2019-04-26] MEDS: PANTOPRAZOLE (EC) 40 MG TAB PO SCH (06:29)
[2019-04-26] MEDS: morphine 2 MG INJ IV PRN (08:10)
[2019-04-26] MEDS: AMLODIPINE 10 MG TAB PO SCH (08:17)
[2019-04-26] MEDS: ENOXAPARIN 40 MG/0.4 ML SYG SC SCH (08:41)
[2019-04-26] MEDS: Insulin NOVOLOG SS MODERATE Algorithm (SS with meals and bedtime) SC SCH ×3 (08:41→17:44)
--- NOTE | 2019-04-26 09:08 | CONS ---
Assessment/Plan Assessment/Plan Assessment/Plan (Daily) Impression: 1. Multiple mets in the liver with elevated CA 19-9 and CEA 2. Diabetes mellitus. 3. Atrial fibrillation. 4. Obesity. 5. Polycythemia. 6. Dyspnea on exertion -CXR shows low lung volume secondary to compression 7. Sigmoid colon mass s/p resection with path showing: -- Infiltrating moderately-differentiated adenocarcinoma; tumor invades through the muscularis propria into the pericolorectal tissue. -- Metastatic adenocarcinoma to two of eight mesenteric lymph nodes (2/8). -- Separate tubular adenoma. Plan Continue postoperative care Continue with pain management oncology management of stage 4 colon cancer with metastasis advance diet as tolerated Dr. Decker to resume care of this patient tomorrow Consultation Date/Type/Reason Admit Date/Time April 12, 2019 at 13:45 Initial Consult Date 04/14/19 Type of Consult GI Requesting Provider: NIDHI VILLEDA MD Date/Time of Note DATE: 04/26/19 TIME: 09:05 24 HR Interval Summary Free Text/Dictation incisional pain improved, fatigued Constitutional: improved Exam/Review of Systems Exam Vitals Vital Signs Date Temp Pulse Resp B/P (MAP) Pulse Ox O2 O2 Flow FiO2 Time Delivery Rate 04/26/19 73 08:58 04/26/19 98.5 18 121/74 94 Room Air 07:31 (90) Intake and Output 04/25/19 04/25/19 04/26/19 1515:00 23:00 07:00 IntakeIntake Total 1000 ml 600 ml OutputOutput Total 20 ml 80 ml BalanceBalance 980 ml 520 ml Constitutional: alert, oriented, well developed Psych: no complaints, nl mood/affect Head: normocephalic, atraumatic Eyes: nl conjunctiva, EOMI, nl lids ENMT: nl external ears & nose, nl lips & teeth, nl nasal mucosa & septum Neck: supple, non-tender Respiratory: clear to auscultation, normal air movement Cardiovascular: regular rate and rhythm, nl pulses Gastrointestinal: soft, non-tender, bowel sounds Results Result Diagram: 04/26/19 0534 04/26/19 0534 Results 24hrs Laboratory Tests Test 04/25/19 11:42 04/25/19 16:56 04/25/19 20:17 04/26/19 05:34 Bedside Glucose 145 107 125 White Blood Count 8.5 Red Blood Count 5.34 Hemoglobin 15.8 Hematocrit 48.5 Mean Corpuscular 90.8 Volume Mean Corpuscular 29.6 Hemoglobin Mean Corpuscular 32.6 Hemoglobin Concent Red Cell 13.1 Distribution Width Platelet Count 197 # Mean Platelet Volume 10.9 H Immature 0.200 Granulocytes % Neutrophils % 72.8 Lymphocytes % 11.8 L Monocytes % 12.6 H Eosinophils % 2.2 Basophils % 0.4 Nucleated Red Blood 0.0 Cells % Immature 0.020 Granulocytes # Neutrophils # 6.2 Lymphocytes # 1.0 Monocytes # 1.1 H Eosinophils # 0.2 Basophils # 0.0 Nucleated Red Blood 0.0 Cells # Sodium Level 136 Potassium Level 4.2 Chloride Level 102 Carbon Dioxide Level 29 Anion Gap 5 Blood Urea Nitrogen 21 H Creatinine 0.82 Est Glomerular Filtrat Rate mL/min Glucose Level 133 Calcium Level 8.3 L Phosphorus Level 3.7 Magnesium Level 2.1 Test 04/26/19 08:14 Bedside Glucose 150 Medications Medication Current Medications IV Flush (NS 3 ml) 3 ml PER PROTOCOL IV ; Start 04/12/19 at 14:00 Acetaminophen (Tylenol Tab) 650 mg Q6H PRN PO ELEVATED TEMPERATURE Last administered on 04/17/19 04:31; Admin Dose 650 MG; Start 04/12/19 at 14:00 Docusate Sodium (Colace) 100 mg Q12H PRN PO .CONSTIPATION Last administered on 04/23/19 09:40; Admin Dose 100 MG; Start 04/12/19 at 14:00 Magnesium Hydroxide (Milk Of Mag) 30 ml DAILY PRN PO .CONSTIPATION Last administered on 04/23/19 00:22; Admin Dose 30 ML; Start 04/12/19 at 14:00 Zolpidem Tartrate (Ambien) 5 mg QHS PRN PO .INSOMNIA Last administered on 04/17/19 04:31; Admin Dose 5 MG; Start 04/12/19 at 14:00 Pantoprazole (Protonix Tab) 40 mg DAILY@06 PO Last administered on 04/26/19 06:29; Admin Dose 40 MG; Start 04/13/19 at 06:00 Diagnostic Test (Pha) (Accu-Chek) 1 ea 02 XX ; Start 04/13/19 at 02:00 Ondansetron HCl (Zofran Inj) 4 mg Q6H PRN IV NAUSEA AND/OR VOMITING Last administered on 04/23/19at 09:41; Admin Dose 4 MG; Start 04/12/19 at 14:30 Miscellaneous Information 1 ea NOTE XX ; Start 04/12/19 at 16:00 Glucose (Glutose) 15 gm Q15M PRN PO DECREASED GLUCOSE; Start 04/12/19 at 16:00 Glucose (Glutose) 22.5 gm Q15M PRN PO DECREASED GLUCOSE; Start 04/12/19 at 16:00 Dextrose (D50w Syringe) 25 ml Q15M PRN IV DECREASED GLUCOSE; Start 04/12/19 at 16:00 Dextrose (D50w Syringe) 50 ml Q15M PRN IV DECREASED GLUCOSE; Start 04/12/19 at 16:00 Glucagon (Glucagen) 1 mg Q15M PRN IM DECREASED GLUCOSE; Start 04/12/19 at 16:00 Glucose (Glutose) 15 gm Q15M PRN BUCCAL DECREASED GLUCOSE; Start 04/12/19 at 16:00 Captopril (Capoten) 25 mg TID PO Last administered on 04/26/19at 08:17; Admin Dose 25 MG; Start 04/13/19 at 13:00 Clonidine (Catapres) 0.1 mg Q4H PRN PO SBP > 170 Last administered on 04/22/19at 04:22; Admin Dose 0.1 MG; Start 04/17/19 at 07:00 Amlodipine Besylate (Norvasc) 5 mg DAILY PO Last administered on 04/24/19at 08:25; Admin Dose 5 MG; Start 04/19/19 at 09:00 Hydralazine HCl (Apresoline) 25 mg TID PRN PO SBP > 160 Last administered on 04/23/19at 00:21; Admin Dose 25 MG; Start 04/19/19 at 17:00 Acetaminophen/ Hydrocodone Bitart ([place] (5/325)) 2 tab Q4H PRN PO Pain 6-10 Last administered on 04/25/19at 17:25; Admin Dose 2 TAB; Start 04/20/19 at 15:30 Acetaminophen/ Hydrocodone Bitart ([place] (5/325)) 1 tab Q4H PRN PO Pain 1-5; Start 04/20/19 at 15:30 Morphine Sulfate (morphine) 2 mg Q2H PRN IV Breakthrough PAIN Last administered on 04/26/19 08:10; Admin Dose 2 MG; Start 04/20/19 at 15:30 Diltiazem HCl (Cardizem Iv) 5 mg Q1H PRN IV HR > 110 OR SBP; > 170; Start 04/20/19 at 17:00 Enalaprilat (Vasotec Iv) 1.25 mg Q4H PRN IV SBP > 180 Last administered on 04/22/19 07:31; Admin Dose 1.25 MG; Start 04/20/19 at 17:00 Carvedilol (Coreg) 3.125 mg BID PO Last administered on 04/26/19 08:17; Admin Dose 3.125 MG; Start 04/21/19 at 09:00 Enoxaparin Sodium (Lovenox) 40 mg DAILY SC Last administered on 04/26/19 08:41; Admin Dose 40 MG; Start 04/22/19 at 09:00 Miscellaneous Information Patients own medicat... BID@10,16 XX ; Start 04/23/19 at 16:00 Metoclopramide HCl (Reglan) 10 mg AC MEALS IV Last administered on 04/26/19 06:29; Admin Dose 10 MG; Start 04/24/19 at 17:30 Insulin Aspart (Novolog Insulin Pen) (Adult SC Insulin - Moder... WITH MEALS BEDTIME SC Last administered on 04/26/19 08:41; Admin Dose 2 UNIT; Start 04/24/19 at 21:00 OSCAR ARANGO MD April 26, 2019 09:08
[2019-04-26] MEDS: HYDROCODONE/APAP (5/325) TAB PO PRN ×2 (11:41→18:23)
--- NOTE | 2019-04-26 15:21 | PDOCDIS ---
Discharge Instructions CONDITION [id number] Patient Condition: [id number] Stable ACTIVITY: [id number] Activity Restrictions: [id number] Slowly Increase Activity FOLLOW UP/APPOINTMENTS Follow-up Plan follow up with PCP, oncology Dr. Jones, and surgery NIDHI Justin MD April 26, 2019 15:21
[2019-04-26] MEDS ORDERED: HYDR-3980 PO (15:29)
[2019-04-26] MEDS ORDERED: APIX5TAB PO (15:29)
[2019-04-26] MEDS ORDERED: PANT40TA4 PO (15:29)
[2019-04-26] MEDS ORDERED: DOCU-144 PO (15:29)
--- NOTE | 2019-04-26 17:44 | CONS ---
Assessment/Plan Assessment/Plan Assessment/Plan (Daily) #Sigmoid colon mass - sp surgery - 04/20/2109- per pathology report showed Adenocarcinoma - pt most likely has STAGE IV colon cancer with oligometastatic disease to the liver #Liver lesions - Abdominal MRI demonstrates a 1.8 cm lesion in the hepatic segment 5, 0.9 cm lesion in the hepatic segment 8, 1.3 cm intermediate T2 hyperintense lesion in the hepatic segment 4B, - pt most likely has STAGE IV colon cancer with oligometastatic disease to the liver - This would then be followed by at least 6 months of 5fu based chemotherapy with a potential transition to maintenance Xeloda - will refer to Dr. 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 dw staff Consultation Date/Type/Reason Admit Date/Time April 12, 2019 at 13:45 Initial Consult Date 04/14/19 Type of Consult Oncology/ Hematology Reason for Consultation SIGMOID COLON MASS Requesting Provider: NIDHI VILLEDA MD Date/Time of Note DATE: 04/26/19 TIME: 17:43 24 HR Interval Summary Free Text/Dictation Sitting up in chair feels tired no new events reported last night dw staff Detailed Summary Eyes: no complaints ENT: no complaints Respiratory: no complaints Cardiovascular: no complaints Gastrointestinal: pain Genitourinary: no complaints Skin: no complaints Neurologic: no complaints Endocrine: no complaints Lymphatic: no complaints Psychological: nl mood/affect Immunologic: no complaints Exam/Review of Systems Exam Vitals Vital Signs Date Temp Pulse Resp B/P (MAP) Pulse Ox O2 O2 Flow FiO2 Time Delivery Rate 04/26/19 98.0 67 16 132/70 96 Room Air 15:22 (90) Intake and Output 04/25/19 04/25/19 04/26/19 1515:00 23:00 07:00 IntakeIntake Total 1000 ml 600 ml OutputOutput Total 20 ml 80 ml BalanceBalance 980 ml 520 ml Constitutional: alert, well developed, obese Psych: nl mood/affect Eyes: nl lids ENMT: nl external ears & nose Neck: non-tender Respiratory: clear to auscultation Cardiovascular: nl pulses, other (s1s2) Gastrointestinal: soft, non-tender Musculoskeletal: nl extremities to inspection Extremities: normal pulses Neurological: nl speech, other (alertreonsive) Skin: nl turgor Results Result Diagram: 04/26/19 0534 04/26/19 0534 Results 24hrs Laboratory Tests Test 04/25/19 20:17 04/26/19 05:34 04/26/19 08:14 04/26/19 11:16 Bedside Glucose 125 150 117 White Blood Count 8.5 Red Blood Count 5.34 Hemoglobin 15.8 Hematocrit 48.5 Mean Corpuscular 90.8 Volume Mean Corpuscular 29.6 Hemoglobin Mean Corpuscular 32.6 Hemoglobin Concent Red Cell 13.1 Distribution Width Platelet Count 197 # Mean Platelet Volume 10.9 H Immature 0.200 Granulocytes % Neutrophils % 72.8 Lymphocytes % 11.8 L Monocytes % 12.6 H Eosinophils % 2.2 Basophils % 0.4 Nucleated Red Blood 0.0 Cells % Immature 0.020 Granulocytes # Neutrophils # 6.2 Lymphocytes # 1.0 Monocytes # 1.1 H Eosinophils # 0.2 Basophils # 0.0 Nucleated Red Blood 0.0 Cells # Sodium Level 136 Potassium Level 4.2 Chloride Level 102 Carbon Dioxide Level 29 Anion Gap 5 Blood Urea Nitrogen 21 H Creatinine 0.82 Est Glomerular Filtrat Rate mL/min Glucose Level 133 Calcium Level 8.3 L Phosphorus Level 3.7 Magnesium Level 2.1 Medications Medication Current Medications IV Flush (NS 3 ml) 3 ml PER PROTOCOL IV ; Start 04/12/19 at 14:00 Acetaminophen (Tylenol Tab) 650 mg Q6H PRN PO ELEVATED TEMPERATURE Last administered on 04/17/19at 04:31; Admin Dose 650 MG; Start 04/12/19 at 14:00 Docusate Sodium (Colace) 100 mg Q12H PRN PO .CONSTIPATION Last administered on 04/23/19at 09:40; Admin Dose 100 MG; Start 04/12/19 at 14:00 Magnesium Hydroxide (Milk Of Mag) 30 ml DAILY PRN PO .CONSTIPATION Last administered on 04/23/19at 00:22; Admin Dose 30 ML; Start 04/12/19 at 14:00 Zolpidem Tartrate (Ambien) 5 mg QHS PRN PO .INSOMNIA Last administered on 04:31; Admin Dose 5 MG; Start 04/12/19 at 14:00 Pantoprazole (Protonix Tab) 40 mg DAILY@06 PO Last administered on 04/26/19 06:29; Admin Dose 40 MG; Start 04/13/19 at 06:00 Diagnostic Test (Pha) (Accu-Chek) 1 ea 02 XX ; Start 04/13/19 at 02:00 Ondansetron HCl (Zofran Inj) 4 mg Q6H PRN IV NAUSEA AND/OR VOMITING Last administered on 04/23/19 09:41; Admin Dose 4 MG; Start 04/12/19 at 14:30 Miscellaneous Information 1 ea NOTE XX ; Start 04/12/19 at 16:00 Glucose (Glutose) 15 gm Q15M PRN PO DECREASED GLUCOSE; Start 04/12/19 at 16:00 Glucose (Glutose) 22.5 gm Q15M PRN PO DECREASED GLUCOSE; Start 04/12/19 at 16:00 Dextrose (D50w Syringe) 25 ml Q15M PRN IV DECREASED GLUCOSE; Start 04/12/19 at 16:00 Dextrose (D50w Syringe) 50 ml Q15M PRN IV DECREASED GLUCOSE; Start 04/12/19 at 16:00 Glucagon (Glucagen) 1 mg Q15M PRN IM DECREASED GLUCOSE; Start 04/12/19 at 16:00 Glucose (Glutose) 15 gm Q15M PRN BUCCAL DECREASED GLUCOSE; Start 04/12/19 at 16:00 Captopril (Capoten) 25 mg TID PO Last administered on 04/26/19at 08:17; Admin Dose 25 MG; Start 04/13/19 at 13:00 Clonidine (Catapres) 0.1 mg Q4H PRN PO SBP > 170 Last administered on 04/22/19at 04:22; Admin Dose 0.1 MG; Start 04/17/19 at 07:00 Amlodipine Besylate (Norvasc) 5 mg DAILY PO Last administered on 04/24/19 08:25; Admin Dose 5 MG; Start 04/19/19 at 09:00 Hydralazine HCl (Apresoline) 25 mg TID PRN PO SBP > 160 Last administered on 04/23/19 00:21; Admin Dose 25 MG; Start 04/19/19 at 17:00 Acetaminophen/ Hydrocodone Bitart ([place] (5/325)) 2 tab Q4H PRN PO Pain 6-10 Last administered on 04/26/19 11:41; Admin Dose 2 TAB; Start 04/20/19 at 15:30 Acetaminophen/ Hydrocodone Bitart ([place] (5/325)) 1 tab Q4H PRN PO Pain 1-5; Start 04/20/19 at 15:30 Morphine Sulfate (morphine) 2 mg Q2H PRN IV Breakthrough PAIN Last administered on 04/26/19 08:10; Admin Dose 2 MG; Start 04/20/19 at 15:30 Diltiazem HCl (Cardizem Iv) 5 mg Q1H PRN IV HR > 110 OR SBP; > 170; Start 04/20/19 at 17:00 Enalaprilat (Vasotec Iv) 1.25 mg Q4H PRN IV SBP > 180 Last administered on 04/22/19 07:31; Admin Dose 1.25 MG; Start 04/20/19 at 17:00 Carvedilol (Coreg) 3.125 mg BID PO Last administered on 04/26/19 08:17; Admin Dose 3.125 MG; Start 04/21/19 at 09:00 Enoxaparin Sodium (Lovenox) 40 mg DAILY SC Last administered on 04/26/19 08 :41; Admin Dose 40 MG; Start 04/22/19 at 09:00 Miscellaneous Information Patients own medicat... BID@10,16 XX ; Start 04/23/19 at 16:00 Metoclopramide HCl (Reglan) 10 mg AC MEALS IV Last administered on 04/26/19 11:17; Admin Dose 10 MG; Start 04/24/19 at 17:30 Insulin Aspart (Novolog Insulin Pen) (Adult SC Insulin - Moder... WITH MEALS BEDTIME SC Last administered on 04/26/19 08:41; Admin Dose 2 UNIT; Start 04/24/19 at 21:00 JULI COREAS April 26, 2019 17:44
--- NOTE | 2019-04-26 20:44 | DS ---
DATE OF ADMISSION: 04/12/2019 DATE OF DISCHARGE: 04/26/2019 REASON FOR ADMISSION: Abdominal pain, liver lesions, rule out metastatic disease. HOSPITAL COURSE: The patient is an 78-year-old unfortunate male, obese, with history of hy pertension, dyslipidemia, diabetes mellitus on metformin, ASCVD, atrial fibrillation, and CVA 10 year s ago with no residual deficit. The patient has been experiencing abdominal pain for more than a mon , most notably in the left lower quadrant. Abdominal ultrasound at the outside facility showed mul tiple liver lesions concerning for metastatic disease. Because of his pain, he was admitted for furt her care. Upon admission, the patient notes to have elevated CEA which was 19.7 and elevated CA19-9 at 369. Multiple physicians were consulted throughout his hospitalization including Dr. Haq, the building services coordinator, due to patient's atrial fibrillation; Dr. Jones, the oncologist, due to malignancy; and Dr. Francisco House, the surgical appliances salesperson. The patient underwent diagnostic imaging which include d an abdominal ultrasound which showed diffuse hepatic steatosis. There is hypoechoic liver lesion w hich could represent focal areas of fatty sparing or focal liver lesion. Continue followup. There i s no evidence of cholelithiasis or bilateral renal cysts. This was followed by the chest x-ray which shows low lung volumes. CT chest, abdomen and pelvis revealed approximately 70 cm loop of sigmoid. The colon demonstrates wall thickening with surrounding fat stranding. While this is suspicious for infectious inflammatory bowel disease, colitis versus less likely diverticulitis, neoplasm is not ent irely excluded. There are also diffuse fatty changes of the liver. The previously noted hepatic les ion on recent ultrasound was not clearly visualized. Ascending thoracic aorta measuring 4.9 cm and m ildly enlarged prostate gland. This was followed with an MRI of the abdomen which showed there are f ew mild T2 hyperintense lesions with hyperenhancement. Ultimately, the patient underwent a colonosco py and was found to have a descending colon mass. Pathology report revealed adenocarcinoma, moderate ly differentiated. Ultimately, Dr. Jones and Dr. Francisco House had a discussion regarding plan of c are regarding either first chemo and then surgery or first surgery and then chemo. Both of them deci ded to proceed with surgical removal of the colon mass. Unfortunately, when patient went to the OR, blood pressure became hypotensive and bradycardic, so surgery was deferred. The patient was monitore d and then surgery was rescheduled. Ultimately, the patient underwent surgery on 04/20/2019. He und erwent laparoscopic sigmoid colectomy, laparoscopic splenic normalization, and rigid sigmoidoscopy. The pathology unfortunately again confirmed cancer that showed infiltrating moderately differentiated adenocarcinoma; tumor invades through the muscularis propria into the pericolonic tissue, metastatic adenocarcinoma to 2/8 mesenteric lymph nodes and 2/8 separate tubular adenoma. The patient postop h ad a INEZ in place. He had a slow recovery until he passed gas and was able to move his bowel. Diet w as advanced. Overall has poor appetite. He requested pain medications, but overall the patient javier ined stable. Temperature 98, pulse 74, respirations 18, blood pressure 117/67, saturation 97%. The patient's hemoglobin A1c was 7 on admission. Electrolytes: Sodium 133, potassium 4.2, chloride 102, bicarbonate 29, bilirubin 21, creatinine 0.82, glucose 133. The patient will be discharged with [facility] to assist with monitoring his pain, INEZ drainage and see how postoperatively. DISCHARGE MEDICATIONS: 1. Eliquis 5 mg b.i.d. due to his AFib. 2. [place] 10/325 q.4h. p.r.n. for moderate pain. 3. Amlodipine 2.5 daily. 4. Metoprolol tartrate 25 b.i.d. 5. Colace 100 b.i.d. 6. Protonix 40 mg daily. FINAL DIAGNOSES: 1. Abdominal pain. 2. Metastatic colon cancer to the liver. 3. Status post colectomy and removal of colon mass. 4. Atrial fibrillation. 5. Hypertension. 6. Morbidly obese state. 7. Diabetes mellitus. 8. Abdominal pain. The patient is to follow with Dr. Jones and consider treatment to his liver mets, chemo-focused liver treatment with Dr. Grigsby as an outpatient; that can be done at [place]. In the meantime, we will let the patient recover. Follow up with PCP, oncology and surgical team and we will arrange for chemo at a later as he recovers from this surgery. Any change in condition, call 911 or go to the [facility] emergency department. We will follow patient closely. DISPOSITION: The patient to be discharged with home health. DIET: Advance as tolerated. Dictated By: NIDHI PEREZ/RUIZ SIEGEL: 04/26/2019 15:37:55 Conf#: [id number] [facility]#: [id number]
--- NOTE | 2019-04-27 09:22 | PN ---
DATE: 04/24/2019 The patient was seen. Unfortunately, just had episode of vomiting, ____ reports still nauseated. La bs today actually within normal limits. CBC and basic metabolic panel were normal. Last glucose lev els 129, 118 and 128. Diet was advanced to soft diet per surgical team. PHYSICAL EXAMINATION: VITAL SIGNS: Temperature 98.1, pulse 78, respirations 18, blood pressure 155/98, saturation 96%. GENERAL: No acute distress, obese, pale. CARDIOVASCULAR: S1, S2, regular rate. LUNGS: Clear. ABDOMEN: Soft, distended. EXTREMITIES: No clubbing, cyanosis, or edema. LABORATORY DATA: Sodium 140, potassium 4.0, chloride 100, bicarbonate 33, BUN 26, creatinine 0.82, g lucose of 134, last glucose level 129, 118 and 128. White count 9.4, hemoglobin 16.9, hematocrit 43. 1 , platelets count 270, neutrophils 69%, eosinophils 19%. MEDICATIONS: 1. Lovenox 40 mg daily. 2. Coreg 3.125 b.i.d. 3. Cardizem p.r.n. 4. Vasotec p.r.n. 5. [place] p.r.n. 6. Morphine p.r.n. 7. Hydralazine 25 t.i.d. p.r.n. 8. Norvasc 5 mg daily. 9. Clonidine p.r.n. 10. ____ as directed. 11. Captopril 25 t.i.d. 12. Protonix 40 p.o. daily. 13. Hypoglycemia protocol as directed. 14. Tylenol. 15. Colace. 17. Milk of magnesia. 15. Ambien p.r.n. ASSESSMENT AND PLAN: This is an 78-year-old obese male with history of hypertension, dysli pidemia, atrial fibrillation, diabetes mellitus, who presented with left lower abdominal pain, was fo und to have colon mass status post resection. Diagnosis is consistent with metastatic colon cancer t o the liver. 1. Metastatic colon cancer to the liver. Postop day #4. Placed the patient on Reglan around the cl ock. Continue p.r.n. Zofran. Continue to advance diet as tolerated. Out of bed activity as tolerat es ____. Diet per surgical team. 2. INEZ drainage care per surgical team. 3. Continue DVT prophylaxis and GI prophylaxis. 4. Hypertension. Continue above meds. 5. Diabetes mellitus. Glucose level in the 100s. Continue insulin regimen. 6. Oncology is on board. Outpatient appointment for possible liver targeted lesions therapy. We wi ll follow disposition once able to tolerate diet and feeling better. We will follow. Dictated By: NIDHI PEREZ/RUIZ Conf#: [id number] DID#: [id number]
== END 2019-04-26 19:57 | disposition home health service (06) | DRG 330 ==
LOC: PP2 13:45 → ICU 04-16 19:04 → 6WM 04-17 22:03
PROVIDERS: ADMIT Internal Medicine; ATTEND Internal Medicine
PROC: 0DBM8ZX Excision of Descending Colon, Via Natural or Artificial Opening Endoscopic, Diagnostic (ICD-10-PCS; 2019-04-14)
PROC: 0DJD8ZZ Inspection of Lower Intestinal Tract, Via Natural or Artificial Opening Endoscopic (ICD-10-PCS; 2019-04-20)
PROC: 0DTN4ZZ Resection of Sigmoid Colon, Percutaneous Endoscopic Approach (ICD-10-PCS; principal; 2019-04-20 09:00)
DX: C18.8 Malignant neoplasm of overlapping sites of colon (principal); C78.7 Secondary malignant neoplasm of liver and intrahepatic bile duct; C77.2 Secondary and unspecified malignant neoplasm of intra-abdominal lymph nodes; K56.699 Other intestinal obstruction unspecified as to partial versus complete obstruction; R00.1 Bradycardia, unspecified; I95.9 Hypotension, unspecified; E66.01 Morbid (severe) obesity due to excess calories; I10 Essential (primary) hypertension; I25.10 Atherosclerotic heart disease of native coronary artery without angina pectoris; E78.5 Hyperlipidemia, unspecified; D12.5 Benign neoplasm of sigmoid colon; I48.2 Chronic atrial fibrillation; I71.2 Thoracic aortic aneurysm, without rupture; K76.0 Fatty (change of) liver, not elsewhere classified; Z68.37 Body mass index [BMI] 37.0-37.9, adult; Z53.09 Procedure and treatment not carried out because of other contraindication; Z79.84 Long term (current) use of oral hypoglycemic drugs; Z86.73 Personal history of transient ischemic attack (TIA), and cerebral infarction without residual deficits
CPT/HCPCS: 71045; 71260; 74177; 74182; 76700; 80048; 80053; 82105; 82270; 82378; 82728; 82962; 83036; 83735; 84100; 84153; 84154; 84443; 84484; 84560; 85025; 85610; 85730; 86301; 86850; 86900; 86901; 87081; 87086; 88305; 88307; 93005; 93306; 97116; 97161; 97530; J0171; J0360; J0690; J1170; J1650; J1815; J2001; J2175; J2270; J2310; J2405; J2765; J2795; J3010; J7030; J7070; Q9967